=== PATIENT | male | born 1995 | race African-American/Black ===

== ENCOUNTER 2019-03-08 02:38 | Inpatient (IN) | payer OTHER ==
[2019-03-08] VITALS (19 sets, daily range): BP systolic 94–107; BP diastolic 53–78; PULSE 81–118; RESP 16–34; Ht 172.7 cm; Wt 67.4 kg
[~2019-03-08] VITALS: Ht 172.7 cm; Wt 67.4 kg
[2019-03-08] MEDS ORDERED: SODIUM CHLORIDE 0.9% 1L BAG IV* STA (02:59)
[2019-03-08] MEDS ORDERED: CEFEPIME 1GM/50 ML (PMX) 50 ML IVPB ONE (03:00)
[2019-03-08] MEDS ORDERED: ACETAMINOPHEN 650 MG SUPP PR ONE (03:00)
[2019-03-08] MEDS ORDERED: SOD CHLORIDE 0.9% 1,000 ML IV STA (03:45)
[2019-03-08] MEDS ORDERED: LACTATED RINGER'S 1,000 ML IV STA (03:45)
--- NOTE | 2019-03-08 03:46 | ERD ---
ER Documentation Chief Complaint Chief Complaint [id number],from [facility] [place],O2 sat on ventilator 88% HPI This is a 23-year-old man chronic mechanical ventilator dependent via tracheostomy brought in by EMS from [facility] facility for hypoxia and fever. Symptoms began today, he has had no vomiting, but has had diarrhea with multiple loose stools today. HPI limited as patient is nonverbal but supplemented by reviewing snf records and speaking to EMS. ROS All systems reviewed and are negative except as per history of present illness. 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) Smoking Status: Unknown if ever smoked FmHx Family History: No diabetes Physical Exam Vitals Vital Signs Date Temp Pulse Resp B/P (MAP) Pulse Ox O2 O2 Flow FiO2 Time Delivery Rate 03/08/19 100.4 144 27 104/75 95 02:52 (85) 03/08/19 89 18 96 100 02:51 Physical Exam Const: Well-developed well-nourished young man on mechanical ventilator, febrile HEENT: Tracheostomy tube is present, pink conjunctive a, no cervical spine deformity Resp: Absent lung sounds on the right, left lung sounds clear Cardio: Tachycardic and regular Skin: Left foot is wrapped with gauze, no obvious hematomas ulcers or lacerations present. Sacral/buttock skin exam was deferred Ext: No cyanosis, or edema, calves symmetrical with bilateral lower extremity contractures Neur: Eyes open, patient nonverbal, muscle wasting diffusely with upper and lower extremity contractures Result Diagram: 03/08/1931003/08/19 0311 Results 24 hrs Laboratory Tests Test 03/08/19 03:11 03/08/19 03:14 White Blood Count 15.2 10^3/ul Red Blood Count 3.92 10^6/ul Hemoglobin 11.6 g/dl Hematocrit 36.2 % Mean Corpuscular Volume 92.3 fl Mean Corpuscular Hemoglobin 29.6 pg Mean Corpuscular Hemoglobin Concent 32.0 g/dl Red Cell Distribution Width 15.5 % Platelet Count 429 10^3/UL Mean Platelet Volume 10.2 fl Immature Granulocytes % 0.800 % Neutrophils % 70.7 % Lymphocytes % 16.3 % Monocytes % 10.2 % Eosinophils % 1.1 % Basophils % 0.9 % Nucleated Red Blood Cells % 0.0 /100WBC Immature Granulocytes # 0.120 10^3/ul Neutrophils # 10.7 10^3/ul Lymphocytes # 2.5 10^3/ul Monocytes # 1.6 10^3/ul Eosinophils # 0.2 10^3/ul Basophils # 0.1 10^3/ul Nucleated Red Blood Cells # 0.0 10^3/ul Sodium Level 140 mmol/L Potassium Level 4.8 mmol/L Chloride Level 103 mmol/L Carbon Dioxide Level 26 mmol/L Anion Gap 11 Blood Urea Nitrogen 20 mg/dl Creatinine 0.74 mg/dl Est Glomerular Filtrat Rate mL/min > 60 mL/min Glucose Level 126 mg/dl Calcium Level 9.1 mg/dl Total Bilirubin 0.3 mg/dl Direct Bilirubin 0.00 mg/dl Indirect Bilirubin 0.3 mg/dl Aspartate Amino Transf (AST/SGOT) 34 IU/L Alanine Aminotransferase (ALT/SGPT) 35 IU/L Alkaline Phosphatase 101 IU/L Troponin I < 0.012 ng/ml C-Reactive Protein 2.9 mg/dl Total Protein 10.0 g/dl Albumin 4.1 g/dl Globulin 5.90 g/dl Albumin/Globulin Ratio 0.69 Lipase 16 U/L POC Venous Lactate 2.4 mmol/L Current Medications Medications Dose Sig/Elin Start Time Status Last (Trade) Ordered Route PRN Stop Time Admin Dose Reason Admin Sodium 2,020 ml BOLUS OVER 2 03/08/19 DC 03/08/19 Chloride HOURS STAT 02:59 03/08/19 03:12 (NS) IV* 03:01 Cefepime HCl 50 ml @ ONCE ONCE 03/08/19 DC 03/08/19 100 mls/hr IVPB 03:00 03/08/19 03:20 03:29 650 mg ONCE ONCE 03/08/19 DC 03/08/19 Acetaminophen CO 03:00 03/08/19 03:20 (Tylenol 03:01 Supp) Azithromycin 250 ml @ ONCE ONCE 03/08/19 250 mls/hr IVPB 04:00 03/08/19 04:59 Sodium 1,000 ml @ Q1H STAT 03/08/19 Chloride 1,000 mls/hr IV 03:45 03/08/19 04:44 Lactated 1,000 ml @ Q1H STAT 03/08/19 Ringer's 1,000 mls/hr IV 03:45 03/08/19 04:44 Sodium 1,000 ml @ [id number] IV 03/08/19 UNV Chloride 60 mls/hr 04:10 IV Flush 3 ml PER 03/08/19 UNV (NS 3 ml) PROTOCOL IV 04:30 Ondansetron 4 mg Q6H PRN 03/08/19 UNV HCl (Zofran IV 04:30 Inj) NAUSEA/VOMITI NG 650 mg Q6H PRN 03/08/19 UNV Acetaminophen CO .PAIN 1-3 04:30 (Tylenol OR TEMP Supp) Famotidine 20 mg Q12 IV 03/08/19 UNV (Pepcid Iv) 09:00 Enoxaparin 40 mg DAILY SC 03/08/19 UNV Sodium 09:00 (Lovenox) Procedures/MDM IV line was established patient was placed on roll hauler rhythm strip revealed a narrow complex tachycardia at 140 bpm with upright P and T waves. Patient was febrile, blood and urine cultures have been ordered results are pending I will follow-up. EKG performed, read by me revealed a sinus tachycardia at 142 bpm, normal axis, narrow QRS complex, no concerning ST elevations or depressions noted 1 view chest x-ray performed, read by me revealed right lung white out consistent with infiltrate and effusion, no pneumothorax, no air under the diaphragm I administered acetaminophen per rectum for fever, 2 L normal saline IV, cefepime 1 g IV, azithromycin 500 mg IV. CBC reveals a leukocytosis of 15, electrolytes revealed dehydration with a BUN/creatinine of 20/0.7, liver function tests are normal, troponin negative, lactic acid elevated at 2.4, C-reactive protein elevated at 2.9. Urinalysis is pending I will follow-up Patient's infectious symptoms have not stabilized and the patient is at risk of rapid decompensation. The patient will be admitted for careful hydration, antibiotic therapy, and infectious source control. SEVERE SEPSIS CRITERIA: Infectious source: Pneumonia End organ damage indicated by: No SEPSIS MANAGEMENT Time of recognition of sepsis: Upon arrival. Time of recognition of severe sepsis: No severe sepsis at this time. Time of recognition of septic shock: No septic shock at this time. 3 HOUR BUNDLE Blood cultures x 2 before broad-spectrum antibiotics: Yes 30 ml/kg NS bolus completed Initial lactate 2.4 Repeat lactate pending SEPTIC SHOCK ASSESSMENT: No lactic acid > 4.0 No persistent hypotension (SBP < 90 or 40 mmHg drop, MAP < 65) despite 30 mL/kg IV fluid bolus VOLUME REASSESSMENT FOR SEPTIC SHOCK: Reevaluation Time: 3:40 AM Temp 99 F, pulse 120 bpm, BP 120/80, respiratory rate 30 breaths/min, oxygen saturation 98% Heart tachycardic and regular Lungs diminished breath sounds on the right Skin hot and dry to touch Cap Refill less than 2 seconds Peripheral pulses radially present PERSISTENT HYPOTENSION TREATMENT: Comfort care no Central line not Required Vasopressor started not required I considered further perfusion assessment with CVP measurement, SCVO2, bedside ultrasound volume assessment, passive leg raise, trial of further fluid bolus. And proceeded with 30 ml/kg fluid bolus of NSS, broad spectrum antibiotics, and admission. CRITICAL CARE: Critical care time 35 minutes, this was time separate from other billable procedures. Emergent fluid management while maintaining close respiratory support. Provision of immediate and broad-spectrum antibiotic therapy. Simultaneous assessment for possible sources in order to direct targeted therapy. Consideration for invasive and chemical support to prevent cardiopulmonary collapse. Critical care time is independent of procedures performed. Accepting Care Team: Current data and ongoing care discussed. Time: Time of admission Primary Provider: Hospitalist Consulting: Infectious disease and pulmonology Outstanding Data: none Departure Diagnosis: Primary Impression: Infectious colitis Additional Impressions: Healthcare-associated pneumonia Acute encephalopathy Acute dehydration Chronic respiratory failure requiring continuous mechanical ventilation through tracheostomy Acute UTI Sepsis Sepsis type: sepsis due to unspecified organism Qualified Codes: A41.9 - Sepsis, unspecified organism Condition: Serious LAKHWINDER ESTRELLA MD Mar 08, 2019 03:46
[2019-03-08] MEDS ORDERED: AZITHROMYCIN 500MG/NS (PMX) 250 ML IVPB ONE (04:00)
[2019-03-08] MEDS ORDERED: SOD CHLORIDE 0.9% 1,000 ML IV SCH (04:10)
[2019-03-08] MEDS ORDERED: ONDANSETRON 4 MG INJ IV PRN (04:30)
[2019-03-08] MEDS ORDERED: NACL 0.9% 3 ML SYG IV SCH (04:30)
[2019-03-08] MEDS: FAMOTIDINE 20 MG INJ IV SCH ×2 (08:40→21:27)
[2019-03-08] MEDS: ENOXAPARIN 40 MG/0.4 ML SYG SC SCH (08:40)
[2019-03-08] MEDS ORDERED: VANCOMYCIN IV PER PHARMACY XX SCH (13:00)
[2019-03-08] MEDS: ALBUTEROL/IPRATROPIUM (NEB) 3 ML AMP HHN SCH ×3 (13:00→19:27)
[2019-03-08] MEDS ORDERED: IPRATROPIUM (NEB) 0.5 MG/2.5 ML AMP NEB PRN (13:00)
[2019-03-08] MEDS ORDERED: NACL 3% FOR INHALATION 15 ML NEBU NEB ONE (13:00)
--- NOTE | 2019-03-08 13:15 | HP ---
Date/Time of Note Date/Time of Note DATE: 03/08/19 TIME: 12:45 Assessment/Plan VTE Prophylaxis SCD applied (from Nsg): Yes Pharmacological prophylaxis: LMWH Lines/Catheters IV Catheter Type (from Nrsg): Saline Lock Urinary Cath still in place: Yes Reason Cath still needed: other (indicate) Assessment/Plan Hospital Course SUBJECTIVE: Trach/vent OBJECTIVE: Vital signs-see below PHYSICAL EXAM: Constitutional: Chronically ill looking/frail looking AA M in moderate respiratory distress HEENT: Head atraumatic. Eyes: Extraocular muscles intact. Anicteric sclerae. Pupils equal bilaterally, reactive to light. NECK: Supple without lymph node. CHEST: Rhonchi/Coarse sounds bilaterally HEART: S1, S2. Regular rate and rhythm. ABDOMEN: Soft/non tender with no rebound tenderness. Bowel sounds were present. EXTREMITIES: Contracted extremities. No edema. NEUROLOGIC: Trach/vent. Nonverbal. PSYCHOSOCIAL: Unable to assess INTEGUMENTARY:Decubs. Lt Lower extremity wrapped in dressing. 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 Sepsis -Source: Pneumonia plus or minus UTI/Colitis/infected decubs -Empiric Zosyn plus vancomycin -coto culture Acute on chronic Vent dependent respiratory failure -[id number] bronchodilators, pulmonary toileting -Vent management per pulmonary Healthcare/vent associated pneumonia plus or minus aspiration -IV Zosyn/Flagyl plus vancomycin -Pulmonary consult- Consider bronch?? -Chest CT -sputum cs -Aspiration precaution/HOB 35 degree and above Possible UTI -Antimicrobials, urine cultures Diarrhea, rule out infectious colitis vs meds-induced(note pt takes multiple laxatives at ) -Abdominal CT -Stool studies -Empiric Flagyl Dehydration -fluids Chronic anoxic encephalopathy -supportive care Hypertension -currently hypotensive 2/2 sepsis. Hold off to antihypertensives. 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 Continue monitoring patient Chronic decub ulcer/L foot metatarsal wounds -Wound care ordered -Wound care consult DVT prophylaxis: Lovenox PUD prophylaxis: Pepcid Patient would need ICU for monitoring respiratory status closely. Patient is in severe sepsis. His overall prognosis is guarded. Approximately 60-minute was spent on this history and physical. Patient was seen in collaboration with Result Diagram: 03/08/19 0311 03/08/19 0311 Results 24hrs Laboratory Tests Test 03/08/19 03:11 03/08/19 03:14 03/08/19 04:08 03/08/19 04:40 White Blood Count 15.2 H Red Blood Count 3.92 L Hemoglobin 11.6 L Hematocrit 36.2 L Mean Corpuscular 92.3 Volume Mean Corpuscular 29.6 Hemoglobin Mean Corpuscular 32.0 Hemoglobin Concent Red Cell 15.5 H Distribution Width Platelet Count 429 H Mean Platelet 10.2 Volume Immature 0.800 H Granulocytes % Neutrophils % 70.7 Lymphocytes % 16.3 Monocytes % 10.2 Eosinophils % 1.1 Basophils % 0.9 Nucleated Red 0.0 Blood Cells % Immature 0.120 H Granulocytes # Neutrophils # 10.7 H Lymphocytes # 2.5 Monocytes # 1.6 H Eosinophils # 0.2 Basophils # 0.1 Nucleated Red 0.0 Blood Cells # Sodium Level 140 Potassium Level 4.8 Chloride Level 103 Carbon Dioxide 26 Level Anion Gap 11 Blood Urea 20 Nitrogen Creatinine 0.74 Est Glomerular > 60 Filtrat Rate mL/min Glucose Level 126 Calcium Level 9.1 Total Bilirubin 0.3 Direct Bilirubin 0.00 Indirect Bilirubin 0.3 Aspartate Amino 34 Transf (AST/SGOT) Alanine 35 Aminotransferase ( ALT/SGPT) Alkaline 101 Phosphatase Troponin I < 0.012 C-Reactive Protein 2.9 H Total Protein 10.0 H Albumin 4.1 Globulin 5.90 H Albumin/Globulin 0.69 Ratio Lipase 16 L POC Venous Lactate 2.4 *H Blood Gas Specimen Blood arterial Source Arterial Blood 03/08/2019 5:15:28 Date Drawn AM Arterial Blood pH 7.388 (Temp corrected) Arterial Blood 37.5 pCO2 (Temp correct) Arterial Blood pO2 116.9 H (Temp corrected) Arterial Blood 22.1 HCO3 Arterial Blood -2.6 Base Excess Arterial Blood 97.9 Oxygen Saturation Christopher Test N/A Arterial Blood Gas Right Brachial Puncture Site Arterial 0.3 Blood Carboxyhemog lobin Arterial Blood 0.3 Methemoglobin Blood Gas A-a O2 558.6 H Differential Oxyhemoglobin 97.3 Percent Blood Gas 37.0 Temperature Blood Gas 16.0 Respiration Rate Blood Gas Actual 16 Respiration Rate Blood Gas Modality VENT - AC FiO2 100.0 Blood Gas Tidal 500.0 Volume Blood Gas Low PEEP 5.0 Setting Blood Gas 33.0 Inspiratory Pressure Blood Gas Notified MG Whom Blood Gas Notified 03/08/2019 5:20:07 Time AM Prothrombin Time 16.2 H Prothrombin Time 1.3 Ratio INR International 1.29 Normalized Ratio Activated 33.[address] Time Test 03/08/19 05:24 03/08/19 05:34 03/08/19 08:36 Urine Color YELLOW Urine Clarity CLOUDY A Urine pH 6.0 Urine Specific 1.023 [place] Urine Ketones NEGATIVE Urine Nitrite NEGATIVE Urine Bilirubin NEGATIVE Urine Urobilinogen NEGATIVE Urine Leukocyte 3+ H Esterase Urine Microscopic 22 H RBC Urine Microscopic > 182 H WBC Urine Bacteria FEW A Urine Mucus FEW A Urine Hemoglobin NEGATIVE Urine Glucose NEGATIVE Urine Total NEGATIVE Protein Lactic Acid Level 1.9 1.4 HPI/ROS Admit Date/Time Admit Date/Time Mar 08, 2019 at 04:09 Hx of Present Illness This is a very unfortunate AA 23-year-old male with a history of ICH, AVM hydrocephalus, epilepsy, encephalopathy, hypertension, chronic respiratory failure, status post trach and PEG, was transferred from intermediate facility with worsening respiratory status and fevers. Patient was desaturated in the skilled nursing. He also had multiple episodes of diarrhea. Patient did not have any vomiting reported. In the emergency room, patient was noted with a white count of 15,200, lactic acid 2.4 with chest x-ray shows right-sided pneumonia with possible pleural effusion. Patient's UA also showed 3+ leukocyte esterase, bacteria and pus. Patient was given broad-spectrum antimicrobials in the emergency room with cultures drawn. Patient's vital signs also showed temperature 100.4, pulse rate 144, respiratory rate 27, oxygen saturation 96% on 100% FiO2. ROS Pt is nonverbal and altered.ROS is incomplete. Patient is in moderate respiratory distress. PMH/Family/Social Past Medical History See HPI Medications Current Medications Sodium Chloride 1,000 ml @ 60 mls/hr [id number] IV Last administered on 03/08/19at 06:59; Admin Dose 60 MLS/HR; Start 03/08/19 at 04:10 IV Flush (NS 3 ml) 3 ml PER PROTOCOL IV ; Start 03/08/19 at 04:30 Ondansetron HCl (Zofran Inj) 4 mg Q6H PRN IV NAUSEA/VOMITING; Start 03/08/19 at 04:30 Acetaminophen (Tylenol Supp) 650 mg Q6H PRN [place] .PAIN 1-3 OR TEMP; Start 03/08/19 at 04:30 Famotidine (Pepcid Iv) 20 mg Q12 IV Last administered on 03/08/19at 08:40; Admin Dose 20 MG; Start 03/08/19 at 09:00 Enoxaparin Sodium (Lovenox) 40 mg DAILY SC Last administered on 03/08/19at 08:40; Admin Dose 40 MG; Start 03/08/19 at 09:00 Piperacillin Sod/ Tazobactam Sod 100 ml @ 200 mls/hr Q6 IVPB ; Start 03/08/19 at 13:00; Status UNV Vancomycin HCl (Vanco Iv Per Pharmacy) VANCOMYCIN PER PHARMACY PER PROTOCOL XX ; Start 03/08/19 at 13:00; Status UNV Sodium Chloride (Nacl 3% For Inhalation) 5 ml ONCE ONCE NEB ; Start 03/08/19 at 13:00; Stop 03/08/19 at 13:01; Status UNV Albuterol/ Ipratropium (Duoneb) 3 ml Q4H RESP THERAPY HHN ; Start 03/08/19 at 13:00; Status UNV Albuterol (Proventil 0.083% (Neb)) 1.25 mg Q2H RESP THERAPY PRN HHN sob/wheezing; Start 03/08/19 at 13:00; Status UNV Coded Allergies: No Known Allergy (Unverified , 03/08/19) Past Surgical History See HPI Social History Unknown Smoking Status: Unknown if ever smoked Exam/Review of Systems Vital Signs Vitals Vital Signs Date Temp Pulse Resp B/P (MAP) Pulse Ox O2 O2 Flow FiO2 Time Delivery Rate 03/08/19 93 85 11:02 03/08/19 99 20 10:55 03/08/19 99.1 105/68 Mechanical 10:15 (80) Ventilator TE TURNER NP Mar 08, 2019 12:59
[2019-03-08] MEDS: DEXTROSE 5%-0.225% NACL 1,000 ML IV SCH ×2 (13:30→21:27)
[2019-03-08] MEDS ORDERED: SOD CHLORIDE 0.9% 1,000 ML IV ONE (13:30)
[2019-03-08] MEDS: metroNIDAZOLE 500 MG TAB GTB SCH ×2 (14:26→21:26)
[2019-03-08] MEDS ORDERED: VANCOMYCIN HCL 1.25 GM in SOD CHLORIDE 0.9% 250 ML IVPB SCH (14:30)
[2019-03-08] MEDS: PIPER-TAZO 3.375 GM IV (PMX) 100 ML IVPB SCH ×3 (14:36→23:32)
[2019-03-08] MEDS ORDERED: LORAZEPAM 2 MG INJ ONE (15:22)
[2019-03-08] MEDS ORDERED: LIDOCAINE 1% (MPF) 5 ML VIAL SC ONE ×2 (16:00→17:30)
[2019-03-08] MEDS ORDERED: LORAZEPAM 2 MG INJ IV ONE ×2 (16:00)
--- NOTE | 2019-03-08 16:48 | QN ---
Documentation Comment Attempted to contact [facility], no response on all numbers. Patient needs emergent thoracentesis for large pleural effusion with significant hypoxemia. Thoracentesis needs to be performed urgently. Also anticipate dropping BP therefore patient will also need central iv access. PICC lines requested. NELL GUSTAFSON MD, [facility] Mar 08, 2019 16:48
[2019-03-08] MEDS: ARTIFICIAL TEARS 15 ML OPH BOTH EYES SCH ×2 (17:00→21:26)
[2019-03-08] MEDS: MIDAZOLAM (DRIP) 50 mg/50 mL 50 ML IV SCH (17:19)
[2019-03-08] MEDS: ACETYLCYSTEINE 20% 4 ML VIAL NEB SCH ×2 (17:25→19:27)
--- NOTE | 2019-03-08 17:45 | CONS ---
DATE OF ADMISSION: 03/08/2019 DATE OF CONSULTATION: TYPE OF CONSULTATION: Pulmonary. REASON FOR CONSULTATION: Ventilator management and shortness of breath. Thank you, Dr. Ramirez, for this consultation. HISTORY OF PRESENT ILLNESS: This is an unfortunate 23-year-old gentleman with history of vent-depend ent respiratory failure secondary to intracranial hemorrhage secondary to AVMs, subsequent epilepsy, chronic encephalopathy, essential hypertension, dysphagia with G-tube, comes in with increasing short ness of breath, orthopnea, PND, found to have opacification of right hemithorax on initial chest x-ra y with leukocytosis on examination. PAST MEDICAL HISTORY: As above includes vent-dependent respiratory failure, history of AVMs with int racerebral hemorrhage, chronic encephalopathy. MEDICATIONS: Per chart. ALLERGIES: NONE. SOCIAL HISTORY: He is a nonsmoker, no alcohol, no history of drug use. FAMILY HISTORY: Noncontributory. SYSTEMS REVIEW: A 12-point review of systems was unable to perform. PHYSICAL EXAMINATION: GENERAL: Chronically ill appearing young gentleman on mechanical ventilation via tracheostomy. VITAL SIGNS: Currently afebrile, pulse is 98, blood pressure 94/75, O2 saturation 96%, FiO2 of 85%. NECK: Trach site is clean and intact. CARDIAC: S1, S2. No added sounds or murmurs. CHEST: Diminished air entry bilaterally. ABDOMEN: Soft, nontender. No guarding. No rebound. EXTREMITIES: No cyanosis, clubbing or edema. NEUROLOGIC: Unable to assess. The patient has contractures. LABORATORY DATA: White count 15.2, hemoglobin 11.6, platelets of 429. BUN 20, creatinine 0.74. INR 1.29. DIAGNOSTIC DATA: Chest x-ray shows incomplete opacification of right hemithorax. IMPRESSION AND PLAN: 1. Acute on chronic hypoxemic respiratory failure likely secondary to combination of mucous plugging with possible underlying pleural effusion. 2. Possible acute on chronic seizures. 3. Severe sepsis. 4. Vent dependent respiratory failure. 5. 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 6. Dysphagia with G-tube. PLAN: 1. Continue mechanical ventilation. 2. Thoracentesis for right pleural effusion, although on preliminary CT report it appears complicate d and possibly loculated. 3. Continue broad-spectrum antibiotic coverage. 4. Possible bronchoscopy if thoracentesis does not remove pleural effusion. Dictated By: NELL GUSTAFSON MD SV/NTS Conf#: [id number] DID#: [id number] CC: YANN RAMIREZ MD; PITO WEINER MD;*End*
--- NOTE | 2019-03-08 18:05 | CONS ---
DATE OF ADMISSION: 03/08/2019 DATE OF CONSULTATION: 03/08/2019 TYPE OF CONSULTATION: Infectious consult. REASON FOR CONSULTATION: Antibiotic management. HISTORY OF PRESENT ILLNESS: German Espino is a 23-year-old male who was brought in from [facility] with shortness of breath. He is a 23-year-old male with chronic mechanical ventilator-depend ent respiratory failure, status post tracheostomy, brought in by EMS from a halfway facility for hypoxemia and fever. The patient has had diarrhea with multiple loose stools today. There is no nausea or vomiting. The patient is nonverbal. His problems include: 1. Respiratory failure and trach dependent. 2. Dysphagia, status post gastrostomy placement. 3. Epilepsy. 4. Intracranial ICH secondary to hydrocephalus. 5. Hypertension. 6. Multiple decubiti. 7. 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 PAST MEDICAL HISTORY: As outlined. FAMILY HISTORY: Noncontributory. SOCIAL HISTORY: There is no history of smoking, drinking or abuse of drugs. ALLERGIES: NONE TO PENICILLIN, SULFA OR FOODS. MEDICATIONS: Per chart. REVIEW OF SYSTEMS: As per HPI. PHYSICAL EXAMINATION: GENERAL: The patient is an unfortunate, chronically ill-appearing male on mechanical ventilator. VITAL SIGNS: T-max of 100.4. SKIN: Left foot is wrapped with gauze. He has no icterus or rash. HEENT: Within normal limits. Tracheostomy in place. NECK: Supple. LYMPH NODES: None palpable. CHEST: Decreased breath sounds at the bases. HEART: Regular rhythm, tachycardic. ABDOMEN: Soft, nontender, without organosplenomegaly or masses. EXTREMITIES: Without cyanosis, clubbing, or edema. He has bilateral lower extremity contractures. RECTAL AND GENITAL: Deferred. NEUROLOGIC: The patient is nonverbal. He has muscle wasting diffusely and upper and lower extremiti es contractures. ANCILLARY LABORATORY DATA: On admission, his white count is 15.2, H and H 11.6 and 36.2, platelet co unt 429,000. BUN and creatinine 20/0.74, glucose of 126. IMPRESSION AND PLAN: The patient was started on cefepime and azithromycin. The feeling was that he had severe sepsis, pneumonia. His white count as noted was 15.2, H and H 11.63 and 36.2, platelet co unt 429,000. BUN and creatinine 20/0.74. Random glucose 126. He had 71% neutrophils. He did not h ave septic shock. His lactic acid was not greater than 4. The patient was thought to have infectiou s colitis, healthcare-associated pneumonia, acute encephalopathy, acute dehydration, chronic respirat ory failure with trach to vent. He has a new near complete opacification of the right hemithorax, wh ich is likely due to a combination of now large pleural effusion with underlying airspace disease whi ch may be due to atelectasis or infiltrate. He has a small left pleural effusion. As noted, the pat ient is chronically ill. His antibiotics at this point are vancomycin, metronidazole and Zosyn. Cef epime and azithromycin were stopped. He is getting metronidazole possibly because of his possible C. difficile. He has blood cultures ordered, C. difficile ordered, fecal cultures ordered, influenza A and B, MRSA, respiratory cultures and urine cultures. So he is appropriately cultured. We will con tinue him on current therapy. I will dictate my findings to the hospitalist. Dictated By: PITO WEINER MD, JD/PATRICA Conf#: [id number] DID#: [id number] CC: YANN PAGAN MD;*EndCC*
--- NOTE | 2019-03-08 18:18 | RADRPT ---
Echocardiogram Report Patient Name: LEWIS WHITEPatient ID: [id number] : 1995 (23y 11m)Study Date: 03/08/2019 2:17:55 PM Gender: Collincession #: [id number] Tech: Devan Stinson [facility] Location: 529-A Ref.Physician: TE TURNER Height(Cm): BSA: Weight(Kg): Quality: AdequateOrder Physician: TE TURNER Account #: Procedures: Echocardiographic Report: Transthoracic echocardiogram with complete 2D, M-Mode, and doppler examination. Indications: Shortness of breath. Measurements: 2D/M Mode Doppler Measurement Value Normal Range Measurement Value Normal Range LVIDd 2D 4.1 [ 4.2 - 5.8 ] cm AV Peak Valeriano 1.1 [ 100.0 - 170.0 ] cm/sec LVIDs 2D 2.3 [ 2.5 - 4.0 ] cm AV Peak PG 5.0 [ 2.0 - 9.0 ] mmHg LVPWd 2D 1.2 [ 0.6 - 1.0 ] cm LVOT Peak Valeriano 0.8 [ 70.0 - 110.0 ] cm/sec IVSd 2D 1.4 [ 0.6 - 1.0 ] cm LVOT Peak PG 3.0 [ 2.0 - 6.0 ] mmHg AoR Diam 2D 3.6 [ 2.6 - 3.4 ] cm MV E Peak Valeriano 0.8 [ 60.0 - 130.0 ] cm/sec EDV 2D 72.1 [ 62.0 - 150.0 ] ml MV A Peak Valeriano 0.6 [ 100.0 - 120.0 ] cm/sec ESV 2D 19.1 [ 21.0 - 61.0 ] ml MV E/A 1.5 [ 0.8 - 1.5 ] ratio EF 2D 73.5 [ 52.0 - 72.0 ] percent MV Decel Time 187 [ 104 - 258 ] msec LA Dimen 2D 3.0 [ 3.0 - 4.0 ] cm Lat E` Valeriano 0.1 [ 10.0 - 15.0 ] cm/sec Lateral E/E` 9.6 [ 1.0 - 2.0 ] ratio Med E` Valeriano 0.1 cm/sec MV E/A 1.5 [ 0.8 - 1.5 ] ratio TR Peak Valeriano 3.0 [ 100.0 - 280.0 ] cm/sec TR Peak PG 37.0 mmHg RVSP 47.0 [ 10.0 - 36.0 ] mmHg Findings: Left Ventricle: Normal left ventricular systolic function. Normal left ventricular cavity size. Moderate asymmetric septal hypertrophy. Ejection fraction is visually estimated at 55 %. Right Ventricle: Normal right ventricular size. Normal right ventricular systolic function. Left Atrium: The left atrium is normal in size. Right Atrium: The right atrium is normal in size. Mitral Valve: Mild mitral leaflet calcification. Mild mitral annular calcification. Trace mitral regurgitation. Aortic Valve: No significant aortic stenosis or insufficiency. Aortic cusps appear mildly calcified. Tricuspid Valve: Normal appearance of the tricuspid valve. The estimated Peak RVSP is 47 mmHg. There is mild tricuspid regurgitation. Pericardium: Normal pericardium with no significant pericardial effusion. Aorta: Normal aortic root. IVC: Inferior vena cava without respiratory collapse, however, patient on ventilator. Conclusions: Normal left ventricular systolic function. Normal left ventricular cavity size. Moderate asymmetric septal hypertrophy. Ejection fraction is visually estimated at 55 %. Mild mitral leaflet calcification. Mild mitral annular calcification. Trace mitral regurgitation. No significant aortic stenosis or insufficiency. Aortic cusps appear mildly calcified. Normal appearance of the tricuspid valve. The estimated Peak RVSP is 47 mmHg. There is mild tricuspid regurgitation. Electronically Signed By: Gerardo Cam 2019-03-08 18:16:45 PDT
[2019-03-08] MEDS: ALBUTEROL 0.083% (NEB) 2.5 MG/3 ML AMP HHN PRN (19:27)
--- NOTE | 2019-03-08 20:42 | CONSI ---
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 Noted to have breakthrough seizures, for which neurology is consulted.. 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 The patient is noted to have a GI ileus..which is a likely contributor to recent enteral medication malabsorption. UA + .... a additional contributor... to a lowered seizure threshold.. Depakote level is subtherapeutic.. P: Head CT when able Load w/ Depacon 1g, then resume 500mg q12 iv for now Load Keppra 1.5g, then resume 1g q12 iv for now Ativan 2mg iv prn prolonged seizure (> 5 min) (as hemodynamics allow) To consider Propofol infusion if the above is ineffective.. Other management and supportive care per primary Will follow Consultation Date/Type/Reason Admit Date/Time Mar 08, 2019 at 04:09 Type of Consult Neurology Reason for Consultation seizure Requesting Provider: TE TURNER NP Date/Time of Note DATE: 03/08/19 TIME: 20:41 Hx of Present Illness Patient is unable to contribute a Hx: It is elsewhere noted: This is a very unfortunate 23-year-old male with a history of ICH, AVM hydrocephalus, epilepsy, encephalopathy, hypertension, chronic respiratory failure, status post trach and PEG, [facility] with worsening respiratory status and fevers. Patient was desaturated in the intermediate. He also had multiple episodes of diarrhea. Patient did not have any vomiting reported. In the emergency room, patient was noted with a white count of 15,200, lactic acid 2.4 with chest x-ray shows right-sided pneumonia with possible pleural eff usion. Patient's UA also showed 3+ leukocyte esterase, bacteria and pus. Patient was given broad-spectrum antimicrobials in the emergency room with cultures drawn. Patient's vital signs also showed temperature 100.4, pulse rate 144, respiratory rate 27, oxygen saturation 96% on 100% FiO2. Subjective hx not possible: pt non-verbal, pt critical Objective Exam Vitals Vital Signs Date Temp Pulse Resp B/P (MAP) Pulse Ox O2 O2 Flow FiO2 Time Delivery Rate 03/08/19 112 24 95/69 (78) 97 Mechanical 20:00 Ventilator 03/08/19 85 19:23 03/08/19 98.5 19:00 Exam PE: Gen Appearance: No Apparent Distress HEENT: Trach Cardiovascular: Regular rate Abdomen: Soft Extremities: Dry NE: The patient was comatose.. Rhythmic twitching of face. Cranial nerve examination was limited by mental status. Pupils were equal and reactive to light. There was no afferent pupillary defect. Funduscopic examination was limited. Face was grossly symmetric, w/ present corneal and cough reflexes. Tone was normal. Muscle bulk was normal. I did not see fasciculations. The patient withdrew to noxious stimulation x 4. Coordination and gait testing was limited by mental status. Arm and leg reflexes were symmetric. Fields's sign was absent. Plantar responses were flexor. Results Result Diagram: 03/08/19 0311 03/08/19 0311 Results 24hrs Laboratory Tests Test 03/08/19 03:11 03/08/19 03:14 03/08/19 04:08 03/08/19 04:40 White Blood 15.2 H Count Red Blood Count 3.92 L Hemoglobin 11.6 L Hematocrit 36.2 L Mean Corpuscular 92.3 Volume Mean Corpuscular 29.6 Hemoglobin Mean Corpuscular 32.0 Hemoglobin Monique nt Red Cell 15.5 H Distribution Width Platelet Count 429 H Mean Platelet 10.2 Volume Immature 0.800 H Granulocytes % Neutrophils % 70.7 Lymphocytes % 16.3 Monocytes % 10.2 Eosinophils % 1.1 Basophils % 0.9 Nucleated Red 0.0 Blood Cells % Immature 0.120 H Granulocytes # Neutrophils # 10.7 H Lymphocytes # 2.5 Monocytes # 1.6 H Eosinophils # 0.2 Basophils # 0.1 Nucleated Red 0.0 Blood Cells # Sodium Level 140 Potassium Level 4.8 Chloride Level 103 Carbon Dioxide 26 Level Anion Gap 11 Blood Urea 20 Nitrogen Creatinine 0.74 Est Glomerular > 60 Filtrat Rate mL/min Glucose Level 126 Calcium Level 9.1 Total Bilirubin 0.3 Direct Bilirubin 0.00 Indirect 0.3 Bilirubin Aspartate Amino 34 Transf (AST/SGOT ) Alanine 35 Aminotransferase (ALT/SGPT) Alkaline 101 Phosphatase Troponin I < 0.012 C-Reactive 2.9 H Protein Total Protein 10.0 H Albumin 4.1 Globulin 5.90 H Albumin/Globulin 0.69 Ratio Lipase 16 L POC Venous 2.4 *H Lactate Blood Gas Blood arterial Specimen Source Arterial Blood 03/08/2019 5:15:28 Date Drawn AM Arterial Blood 7.388 pH (Temp corrected) Arterial Blood 37.5 pCO2 (Temp correct) Arterial Blood 116.9 H pO2 (Temp corrected) Arterial Blood 22.1 HCO3 Arterial Blood -2.6 Base Excess Arterial Blood 97.9 Oxygen Saturatio n Christopher Test N/A Arterial Blood Right Brachial Gas Puncture Site Arterial 0.3 Blood Carboxyhem oglobin Arterial Blood 0.3 Methemoglobin Blood Gas A-a O2 558.6 H Differential Oxyhemoglobin 97.3 Percent Blood Gas 37.0 Temperature Blood Gas 16.0 Respiration Rate Blood Gas Actual 16 Respiration Rate Blood Gas VENT - AC Modality FiO2 100.0 Blood Gas Tidal 500.0 Volume Blood Gas Low 5.0 PEEP Setting Blood Gas 33.0 Inspiratory Pressure Blood Gas MG Notified Whom Blood Gas 03/08/2019 5:20:07 Notified Time AM Prothrombin Time 16.2 H Prothrombin Time 1.3 Ratio INR 1.29 International Normalized Ratio Activated 33.9 Partial Thrombop last Time Test 03/08/19 05:24 03/08/19 05:34 03/08/19 08:36 03/08/19 16:15 Urine Color YELLOW Urine Clarity CLOUDY A Urine pH 6.0 Urine Specific 1.023 [place] Urine Ketones NEGATIVE Urine Nitrite NEGATIVE Urine Bilirubin NEGATIVE Urine NEGATIVE Urobilinogen Urine Leukocyte 3+ H Esterase Urine 22 H Microscopic RBC Urine > 182 H Microscopic WBC Urine Bacteria FEW A Urine Mucus FEW A Urine Hemoglobin NEGATIVE Urine Glucose NEGATIVE Urine Total NEGATIVE Protein Lactic Acid 1.9 1.4 Level Blood Gas Blood arterial Specimen Source Arterial Blood 03/08/2019 4:15:16 Date Drawn PM Arterial Blood 7.466 H pH (Temp corrected) Arterial Blood 33.3 L pCO2 (Temp correct) Arterial Blood 60.0 L pO2 (Temp corrected) Arterial Blood 23.5 HCO3 Arterial Blood 0.2 Base Excess Arterial Blood 90.4 L Oxygen Saturatio n Christopher Test ACCEPTAB Arterial Blood Left Radial Gas Puncture Site Arterial 0.3 Blood Carboxyhem oglobin Arterial Blood 0.3 Methemoglobin Blood Gas A-a O2 511.5 H Differential Oxyhemoglobin 89.9 L Percent Blood Gas 37.0 Temperature Blood Gas 16.0 Respiration Rate Blood Gas Actual 17 Respiration Rate Blood Gas VENT - AC Modality FiO2 85.0 Blood Gas Tidal 500.0 Volume Blood Gas High 5.0 PEEP Setting Blood Gas Suha BELTRAN RN Critical Value Read Back Blood Gas T [employer] Notified Whom Blood Gas 03/08/2019 4:35:14 Notified Time PM Past Medical History reviewed Home Meds No Active Prescriptions or Reported Meds Medications Current Medications IV Flush (NS 3 ml) 3 ml PER PROTOCOL IV ; Start 03/08/19 at 04:30 Ondansetron HCl (Zofran Inj) 4 mg Q6H PRN IV NAUSEA/VOMITING; Start 03/08/19 at 04:30 Acetaminophen (Tylenol Supp) 650 mg Q6H PRN IN .PAIN 1-3 OR TEMP; Start 03/08/19 at 04:30 Famotidine (Pepcid Iv) 20 mg Q12 IV Last administered on 03/08/19at 08:40; Admin Dose 20 MG; Start 03/08/19 at 09:00 Enoxaparin Sodium (Lovenox) 40 mg DAILY SC Last administered on 03/08/19at 08:40; Admin Dose 40 MG; Start 03/08/19 at 09:00 Piperacillin Sod/ Tazobactam Sod 100 ml @ 200 mls/hr Q6 IVPB Last administered on 03/08/19 19:47; Admin Dose 200 MLS/HR; Start 03/08/19 at 13:00 Vancomycin HCl (Vanco Iv Per Pharmacy) VANCOMYCIN PER PHARMACY PER PROTOCOL XX ; Start 03/08/19 at 13:00 Albuterol/ Ipratropium (Duoneb) 3 ml Q4H RESP THERAPY HHN Last administered on 03/08/19at 17:24; Admin Dose 3 ML; Start 03/08/19 at 13:00 Albuterol (Proventil 0.083% (Neb)) 1.25 mg Q2H RESP THERAPY PRN HHN sob/wheezing Last administered on 03/08/19at 19:27; Admin Dose 1.25 MG; Start 03/08/19 at 13:00 Metronidazole (Flagyl) 500 mg Q8 GTB Last administered on 03/08/19 14:26; Admin Dose 500 MG; Start 03/08/19 at 14:00 Ipratropium [place] (Atrovent 0.02% (Neb)) 0.5 mg Q2H RESP THERAPY PRN NEB SHORTNESS OF BREATH; Start 03/08/19 at 13:00 Levetiracetam (Keppra) 1,000 mg BID GTB ; Start 03/08/19 at 21:00 Cholecalciferol (Vitamin D) 2,000 unit DAILY GTB ; Start 03/09/19 at 09:00 Ascorbic Acid (Vitamin C) 500 mg BID GTB ; Start 03/08/19 at 21:00 Multivitamins/ Minerals (Theragran-M) 1 tab DAILY GTB ; Start 03/09/19 at 09:00 Eye Lubricant (Artificial Tears Oph) 2 drop QID BOTH EYES ; Start 03/08/19 at 17:00 Valproate Sodium (Depakene Liquid Cup) 125 mg TID GTB ; Start 03/08/19 at 21:00 Dextrose/Sodium Chloride 1,000 ml @ 80 mls/hr [id number] IV ; Start 03/08/19 at 13:30 Vancomycin HCl 250 ml @ 125 mls/hr Q8H IVPB ; Start 03/08/19 at 23:00 Acetylcysteine (Mucomyst) 2 ml Q6H RESP THERAPY NEB Last administered on 03/08/19at 19:27; Admin Dose 2 ML; Start 03/08/19 at 16:00 Midazolam HCl 50 ml @ 1 mls/hr PER PROTOCOL IV Last administered on 03/08/19at 17:19; Admin Dose 2 MLS/HR; Start 03/08/19 at 17:00 Allergies: Coded Allergies: No Known Allergy (Unverified , 03/08/19) Social History Smoking Status: Unknown if ever smoked SUSAN ANTHONY Mar 08, 2019 20:42
[2019-03-08] MEDS: VALPROIC ACID LIQUID CUP 250 MG/5 ML CUP GTB SCH (21:26)
[2019-03-08] MEDS: LEVETIRACETAM 500 MG TAB GTB SCH (21:27)
[2019-03-08] MEDS: ASCORBIC ACID 500 MG TAB GTB SCH (21:27)
[2019-03-08] MEDS: VANCOMYCIN 1 GM 250 ML IVPB SCH (23:32)
[2019-03-09] VITALS (40 sets, daily range): BP systolic 83–119; BP diastolic 59–92; PULSE 99–138; RESP 16–38
[2019-03-09] MEDS: ACETYLCYSTEINE 20% 4 ML VIAL NEB SCH ×4 (01:12→19:58)
[2019-03-09] MEDS: ALBUTEROL 0.083% (NEB) 2.5 MG/3 ML AMP HHN PRN (01:12)
[2019-03-09] MEDS: ALBUTEROL/IPRATROPIUM (NEB) 3 ML AMP HHN SCH ×6 (01:12→19:58)
[2019-03-09] MEDS: metroNIDAZOLE 500 MG TAB GTB SCH (05:13)
[2019-03-09] MEDS: PIPER-TAZO 3.375 GM IV (PMX) 100 ML IVPB SCH ×4 (05:14→23:00)
[2019-03-09] MEDS: VANCOMYCIN 1 GM 250 ML IVPB SCH ×3 (06:18→22:59)
[2019-03-09] MEDS: MIDAZOLAM (DRIP) 50 mg/50 mL 50 ML IV SCH (06:26)
[2019-03-09] MEDS: ACETAMINOPHEN 650 MG SUPP PR PRN (08:05)
[2019-03-09] MEDS: LEVETIRACETAM 500 MG TAB GTB SCH (08:17)
[2019-03-09] MEDS: VALPROIC ACID LIQUID CUP 250 MG/5 ML CUP GTB SCH (08:18)
[2019-03-09] MEDS: ENOXAPARIN 40 MG/0.4 ML SYG SC SCH (09:00)
[2019-03-09] MEDS: ASCORBIC ACID 500 MG TAB GTB SCH (09:00)
[2019-03-09] MEDS: FAMOTIDINE 20 MG INJ IV SCH ×2 (09:00→21:04)
[2019-03-09] MEDS ORDERED: MULTIVITAMINS/MINERALS TAB GTB SCH (09:00)
[2019-03-09] MEDS ORDERED: CHOLECALCIFEROL 2,000 UNIT CAP GTB SCH (09:00)
[2019-03-09] MEDS: LORAZEPAM 2 MG INJ IV PRN ×3 (09:40→18:03)
[2019-03-09] MEDS: ARTIFICIAL TEARS 15 ML OPH BOTH EYES SCH ×4 (10:58→21:04)
[2019-03-09] MEDS ORDERED: LORAZEPAM 2 MG INJ IV ONE (11:00)
--- NOTE | 2019-03-09 11:02 | CONS ---
Consult Date/Type/Reason Admit Date/Time Mar 08, 2019 at 04:09 Initial Consult Date Type of Consult Pulmonary Requesting Provider: TE TURNER NP Date/Time of Note DATE: 03/09/19 TIME: 10:59 Subjective Patient continues mechanical ventilation still 100% FiO2 with right lung opacification. Chest CT was concerning for possible loculated effusion versus necrotic lung. Objective Vital Signs Date Temp Pulse Resp B/P (MAP) Pulse Ox O2 O2 Flow FiO2 Time Delivery Rate 03/09/19 102.3 08:50 03/09/19 137 08:00 03/09/19 28 99/69 (79) 93 [place] 06:00 l Ventilato r 03/09/19 100 04:54 Intake and Output 03/08/19 03/08/19 03/09/19 1515:00 23:00 07:00 IntakeIntake Total 350 ml 1160.000 ml 560 ml OutputOutput Total 200 ml 610 ml 560 ml BalanceBalance 150 ml 550.000 ml 0 ml Exam PHYSICAL EXAMINATION: GENERAL: Chronically ill appearing young gentleman on mechanical ventilation via tracheostomy. VITAL SIGNS: NECK: Trach site is clean and intact. CARDIAC: S1, S2. No added sounds or murmurs. CHEST: Diminished air entry bilaterally. ABDOMEN: Soft, nontender. No guarding. No rebound. EXTREMITIES: No cyanosis, clubbing or edema. NEUROLOGIC: Unable to assess. The patient has contractures. Vent Setting Ventilator Support Mode: AC Fraction of Inspired Oxygen pe: 100 Positive End Expiratory Pressu: 10.0 Results/Medications Result Diagram: 03/09/19 0611 03/09/19 0429 Results 24 hrs Laboratory Tests Test 03/08/19 16:15 03/09/19 04:29 03/09/19 06:11 03/09/19 07:00 Blood Gas Blood arterial Blood arterial Specimen Source Arterial Blood 03/08/2019 4:15:16 03/09/2019 7:05:14 Date Drawn PM AM Arterial Blood 7.466 H 7.493 H pH (Temp corrected) Arterial Blood 33.3 L 28.1 L pCO2 (Temp correct) Arterial Blood 60.0 L 55.4 L pO2 (Temp corrected) Arterial Blood 23.5 21.1 L HCO3 Arterial Blood 0.2 -1.6 Base Excess Arterial Blood 90.4 L 89.4 L Oxygen Saturatio n Christopher Test ACCEPTAB ACCEPTAB Arterial Blood Left Radial Right Radial Gas Puncture Site Arterial 0.3 0.3 Blood Carboxyhem oglobin Arterial Blood 0.3 0.2 Methemoglobin Blood Gas A-a O2 511.5 H 629.5 H Differential Oxyhemoglobin 89.9 L 89.0 L Percent Blood Gas 37.0 37.0 Temperature Blood Gas 16.0 16.0 Respiration Rate Blood Gas Actual 17 22 Respiration Rate Blood Gas VENT - AC VENT - AC Modality FiO2 85.0 100.0 Blood Gas Tidal 500.0 450.0 Volume Blood Gas High 5.0 PEEP Setting Blood Gas Suha BELTRAN RN Critical Value Read Back Blood Gas T [employer] TM Notified Whom Blood Gas 03/08/2019 4:35:14 03/09/2019 7:45:53 Notified Time PM AM White Blood 8.8 # 9.0 Count Red Blood Count 2.78 #L 2.69 L Hemoglobin 8.4 #L 7.9 L Hematocrit 25.3 #L 24.9 L Mean Corpuscular 91.0 92.6 Volume Mean Corpuscular 30.2 29.4 Hemoglobin Mean Corpuscular 33.2 31.7 L Hemoglobin Monique nt Red Cell 15.3 H 15.6 H Distribution Width Platelet Count 301 # 294 Mean Platelet 10.5 H 10.8 H Volume Immature 0.500 H 0.300 Granulocytes % Neutrophils % 64.4 66.1 Lymphocytes % 19.8 20.5 Monocytes % 9.9 8.9 Eosinophils % 4.5 3.6 Basophils % 0.9 0.6 Nucleated Red 0.0 0.0 Blood Cells % Immature 0.040 H 0.030 Granulocytes # Neutrophils # 5.7 5.9 Lymphocytes # 1.7 1.8 Monocytes # 0.9 0.8 Eosinophils # 0.4 0.3 Basophils # 0.1 0.1 Nucleated Red 0.0 0.0 Blood Cells # Sodium Level 140 Potassium Level 3.8 Chloride Level 108 Carbon Dioxide 22 Level Anion Gap 10 Blood Urea 13 Nitrogen Creatinine 0.67 Est Glomerular > 60 Filtrat Rate mL/min Glucose Level 103 Hemoglobin A1c 5.0 Calcium Level 8.3 L Phosphorus Level 3.4 Magnesium Level 1.9 Total Bilirubin 0.5 Direct Bilirubin 0.00 Indirect 0.5 Bilirubin Aspartate Amino 20 Transf (AST/SGOT ) Alanine 25 Aminotransferase (ALT/SGPT) Alkaline 70 Phosphatase Total Protein 7.6 # Albumin 3.0 #L Globulin 4.60 H Albumin/Globulin 0.65 Ratio Triglycerides 91 Level Cholesterol 60 L Level LDL Cholesterol, 30 Calculated HDL Cholesterol 12 L Cholesterol/HDL 5.0 Ratio Thyroid 0.465 Stimulating Hormone (TSH) Valproic Acid 15 L (Depakene) Level Blood Gas Low 10.0 PEEP Setting Medications Current Medications IV Flush (NS 3 ml) 3 ml PER PROTOCOL IV ; Start 03/08/19 at 04:30 Ondansetron HCl (Zofran Inj) 4 mg Q6H PRN IV NAUSEA/VOMITING; Start 03/08/19 at 04:30 Acetaminophen (Tylenol Supp) [address] .PAIN 1-3 OR TEMP Last administered on 03/09/19at 08:05; Admin Dose 650 MG; Start 03/08/19 at 04:30 Famotidine (Pepcid Iv) 20 mg Q12 IV Last administered on 03/09/19at 09:00; Admin Dose 20 MG; Start 03/08/19 at 09:00 Enoxaparin Sodium (Lovenox) 40 mg DAILY SC Last administered on 03/08/19at 08:40; Admin Dose 40 MG; Start 03/08/19 at 09:00 Piperacillin Sod/ Tazobactam Sod 100 ml @ 200 mls/hr Q6 IVPB Last administered on 03/09/19at 05:14; Admin Dose 200 MLS/HR; Start 03/08/19 at 13:00 Vancomycin HCl (Vanco Iv Per Pharmacy) VANCOMYCIN PER PHARMACY PER PROTOCOL XX ; Start 03/08/19 at 13:00 Albuterol/ Ipratropium (Duoneb) 3 ml Q4H RESP THERAPY HHN Last administered on 03/09/19at 01:12; Admin Dose 3 ML; Start 03/08/19 at 13:00 Albuterol (Proventil 0.083% (Neb)) 1.25 mg Q2H RESP THERAPY PRN HHN sob/ wheezing; Start 03/08/19 at 13:00 Metronidazole (Flagyl) 500 mg Q8 GTB Last administered on 03/09/19at 05:13; Admin Dose 500 MG; Start 03/08/19 at 14:00; Status Hold Ipratropium [place] (Atrovent 0.02% (Neb)) 0.5 mg Q2H RESP THERAPY PRN NEB SHORTNESS OF BREATH; Start 03/08/19 at 13:00 Cholecalciferol (Vitamin D) 2,000 unit DAILY GTB ; Start 03/09/19 at 09:00; Status Hold Ascorbic Acid (Vitamin C) 500 mg BID GTB Last administered on 03/08/19at 21:27; Admin Dose 500 MG; Start 03/08/19 at 21:00; Status Hold Multivitamins/ Minerals (Theragran-M) 1 tab DAILY GTB ; Start 03/09/19 at 09:00; Status Hold Eye Lubricant (Artificial Tears Oph) 2 drop QID BOTH EYES Last administered on 03/09/19at 10:58; Admin Dose 2 DROP; Start 03/08/19 at 17:00 Dextrose/Sodium Chloride 1,000 ml @ 80 mls/hr [id number] IV Last administered on 03/08/19at 21:27; Admin Dose 80 MLS/HR; Start 03/08/19 at 13:30 Vancomycin HCl 250 ml @ 125 mls/hr Q8H IVPB Last administered on 03/09/19at 06:18; Admin Dose 125 MLS/HR; Start 03/08/19 at 23:00 Acetylcysteine (Mucomyst) 2 ml Q6H RESP THERAPY NEB Last administered on 03/09/19at 01:12; Admin Dose 2 ML; Start 03/08/19 at 16:00 Midazolam HCl 50 ml @ 1 mls/hr PER PROTOCOL IV Last administered on 03/09/19at 06:26; Admin Dose 4 MLS/HR; Start 03/08/19 at 17:00 Levetiracetam 100 ml @ 400 mls/hr Q12 IVPB ; Start 03/09/19 at 21:00 Lorazepam (Ativan) 1 mg Q2H PRN IV seizures Last administered on 03/09/19at 09:40; Admin Dose 1 MG; Start 03/09/19 at 09:30 Valproate Sodium 125 mg/Sodium Chloride 51.25 ml @ 51.25 mls/ hr Q8 IVPB ; Start 03/09/19 at 15:00 Lorazepam (Ativan) 2 mg ONCE ONCE IV Last administered on 03/09/19at 10:53; Admin Dose 2 MG; Start 03/09/19 at 11:00; Stop 03/09/19 at 11:01 Assessment/Plan Hospital Course (Demo Recall) IMPRESSION 1. Acute on chronic hypoxemic respiratory failure history of pleural effusion with thoracentesis several weeks ago at [facility] per patient's . Chest CT demonstrates possible loculated effusion versus necrotic lung. 2. Possible acute on chronic seizures. 3. Severe sepsis. 4. Vent dependent respiratory failure. 5. 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 6. Dysphagia with G-tube. Ileus noted. 7. Anemia likely of chronic disease no active GI bleeding. PLAN: 1. Continue mechanical ventilation. 2. Thoracentesis for right pleural effusion, although on preliminary CT report it appears complicated and possibly loculated. May require video-assisted thorascopic decortication. 3. Continue broad-spectrum antibiotic coverage. 4. Continue IV antiepileptics for seizure history 5. Nasogastric tube to suction for ileus consider motility agent. 6. Monitor H&H consider packed cell transfusion if hemoglobin continues to drop. Case was discussed with patient's mother. Critical care time 40 minutes. NELL GUSTAFSON MD, [facility] Mar 09, 2019 11:02
[2019-03-09] MEDS ORDERED: VALPROATE INJ 1,000 MG in SOD CHLORIDE 0.9% 100 ML IVPB STA ×2 (11:31→20:57)
[2019-03-09] MEDS ORDERED: LEVETIRACETAM 1500 MG (PMX) 100 ML IVPB STA (11:31)
[2019-03-09] MEDS ORDERED: LORAZEPAM 2 MG INJ IV STA (11:31)
--- NOTE | 2019-03-09 12:50 | CONS ---
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 Noted to have breakthrough seizures, for which neurology is consulted.. 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 The patient is noted to have a GI ileus..which is a likely contributor to recent enteral medication malabsorption. UA + .... a additional contributor... to a lowered seizure threshold.. Depakote level is subtherapeutic.. P: Await Head CT Depakote 500mg q12 iv for now; repeat level Keppra 1g q12 iv for now Ativan 2mg iv prn prolonged seizure (> 5 min) (as hemodynamics allow) To consider Propofol infusion if the above is ineffective.. Other management and supportive care per primary Will follow Consultation Date/Type/Reason Admit Date/Time Mar 08, 2019 at 04:09 Type of Consult Neurology Reason for Consultation seizure Requesting Provider: TE TURNER NP Date/Time of Note DATE: 03/09/19 TIME: 12:49 24 HR Interval Summary Free Text/Dictation Continues seizing Exam/Review of Systems Exam Vitals Vital Signs Date Temp Pulse Resp B/P (MAP) Pulse Ox O2 O2 Flow FiO2 Time Delivery Rate 03/09/19 114 29 94/76 (82) 95 Mechanical 12:00 Ventilator 03/09/19 99.8 11:58 03/09/19 100 10:50 Intake and Output 03/08/19 03/08/19 03/09/19 1515:00 23:00 07:00 IntakeIntake Total 350 ml 1160.000 ml 640 ml OutputOutput Total 200 ml 610 ml 645 ml BalanceBalance 150 ml 550.000 ml -5 ml Results Result Diagram: 03/09/19 0611 03/09/19 0429 Results 24hrs Laboratory Tests Test 03/08/19 16:15 03/09/19 04:29 03/09/19 06:11 03/09/19 07:00 Blood Gas Blood arterial Blood arterial Specimen Source Arterial Blood 03/08/2019 4:15:16 03/09/2019 7:05:14 Date Drawn PM AM Arterial Blood 7.466 H 7.493 H pH (Temp corrected) Arterial Blood 33.3 L 28.1 L pCO2 (Temp correct) Arterial Blood 60.0 L 55.4 L pO2 (Temp corrected) Arterial Blood 23.5 21.1 L HCO3 Arterial Blood 0.2 -1.6 Base Excess Arterial Blood 90.4 L 89.4 L Oxygen Saturatio n Christopher Test ACCEPTAB ACCEPTAB Arterial Blood Left Radial Right Radial Gas Puncture Site Arterial 0.3 0.3 Blood Carboxyhem oglobin Arterial Blood 0.3 0.2 Methemoglobin Blood Gas A-a O2 511.5 H 629.5 H Differential Oxyhemoglobin 89.9 L 89.0 L Percent Blood Gas 37.0 37.0 Temperature Blood Gas 16.0 16.0 Respiration Rate Blood Gas Actual 17 22 Respiration Rate Blood Gas VENT - AC VENT - AC Modality FiO2 85.0 100.0 Blood Gas Tidal 500.0 450.0 Volume Blood Gas High 5.0 PEEP Setting Blood Gas Suha BELTRAN RN Critical Value Read Back Blood [facility] [place] Notified Whom Blood Gas 03/08/2019 4:35:14 03/09/2019 7:45:53 Notified Time PM AM White Blood 8.8 # 9.0 Count Red Blood Count 2.78 #L 2.69 L Hemoglobin 8.4 #L 7.9 L Hematocrit 25.3 #L 24.9 L Mean Corpuscular 91.0 92.6 Volume Mean Corpuscular 30.2 29.4 Hemoglobin Mean Corpuscular 33.2 31.7 L Hemoglobin Monique nt Red Cell 15.3 H 15.6 H Distribution Width Platelet Count 301 # 294 Mean Platelet 10.5 H 10.8 H Volume Immature 0.500 H 0.300 Granulocytes % Neutrophils % 64.4 66.1 Lymphocytes % 19.8 20.5 Monocytes % 9.9 8.9 Eosinophils % 4.5 3.6 Basophils % 0.9 0.6 Nucleated Red 0.0 0.0 Blood Cells % Immature 0.040 H 0.030 Granulocytes # Neutrophils # 5.7 5.9 Lymphocytes # 1.7 1.8 Monocytes # 0.9 0.8 Eosinophils # 0.4 0.3 Basophils # 0.1 0.1 Nucleated Red 0.0 0.0 Blood Cells # Sodium Level 140 Potassium Level 3.8 Chloride Level 108 Carbon Dioxide 22 Level Anion Gap 10 Blood Urea 13 Nitrogen Creatinine 0.67 Est Glomerular > 60 Filtrat Rate mL/min Glucose Level 103 Hemoglobin A1c 5.0 Calcium Level 8.3 L Phosphorus Level 3.4 Magnesium Level 1.9 Total Bilirubin 0.5 Direct Bilirubin 0.00 Indirect 0.5 Bilirubin Aspartate Amino 20 Transf (AST/SGOT ) Alanine 25 Aminotransferase (ALT/SGPT) Alkaline 70 Phosphatase Total Protein 7.6 # Albumin 3.0 #L Globulin 4.60 H Albumin/Globulin 0.65 Ratio Triglycerides 91 Level Cholesterol 60 L Level LDL Cholesterol, 30 Calculated HDL Cholesterol 12 L Cholesterol/HDL 5.0 Ratio Thyroid 0.465 Stimulating Hormone (TSH) Valproic Acid 15 L (Depakene) Level Blood Gas Low 10.0 PEEP Setting Medications Medication Current Medications IV Flush (NS 3 ml) 3 ml PER PROTOCOL IV ; Start 03/08/19 at 04:30 Ondansetron HCl (Zofran Inj) 4 mg Q6H PRN IV NAUSEA/VOMITING; Start 03/08/19 at 04:30 Acetaminophen (Tylenol Supp) [address] .PAIN 1-3 OR TEMP Last ad ministered on 03/09/19at 08:05; Admin Dose 650 MG; Start 03/08/19 at 04:30 Famotidine (Pepcid Iv) 20 mg Q12 IV Last administered on 03/09/19at 09:00; Admin Dose 20 MG; Start 03/08/19 at 09:00 Enoxaparin Sodium (Lovenox) 40 mg DAILY SC Last administered on 03/08/19at 08:40; Admin Dose 40 MG; Start 03/08/19 at 09:00 Piperacillin Sod/ Tazobactam Sod 100 ml @ 200 mls/hr Q6 IVPB Last administered on 03/09/19at 11:55; Admin Dose 200 MLS/HR; Start 03/08/19 at 13:00 Vancomycin HCl (Vanco Iv Per Pharmacy) VANCOMYCIN PER PHARMACY PER PROTOCOL XX ; Start 03/08/19 at 13:00 Albuterol/ Ipratropium (Duoneb) 3 ml Q4H RESP THERAPY HHN Last administered on 03/09/19at 01:12; Admin Dose 3 ML; Start 03/08/19 at 13:00 Albuterol (Proventil 0.083% (Neb)) 1.25 mg Q2H RESP THERAPY PRN HHN sob/wheezing; Start 03/08/19 at 13:00 Metronidazole (Flagyl) 500 mg Q8 GTB Last administered on 03/09/19at 05:13; Admin Dose 500 MG; Start 03/08/19 at 14:00; Status Hold Ipratropium [place] (Atrovent 0.02% (Neb)) 0.5 mg Q2H RESP THERAPY PRN NEB SHORTNESS OF BREATH; Start 03/08/19 at 13:00 Cholecalciferol (Vitamin D) 2,000 unit DAILY GTB ; Start 03/09/19 at 09:00; Status Hold Ascorbic Acid (Vitamin C) 500 mg BID GTB Last administered on 03/08/19at 21:27; Admin Dose 500 MG; Start 03/08/19 at 21:00; Status Hold Multivitamins/ Minerals (Theragran-M) 1 tab DAILY GTB ; Start 03/09/19 at 09:00; Status Hold Eye Lubricant (Artificial Tears Oph) 2 drop QID BOTH EYES Last administered on 03/09/19at 11:56; Admin Dose 2 DROP; Start 03/08/19 at 17:00 Dextrose/Sodium Chloride 1,000 ml @ 80 mls/hr [id number] IV Last administered on 03/08/19at 21:27; Admin Dose 80 MLS/HR; Start 03/08/19 at 13:30 Vancomycin HCl 250 ml @ 125 mls/hr Q8H IVPB Last administered on 03/09/19at 06:18; Admin Dose 125 MLS/HR; Start 03/08/19 at 23:00 Acetylcysteine (Mucomyst) 2 ml Q6H RESP THERAPY NEB Last administered on 03/09/19at 01:12; Admin Dose 2 ML; Start 03/08/19 at 16:00 Midazolam HCl 50 ml @ 1 mls/hr PER PROTOCOL IV Last administered on 03/09/19 06:26; Admin Dose 4 MLS/HR; Start 03/08/19 at 17:00 Levetiracetam 100 ml @ 400 mls/hr Q12 IVPB ; Start 03/09/19 at 21:00 Lorazepam (Ativan) 1 mg Q2H PRN IV seizures Last administered on 03/09/19at 09:40; Admin Dose 1 MG; Start 03/09/19 at 09:30 Valproate Sodium 125 mg/Sodium Chloride 51.25 ml @ 51.25 mls/ hr Q8 IVPB ; Start 03/09/19 at 15:00 SUSAN ANTHONY Mar 09, 2019 12:50
--- NOTE | 2019-03-09 13:00 | CONS ---
Assessment/Plan Assessment/Plan Hospital Course (Demo Recall) Patient is noncommunicative in no distress looks comfortable this was a fever of 102.9 this morning current temperature 99.8. WBC 9 H&H 7.9 and 24.9 platelets 294 no shift no bands BUN 13 creatinine 0.67 Microbiology: Blood culture on admission grew gram-positive cocci in pairs and clusters 1 out of 2 sets urine culture negative sputum culture pending CT of the abdomen and pelvis on admission revealed narrowing and occlusion of the right upper lobe right middle lobe and right lower lobe bronchus with irregular consolidation and atelectatic change involving the right lower lobe. No migration of right lung. No evidence of bowel obstruction or inflammation no free intraperitoneal fluid or air left buttock decubitus ulcer. Dislocation of the left hip with erosion and irregularity involving the left acetabulum and femoral head raising the possibility of septic joint and osteomyelitis. Please see full report in the chart Indwelling: Trach, PEG, [place] Antimicrobials: Vancomycin, Zosyn Physical examination: Chronically ill-appearing -[place] young man who is in no distress. Patient is noncommunicative. Head atraumatic normocephalic neck is supple tracheostomy present chest rise symmetrical breath sounds diminished bases. Heart: S1-S2. Abdomen soft bowel sounds present. Assessment: 1. Sepsis with bacteremia, present on admission 2. Urinary tract infection per urinalysis 3. Questionable loculated pleural effusion versus necrotic lung per CT 4. Status epilepticus 5. Chronic encephalopathy status post intracerebral hemorrhage 6. Left hip dislocation with possible septic joint and osteomyelitis 7. Questionable ileus Plan: Continue present care and antibiotics, await for final cultures, follow pulmonary and neurology recommendations, consider Ortho evaluation Consultation Date/Type/Reason Admit Date/Time Mar 08, 2019 at 04:09 Initial Consult Date Type of Consult id Requesting Provider: TE TURNER NP Date/Time of Note DATE: 03/09/19 TIME: 12:58 Exam/Review of Systems Exam Vitals Vital Signs Date Temp Pulse Resp B/P (MAP) Pulse Ox O2 O2 Flow FiO2 Time Delivery Rate 03/09/19 114 29 94/76 (82) 95 Mechanical 12:00 Ventilator 03/09/19 99.8 11:58 03/09/19 100 10:50 Intake and Output 03/08/19 03/08/19 03/09/19 1414:59 22:59 06:59 IntakeIntake Total 0 ml 1430.000 ml 640 ml OutputOutput Total 200 ml 540 ml 630 ml BalanceBalance -200 ml 890.000 ml 10 ml Results Result Diagram: 03/09/19 0611 03/09/19 0429 Results 24hrs Laboratory Tests Test 03/08/19 16:15 03/09/19 04:29 03/09/19 06:11 03/09/19 07:00 Blood Gas Blood arterial Blood arterial Specimen Source Arterial Blood 03/08/2019 4:15:16 03/09/2019 7:05:14 Date Drawn PM AM Arterial Blood 7.466 H 7.493 H pH (Temp corrected) Arterial Blood 33.3 L 28.1 L pCO2 (Temp correct) Arterial Blood 60.0 L 55.4 L pO2 (Temp corrected) Arterial Blood 23.5 21.1 L HCO3 Arterial Blood 0.2 -1.6 Base Excess Arterial Blood 90.4 L 89.4 L Oxygen Saturatio n Christopher Test ACCEPTAB ACCEPTAB Arterial Blood Left Radial Right Radial Gas Puncture Site Arterial 0.3 0.3 Blood Carboxyhem oglobin Arterial Blood 0.3 0.2 Methemoglobin Blood Gas A-a O2 511.5 H 629.5 H Differential Oxyhemoglobin 89.9 L 89.0 L Percent Blood Gas 37.0 37.0 Temperature Blood Gas 16.0 16.0 Respiration Rate Blood Gas Actual 17 22 Respiration Rate Blood Gas VENT - AC VENT - AC Modality FiO2 85.0 100.0 Blood Gas Tidal 500.0 450.0 Volume Blood Gas High 5.0 PEEP Setting Blood Gas Suha BELTRAN RN Critical Value Read Back Blood Gas [employer] Notified Whom Blood Gas 03/08/2019 4:35:14 03/09/2019 7:45:53 Notified Time PM AM White Blood 8.8 # 9.0 Count Red Blood Count 2.78 #L 2.69 L Hemoglobin 8.4 #L 7.9 L Hematocrit 25.3 #L 24.9 L Mean Corpuscular 91.0 92.6 Volume Mean Corpuscular 30.2 29.4 Hemoglobin Mean Corpuscular 33.2 31.7 L Hemoglobin Monique nt Red Cell 15.3 H 15.6 H Distribution Width Platelet Count 301 # 294 Mean Platelet 10.5 H 10.8 H Volume Immature 0.500 H 0.300 Granulocytes % Neutrophils % 64.4 66.1 Lymphocytes % 19.8 20.5 Monocytes % 9.9 8.9 Eosinophils % 4.5 3.6 Basophils % 0.9 0.6 Nucleated Red 0.0 0.0 Blood Cells % Immature 0.040 H 0.030 Granulocytes # Neutrophils # 5.7 5.9 Lymphocytes # 1.7 1.8 Monocytes # 0.9 0.8 Eosinophils # 0.4 0.3 Basophils # 0.1 0.1 Nucleated Red 0.0 0.0 Blood Cells # Sodium Level 140 Potassium Level 3.8 Chloride Level 108 Carbon Dioxide 22 Level Anion Gap 10 Blood Urea 13 Nitrogen Creatinine 0.67 Est Glomerular > 60 Filtrat Rate mL/min Glucose Level 103 Hemoglobin A1c 5.0 Calcium Level 8.3 L Phosphorus Level 3.4 Magnesium Level 1.9 Total Bilirubin 0.5 Direct Bilirubin 0.00 Indirect 0.5 Bilirubin Aspartate Amino 20 Transf (AST/SGOT ) Alanine 25 Aminotransferase (ALT/SGPT) Alkaline 70 Phosphatase Total Protein 7.6 # Albumin 3.0 #L Globulin 4.60 H Albumin/Globulin 0.65 Ratio Triglycerides 91 Level Cholesterol 60 L Level LDL Cholesterol, 30 Calculated HDL Cholesterol 12 L Cholesterol/HDL 5.0 Ratio Thyroid 0.465 Stimulating Hormone (TSH) Valproic Acid 15 L (Depakene) Level Blood Gas Low 10.0 PEEP Setting Medications Medication Current Medications IV Flush (NS 3 ml) 3 ml PER PROTOCOL IV ; Start 03/08/19 at 04:30 Ondansetron HCl (Zofran Inj) 4 mg Q6H PRN IV NAUSEA/VOMITING; Start 03/08/19 at 04:30 Acetaminophen (Tylenol Supp) 650 mg Q6H PRN [place] .PAIN 1-3 OR TEMP Last administered on 03/09/19at 08:05; Admin Dose 650 MG; Start 03/08/19 at 04:30 Famotidine (Pepcid Iv) 20 mg Q12 IV Last administered on 03/09/19at 09:00; Admin Dose 20 MG; Start 03/08/19 at 09:00 Enoxaparin Sodium (Lovenox) 40 mg DAILY SC Last administered on 03/08/19at 08:40; Admin Dose 40 MG; Start 03/08/19 at 09:00 Piperacillin Sod/ Tazobactam Sod 100 ml @ 200 mls/hr Q6 IVPB Last administered on 03/09/19at 11:55; Admin Dose 200 MLS/HR; Start 03/08/19 at 13:00 Vancomycin HCl (Vanco Iv Per Pharmacy) VANCOMYCIN PER PHARMACY PER PROTOCOL XX ; Start 03/08/19 at 13:00 Albuterol/ Ipratropium (Duoneb) 3 ml Q4H RESP THERAPY HHN Last administered on 03/09/19at 01:12; Admin Dose 3 ML; Start 03/08/19 at 13:00 Albuterol (Proventil 0.083% (Neb)) 1.25 mg Q2H RESP THERAPY PRN HHN sob/wheezing; Start 03/08/19 at 13:00 Metronidazole (Flagyl) 500 mg Q8 GTB Last administered on 03/09/19at 05:13; Admin Dose 500 MG; Start 03/08/19 at 14:00; Status Hold Ipratropium [place] (Atrovent 0.02% (Neb)) 0.5 mg Q2H RESP THERAPY PRN NEB SHORTNESS OF BREATH; Start 03/08/19 at 13:00 Cholecalciferol (Vitamin D) 2,000 unit DAILY GTB ; Start 03/09/19 at 09:00; Status Hold Ascorbic Acid (Vitamin C) 500 mg BID GTB Last administered on 03/08/19at 21:27; Admin Dose 500 MG; Start 03/08/19 at 21:00; Status Hold Multivitamins/ Minerals (Theragran-M) 1 tab DAILY GTB ; Start 03/09/19 at 09:00; Status Hold Eye Lubricant (Artificial Tears Oph) 2 drop QID BOTH EYES Last administered on 03/09/19at 11:56; Admin Dose 2 DROP; Start 03/08/19 at 17:00 Dextrose/Sodium Chloride 1,000 ml @ 80 mls/hr [id number] IV Last administered on 03/08/19at 21:27; Admin Dose 80 MLS/HR; Start 03/08/19 at 13:30 Vancomycin HCl 250 ml @ 125 mls/hr Q8H IVPB Last administered on 03/09/19at 06:18; Admin Dose 125 MLS/HR; Start 03/08/19 at 23:00 Acetylcysteine (Mucomyst) 2 ml Q6H RESP THERAPY NEB Last administered on 03/09/19at 01:12; Admin Dose 2 ML; Start 03/08/19 at 16:00 Midazolam HCl 50 ml @ 1 mls/hr PER PROTOCOL IV Last administered on 03/09/19at 06:26; Admin Dose 4 MLS/HR; Start 03/08/19 at 17:00 Levetiracetam 100 ml @ 400 mls/hr Q12 IVPB ; Start 03/09/19 at 21:00 Lorazepam (Ativan) 1 mg Q2H PRN IV seizures Last administered on 03/09/19at 09:40; Admin Dose 1 MG; Start 03/09/19 at 09:30 Valproate Sodium 125 mg/Sodium Chloride 51.25 ml @ 51.25 mls/ hr Q8 IVPB ; Start 03/09/19 at 15:00 DOMO PERRY NP Mar 09, 2019 13:00
[2019-03-09] MEDS: VALPROATE INJ 125 MG in SOD CHLORIDE 0.9% 50 ML IVPB SCH ×2 (15:35→21:04)
[2019-03-09] MEDS: DEXTROSE 5%-0.225% NACL 1,000 ML IV SCH (15:38)
[2019-03-09] MEDS ORDERED: LORAZEPAM 1 MG TAB PO STA (18:04)
[2019-03-09] MEDS ORDERED: LORAZEPAM 2 MG INJ IM ONE (18:20)
[2019-03-09] MEDS ORDERED: LEVETIRACETAM 1500 MG (PMX) 100 ML IVPB ONE (21:00)
[2019-03-09] MEDS ORDERED: LEVETIRACETAM 1000 MG (PMX) 100 ML IVPB SCH (21:00)
[2019-03-10] VITALS (31 sets, daily range): BP systolic 82–108; BP diastolic 54–74; PULSE 98–114; RESP 13–23
[2019-03-10] MEDS: ACETYLCYSTEINE 20% 4 ML VIAL NEB SCH ×3 (01:13→13:12)
[2019-03-10] MEDS: ALBUTEROL/IPRATROPIUM (NEB) 3 ML AMP HHN SCH ×6 (01:13→21:11)
[2019-03-10] MEDS: DEXTROSE 5%-0.225% NACL 1,000 ML IV SCH ×3 (03:47→21:43)
[2019-03-10] MEDS: PIPER-TAZO 3.375 GM IV (PMX) 100 ML IVPB SCH ×4 (06:04→23:41)
[2019-03-10] MEDS: VALPROATE INJ 125 MG in SOD CHLORIDE 0.9% 50 ML IVPB SCH ×3 (06:04→21:32)
[2019-03-10] MEDS: VANCOMYCIN 1 GM 250 ML IVPB SCH ×3 (06:05→22:52)
[2019-03-10] MEDS ORDERED: SOD CHLORIDE 0.9% 1,000 ML IV ONE (09:00)
[2019-03-10] MEDS ORDERED: VALPROATE INJ 1,000 MG in SOD CHLORIDE 0.9% 100 ML IVPB ONE (09:30)
[2019-03-10] MEDS: FAMOTIDINE 20 MG INJ IV SCH ×2 (09:47→20:24)
[2019-03-10] MEDS: ARTIFICIAL TEARS 15 ML OPH BOTH EYES SCH ×4 (09:47→20:24)
[2019-03-10] MEDS: LEVETIRACETAM 1000 MG (PMX) 100 ML IVPB SCH ×2 (09:51→20:32)
[2019-03-10] MEDS: ENOXAPARIN 40 MG/0.4 ML SYG SC SCH (09:54)
[2019-03-10] MEDS: LORAZEPAM 2 MG INJ IV PRN (10:21)
--- NOTE | 2019-03-10 10:55 | CONS ---
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 Noted to have breakthrough seizures, for which neurology is consulted.. 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 The patient is noted to have a GI ileus..which is a likely contributor to recent enteral medication malabsorption. UA + .... a additional contributor... to a lowered seizure threshold.. Depakote level is subtherapeutic.. P: Await Head CT Load additional Depacon 1g iv x 1, then continue maintenance Depakote 500mg q12 iv for now; repeat level in afternoon (Goal ~100) Continue maintenance Keppra 1g q12 iv for now Ativan 2mg iv prn prolonged seizure (> 5 min) (as hemodynamics allow) Other management and supportive care per primary Will follow Consultation Date/Type/Reason Admit Date/Time Mar 08, 2019 at 04:09 Type of Consult Neurology Reason for Consultation seizure Requesting Provider: TE TURNER NP Date/Time of Note DATE: 03/10/19 TIME: 10:53 24 HR Interval Summary Free Text/Dictation Continues icu care Continued seizures Exam/Review of Systems Exam Vitals Vital Signs Date Temp Pulse Resp B/P (MAP) Pulse Ox O2 O2 Flow FiO2 Time Delivery Rate 03/10/19 108 21 94 70 09:00 03/10/19 102/55 Mechanical 06:00 (71) Ventilator 03/10/19 98.9 04:00 Intake and Output 03/09/19 03/09/19 03/10/19 1515:00 23:00 07:00 IntakeIntake Total 516 ml 1041.25 ml 480 ml OutputOutput Total 710 ml 430 ml 750 ml BalanceBalance -194 ml 611.25 ml -270 ml Results Result Diagram: 03/10/19 0426 03/10/19 0426 Results 24hrs Laboratory Tests Test 03/09/19 14:15 03/09/19 18:25 03/10/19 04:26 Vancomycin Level Trough 16.4 Valproic Acid (Depakene) Level 16 L 38 L 59 White Blood Count 11.3 #H Red Blood Count 2.39 L Hemoglobin 7.2 L Hematocrit 22.0 L Mean Corpuscular Volume 92.1 Mean Corpuscular Hemoglobin 30.1 Mean Corpuscular Hemoglobin Concent 32.7 Red Cell Distribution Width 15.2 H Platelet Count 237 Mean Platelet Volume 10.8 H Immature Granulocytes % 0.400 Neutrophils % 72.1 Lymphocytes % 13.8 L Monocytes % 10.8 Eosinophils % 2.4 Basophils % 0.5 Nucleated Red Blood Cells % 0.0 Immature Granulocytes # 0.040 H Neutrophils # 8.1 H Lymphocytes # 1.6 Monocytes # 1.2 H Eosinophils # 0.3 Basophils # 0.1 Nucleated Red Blood Cells # 0.0 Sodium Level 142 Potassium Level 3.7 Chloride Level 111 H Carbon Dioxide Level 22 Anion Gap 9 Blood Urea Nitrogen 7 Creatinine 0.66 Est Glomerular Filtrat Rate mL/min > 60 Glucose Level 113 Calcium Level 8.1 L Phosphorus Level 3.7 Magnesium Level 1.9 Medications Medication Current Medications IV Flush (NS 3 ml) 3 ml PER PROTOCOL IV ; Start 03/08/19 at 04:30 Ondansetron HCl (Zofran Inj) 4 mg Q6H PRN IV NAUSEA/VOMITING; Start 03/08/19 at 04:30 Acetaminophen (Tylenol Supp) 650 mg Q6H PRN [place] .PAIN 1-3 OR TEMP Last administered on 03/09/19 08:05; Admin Dose 650 MG; Start 03/08/19 at 04:30 Famotidine (Pepcid Iv) 20 mg Q12 IV Last administered on 03/10/19at 09:47; Admin Dose 20 MG; Start 03/08/19 at 09:00 Enoxaparin Sodium (Lovenox) 40 mg DAILY SC Last administered on 03/10/19at 09:54; Admin Dose 40 MG; Start 03/08/19 at 09:00 Piperacillin Sod/ Tazobactam Sod 100 ml @ 200 mls/hr Q6 IVPB Last administered on 03/10/19 06:04; Admin Dose 200 MLS/HR; Start 03/08/19 at 13:00 Vancomycin HCl (Vanco Iv Per Pharmacy) VANCOMYCIN PER PHARMACY PER PROTOCOL XX ; Start 03/08/19 at 13:00 Albuterol/ Ipratropium (Duoneb) 3 ml Q4H RESP THERAPY HHN Last administered on 03/10/19at 09:06; Admin Dose 3 ML; Start 03/08/19 at 13:00 Albuterol (Proventil 0.083% (Neb)) 1.25 mg Q2H RESP THERAPY PRN HHN sob/wheezing; Start 03/08/19 at 13:00 Metronidazole (Flagyl) 500 mg Q8 GTB Last administered on 03/09/19at 05:13; Admin Dose 500 MG; Start 03/08/19 at 14:00; Status Hold Ipratropium [place] (Atrovent 0.02% (Neb)) 0.5 mg Q2H RESP THERAPY PRN NEB SHORTNESS OF BREATH; Start 03/08/19 at 13:00 Cholecalciferol (Vitamin D) 2,000 unit DAILY GTB ; Start 03/09/19 at 09:00; Status Hold Ascorbic Acid (Vitamin C) 500 mg BID GTB Last administered on 03/08/19at 21:27; Admin Dose 500 MG; Start 03/08/19 at 21:00; Status Hold Multivitamins/ Minerals (Theragran-M) 1 tab DAILY GTB ; Start 03/09/19 at 09:00; Status Hold Eye Lubricant (Artificial Tears Oph) 2 drop QID BOTH EYES Last administered on 03/10/19 09:47; Admin Dose 2 DROP; Start 03/08/19 at 17:00 Dextrose/Sodium Chloride 1,000 ml @ 80 mls/hr [id number] IV Last administered on 03/10/19 03:47; Admin Dose 80 MLS/HR; Start 03/08/19 at 13:30 Vancomycin HCl 250 ml @ 125 mls/hr Q8H IVPB Last administered on 03/10/19 06:05; Admin Dose 125 MLS/HR; Start 03/08/19 at 23:00 Acetylcysteine (Mucomyst) 2 ml Q6H RESP THERAPY NEB Last administered on 03/10/19 09:01; Admin Dose 2 ML; Start 03/08/19 at 16:00 Midazolam HCl 50 ml @ 1 mls/hr PER PROTOCOL IV Last administered on 03/09/19 06:26; Admin Dose 4 MLS/HR; Start 03/08/19 at 17:00 Lorazepam (Ativan) 1 mg Q2H PRN IV seizures Last administered on 03/10/19 10:21; Admin Dose 1 MG; Start 7/2/19 at 09:30 Valproate Sodium 125 mg/Sodium Chloride 51.25 ml @ 51.25 mls/ hr Q8 IVPB Last administered on 03/10/19at 06:04; Admin Dose 51.25 MLS/HR; Start 03/09/19 at 15:00 IV Flush (NS 10 ml) 10 ml PRN PRN IV IV PROTOCOL; Start 03/09/19 at 16:30 Levetiracetam 100 ml @ 400 mls/hr Q12 IVPB Last administered on 03/10/19at 09:51; Admin Dose 400 MLS/HR; Start 03/10/19 at 09:00 SUSAN ANTHONY Mar 10, 2019 10:55
[2019-03-10] MEDS ORDERED: LORAZEPAM 2 MG INJ IV ONE ×2 (11:00)
--- NOTE | 2019-03-10 12:06 | CONS ---
Assessment/Plan Assessment/Plan Hospital Course (Demo Recall) No acute changes patient is noncommunicative in no distress status post bronchoscopy at bedside he is afebrile WBC 11.3 platelets 237 no shift BUN 7 creatinine 0.66 Microbiology: Blood culture 1 set grew staph species, sputum culture growing gram-negative rods, urine and MRSA swab negative Antimicrobials: Vancomycin, Zosyn Chest x-ray this morning revealed persistent complete opacification of the right hemothorax Indwelling: Trach, PEG, [place] Antimicrobials: Vancomycin, Zosyn Physical examination: Chronically ill-appearing -[place] young man who is in no distress. Patient is noncommunicative. Head atraumatic normocephalic neck is supple tracheostomy present chest rise symmetrical breath sounds diminished bases. Heart: S1-S2. Abdomen soft bowel sounds present. Assessment: 1. Sepsis with bacteremia likely contaminant 2. Urinary tract infection per urinalysis 3. Questionable loculated pleural effusion versus necrotic lung per CT 4. Status epilepticus 5. Chronic encephalopathy status post intracerebral hemorrhage 6. Left hip dislocation with possible septic joint and osteomyelitis 7. Questionable ileus Plan: Clinically unchanged, continue present care and antibiotics, follow bronchoalveolar lavage cultures and sputum cultures, vent management per pulmonary, neurology recommendations Consultation Date/Type/Reason Admit Date/Time Mar 08, 2019 at 04:09 Initial Consult Date Type of Consult id Requesting Provider: TE TURNER NP Date/Time of Note DATE: 03/10/19 TIME: 12:05 Exam/Review of Systems Exam Vitals Vital Signs Date Temp Pulse Resp B/P (MAP) Pulse Ox O2 O2 Flow FiO2 Time Delivery Rate 03/10/19 108 21 94 70 09:00 03/10/19 102/55 Mechanical 06:00 (71) Ventilator 03/10/19 98.9 04:00 Intake and Output 03/09/19 03/09/19 03/10/19 1515:00 23:00 07:00 IntakeIntake Total 516 ml 1041.25 ml 480 ml OutputOutput Total 710 ml 430 ml 750 ml BalanceBalance -194 ml 611.25 ml -270 ml Results Result Diagram: 03/10/19 0426 03/10/19 0426 Results 24hrs Laboratory Tests Test 03/09/19 14:15 03/09/19 18:25 03/10/19 04:26 Vancomycin Level Trough 16.4 Valproic Acid (Depakene) Level 16 L 38 L 59 White Blood Count 11.3 #H Red Blood Count 2.39 L Hemoglobin 7.2 L Hematocrit 22.0 L Mean Corpuscular Volume 92.1 Mean Corpuscular Hemoglobin 30.1 Mean Corpuscular Hemoglobin Concent 32.7 Red Cell Distribution Width 15.2 H Platelet Count 237 Mean Platelet Volume 10.8 H Immature Granulocytes % 0.400 Neutrophils % 72.1 Lymphocytes % 13.8 L Monocytes % 10.8 Eosinophils % 2.4 Basophils % 0.5 Nucleated Red Blood Cells % 0.0 Immature Granulocytes # 0.040 H Neutrophils # 8.1 H Lymphocytes # 1.6 Monocytes # 1.2 H Eosinophils # 0.3 Basophils # 0.1 Nucleated Red Blood Cells # 0.0 Sodium Level 142 Potassium Level 3.7 Chloride Level 111 H Carbon Dioxide Level 22 Anion Gap 9 Blood Urea Nitrogen 7 Creatinine 0.66 Est Glomerular Filtrat Rate mL/min > 60 Glucose Level 113 Calcium Level 8.1 L Phosphorus Level 3.7 Magnesium Level 1.9 Medications Medication Current Medications IV Flush (NS 3 ml) 3 ml PER PROTOCOL IV ; Start 03/08/19 at 04:30 Ondansetron HCl (Zofran Inj) 4 mg Q6H PRN IV NAUSEA/VOMITING; Start 03/08/19 at 04:30 Acetaminophen (Tylenol Supp) 650 mg Q6H PRN OR .PAIN 1-3 OR TEMP Last administered on 03/09/19at 08:05; Admin Dose 650 MG; Start 03/08/19 at 04:30 Famotidine (Pepcid Iv) 20 mg Q12 IV Last administered on 03/10/19at 09:47; Admin Dose 20 MG; Start 03/08/19 at 09:00 Enoxaparin Sodium (Lovenox) 40 mg DAILY SC Last administered on 03/10/19at 09:54; Admin Dose 40 MG; Start 03/08/19 at 09:00 Piperacillin Sod/ Tazobactam Sod 100 ml @ 200 mls/hr Q6 IVPB Last administered on 03/10/19at 06:04; Admin Dose 200 MLS/HR; Start 03/08/19 at 13:00 Vancomycin HCl (Vanco Iv Per Pharmacy) VANCOMYCIN PER PHARMACY PER PROTOCOL XX ; Start 03/08/19 at 13:00 Albuterol/ Ipratropium (Duoneb) 3 ml Q4H RESP THERAPY HHN Last administered on 03/10/19 09:06; Admin Dose 3 ML; Start 03/08/19 at 13:00 Albuterol (Proventil 0.083% (Neb)) 1.25 mg Q2H RESP THERAPY PRN HHN sob/wheezing; Start 03/08/19 at 13:00 Metronidazole (Flagyl) 500 mg Q8 GTB Last administered on 03/09/19 05:13; Admin Dose 500 MG; Start 03/08/19 at 14:00; Status Hold Ipratropium [place] (Atrovent 0.02% (Neb)) 0.5 mg Q2H RESP THERAPY PRN NEB SHORTNESS OF BREATH; Start 03/08/19 at 13:00 Cholecalciferol (Vitamin D) 2,000 unit DAILY GTB ; Start 03/09/19 at 09:00; Status Hold Ascorbic Acid (Vitamin C) 500 mg BID GTB Last administered on 03/08/19 21:27; Admin Dose 500 MG; Start 03/08/19 at 21:00; Status Hold Multivitamins/ Minerals (Theragran-M) 1 tab DAILY GTB ; Start 03/09/19 at 09:00; Status Hold Eye Lubricant (Artificial Tears Oph) 2 drop QID BOTH EYES Last administered on 03/10/19 09:47; Admin Dose 2 DROP; Start 03/08/19 at 17:00 Dextrose/Sodium Chloride 1,000 ml @ 80 mls/hr [id number] IV Last administered on 03/10/19 03:47; Admin Dose 80 MLS/HR; Start 03/08/19 at 13:30 Vancomycin HCl 250 ml @ 125 mls/hr Q8H IVPB Last administered on 03/10/19 06:05; Admin Dose 125 MLS/HR; Start 03/08/19 at 23:00 Acetylcysteine (Mucomyst) 2 ml Q6H RESP THERAPY NEB Last administered on 03/10/19 09:01; Admin Dose 2 ML; Start 03/08/19 at 16:00 Midazolam HCl 50 ml @ 1 mls/hr PER PROTOCOL IV Last administered on 03/09/19 06:26; Admin Dose 4 MLS/HR; Start 03/08/19 at 17:00 Lorazepam (Ativan) 1 mg Q2H PRN IV seizures Last administered on 03/10/19at 10:21; Admin Dose 1 MG; Start 03/09/19 at 09:30 Valproate Sodium 125 mg/Sodium Chloride 51.25 ml @ 51.25 mls/ hr Q8 IVPB Last administered on 03/10/19at 06:04; Admin Dose 51.25 MLS/HR; Start 03/09/19 at 15:00 IV Flush (NS 10 ml) 10 ml PRN PRN IV IV PROTOCOL; Start 03/09/19 at 16:30 Levetiracetam 100 ml @ 400 mls/hr Q12 IVPB Last administered on 03/10/19at 09:51; Admin Dose 400 MLS/HR; Start 03/10/19 at 09:00 DOMO PERRY NP Mar 10, 2019 12:06
--- NOTE | 2019-03-10 12:38 | CONS ---
Consult Date/Type/Reason Admit Date/Time Mar 08, 2019 at 04:09 Initial Consult Date Type of Consult Pulmonary Requesting Provider: TE TURNER NP Date/Time of Note DATE: 03/10/19 TIME: 12:36 Subjective Patient continues FiO2 at 70% with a PEEP of 10 right lung opacification noted. Bronchoscopy performed no endobronchial lesions or significant mucus plugging noted. Ultrasound performed no significant pleural effusion either. Objective Vital Signs Date Temp Pulse Resp B/P (MAP) Pulse Ox O2 O2 Flow FiO2 Time Delivery Rate 03/10/19 112 21 96 100 11:24 03/10/19 102/55 Mechanical 06:00 (71) Ventilator 03/10/19 98.9 04:00 Intake and Output 03/09/19 03/09/19 03/10/19 1515:00 23:00 07:00 IntakeIntake Total 516 ml 1041.25 ml 480 ml OutputOutput Total 710 ml 430 ml 750 ml BalanceBalance -194 ml 611.25 ml -270 ml Exam PHYSICAL EXAMINATION: GENERAL: Chronically ill appearing young gentleman on mechanical ventilation via tracheostomy. VITAL SIGNS: NECK: Trach site is clean and intact. CARDIAC: S1, S2. No added sounds or murmurs. CHEST: Diminished air entry bilaterally. ABDOMEN: Soft, nontender. No guarding. No rebound. EXTREMITIES: No cyanosis, clubbing or edema. NEUROLOGIC: Unable to assess. The patient has contractures. Vent Setting Ventilator Support Mode: AC Fraction of Inspired Oxygen pe: 100 Positive End Expiratory Pressu: 10.0 Results/Medications Result Diagram: 03/10/19 0426 03/10/19 0426 Results 24 hrs Laboratory Tests Test 03/09/19 14:15 03/09/19 18:25 03/10/19 04:26 Vancomycin Level Trough 16.4 Valproic Acid (Depakene) Level 16 L 38 L 59 White Blood Count 11.3 #H Red Blood Count 2.39 L Hemoglobin 7.2 L Hematocrit 22.0 L Mean Corpuscular Volume 92.1 Mean Corpuscular Hemoglobin 30.1 Mean Corpuscular Hemoglobin Concent 32.7 Red Cell Distribution Width 15.2 H Platelet Count 237 Mean Platelet Volume 10.8 H Immature Granulocytes % 0.400 Neutrophils % 72.1 Lymphocytes % 13.8 L Monocytes % 10.8 Eosinophils % 2.4 Basophils % 0.5 Nucleated Red Blood Cells % 0.0 Immature Granulocytes # 0.040 H Neutrophils # 8.1 H Lymphocytes # 1.6 Monocytes # 1.2 H Eosinophils # 0.3 Basophils # 0.1 Nucleated Red Blood Cells # 0.0 Sodium Level 142 Potassium Level 3.7 Chloride Level 111 H Carbon Dioxide Level 22 Anion Gap 9 Blood Urea Nitrogen 7 Creatinine 0.66 Est Glomerular Filtrat Rate mL/min > 60 Glucose Level 113 Calcium Level 8.1 L Phosphorus Level 3.7 Magnesium Level 1.9 Medications Current Medications IV Flush (NS 3 ml) 3 ml PER PROTOCOL IV ; Start 03/08/19 at 04:30 Ondansetron HCl (Zofran Inj) 4 mg Q6H PRN IV NAUSEA/VOMITING; Start 03/08/19 at 04:30 Acetaminophen (Tylenol Supp) 650 mg Q6H PRN [place] .PAIN 1-3 OR TEMP Last administered on 03/09/19at 08:05; Admin Dose 650 MG; Start 03/08/19 at 04:30 Famotidine (Pepcid Iv) 20 mg Q12 IV Last administered on 03/10/19at 09:47; Admin Dose 20 MG; Start 03/08/19 at 09:00 Enoxaparin Sodium (Lovenox) 40 mg DAILY SC Last administered on 03/10/19at 09:54; Admin Dose 40 MG; Start 03/08/19 at 09:00 Piperacillin Sod/ Tazobactam Sod 100 ml @ 200 mls/hr Q6 IVPB Last administered on 03/10/19at 06:04; Admin Dose 200 MLS/HR; Start 03/08/19 at 13:00 Vancomycin HCl (Vanco Iv Per Pharmacy) VANCOMYCIN PER PHARMACY PER PROTOCOL XX ; Start 03/08/19 at 13:00 Albuterol/ Ipratropium (Duoneb) 3 ml Q4H RESP THERAPY HHN Last administered on 03/10/19at 09:06; Admin Dose 3 ML; Start 03/08/19 at 13:00 Albuterol (Proventil 0.083% (Neb)) 1.25 mg Q2H RESP THERAPY PRN HHN sob/wheezing; Start 03/08/19 at 13:00 Metronidazole (Flagyl) 500 mg Q8 GTB Last administered on 03/09/19at 05:13; Admin Dose 500 MG; Start 03/08/19 at 14:00; Status Hold Ipratropium [place] (Atrovent 0.02% (Neb)) 0.5 mg Q2H RESP THERAPY PRN NEB SHORTNESS OF BREATH; Start 03/08/19 at 13:00 Cholecalciferol (Vitamin D) 2,000 unit DAILY GTB ; Start 03/09/19 at 09:00; Status Hold Ascorbic Acid (Vitamin C) 500 mg BID GTB Last administered on 03/08/19at 21:27; Admin Dose 500 MG; Start 03/08/19 at 21:00; Status Hold Multivitamins/ Minerals (Theragran-M) 1 tab DAILY GTB ; Start 03/09/19 at 09:00; Status Hold Eye Lubricant (Artificial Tears Oph) 2 drop QID BOTH EYES Last administered on 03/10/19at 09:47; Admin Dose 2 DROP; Start 03/08/19 at 17:00 Dextrose/Sodium Chloride 1,000 ml @ 80 mls/hr [id number] IV Last administered on 03/10/19at 03:47; Admin Dose 80 MLS/HR; Start 03/08/19 at 13:30 Vancomycin HCl 250 ml @ 125 mls/hr Q8H IVPB Last administered on 03/10/19 06:05; Admin Dose 125 MLS/HR; Start 03/08/19 at 23:00 Acetylcysteine (Mucomyst) 2 ml Q6H RESP THERAPY NEB Last administered on 03/10/19 09:01; Admin Dose 2 ML; Start 03/08/19 at 16:00 Midazolam HCl 50 ml @ 1 mls/hr PER PROTOCOL IV Last administered on 03/09/19 06:26; Admin Dose 4 MLS/HR; Start 03/08/19 at 17:00 Lorazepam (Ativan) 1 mg Q2H PRN IV seizures Last administered on 03/10/19 10:21; Admin Dose 1 MG; Start 03/09/19 at 09:30 Valproate Sodium 125 mg/Sodium Chloride 51.25 ml @ 51.25 mls/ hr Q8 IVPB Last administered on 03/10/19 06:04; Admin Dose 51.25 MLS/HR; Start 03/09/19 at 15:00 IV Flush (NS 10 ml) 10 ml PRN PRN IV IV PROTOCOL; Start 03/09/19 at 16:30 Levetiracetam 100 ml @ 400 mls/hr Q12 IVPB Last administered on 03/10/19at 09:51; Admin Dose 400 MLS/HR; Start 03/10/19 at 09:00 Assessment/Plan Hospital Course (Demo Recall) IMPRESSION 1. Acute on chronic hypoxemic respiratory failure history of pleural effusion with thoracentesis several weeks ago at [facility] per patient's . Chest CT demonstrates possible loculated effusion versus necrotic lung. 2. Possible acute on chronic seizures. 3. Severe sepsis. 4. Vent dependent respiratory failure. 5. 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 6. Dysphagia with G-tube. Ileus noted. 7. Anemia likely of chronic disease no active GI bleeding. PLAN: 1. Continue mechanical ventilation. 2. Thoracentesis for right pleural effusion, although on preliminary CT report it appears complicated and possibly loculated. May require video-assisted thorascopic decortication. Bronchoscopy did not demonstrate any significant mucus plugging or endobronchial lesions. Likely extrinsic compression from loculated effusion and possible necrotic lung. I had a long discussion with patient's mother regarding complicated condition and she states she does not wish aggressive surgical intervention. 3. Continue broad-spectrum antibiotic coverage. 4. Continue IV antiepileptics for seizure history 5. Nasogastric tube to suction for ileus consider motility agent. Case was discussed with patient's mother. Critical care time 40 minutes. NELL GUSTAFSON MD, [facility] Mar 10, 2019 12:38
--- NOTE | 2019-03-10 14:41 | PN ---
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 Sepsis -Source: Pneumonia plus or minus UTI/Colitis/infected decubs -Empiric Zosyn plus vancomycin -coto culture Acute on chronic Vent dependent respiratory failure -[id number] bronchodilators, pulmonary toileting -Vent management per pulmonary Healthcare/vent associated pneumonia plus or minus aspiration -IV Zosyn/Flagyl plus vancomycin -Pulmonary consult appreciated -Chest CT demonstrates possible loculated effusion versus necrotic lung. -sputum cs -Aspiration precaution/HOB 35 degree and above Possible UTI -Antimicrobials, urine cultures Diarrhea, rule out infectious colitis vs meds-induced(note pt takes multiple laxatives at [facility]) -Abdominal CT -Stool studies -Empiric Flagyl Dehydration -fluids Chronic anoxic encephalopathy -supportive care Hypertension -currently hypotensive 2/2 sepsis. Hold off to antihypertensives. 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 Continue monitoring patient Chronic decub ulcer/L foot metatarsal wounds -Wound care ordered -Wound care consult DVT prophylaxis: Lovenox PUD prophylaxis: Pepcid Result Diagram: 03/10/19 0426 03/10/19 0426 Results 24hrs Laboratory Tests Test 03/09/19 18:25 03/10/19 04:26 Valproic Acid (Depakene) Level 38 L 59 White Blood Count 11.3 #H Red Blood Count 2.39 L Hemoglobin 7.2 L Hematocrit 22.0 L Mean Corpuscular Volume 92.1 Mean Corpuscular Hemoglobin 30.1 Mean Corpuscular Hemoglobin Concent 32.7 Red Cell Distribution Width 15.2 H Platelet Count 237 Mean Platelet Volume 10.8 H Immature Granulocytes % 0.400 Neutrophils % 72.1 Lymphocytes % 13.8 L Monocytes % 10.8 Eosinophils % 2.4 Basophils % 0.5 Nucleated Red Blood Cells % 0.0 Immature Granulocytes # 0.040 H Neutrophils # 8.1 H Lymphocytes # 1.6 Monocytes # 1.2 H Eosinophils # 0.3 Basophils # 0.1 Nucleated Red Blood Cells # 0.0 Sodium Level 142 Potassium Level 3.7 Chloride Level 111 H Carbon Dioxide Level 22 Anion Gap 9 Blood Urea Nitrogen 7 Creatinine 0.66 Est Glomerular Filtrat Rate mL/min > 60 Glucose Level 113 Calcium Level 8.1 L Phosphorus Level 3.7 Magnesium Level 1.9 Subjective 24 Hr Interval Summary Subjective hx not possible: pt non-verbal Exam/Review of Systems Exam Vitals Vital Signs Date Temp Pulse Resp B/P (MAP) Pulse Ox O2 O2 Flow FiO2 Time Delivery Rate 03/10/19 116 16 97 70 13:12 03/10/19 97/61 (73) Mechanical 12:00 Ventilator 03/10/19 98.9 04:00 Intake and Output 03/09/19 03/09/19 03/10/19 1414:59 22:59 06:59 IntakeIntake Total 596 ml 1041.25 ml 480 ml OutputOutput Total 655 ml 490 ml 830 ml BalanceBalance -59 ml 551.25 ml -350 ml Constitutional: non-verbal Respiratory: clear to auscultation Cardiovascular: regular rate and rhythm Gastrointestinal: soft; No distended Musculoskeletal: No nl extremities to inspection Results Results 24hrs Laboratory Tests Test 03/09/19 18:25 03/10/19 04:26 Valproic Acid (Depakene) Level 38 L 59 White Blood Count 11.3 #H Red Blood Count 2.39 L Hemoglobin 7.2 L Hematocrit 22.0 L Mean Corpuscular Volume 92.1 Mean Corpuscular Hemoglobin 30.1 Mean Corpuscular Hemoglobin Concent 32.7 Red Cell Distribution Width 15.2 H Platelet Count 237 Mean Platelet Volume 10.8 H Immature Granulocytes % 0.400 Neutrophils % 72.1 Lymphocytes % 13.8 L Monocytes % 10.8 Eosinophils % 2.4 Basophils % 0.5 Nucleated Red Blood Cells % 0.0 Immature Granulocytes # 0.040 H Neutrophils # 8.1 H Lymphocytes # 1.6 Monocytes # 1.2 H Eosinophils # 0.3 Basophils # 0.1 Nucleated Red Blood Cells # 0.0 Sodium Level 142 Potassium Level 3.7 Chloride Level 111 H Carbon Dioxide Level 22 Anion Gap 9 Blood Urea Nitrogen 7 Creatinine 0.66 Est Glomerular Filtrat Rate mL/min > 60 Glucose Level 113 Calcium Level 8.1 L Phosphorus Level 3.7 Magnesium Level 1.9 Medications Medication Current Medications IV Flush (NS 3 ml) 3 ml PER PROTOCOL IV ; Start 03/08/19 at 04:30 Ondansetron HCl (Zofran Inj) 4 mg Q6H PRN IV NAUSEA/VOMITING; Start 03/08/19 at 04:30 Acetaminophen (Tylenol Supp) 650 mg Q6H PRN [place] .PAIN 1-3 OR TEMP Last administered on 03/09/19at 08:05; Admin Dose 650 MG; Start 03/08/19 at 04:30 Famotidine (Pepcid Iv) 20 mg Q12 IV Last administered on 03/10/19at 09:47; Admin Dose 20 MG; Start 03/08/19 at 09:00 Enoxaparin Sodium (Lovenox) 40 mg DAILY SC Last administered on 03/10/19at 09:54; Admin Dose 40 MG; Start 03/08/19 at 09:00 Piperacillin Sod/ Tazobactam Sod 100 ml @ 200 mls/hr Q6 IVPB Last administered on 03/10/19at 13:01; Admin Dose 200 MLS/HR; Start 03/08/19 at 13:00 Vancomycin HCl (Vanco Iv Per Pharmacy) VANCOMYCIN PER PHARMACY PER PROTOCOL XX ; Start 03/08/19 at 13:00 Albuterol/ Ipratropium (Duoneb) 3 ml Q4H RESP THERAPY HHN Last administered on 03/10/19at 13:12; Admin Dose 3 ML; Start 03/08/19 at 13:00 Albuterol (Proventil 0.083% (Neb)) 1.25 mg Q2H RESP THERAPY PRN HHN sob/wheezing; Start 03/08/19 at 13:00 Metronidazole (Flagyl) 500 mg Q8 GTB Last administered on 03/09/19at 05:13; Admin Dose 500 MG; Start 03/08/19 at 14:00; Status Hold Ipratropium [place] (Atrovent 0.02% (Neb)) 0.5 mg Q2H RESP THERAPY PRN NEB SHORTNESS OF BREATH; Start 03/08/19 at 13:00 Cholecalciferol (Vitamin D) 2,000 unit DAILY GTB ; Start 03/09/19 at 09:00; Status Hold Ascorbic Acid (Vitamin C) 500 mg BID GTB Last administered on 03/08/19 21:27; Admin Dose 500 MG; Start 03/08/19 at 21:00; Status Hold Multivitamins/ Minerals (Theragran-M) 1 tab DAILY GTB ; Start 03/09/19 at 09:00; Status Hold Eye Lubricant (Artificial Tears Oph) 2 drop QID BOTH EYES Last administered on 03/10/19 13:04; Admin Dose 2 DROP; Start 03/08/19 at 17:00 Dextrose/Sodium Chloride 1,000 ml @ 80 mls/hr [id number] IV Last administered on 03/10/19 03:47; Admin Dose 80 MLS/HR; Start 03/08/19 at 13:30 Vancomycin HCl 250 ml @ 125 mls/hr Q8H IVPB Last administered on 03/10/19 06:05; Admin Dose 125 MLS/HR; Start 03/08/19 at 23:00 Acetylcysteine (Mucomyst) 2 ml Q6H RESP THERAPY NEB Last administered on 03/10/19 13:12; Admin Dose 2 ML; Start 03/08/19 at 16:00 Midazolam HCl 50 ml @ 1 mls/hr PER PROTOCOL IV Last administered on 03/09/19 06:26; Admin Dose 4 MLS/HR; Start 03/08/19 at 17:00 Lorazepam (Ativan) 1 mg Q2H PRN IV seizures Last administered on 03/10/19 10:21; Admin Dose 1 MG; Start 03/09/19 at 09:30 Valproate Sodium 125 mg/Sodium Chloride 51.25 ml @ 51.25 mls/ hr Q8 IVPB Last administered on 03/10/19 14:21; Admin Dose 51.25 MLS/HR; Start 03/09/19 at 15:00 IV Flush (NS 10 ml) 10 ml PRN PRN IV IV PROTOCOL; Start 03/09/19 at 16:30 Levetiracetam 100 ml @ 400 mls/hr Q12 IVPB Last administered on 03/10/19 09:51; Admin Dose 400 MLS/HR; Start 03/10/19 at 09:00 Miscellaneous Information (*Rx Drug Level Order Reminder*) MALINA PARRA 03/12 AT 1400 1400 ONCE XX ; Start 03/12/19 at 14:00; Stop 03/12/19 at 14:01 ELICIA SPEARS Mar 10, 2019 14:41
--- NOTE | 2019-03-10 14:42 | PN ---
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 Sepsis -Source: Pneumonia plus or minus UTI/Colitis/infected decubs -Empiric Zosyn plus vancomycin -coto culture Acute on chronic Vent dependent respiratory failure -[id number] bronchodilators, pulmonary toileting -Vent management per pulmonary Healthcare/vent associated pneumonia plus or minus aspiration -IV Zosyn/Flagyl plus vancomycin -Pulmonary consult appreciated -Chest CT demonstrates possible loculated effusion versus necrotic lung. -sputum cs -Aspiration precaution/HOB 35 degree and above Possible UTI -Antimicrobials, urine cultures Diarrhea, rule out infectious colitis vs meds-induced(note pt takes multiple laxatives at SNF) -Abdominal CT -Stool studies -Empiric Flagyl Dehydration -fluids Chronic anoxic encephalopathy -supportive care Hypertension -currently hypotensive 2/2 sepsis. Hold off to antihypertensives. 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 Continue monitoring patient Chronic decub ulcer/L foot metatarsal wounds -Wound care ordered -Wound care consult DVT prophylaxis: Lovenox PUD prophylaxis: Pepcid Result Diagram: 03/10/19 0426 03/10/19 0426 Results 24hrs Laboratory Tests Test 03/09/19 18:25 03/10/19 04:26 Valproic Acid (Depakene) Level 38 L 59 White Blood Count 11.3 #H Red Blood Count 2.39 L Hemoglobin 7.2 L Hematocrit 22.0 L Mean Corpuscular Volume 92.1 Mean Corpuscular Hemoglobin 30.1 Mean Corpuscular Hemoglobin Concent 32.7 Red Cell Distribution Width 15.2 H Platelet Count 237 Mean Platelet Volume 10.8 H Immature Granulocytes % 0.400 Neutrophils % 72.1 Lymphocytes % 13.8 L Monocytes % 10.8 Eosinophils % 2.4 Basophils % 0.5 Nucleated Red Blood Cells % 0.0 Immature Granulocytes # 0.040 H Neutrophils # 8.1 H Lymphocytes # 1.6 Monocytes # 1.2 H Eosinophils # 0.3 Basophils # 0.1 Nucleated Red Blood Cells # 0.0 Sodium Level 142 Potassium Level 3.7 Chloride Level 111 H Carbon Dioxide Level 22 Anion Gap 9 Blood Urea Nitrogen 7 Creatinine 0.66 Est Glomerular Filtrat Rate mL/min > 60 Glucose Level 113 Calcium Level 8.1 L Phosphorus Level 3.7 Magnesium Level 1.9 Subjective 24 Hr Interval Summary Free Text/Dictation Late entry for 03/09/2019 Subjective hx not possible: pt non-verbal Exam/Review of Systems Exam Vitals Vital Signs Date Temp Pulse Resp B/P (MAP) Pulse Ox O2 O2 Flow FiO2 Time Delivery Rate 03/10/19 116 16 97 70 13:12 03/10/19 97/61 (73) Mechanical 12:00 Ventilator 03/10/19 98.9 04:00 Intake and Output 03/09/19 03/09/19 03/10/19 1414:59 22:59 06:59 IntakeIntake Total 596 ml 1041.25 ml 480 ml OutputOutput Total 655 ml 490 ml 830 ml BalanceBalance -59 ml 551.25 ml -350 ml Constitutional: non-verbal Respiratory: clear to auscultation Cardiovascular: regular rate and rhythm Gastrointestinal: soft; No distended Musculoskeletal: nl extremities to inspection Results Results 24hrs Laboratory Tests Test 03/09/19 18:25 03/10/19 04:26 Valproic Acid (Depakene) Level 38 L 59 White Blood Count 11.3 #H Red Blood Count 2.39 L Hemoglobin 7.2 L Hematocrit 22.0 L Mean Corpuscular Volume 92.1 Mean Corpuscular Hemoglobin 30.1 Mean Corpuscular Hemoglobin Concent 32.7 Red Cell Distribution Width 15.2 H Platelet Count 237 Mean Platelet Volume 10.8 H Immature Granulocytes % 0.400 Neutrophils % 72.1 Lymphocytes % 13.8 L Monocytes % 10.8 Eosinophils % 2.4 Basophils % 0.5 Nucleated Red Blood Cells % 0.0 Immature Granulocytes # 0.040 H Neutrophils # 8.1 H Lymphocytes # 1.6 Monocytes # 1.2 H Eosinophils # 0.3 Basophils # 0.1 Nucleated Red Blood Cells # 0.0 Sodium Level 142 Potassium Level 3.7 Chloride Level 111 H Carbon Dioxide Level 22 Anion Gap 9 Blood Urea Nitrogen 7 Creatinine 0.66 Est Glomerular Filtrat Rate mL/min > 60 Glucose Level 113 Calcium Level 8.1 L Phosphorus Level 3.7 Magnesium Level 1.9 Medications Medication Current Medications IV Flush (NS 3 ml) 3 ml PER PROTOCOL IV ; Start 03/08/19 at 04:30 Ondansetron HCl (Zofran Inj) 4 mg Q6H PRN IV NAUSEA/VOMITING; Start 03/08/19 at 04:30 Acetaminophen (Tylenol Supp) 650 mg Q6H PRN [place] .PAIN 1-3 OR TEMP Last administered on 03/09/19 08:05; Admin Dose 650 MG; Start 03/08/19 at 04:30 Famotidine (Pepcid Iv) 20 mg Q12 IV Last administered on 03/10/19 09:47; Admin Dose 20 MG; Start 03/08/19 at 09:00 Enoxaparin Sodium (Lovenox) 40 mg DAILY SC Last administered on 03/10/19 09:54; Admin Dose 40 MG; Start 03/08/19 at 09:00 Piperacillin Sod/ Tazobactam Sod 100 ml @ 200 mls/hr Q6 IVPB Last administered on 03/10/19 13:01; Admin Dose 200 MLS/HR; Start 03/08/19 at 13:00 Vancomycin HCl (Vanco Iv Per Pharmacy) VANCOMYCIN PER PHARMACY PER PROTOCOL XX ; Start 03/08/19 at 13:00 Albuterol/ Ipratropium (Duoneb) 3 ml Q4H RESP THERAPY HHN Last administered on 03/10/19at 13:12; Admin Dose 3 ML; Start 03/08/19 at 13:00 Albuterol (Proventil 0.083% (Neb)) 1.25 mg Q2H RESP THERAPY PRN HHN sob/wheezing; Start 03/08/19 at 13:00 Metronidazole (Flagyl) 500 mg Q8 GTB Last administered on 03/09/19 05:13; Admin Dose 500 MG; Start 03/08/19 at 14:00; Status Hold Ipratropium [place] (Atrovent 0.02% (Neb)) 0.5 mg Q2H RESP THERAPY PRN NEB SHORTNESS OF BREATH; Start 03/08/19 at 13:00 Cholecalciferol (Vitamin D) 2,000 unit DAILY GTB ; Start 03/09/19 at 09:00; Status Hold Ascorbic Acid (Vitamin C) 500 mg BID GTB Last administered on 03/08/19 21:27; Admin Dose 500 MG; Start 03/08/19 at 21:00; Status Hold Multivitamins/ Minerals (Theragran-M) 1 tab DAILY GTB ; Start 03/09/19 at 09:00; Status Hold Eye Lubricant (Artificial Tears Oph) 2 drop QID BOTH EYES Last administered on 03/10/19 13:04; Admin Dose 2 DROP; Start 03/08/19 at 17:00 Dextrose/Sodium Chloride 1,000 ml @ 80 mls/hr [id number] IV Last administered on 03/10/19 03:47; Admin Dose 80 MLS/HR; Start 03/08/19 at 13:30 Vancomycin HCl 250 ml @ 125 mls/hr Q8H IVPB Last administered on 03/10/19 06:05; Admin Dose 125 MLS/HR; Start 03/08/19 at 23:00 Acetylcysteine (Mucomyst) 2 ml Q6H RESP THERAPY NEB Last administered on 03/10/19 13:12; Admin Dose 2 ML; Start 03/08/19 at 16:00 Midazolam HCl 50 ml @ 1 mls/hr PER PROTOCOL IV Last administered on 03/09/19 06:26; Admin Dose 4 MLS/HR; Start 03/08/19 at 17:00 Lorazepam (Ativan) 1 mg Q2H PRN IV seizures Last administered on 03/10/19 10:21; Admin Dose 1 MG; Start 03/09/19 at 09:30 Valproate Sodium 125 mg/Sodium Chloride 51.25 ml @ 51.25 mls/ hr Q8 IVPB Last administered on 03/10/19 14:21; Admin Dose 51.25 MLS/HR; Start 03/09/19 at 15:00 IV Flush (NS 10 ml) 10 ml PRN PRN IV IV PROTOCOL; Start 03/09/19 at 16:30 Levetiracetam 100 ml @ 400 mls/hr Q12 IVPB Last administered on 03/10/19 09:51; Admin Dose 400 MLS/HR; Start 03/10/19 at 09:00 Miscellaneous Information (*Rx Drug Level Order Reminder*) VANCO TR 03/12 AT 1400 1400 ONCE XX ; Start 03/12/19 at 14:00; Stop 03/12/19 at 14:01 ELICIA SPEARS Mar 10, 2019 14:42
--- NOTE | 2019-03-10 16:30 | SP ---
DATE OF PROCEDURE: PROCEDURE: Bronchoscopy with inspection. INDICATION: Rule out mucus plugging. DESCRIPTION OF PROCEDURE: The patient was already on mechanical ventilation, placed on 100% FIO2, re quired 2 mg of Ativan prior to procedure. Using an endotracheal tube adaptor, flexible fiberoptic br onchoscope was passed through the tracheostomy to the level of elzbieta, which was noted to be normal i n appearance. Left and right lungs were then examined in detail. Left lung was noted to be normal w ith no endobronchial lesions, normal mucosa. The right lung was then entered. Right upper lobe, rig ht middle lobe and right lower lobe were noted to be patent with no lesions or mucus noted. Endobron chial mucosa was also noted to be normal. The patient tolerated the procedure well without complicat ion. Dictated By: NELL GUSTAFSON MD SV/NTS Conf#: [id number] DID#: [id number] CC: YANN PAGAN MD;*EndCC*
--- NOTE | 2019-03-10 17:04 | CONS ---
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 We will schedule family conference if okay with Dr. Keating Consultation Date/Type/Reason Admit Date/Time Mar 08, 2019 at 04:09 Date/Time of Note DATE: 03/10/19 TIME: 17:04 Hx of Present Illness This Roman is a 23-year-old male there are no family members available at this t franck who is status post anterior crease cerebral hemorrhage, and epilepsy encephalopathy chronic respiratory failure transferred from the nursing facility with worsening respiratory distress. She was found to be septic was placed on 100% FiO2 initial chest x-ray showed right-sided pneumonia all this information is taken from patient's current medical records Past Medical History Home Meds No Active Prescriptions or Reported Meds Medications Current Medications IV Flush (NS 3 ml) 3 ml PER PROTOCOL IV ; Start 03/08/19 at 04:30 Ondansetron HCl (Zofran Inj) 4 mg Q6H PRN IV NAUSEA/VOMITING; Start 03/08/19 at 04:30 Acetaminophen (Tylenol Supp) 650 mg Q6H PRN [place] .PAIN 1-3 OR TEMP Last administered on 03/09/19at 08:05; Admin Dose 650 MG; Start 03/08/19 at 04:30 Famotidine (Pepcid Iv) 20 mg Q12 IV Last administered on 03/10/19at 09:47; Admin Dose 20 MG; Start 03/08/19 at 09:00 Enoxaparin Sodium (Lovenox) 40 mg DAILY SC Last administered on 03/10/19at 09:54; Admin Dose 40 MG; Start 03/08/19 at 09:00 Piperacillin Sod/ Tazobactam Sod 100 ml @ 200 mls/hr Q6 IVPB Last administered on 03/10/19at 13:01; Admin Dose 200 MLS/HR; Start 03/08/19 at 13:00 Vancomycin HCl (Vanco Iv Per Pharmacy) VANCOMYCIN PER PHARMACY PER PROTOCOL XX ; Start 03/08/19 at 13:00 Albuterol/ Ipratropium (Duoneb) 3 ml Q4H RESP THERAPY HHN Last administered on 03/10/19 13:12; Admin Dose 3 ML; Start 03/08/19 at 13:00 Albuterol (Proventil 0.083% (Neb)) 1.25 mg Q2H RESP THERAPY PRN HHN sob/wheezing; Start 03/08/19 at 13:00 Metronidazole (Flagyl) 500 mg Q8 GTB Last administered on 03/09/19 05:13; Admin Dose 500 MG; Start 03/08/19 at 14:00; Status Hold Ipratropium [place] (Atrovent 0.02% (Neb)) 0.5 mg Q2H RESP THERAPY PRN NEB SHORTNESS OF BREATH; Start 03/08/19 at 13:00 Cholecalciferol (Vitamin D) 2,000 unit DAILY GTB ; Start 03/09/19 at 09:00; Status Hold Ascorbic Acid (Vitamin C) 500 mg BID GTB Last administered on 03/08/19 21:27; Admin Dose 500 MG; Start 03/08/19 at 21:00; Status Hold Multivitamins/ Minerals (Theragran-M) 1 tab DAILY GTB ; Start 03/09/19 at 09:00; Status Hold Eye Lubricant (Artificial Tears Oph) 2 drop QID BOTH EYES Last administered on 03/10/19 13:04; Admin Dose 2 DROP; Start 03/08/19 at 17:00 Dextrose/Sodium Chloride 1,000 ml @ 80 mls/hr [id number] IV Last administered on 03/10/19 03:47; Admin Dose 80 MLS/HR; Start 03/08/19 at 13:30 Vancomycin HCl 250 ml @ 125 mls/hr Q8H IVPB Last administered on 03/10/19 15:39; Admin Dose 125 MLS/HR; Start 03/08/19 at 23:00 Acetylcysteine (Mucomyst) 2 ml Q6H RESP THERAPY NEB Last administered on 03/10/19 13:12; Admin Dose 2 ML; Start 03/08/19 at 16:00 Midazolam HCl 50 ml @ 1 mls/hr PER PROTOCOL IV Last administered on 03/09/19 06:26; Admin Dose 4 MLS/HR; Start 03/08/19 at 17:00 Lorazepam (Ativan) 1 mg Q2H PRN IV seizures Last administered on 03/10/19at 10:21; Admin Dose 1 MG; Start 03/09/19 at 09:30 Valproate Sodium 125 mg/Sodium Chloride 51.25 ml @ 51.25 mls/ hr Q8 IVPB Last administered on 03/10/19at 14:21; Admin Dose 51.25 MLS/HR; Start 03/09/19 at 15:00 IV Flush (NS 10 ml) 10 ml PRN PRN IV IV PROTOCOL; Start 03/09/19 at 16:30 Levetiracetam 100 ml @ 400 mls/hr Q12 IVPB Last administered on 03/10/19at 09:51; Admin Dose 400 MLS/HR; Start 03/10/19 at 09:00 Miscellaneous Information (*Rx Drug Level Order Reminder*) VANCO TR 03/12 AT 1400 1400 ONCE XX ; Start 03/12/19 at 14:00; Stop 03/12/19 at 14:01 Allergies: Coded Allergies: No Known Allergy (Unverified , 03/08/19) Social History Smoking Status: Unknown if ever smoked Exam/Review of Systems Exam Vitals Vital Signs Date Temp Pulse Resp B/P (MAP) Pulse Ox O2 O2 Flow FiO2 Time Delivery Rate 03/10/19 112 16:00 03/10/19 18 105/66 97 Mechanical 16:00 (79) Ventilator 03/10/19 70 15:08 03/10/19 98.9 04:00 Intake and Output 03/09/19 03/09/19 03/10/19 1515:00 23:00 07:00 IntakeIntake Total 516 ml 1041.25 ml 480 ml OutputOutput Total 710 ml 430 ml 750 ml BalanceBalance -194 ml 611.25 ml -270 ml Results Result Diagram: 03/10/19 0426 03/10/19 0426 Results 24hrs Laboratory Tests Test 03/09/19 18:25 03/10/19 04:26 Valproic Acid (Depakene) Level 38 L 59 White Blood Count 11.3 #H Red Blood Count 2.39 L Hemoglobin 7.2 L Hematocrit 22.0 L Mean Corpuscular Volume 92.1 Mean Corpuscular Hemoglobin 30.1 Mean Corpuscular Hemoglobin Concent 32.7 Red Cell Distribution Width 15.2 H Platelet Count 237 Mean Platelet Volume 10.8 H Immature Granulocytes % 0.400 Neutrophils % 72.1 Lymphocytes % 13.8 L Monocytes % 10.8 Eosinophils % 2.4 Basophils % 0.5 Nucleated Red Blood Cells % 0.0 Immature Granulocytes # 0.040 H Neutrophils # 8.1 H Lymphocytes # 1.6 Monocytes # 1.2 H Eosinophils # 0.3 Basophils # 0.1 Nucleated Red Blood Cells # 0.0 Sodium Level 142 Potassium Level 3.7 Chloride Level 111 H Carbon Dioxide Level 22 Anion Gap 9 Blood Urea Nitrogen 7 Creatinine 0.66 Est Glomerular Filtrat Rate mL/min > 60 Glucose Level 113 Calcium Level 8.1 L Phosphorus Level 3.7 Magnesium Level 1.9 Medications Medication Current Medications IV Flush (NS 3 ml) 3 ml PER PROTOCOL IV ; Start 03/08/19 at 04:30 Ondansetron HCl (Zofran Inj) 4 mg Q6H PRN IV NAUSEA/VOMITING; Start 03/08/19 at 04:30 Acetaminophen (Tylenol Supp) 650 mg Q6H PRN [place] .PAIN 1-3 OR TEMP Last adminis tered on 03/09/19at 08:05; Admin Dose 650 MG; Start 03/08/19 at 04:30 Famotidine (Pepcid Iv) 20 mg Q12 IV Last administered on 03/10/19at 09:47; Admin Dose 20 MG; Start 03/08/19 at 09:00 Enoxaparin Sodium (Lovenox) 40 mg DAILY SC Last administered on 03/10/19at 09:54; Admin Dose 40 MG; Start 03/08/19 at 09:00 Piperacillin Sod/ Tazobactam Sod 100 ml @ 200 mls/hr Q6 IVPB Last administered on 03/10/19 13:01; Admin Dose 200 MLS/HR; Start 03/08/19 at 13:00 Vancomycin HCl (Vanco Iv Per Pharmacy) VANCOMYCIN PER PHARMACY PER PROTOCOL XX ; Start 03/08/19 at 13:00 Albuterol/ Ipratropium (Duoneb) 3 ml Q4H RESP THERAPY HHN Last administered on 03/10/19at 13:12; Admin Dose 3 ML; Start 03/08/19 at 13:00 Albuterol (Proventil 0.083% (Neb)) 1.25 mg Q2H RESP THERAPY PRN HHN sob/wheezing; Start 03/08/19 at 13:00 Metronidazole (Flagyl) 500 mg Q8 GTB Last administered on 03/09/19at 05:13; Admin Dose 500 MG; Start 03/08/19 at 14:00; Status Hold Ipratropium [place] (Atrovent 0.02% (Neb)) 0.5 mg Q2H RESP THERAPY PRN NEB SHORTNESS OF BREATH; Start 03/08/19 at 13:00 Cholecalciferol (Vitamin D) 2,000 unit DAILY GTB ; Start 03/09/19 at 09:00; Status Hold Ascorbic Acid (Vitamin C) 500 mg BID GTB Last administered on 03/08/19 21:27; Admin Dose 500 MG; Start 03/08/19 at 21:00; Status Hold Multivitamins/ Minerals (Theragran-M) 1 tab DAILY GTB ; Start 03/09/19 at 09:00; Status Hold Eye Lubricant (Artificial Tears Oph) 2 drop QID BOTH EYES Last administered on 03/10/19 13:04; Admin Dose 2 DROP; Start 03/08/19 at 17:00 Dextrose/Sodium Chloride 1,000 ml @ 80 mls/hr [id number] IV Last administered on 03/10/19 03:47; Admin Dose 80 MLS/HR; Start 03/08/19 at 13:30 Vancomycin HCl 250 ml @ 125 mls/hr Q8H IVPB Last administered on 03/10/19 15:39; Admin Dose 125 MLS/HR; Start 03/08/19 at 23:00 Acetylcysteine (Mucomyst) 2 ml Q6H RESP THERAPY NEB Last administered on 03/10/19 13:12; Admin Dose 2 ML; Start 03/08/19 at 16:00 Midazolam HCl 50 ml @ 1 mls/hr PER PROTOCOL IV Last administered on 03/09/19 06:26; Admin Dose 4 MLS/HR; Start 03/08/19 at 17:00 Lorazepam (Ativan) 1 mg Q2H PRN IV seizures Last administered on 03/10/19 10:21; Admin Dose 1 MG; Start 03/09/19 at 09:30 Valproate Sodium 125 mg/Sodium Chloride 51.25 ml @ 51.25 mls/ hr Q8 IVPB Last administered on 03/10/19at 14:21; Admin Dose 51.25 MLS/HR; Start 03/09/19 at 15:00 IV Flush (NS 10 ml) 10 ml PRN PRN IV IV PROTOCOL; Start 03/09/19 at 16:30 Levetiracetam 100 ml @ 400 mls/hr Q12 IVPB Last administered on 03/10/19at 09:51; Admin Dose 400 MLS/HR; Start 03/10/19 at 09:00 Miscellaneous Information (*Rx Drug Level Order Reminder*) VANCO TR 03/12 AT 1400 1400 ONCE XX ; Start 03/12/19 at 14:00; Stop 03/12/19 at 14:01 ZI STEWART Mar 10, 2019 17:04
[2019-03-11] VITALS (35 sets, daily range): BP systolic 86–125; BP diastolic 53–85; PULSE 101–128; RESP 14–30
[2019-03-11] MEDS: ALBUTEROL HFA 8 GM INHALER INH SCH ×6 (01:03→21:23)
[2019-03-11] MEDS: IPRATROPIUM (HFA) 12.9 GM INHALER INH SCH ×6 (01:03→21:22)
[2019-03-11] MEDS: VALPROATE INJ 125 MG in SOD CHLORIDE 0.9% 50 ML IVPB SCH (05:29)
[2019-03-11] MEDS: PIPER-TAZO 3.375 GM IV (PMX) 100 ML IVPB SCH (05:30)
[2019-03-11] MEDS: ACETAMINOPHEN 650 MG SUPP PR PRN (06:13)
[2019-03-11] MEDS: VANCOMYCIN 1 GM 250 ML IVPB SCH ×3 (06:37→23:49)
[2019-03-11] MEDS: LORAZEPAM 2 MG INJ IV PRN ×2 (07:55→11:46)
[2019-03-11] MEDS: FAMOTIDINE 20 MG INJ IV SCH ×2 (08:53→20:57)
[2019-03-11] MEDS: LEVETIRACETAM 1000 MG (PMX) 100 ML IVPB SCH ×2 (08:53→20:57)
--- NOTE | 2019-03-11 09:05 | CONS ---
Assessment/Plan Assessment/Plan Hospital Course (Demo Recall) ID PROGRESS NOTE CURRENT ABX: DAY # =>Vanco IV + Zosyn 03/11/19 0450 03/11/19 0450 24H INTERVAL SUMMARY * Awake, eyes open non-tracking, looks comfortable, non-communicative w/Trach to Vent DIAGNOSTIC IMAGING * 03/10/19 CXR: IMPRESSION:1. Lines and tubes are stable. 2. Persistent complete opacification of the right hemithorax. 3. Persistent trace left pleural effusion. MICRO * 03/08/19 Urine Cx (-); BCx (+)CoNS 1/2 bottles from ED = consistent w/contaminant * 03/08/19 Trach Cx (+)PSAR + GNR #2-> Pending * RESPIRATORY CULTURE Preliminary Organism 1 PSEUDOMONAS AERUGINOSA QUANTITY SCANT GROWTH Organism 2 GRAM NEGATIVE MANDY#2 QUANTITY SCANT GROWTH PSEUDOMONAS AERUGINOSA IS MDRO Phoned to [facility],0807,03/11/19.TT P.AERUG P.AERUG M.I.C. RX M.I.C. RX --------- --- --------- --- AMIKACIN <=2 S AZTREONAM R CEFEPIME I CEFTAZIDIME 16 S CIPROFLOXACIN 1 S GENTAMICIN <=1 S LEVOFLOXACIN >=8 R MEROPENEM 0.75 S TOBRAMYCIN <=1 S PHYSICAL EXAMINATION: GENERAL: VSS, NAD HEENT: AT, NC, NECK: Supple, (+)Trach CHEST: Rise symmetrical HEART: Pulse RRR ABDOMEN: Benign EXTREMITIES: Warm, dry SKIN: No rash, no diaphoresis ID ASSESSMENT 23 yo M admit with: 1. Sepsis with bacteremia likely contaminant 2. Urinary tract infection per urinalysis 3. Questionable loculated pleural effusion versus necrotic lung per CT 4. Status epilepticus 5. Chronic encephalopathy status post intracerebral hemorrhage 6. Left hip dislocation with possible septic joint and osteomyelitis 7. Questionable ileus (-)MRSA Nares ABX ALLERGIES: KNDA INVASIVES: PIV CURRENT ABX: DAY # => Vanco IV + Zosyn ID RECOMMENDATIONS/PLAN: 1. Continue Vanco IV -- Septic joint/Osteomyelitis 2. Change Zosyn to FORTAZ to cover PSAR -- awaiting 2nd GNR respiratory pathogen * Avoid Carbapenems due to SZS disorder on Valproate . Consultation Date/Type/Reason Admit Date/Time Mar 08, 2019 at 04:09 Initial Consult Date Requesting Provider: TE TURNER NP Date/Time of Note DATE: 03/11/19 TIME: 09:03 Exam/Review of Systems Exam Vitals Vital Signs Date Temp Pulse Resp B/P (MAP) Pulse Ox O2 O2 Flow FiO2 Time Delivery Rate 03/11/19 99.9 07:15 03/11/19 121 30 86/62 (70) 93 06:00 03/11/19 Mechanical 05:00 Ventilator 03/11/19 70 05:00 Intake and Output 03/10/19 03/10/19 03/11/19 1515:00 23:00 07:00 IntakeIntake Total 2980 ml 1322.25 ml 990 ml OutputOutput Total 400 ml 1160 ml 785 ml BalanceBalance 2580 ml 162.25 ml 205 ml Results Result Diagram: 03/11/19 0450 03/11/19 0450 Results 24hrs Laboratory Tests Test 03/11/19 04:50 White Blood Count 8.7 # Red Blood Count 2.25 L Hemoglobin 6.8 *L Hematocrit 21.0 L Mean Corpuscular Volume 93.3 Mean Corpuscular Hemoglobin 30.2 Mean Corpuscular Hemoglobin Concent 32.4 Red Cell Distribution Width 15.6 H Platelet Count 234 Mean Platelet Volume 10.9 H Immature Granulocytes % 0.300 Neutrophils % 69.0 Segmented Neutrophils % (Manual) 67 Band Neutrophils % (Manual) 3 Lymphocytes % 16.3 Lymphocytes % (Manual) 10 L Monocytes % 10.9 Monocytes % (Manual) 14 H Eosinophils % 3.0 Eosinophils % (Manual) 6 Basophils % 0.5 Nucleated Red Blood Cells % 0.0 Immature Granulocytes # 0.030 Neutrophils # 6.0 Neutrophils # (Manual) 5.8 Band Neutrophils # 0.2 Lymphocytes (Manual) 0.8 Lymphocytes # 1.4 Monocytes # 1.0 H Monocytes # (Manual) 1.2 H Eosinophils # 0.3 Basophils # 0.0 Nucleated Red Blood Cells # 0.0 Platelet Estimate NORMAL Giant Platelets 2 H Polychromasia 3+ Poikilocytosis 3+ Anisocytosis 3+ Microcytosis 2+ Macrocytosis 2+ Sodium Level 146 H Potassium Level 3.6 Chloride Level 115 H Carbon Dioxide Level 22 Anion Gap 9 Blood Urea Nitrogen 5 L Creatinine 1.29 H Est Glomerular Filtrat Rate mL/min > 60 Glucose Level 94 Calcium Level 8.2 L Valproic Acid (Depakene) Level 46 L Medications Medication Current Medications IV Flush (NS 3 ml) 3 ml PER PROTOCOL IV ; Start 03/08/19 at 04:30 Ondansetron HCl (Zofran Inj) 4 mg Q6H PRN IV NAUSEA/VOMITING; Start 03/08/19 at 04:30 Acetaminophen (Tylenol Supp) 650 mg Q6H PRN [place] .PAIN 1-3 OR TEMP Last administered on 03/11/19at 06:13; Admin Dose 650 MG; Start 03/08/19 at 04:30 Famotidine (Pepcid Iv) 20 mg Q12 IV Last administered on 03/11/19at 08:53; Admin Dose 20 MG; Start 03/08/19 at 09:00 Enoxaparin Sodium (Lovenox) 40 mg DAILY SC Last administered on 03/10/19at 09:54; Admin Dose 40 MG; Start 03/08/19 at 09:00 Piperacillin Sod/ Tazobactam Sod 100 ml @ 200 mls/hr Q6 IVPB Last administered on 03/11/19at 05:30; Admin Dose 200 MLS/HR; Start 03/08/19 at 13:00 Vancomycin HCl (Vanco Iv Per Pharmacy) VANCOMYCIN PER PHARMACY PER PROTOCOL XX ; Start 03/08/19 at 13:00 Albuterol (Proventil 0.083% (Neb)) 1.25 mg Q2H RESP THERAPY PRN HHN sob/wheezing; Start 03/08/19 at 13:00 Metronidazole (Flagyl) 500 mg Q8 GTB Last administered on 03/09/19at 05:13; Admin Dose 500 MG; Start 03/08/19 at 14:00; Status Hold Ipratropium [place] (Atrovent 0.02% (Neb)) 0.5 mg Q2H RESP THERAPY PRN NEB SHORTNESS OF BREATH; Start 03/08/19 at 13:00 Cholecalciferol (Vitamin D) 2,000 unit DAILY GTB ; Start 03/09/19 at 09:00; Status Hold Ascorbic Acid (Vitamin C) 500 mg BID GTB Last administered on 03/08/19at 21:27; Admin Dose 500 MG; Start 03/08/19 at 21:00; Status Hold Multivitamins/ Minerals (Theragran-M) 1 tab DAILY GTB ; Start 03/09/19 at 09:00; Status Hold Eye Lubricant (Artificial Tears Oph) 2 drop QID BOTH EYES Last administered on 03/10/19at 20:24; Admin Dose 2 DROP; Start 03/08/19 at 17:00 Dextrose/Sodium Chloride 1,000 ml @ 80 mls/hr [id number] IV Last administered on 03/10/19at 21:43; Admin Dose 80 MLS/HR; Start 03/08/19 at 13:30 Vancomycin HCl 250 ml @ 125 mls/hr Q8H IVPB Last administered on 03/11/19 06:37; Admin Dose 125 MLS/HR; Start 03/08/19 at 23:00 Midazolam HCl 50 ml @ 1 mls/hr PER PROTOCOL IV Last administered on 03/09/19at 06:26; Admin Dose 4 MLS/HR; Start 03/08/19 at 17:00 Lorazepam (Ativan) 1 mg Q2H PRN IV seizures Last administered on 03/11/19at 07:55 ; Admin Dose 1 MG; Start 03/09/19 at 09:30 Valproate Sodium 125 mg/Sodium Chloride 51.25 ml @ 51.25 mls/ hr Q8 IVPB Last administered on 03/11/19at 05:29; Admin Dose 51.25 MLS/HR; Start 03/09/19 at 15:00 IV Flush (NS 10 ml) 10 ml PRN PRN IV IV PROTOCOL; Start 03/09/19 at 16:30 Levetiracetam 100 ml @ 400 mls/hr Q12 IVPB Last administered on 03/11/19at 08:53; Admin Dose 400 MLS/HR; Start 03/10/19 at 09:00 Miscellaneous Information (*Rx Drug Level Order Reminder*) MALINA TR 03/12 AT 1400 1400 ONCE XX ; Start 03/12/19 at 14:00; Stop 03/12/19 at 14:01 Albuterol (Ventolin Hfa) 4 puff Q4H RESP THERAPY INH Last administered on 03/11/19 05:18; Admin Dose 4 PUFF; Start 03/11/19 at 01:00 Ipratropium [place] (Atrovent Hfa) 4 puff Q4H RESP THERAPY INH Last administered on 03/11/19at 08:00; Admin Dose 4 PUFF; Start 03/11/19 at 01:00 FLAKO REGAN NP Mar 11, 2019 09:05
[2019-03-11] MEDS ORDERED: VALPROATE INJ 1,500 MG in SOD CHLORIDE 0.9% 100 ML IVPB STA (10:14)
--- NOTE | 2019-03-11 10:18 | CONS ---
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 Noted to have breakthrough seizures, for which neurology is consulted.. 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 The patient is noted to have a GI ileus..which is a likely contributor to recent enteral medication malabsorption. UA + .... a additional contributor... to a lowered seizure threshold.. Depakote level is subtherapeutic.. P: Await Head CT Reload Depacon, increase maintenance to 250 q8 iv for now;titrate to goal level ~100 Continue maintenance Keppra 1g q12 iv for now Ativan 2mg iv prn prolonged seizure (> 5 min) (as hemodynamics allow) Other management and supportive care per primary Will follow Consultation Date/Type/Reason Admit Date/Time Mar 08, 2019 at 04:09 Type of Consult Neurology Reason for Consultation seizure Requesting Provider: TE TURNER NP Date/Time of Note DATE: 03/11/19 TIME: 10:16 24 HR Interval Summary Free Text/Dictation Seizures continue Exam/Review of Systems Exam Vitals Vital Signs Date Temp Pulse Resp B/P (MAP) Pulse Ox O2 O2 Flow FiO2 Time Delivery Rate 03/11/19 117 25 108/65 94 Mechanical 09:00 (79) Ventilator 03/11/19 99.9 07:15 03/11/19 70 05:00 Intake and Output 03/10/19 03/10/19 03/11/19 1515:00 23:00 07:00 IntakeIntake Total 2980 ml 1322.25 ml 990 ml OutputOutput Total 400 ml 1160 ml 785 ml BalanceBalance 2580 ml 162.25 ml 205 ml Results Result Diagram: 03/11/19 0450 03/11/19 0450 Results 24hrs Laboratory Tests Test 03/11/19 04:50 White Blood Count 8.7 # Red Blood Count 2.25 L Hemoglobin 6.8 *L Hematocrit 21.0 L Mean Corpuscular Volume 93.3 Mean Corpuscular Hemoglobin 30.2 Mean Corpuscular Hemoglobin Concent 32.4 Red Cell Distribution Width 15.6 H Platelet Count 234 Mean Platelet Volume 10.9 H Immature Granulocytes % 0.300 Neutrophils % 69.0 Segmented Neutrophils % (Manual) 67 Band Neutrophils % (Manual) 3 Lymphocytes % 16.3 Lymphocytes % (Manual) 10 L Monocytes % 10.9 Monocytes % (Manual) 14 H Eosinophils % 3.0 Eosinophils % (Manual) 6 Basophils % 0.5 Nucleated Red Blood Cells % 0.0 Immature Granulocytes # 0.030 Neutrophils # 6.0 Neutrophils # (Manual) 5.8 Band Neutrophils # 0.2 Lymphocytes (Manual) 0.8 Lymphocytes # 1.4 Monocytes # 1.0 H Monocytes # (Manual) 1.2 H Eosinophils # 0.3 Basophils # 0.0 Nucleated Red Blood Cells # 0.0 Platelet Estimate NORMAL Giant Platelets 2 H Polychromasia 3+ Poikilocytosis 3+ Anisocytosis 3+ Microcytosis 2+ Macrocytosis 2+ Sodium Level 146 H Potassium Level 3.6 Chloride Level 115 H Carbon Dioxide Level 22 Anion Gap 9 Blood Urea Nitrogen 5 L Creatinine 1.29 H Est Glomerular Filtrat Rate mL/min > 60 Glucose Level 94 Calcium Level 8.2 L Valproic Acid (Depakene) Level 46 L Medications Medication Current Medications IV Flush (NS 3 ml) 3 ml PER PROTOCOL IV ; Start 03/08/19 at 04:30 Ondansetron HCl (Zofran Inj) 4 mg Q6H PRN IV NAUSEA/VOMITING; Start 03/08/19 at 04:30 Acetaminophen (Tylenol Supp) 650 mg Q6H PRN [place] .PAIN 1-3 OR TEMP Last administered on 03/11/19at 06:13; Admin Dose 650 MG; Start 03/08/19 at 04:30 Famotidine (Pepcid Iv) 20 mg Q12 IV Last administered on 03/11/19at 08:53; Admin Dose 20 MG; Start 03/08/19 at 09:00 Enoxaparin Sodium (Lovenox) 40 mg DAILY SC Last administered on 03/10/19at 09:54; Admin Dose 40 MG; Start 03/08/19 at 09:00 Piperacillin Sod/ Tazobactam Sod 100 ml @ 200 mls/hr Q6 IVPB Last administered on 03/11/19at 05:30; Admin Dose 200 MLS/HR; Start 03/08/19 at 13:00 Vancomycin HCl (Vanco Iv Per Pharmacy) VANCOMYCIN PER PHARMACY PER PROTOCOL XX ; Start 03/08/19 at 13:00 Albuterol (Proventil 0.083% (Neb)) 1.25 mg Q2H RESP THERAPY PRN HHN sob/wheezing; Start 03/08/19 at 13:00 Metronidazole (Flagyl) 500 mg Q8 GTB Last administered on 03/09/19 05:13; Admin Dose 500 MG; Start 03/08/19 at 14:00; Status Hold Ipratropium [place] (Atrovent 0.02% (Neb)) 0.5 mg Q2H RESP THERAPY PRN NEB SHORTNESS OF BREATH; Start 03/08/19 at 13:00 Cholecalciferol (Vitamin D) 2,000 unit DAILY GTB ; Start 03/09/19 at 09:00; Status Hold Ascorbic Acid (Vitamin C) 500 mg BID GTB Last administered on 03/08/19 21:27; Admin Dose 500 MG; Start 03/08/19 at 21:00; Status Hold Multivitamins/ Minerals (Theragran-M) 1 tab DAILY GTB ; Start 03/09/19 at 09:00; Status Hold Eye Lubricant (Artificial Tears Oph) 2 drop QID BOTH EYES Last administered on 03/10/19 20:24; Admin Dose 2 DROP; Start 03/08/19 at 17:00 Dextrose/Sodium Chloride 1,000 ml @ 80 mls/hr [id number] IV Last administered on 03/10/19 21:43; Admin Dose 80 MLS/HR; Start 03/08/19 at 13:30 Vancomycin HCl 250 ml @ 125 mls/hr Q8H IVPB Last administered on 03/11/19 06:37; Admin Dose 125 MLS/HR; Start 03/08/19 at 23:00 Midazolam HCl 50 ml @ 1 mls/hr PER PROTOCOL IV Last administered on 03/09/19 06:26; Admin Dose 4 MLS/HR; Start 03/08/19 at 17:00 Lorazepam (Ativan) 1 mg Q2H PRN IV seizures Last administered on 03/11/19 07:55; Admin Dose 1 MG; Start 03/09/19 at 09:30 Valproate Sodium 125 mg/Sodium Chloride 51.25 ml @ 51.25 mls/ hr Q8 IVPB Last administered on 03/11/19 05:29; Admin Dose 51.25 MLS/HR; Start 03/09/19 at 15:00 IV Flush (NS 10 ml) 10 ml PRN PRN IV IV PROTOCOL; Start 03/09/19 at 16:30 Levetiracetam 100 ml @ 400 mls/hr Q12 IVPB Last administered on 03/11/19at 08:53; Admin Dose 400 MLS/HR; Start 03/10/19 at 09:00 Miscellaneous Information (*Rx Drug Level Order Reminder*) MALINA PARRA 03/12 AT 1400 1400 ONCE XX ; Start 03/11/19 at 14:00; Stop 03/11/19 at 14:01 Albuterol (Ventolin Hfa) 4 puff Q4H RESP THERAPY INH Last administered on 03/11/19at 05:18; Admin Dose 4 PUFF; Start 03/11/19 at 01:00 Ipratropium [place] (Atrovent Hfa) 4 puff Q4H RESP THERAPY INH Last administered on 03/11/19at 08:00; Admin Dose 4 PUFF; Start 03/11/19 at 01:00 SUSAN ANTHONY Mar 11, 2019 10:17
[2019-03-11] MEDS: ENOXAPARIN 40 MG/0.4 ML SYG SC SCH (11:30)
--- NOTE | 2019-03-11 12:26 | PN ---
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 Sepsis -Source: Pneumonia plus or minus UTI/Colitis/infected decubs -Empiric Zosyn plus vancomycin -coto culture Acute on chronic Vent dependent respiratory failure -[id number] bronchodilators, pulmonary toileting -Vent management per pulmonary Healthcare/vent associated pneumonia plus or minus aspiration -IV Zosyn/Flagyl plus vancomycin -Pulmonary consult appreciated -Chest CT demonstrates possible loculated effusion versus necrotic lung. -sputum cs -Aspiration precaution/HOB 35 degree and above Possible UTI -Antimicrobials, urine cultures Diarrhea, rule out infectious colitis vs meds-induced(note pt takes multiple laxatives at [facility]) -Abdominal CT -Stool studies -Empiric Flagyl Dehydration -fluids Chronic anoxic encephalopathy -supportive care Hypertension -currently hypotensive 2/2 sepsis. Hold off to antihypertensives. 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 Continue monitoring patient Chronic decub ulcer/L foot metatarsal wounds -Wound care ordered -Wound care consult DVT prophylaxis: Lovenox PUD prophylaxis: Pepcid DC planning: Continue current plan, possible downgrade tomorrow Result Diagram: 03/11/19 0450 03/11/19 0450 Results 24hrs Laboratory Tests Test 03/11/19 04:50 White Blood Count 8.7 # Red Blood Count 2.25 L Hemoglobin 6.8 *L Hematocrit 21.0 L Mean Corpuscular Volume 93.3 Mean Corpuscular Hemoglobin 30.2 Mean Corpuscular Hemoglobin Concent 32.4 Red Cell Distribution Width 15.6 H Platelet Count 234 Mean Platelet Volume 10.9 H Immature Granulocytes % 0.300 Neutrophils % 69.0 Segmented Neutrophils % (Manual) 67 Band Neutrophils % (Manual) 3 Lymphocytes % 16.3 Lymphocytes % (Manual) 10 L Monocytes % 10.9 Monocytes % (Manual) 14 H Eosinophils % 3.0 Eosinophils % (Manual) 6 Basophils % 0.5 Nucleated Red Blood Cells % 0.0 Immature Granulocytes # 0.030 Neutrophils # 6.0 Neutrophils # (Manual) 5.8 Band Neutrophils # 0.2 Lymphocytes (Manual) 0.8 Lymphocytes # 1.4 Monocytes # 1.0 H Monocytes # (Manual) 1.2 H Eosinophils # 0.3 Basophils # 0.0 Nucleated Red Blood Cells # 0.0 Platelet Estimate NORMAL Giant Platelets 2 H Polychromasia 3+ Poikilocytosis 3+ Anisocytosis 3+ Microcytosis 2+ Macrocytosis 2+ Sodium Level 146 H Potassium Level 3.6 Chloride Level 115 H Carbon Dioxide Level 22 Anion Gap 9 Blood Urea Nitrogen 5 L Creatinine 1.29 H Est Glomerular Filtrat Rate mL/min > 60 Glucose Level 94 Calcium Level 8.2 L Valproic Acid (Depakene) Level 46 L Subjective 24 Hr Interval Summary Subjective hx not possible: pt non-verbal Exam/Review of Systems Exam Vitals Vital Signs Date Temp Pulse Resp B/P (MAP) Pulse Ox O2 O2 Flow FiO2 Time Delivery Rate 03/11/19 117 25 108/65 94 Mechanical 09:00 (79) Ventilator 03/11/19 99.9 07:15 03/11/19 70 05:00 Intake and Output 03/10/19 03/10/19 03/11/19 1414:59 22:59 06:59 IntakeIntake Total 2980 ml 1242.25 ml 990 ml OutputOutput Total 400 ml 1060 ml 795 ml BalanceBalance 2580 ml 182.25 ml 195 ml Constitutional: non-verbal Respiratory: clear to auscultation Cardiovascular: regular rate and rhythm Gastrointestinal: soft; No distended Musculoskeletal: nl extremities to inspection Results Results 24hrs Laboratory Tests Test 03/11/19 04:50 White Blood Count 8.7 # Red Blood Count 2.25 L Hemoglobin 6.8 *L Hematocrit 21.0 L Mean Corpuscular Volume 93.3 Mean Corpuscular Hemoglobin 30.2 Mean Corpuscular Hemoglobin Concent 32.4 Red Cell Distribution Width 15.6 H Platelet Count 234 Mean Platelet Volume 10.9 H Immature Granulocytes % 0.300 Neutrophils % 69.0 Segmented Neutrophils % (Manual) 67 Band Neutrophils % (Manual) 3 Lymphocytes % 16.3 Lymphocytes % (Manual) 10 L Monocytes % 10.9 Monocytes % (Manual) 14 H Eosinophils % 3.0 Eosinophils % (Manual) 6 Basophils % 0.5 Nucleated Red Blood Cells % 0.0 Immature Granulocytes # 0.030 Neutrophils # 6.0 Neutrophils # (Manual) 5.8 Band Neutrophils # 0.2 Lymphocytes (Manual) 0.8 Lymphocytes # 1.4 Monocytes # 1.0 H Monocytes # (Manual) 1.2 H Eosinophils # 0.3 Basophils # 0.0 Nucleated Red Blood Cells # 0.0 Platelet Estimate NORMAL Giant Platelets 2 H Polychromasia 3+ Poikilocytosis 3+ Anisocytosis 3+ Microcytosis 2+ Macrocytosis 2+ Sodium Level 146 H Potassium Level 3.6 Chloride Level 115 H Carbon Dioxide Level 22 Anion Gap 9 Blood Urea Nitrogen 5 L Creatinine 1.29 H Est Glomerular Filtrat Rate mL/min > 60 Glucose Level 94 Calcium Level 8.2 L Valproic Acid (Depakene) Level 46 L Medications Medication Current Medications IV Flush (NS 3 ml) 3 ml PER PROTOCOL IV ; Start 03/08/19 at 04:30 Ondansetron HCl (Zofran Inj) 4 mg Q6H PRN IV NAUSEA/VOMITING; Start 03/08/19 at 04:30 Acetaminophen (Tylenol Supp) 650 mg Q6H PRN [place] .PAIN 1-3 OR TEMP Last administered on 03/11/19at 06:13; Admin Dose 650 MG; Start 03/08/19 at 04:30 Famotidine (Pepcid Iv) 20 mg Q12 IV Last administered on 03/11/19at 08:53; Admin Dose 20 MG; Start 03/08/19 at 09:00 Enoxaparin Sodium (Lovenox) 40 mg DAILY SC Last administered on 03/10/19at 09:54; Admin Dose 40 MG; Start 03/08/19 at 09:00; Status Hold Vancomycin HCl (Vanco Iv Per Pharmacy) VANCOMYCIN PER PHARMACY PER PROTOCOL XX ; Start 03/08/19 at 13:00 Albuterol (Proventil 0.083% (Neb)) 1.25 mg Q2H RESP THERAPY PRN HHN sob/wheezing; Start 03/08/19 at 13:00 Metronidazole (Flagyl) 500 mg Q8 GTB Last administered on 03/09/19at 05:13; Admin Dose 500 MG; Start 03/08/19 at 14:00; Status Hold Ipratropium [place] (Atrovent 0.02% (Neb)) 0.5 mg Q2H RESP THERAPY PRN NEB SHORTNESS OF BREATH; Start 03/08/19 at 13:00 Cholecalciferol (Vitamin D) 2,000 unit DAILY GTB ; Start 03/09/19 at 09:00; Status Hold Ascorbic Acid (Vitamin C) 500 mg BID GTB Last administered on 03/08/19at 21:27; Admin Dose 500 MG; Start 03/08/19 at 21:00; Status Hold Multivitamins/ Minerals (Theragran-M) 1 tab DAILY GTB ; Start 03/09/19 at 09:00; Status Hold Eye Lubricant (Artificial Tears Oph) 2 drop QID BOTH EYES Last administered on 03/10/19at 20:24; Admin Dose 2 DROP; Start 03/08/19 at 17:00 Dextrose/Sodium Chloride 1,000 ml @ 80 mls/hr [id number] IV Last administered on 03/10/19at 21:43; Admin Dose 80 MLS/HR; Start 03/08/19 at 13:30 Vancomycin HCl 250 ml @ 125 mls/hr Q8H IVPB Last administered on 03/11/19at 06:37; Admin Dose 125 MLS/HR; Start 03/08/19 at 23:00 Midazolam HCl 50 ml @ 1 mls/hr PER PROTOCOL IV Last administered on 03/09/19at 06:26; Admin Dose 4 MLS/HR; Start 03/08/19 at 17:00 Lorazepam (Ativan) 1 mg Q2H PRN IV seizures Last administered on 03/11/19at 11:4 6; Admin Dose 1 MG; Start 03/09/19 at 09:30 IV Flush (NS 10 ml) 10 ml PRN PRN IV IV PROTOCOL; Start 03/09/19 at 16:30 Levetiracetam 100 ml @ 400 mls/hr Q12 IVPB Last administered on 03/11/19at 08:53; Admin Dose 400 MLS/HR; Start 03/10/19 at 09:00 Miscellaneous Information (*Rx Drug Level Order Reminder*) MALINA PARRA 03/12 AT 1400 1400 ONCE XX ; Start 03/11/19 at 14:00; Stop 03/11/19 at 14:01 Albuterol (Ventolin Hfa) 4 puff Q4H RESP THERAPY INH Last administered on 03/11/19at 05:18; Admin Dose 4 PUFF; Start 03/11/19 at 01:00 Ipratropium [place] (Atrovent Hfa) 4 puff Q4H RESP THERAPY INH Last administ ered on 03/11/19at 08:00; Admin Dose 4 PUFF; Start 03/11/19 at 01:00 Valproate Sodium 250 mg/Sodium Chloride 52.5 ml @ 51.25 mls/ hr Q8 IVPB ; Start 03/11/19 at 14:00 Ceftazidime 50 ml @ 100 mls/hr Q8 IVPB ; Start 03/11/19 at 14:00 ELICIA SPEARS Mar 11, 2019 12:26
--- NOTE | 2019-03-11 12:35 | CONS ---
Consult Date/Type/Reason Admit Date/Time Mar 08, 2019 at 04:09 Initial Consult Date Type of Consultation: Pulm/CCM Requesting Provider: TE TURNER NP Date/Time of Note DATE: 03/11/19 TIME: 12:19 Subjective Remains unresponsive on the vent. Occasional facial twitching noted. s/p bronchoscopy yesterday. Objective Vitals Vital Signs Date Temp Pulse Resp B/P (MAP) Pulse Ox O2 O2 Flow FiO2 Time Delivery Rate 03/11/19 117 25 108/65 94 Mechanical 09:00 (79) Ventilator 03/11/19 99.9 07:15 03/11/19 70 05:00 Intake and Output 03/10/19 03/10/19 03/11/19 1515:00 23:00 07:00 IntakeIntake Total 2980 ml 1322.25 ml 990 ml OutputOutput Total 400 ml 1160 ml 785 ml BalanceBalance 2580 ml 162.25 ml 205 ml Exam HEENT: Neck supple; no JVD; no LAD; + trach in place CVS: RRR, S1 and S2 CHEST: Decreased BS righ lung ABD: Soft, NT, + BS EXT: No c/c/e NEURO: + facial twitch; not able to follow commands Results/Medications Result Diagram: 03/11/19 0450 03/11/19 0450 Results 24 hrs Laboratory Tests Test 03/11/19 04:50 White Blood Count 8.7 # Red Blood Count 2.25 L Hemoglobin 6.8 *L Hematocrit 21.0 L Mean Corpuscular Volume 93.3 Mean Corpuscular Hemoglobin 30.2 Mean Corpuscular Hemoglobin Concent 32.4 Red Cell Distribution Width 15.6 H Platelet Count 234 Mean Platelet Volume 10.9 H Immature Granulocytes % 0.300 Neutrophils % 69.0 Segmented Neutrophils % (Manual) 67 Band Neutrophils % (Manual) 3 Lymphocytes % 16.3 Lymphocytes % (Manual) 10 L Monocytes % 10.9 Monocytes % (Manual) 14 H Eosinophils % 3.0 Eosinophils % (Manual) 6 Basophils % 0.5 Nucleated Red Blood Cells % 0.0 Immature Granulocytes # 0.030 Neutrophils # 6.0 Neutrophils # (Manual) 5.8 Band Neutrophils # 0.2 Lymphocytes (Manual) 0.8 Lymphocytes # 1.4 Monocytes # 1.0 H Monocytes # (Manual) 1.2 H Eosinophils # 0.3 Basophils # 0.0 Nucleated Red Blood Cells # 0.0 Platelet Estimate NORMAL Giant Platelets 2 H Polychromasia 3+ Poikilocytosis 3+ Anisocytosis 3+ Microcytosis 2+ Macrocytosis 2+ Sodium Level 146 H Potassium Level 3.6 Chloride Level 115 H Carbon Dioxide Level 22 Anion Gap 9 Blood Urea Nitrogen 5 L Creatinine 1.29 H Est Glomerular Filtrat Rate mL/min > 60 Glucose Level 94 Calcium Level 8.2 L Valproic Acid (Depakene) Level 46 L Home Meds No Active Prescriptions or Reported Meds Medications Current Medications IV Flush (NS 3 ml) 3 ml PER PROTOCOL IV ; Start 03/08/19 at 04:30 Ondansetron HCl (Zofran Inj) 4 mg Q6H PRN IV NAUSEA/VOMITING; Start 03/08/19 at 04:30 Acetaminophen (Tylenol Supp) 650 mg Q6H PRN [place] .PAIN 1-3 OR TEMP Last administered on 03/11/19at 06:13; Admin Dose 650 MG; Start 03/08/19 at 04:30 Famotidine (Pepcid Iv) 20 mg Q12 IV Last administered on 03/11/19at 08:53; Admin Dose 20 MG; Start 03/08/19 at 09:00 Enoxaparin Sodium (Lovenox) 40 mg DAILY SC Last administered on 03/10/19at 09:54; Admin Dose 40 MG; Start 03/08/19 at 09:00; Status Hold Vancomycin HCl (Vanco Iv Per Pharmacy) VANCOMYCIN PER PHARMACY PER PROTOCOL XX ; Start 03/08/19 at 13:00 Albuterol (Proventil 0.083% (Neb)) 1.25 mg Q2H RESP THERAPY PRN HHN sob/wheezing; Start 03/08/19 at 13:00 Metronidazole (Flagyl) 500 mg Q8 GTB Last administered on 03/09/19at 05:13; Admin Dose 500 MG; Start 03/08/19 at 14:00; Status Hold Ipratropium [place] (Atrovent 0.02% (Neb)) 0.5 mg Q2H RESP THERAPY PRN NEB SHORTNESS OF BREATH; Start 03/08/19 at 13:00 Cholecalciferol (Vitamin D) 2,000 unit DAILY GTB ; Start 03/09/19 at 09:00; Status Hold Ascorbic Acid (Vitamin C) 500 mg BID GTB Last administered on 03/08/19 21:27; Admin Dose 500 MG; Start 03/08/19 at 21:00; Status Hold Multivitamins/ Minerals (Theragran-M) 1 tab DAILY GTB ; Start 03/09/19 at 09:00; Status Hold Eye Lubricant (Artificial Tears Oph) 2 drop QID BOTH EYES Last administered on 03/10/19 20:24; Admin Dose 2 DROP; Start 03/08/19 at 17:00 Dextrose/Sodium Chloride 1,000 ml @ 80 mls/hr [id number] IV Last administered on 03/10/19 21:43; Admin Dose 80 MLS/HR; Start 03/08/19 at 13:30 Vancomycin HCl 250 ml @ 125 mls/hr Q8H IVPB Last administered on 03/11/19 06:37; Admin Dose 125 MLS/HR; Start 03/08/19 at 23:00 Midazolam HCl 50 ml @ 1 mls/hr PER PROTOCOL IV Last administered on 03/09/19 06:26; Admin Dose 4 MLS/HR; Start 03/08/19 at 17:00 Lorazepam (Ativan) 1 mg Q2H PRN IV seizures Last administered on 03/11/19 11:46 ; Admin Dose 1 MG; Start 03/09/19 at 09:30 IV Flush (NS 10 ml) 10 ml PRN PRN IV IV PROTOCOL; Start 03/09/19 at 16:30 Levetiracetam 100 ml @ 400 mls/hr Q12 IVPB Last administered on 03/11/19 08:53; Admin Dose 400 MLS/HR; Start 03/10/19 at 09:00 Miscellaneous Information (*Rx Drug Level Order Reminder*) VANCO TR 03/12 AT 1400 1400 ONCE XX ; Start 03/11/19 at 14:00; Stop 03/11/19 at 14:01 Albuterol (Ventolin Hfa) 4 puff Q4H RESP THERAPY INH Last administered on 03/11/19 05:18; Admin Dose 4 PUFF; Start 03/11/19 at 01:00 Ipratropium [place] (Atrovent Hfa) 4 puff Q4H RESP THERAPY INH Last administe red on 7/4/19at 08:00; Admin Dose 4 PUFF; Start 03/11/19 at 01:00 Valproate Sodium 250 mg/Sodium Chloride 52.5 ml @ 51.25 mls/ hr Q8 IVPB ; Start 03/11/19 at 14:00 Ceftazidime 50 ml @ 100 mls/hr Q8 IVPB ; Start 03/11/19 at 14:00 Assessment/Plan Assessment/Plan (Daily) IMP 1. Acute on chronic hypoxemic respiratory failure 2. Right pleural effusion--likely hemothorax 3. Severe sepsis 4. Vent dependent respiratory failure 5. 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 Dysphagia with G-tube. Ileus noted. 7. Anemia likely of chronic disease no active GI bleeding. RECS: 1. Transfuse PRBC x 2 units 2. Follow H/H 3. Suspect hemothorax as causes of blood loss. Discussed with Dr. De La Fuente who is aware and spoke with patient's mother about Thoracic surgical intervention such as VATS, which his mother declined. 4. Vent support 5. Anti-epileptic management as per Neuro 40 min cc time STACY PATRICIO MD Mar 11, 2019 12:32
[2019-03-11] MEDS: DEXTROSE 5%-0.225% NACL 1,000 ML IV SCH ×2 (12:47→22:27)
[2019-03-11] MEDS: ARTIFICIAL TEARS 15 ML OPH BOTH EYES SCH ×4 (12:52→20:57)
[2019-03-11] MEDS: CEFTAZIDIME 1GM/50 ML (PMX) 50 ML IVPB SCH ×2 (14:26→22:27)
[2019-03-11] MEDS: VALPROATE INJ 250 MG in SOD CHLORIDE 0.9% 50 ML IVPB SCH ×2 (15:05→22:27)
[2019-03-12] VITALS (35 sets, daily range): BP systolic 84–118; BP diastolic 58–90; PULSE 99–123; RESP 15–25
[2019-03-12] MEDS: IPRATROPIUM (HFA) 12.9 GM INHALER INH SCH ×6 (01:10→20:37)
[2019-03-12] MEDS: ALBUTEROL HFA 8 GM INHALER INH SCH ×6 (01:10→20:37)
[2019-03-12] MEDS: VALPROATE INJ 250 MG in SOD CHLORIDE 0.9% 50 ML IVPB SCH ×3 (06:25→22:55)
[2019-03-12] MEDS: CEFTAZIDIME 1GM/50 ML (PMX) 50 ML IVPB SCH ×3 (06:25→21:57)
[2019-03-12] MEDS: ARTIFICIAL TEARS 15 ML OPH BOTH EYES SCH ×4 (09:10→20:06)
[2019-03-12] MEDS: LEVETIRACETAM 1000 MG (PMX) 100 ML IVPB SCH ×2 (09:10→20:06)
[2019-03-12] MEDS: DEXTROSE 5%-0.225% NACL 1,000 ML IV SCH (09:11)
--- NOTE | 2019-03-12 09:23 | CONS ---
Consult Date/Type/Reason Admit Date/Time Mar 08, 2019 at 04:09 Initial Consult Date Type of Consult Pulmonary Requesting Provider: TE TURNER NP Date/Time of Note DATE: 03/12/19 TIME: 09:22 Subjective Remains somnolent on mechanical ventilation. Occasional twitching still requiring FiO2 at 85% with a PEEP of 10. Objective Vital Signs Date Temp Pulse Resp B/P (MAP) Pulse Ox O2 O2 Flow FiO2 Time Delivery Rate 03/12/19 104 22 84/63 (70) 99 Mechanical 08:00 Ventilator 03/12/19 85 08:00 03/12/19 98.5 07:00 Intake and Output 03/11/19 03/11/19 03/12/19 1515:00 23:00 07:00 IntakeIntake Total 1625 ml 1323.75 ml 1042.50 ml OutputOutput Total 1115 ml 1225 ml 960 ml BalanceBalance 510 ml 98.75 ml 82.50 ml Exam GENERAL: Chronically ill-appearing gentleman on mechanical ventilation via tracheostomy VITAL SIGNS: per chart NECK: Supple. No JVD or lymphadenopathy. CARDIAC EXAM: S1, S2. No added sounds or murmurs. CHEST: Diminished air entry right lung. ABDOMEN: Soft, nontender. No guarding or rebound. EXTREMITIES: No cyanosis, clubbing edema +2 NEUROLOGIC: Generalized weakness. Unable to assess Vent Setting Ventilator Support Mode: AC Fraction of Inspired Oxygen pe: 85 Positive End Expiratory Pressu: 10.0 Results/Medications Result Diagram: 03/12/19 0428 03/12/19 0428 Results 24 hrs Laboratory Tests Test 03/11/19 14:30 03/12/19 04:00 03/12/19 04:28 03/12/19 05:00 Vancomycin Level 25.7 *H Trough Lactic Acid 1.4 Level White Blood 10.1 Count Red Blood Count 2.56 L Hemoglobin 7.8 L Hematocrit 24.2 L Mean Corpuscular 94.5 Volume Mean Corpuscular 30.5 Hemoglobin Mean Corpuscular 32.2 Hemoglobin Monique nt Red Cell 16.0 H Distribution Width Platelet Count 239 Mean Platelet 11.2 H Volume Immature 0.400 Granulocytes % Neutrophils % 78.1 H Lymphocytes % 10.2 L Monocytes % 8.4 Eosinophils % 2.6 Basophils % 0.3 Nucleated Red 0.0 Blood Cells % Immature 0.040 H Granulocytes # Neutrophils # 7.9 H Lymphocytes # 1.0 Monocytes # 0.9 Eosinophils # 0.3 Basophils # 0.0 Nucleated Red 0.0 Blood Cells # Sodium Level 150 H Potassium Level 3.4 L Chloride Level 119 H Carbon Dioxide 21 Level Anion Gap 10 Blood Urea 4 L Nitrogen Creatinine 1.17 Est Glomerular > 60 Filtrat Rate mL/min Glucose Level 80 Calcium Level 8.0 L Valproic Acid 68 (Depakene) Level Blood Gas Blood arterial Specimen Source Arterial Blood 03/12/2019 5:00:47 Date Drawn AM Arterial Blood 7.456 H pH (Temp corrected) Arterial Blood 35.3 pCO2 (Temp correct) Arterial Blood 57.3 L pO2 (Temp corrected) Arterial Blood 24.3 HCO3 Arterial Blood 0.6 Base Excess Arterial Blood 89.2 L Oxygen Saturatio n Christopher Test ACCEPTAB Arterial Blood Right Radial Gas Puncture Site Arterial 0.1 Blood Carboxyhem oglobin Arterial Blood 0.2 Methemoglobin Blood Gas A-a O2 403.9 H Differential Oxyhemoglobin 88.9 L Percent Blood Gas 37.0 Temperature Blood Gas 16.0 Respiration Rate Blood Gas Actual 17 Respiration Rate Blood Gas VENT - AC Modality FiO2 70.0 Blood Gas Tidal 450.0 Volume Blood Gas Low 10.0 PEEP Setting Blood Gas [place] Notified Whom Blood Gas 03/12/2019 5:10:29 Notified Time AM Test 03/12/19 05:13 Lab Scanned BLOOD TRANSFUSIO Report N Medications Current Medications IV Flush (NS 3 ml) 3 ml PER PROTOCOL IV ; Start 03/08/19 at 04:30 Ondansetron HCl (Zofran Inj) 4 mg Q6H PRN IV NAUSEA/VOMITING; Start 03/08/19 at 04:30 Acetaminophen (Tylenol Supp) 650 mg Q6H PRN [place] .PAIN 1-3 OR TEMP Last administered on 03/11/19at 06:13; Admin Dose 650 MG; Start 03/08/19 at 04:30 Famotidine (Pepcid Iv) 20 mg Q12 IV Last administered on 03/11/19at 20:57; Admin Dose 20 MG; Start 03/08/19 at 09:00 Enoxaparin Sodium (Lovenox) 40 mg DAILY SC Last administered on 03/10/19at 09:54; Admin Dose 40 MG; Start 03/08/19 at 09:00; Status Hold Vancomycin HCl (Vanco Iv Per Pharmacy) VANCOMYCIN PER PHARMACY PER PROTOCOL XX ; Start 03/08/19 at 13:00 Albuterol (Proventil 0.083% (Neb)) 1.25 mg Q2H RESP THERAPY PRN HHN sob/wheezing; Start 03/08/19 at 13:00 Metronidazole (Flagyl) 500 mg Q8 GTB Last administered on 03/09/19at 05:13; Admin Dose 500 MG; Start 03/08/19 at 14:00; Status Hold Ipratropium [place] (Atrovent 0.02% (Neb)) 0.5 mg Q2H RESP THERAPY PRN NEB SHORTNESS OF BREATH; Start 03/08/19 at 13:00 Cholecalciferol (Vitamin D) 2,000 unit DAILY GTB ; Start 03/09/19 at 09:00; Status Hold Ascorbic Acid (Vitamin C) 500 mg BID GTB Last administered on 03/08/19at 21:27; Admin Dose 500 MG; Start 03/08/19 at 21:00; Status Hold Multivitamins/ Minerals (Theragran-M) 1 tab DAILY GTB ; Start 03/09/19 at 09:00; Status Hold Eye Lubricant (Artificial Tears Oph) 2 drop QID BOTH EYES Last administered on 03/12/19at 09:10; Admin Dose 2 DROP; Start 03/08/19 at 17:00 Midazolam HCl 50 ml @ 1 mls/hr PER PROTOCOL IV Last administered on 03/09/19at 06:26; Admin Dose 4 MLS/HR; Start 03/08/19 at 17:00 Lorazepam (Ativan) 1 mg Q2H PRN IV seizures Last administered on 03/11/19at 11:46; Admin Dose 1 MG; Start 03/09/19 at 09:30 IV Flush (NS 10 ml) 10 ml PRN PRN IV IV PROTOCOL; Start 03/09/19 at 16:30 Levetiracetam 100 ml @ 400 mls/hr Q12 IVPB Last administered on 03/12/19at 09:10; Admin Dose 400 MLS/HR; Start 03/10/19 at 09:00 Albuterol (Ventolin Hfa) 4 puff Q4H RESP THERAPY INH Last administered on 03/12at 07:58; Admin Dose 4 PUFF; Start 03/11/19 at 01:00 Ipratropium [place] (Atrovent Hfa) 4 puff Q4H RESP THERAPY INH Last administered on 03/12/19 07:59; Admin Dose 4 PUFF; Start 03/11/19 at 01:00 Valproate Sodium 250 mg/Sodium Chloride 52.5 ml @ 51.25 mls/ hr Q8 IVPB Last administered on 03/12/19 06:25; Admin Dose 51.25 MLS/HR; Start 03/11/19 at 14:00 Ceftazidime 50 ml @ 100 mls/hr Q8 IVPB Last administered on 03/12/19 06:25; Admin Dose 100 MLS/HR; Start 03/11/19 at 14:00 Vancomycin HCl 250 ml @ 125 mls/hr Q12H IVPB Last administered on 03/11/19 23:49; Admin Dose 125 MLS/HR; Start 03/12/19 at 00:00 Dextrose/Sodium Chloride 1,000 ml @ 80 mls/hr [id number] IV Last administered on 03/12/19 09:11; Admin Dose 80 MLS/HR; Start 03/11/19 at 18:30 Miscellaneous Information (*Rx Drug Level Order Reminder*) VANCO TROUGH @ 1,100 ON... 1100 ONCE XX ; Start 03/13/19 at 11:00; Stop 03/13/19 at 11:01 Assessment/Plan Hospital Course (Demo Recall) IMP 1. Acute on chronic hypoxemic respiratory failure 2. Right pleural effusion--likely hemothorax 3. Severe sepsis 4. Vent dependent respiratory failure 5. 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 Dysphagia with G-tube. Ileus noted. 7. Anemia likely of chronic disease no active GI bleeding. RECS: 1. Transfuse PRBC x 2 units 2. Follow H/H 3. Suspect hemothorax as causes of blood loss. We will discuss surgical intervention with her mother again. 4. Vent support 5. Anti-epileptic management as per Neuro 40 min cc time NELL GUSTAFSON MD, [facility] Mar 12, 2019 09:23
[2019-03-12] MEDS: FAMOTIDINE 20 MG INJ IV SCH ×2 (09:34→20:06)
--- NOTE | 2019-03-12 09:35 | CONS ---
Assessment/Plan Assessment/Plan Hospital Course (Demo Recall) ID PROGRESS NOTE CURRENT ABX: DAY # =>Vanco IV + Fortaz s/p Zosyn 03/12/1942703/12/19427 24H INTERVAL SUMMARY * Awake, eyes open non-tracking, looks comfortable, non-communicative w/Trach to Vent DIAGNOSTIC IMAGING * 03/10/19 CXR: IMPRESSION:1. Lines and tubes are stable. 2. Persistent complete opacification of the right hemithorax. 3. Persistent trace left pleural effusion. MICRO * 03/08/19 Urine Cx (-); BCx (+)CoNS 1/2 bottles from ED = consistent w/contaminant * 03/08/19 Trach Cx RESPIRATORY CULTURE Preliminary Organism 1 PSEUDOMONAS AERUGINOSA QUANTITY SCANT GROWTH Organism 2 MORGANELLA MORGANII QUANTITY SCANT GROWTH Organism 3 GRAM NEGATIVE MANDY QUANTITY SCANT GROWTH PSEUDOMONAS AERUGINOSA IS MDRO P.AERUG P.AERUG M MORGANII M.I.C. RX M.I.C. RX M.I.C. RX --------- --- --------- --- --------- --- AMIKACIN <=2 S 4 S AZTREONAM R CEFEPIME I CEFOTAXIME S CEFTAZIDIME 16 S CIPROFLOXACIN 1 S >=4 R GENTAMICIN <=1 S >=16 R LEVOFLOXACIN >=8 R 4 I MEROPENEM 0.75 S TOBRAMYCIN <=1 S 2 S PIPERACILLIN/TAZOBACTAM <=4 S PHYSICAL EXAMINATION: GENERAL: VSS, NAD HEENT: AT, NC, NECK: Supple, (+)Trach CHEST: Rise symmetrical HEART: Pulse RRR ABDOMEN: Benign EXTREMITIES: Warm, dry SKIN: No rash, no diaphoresis ID ASSESSMENT 23 yo M admit with: 1. Sepsis with bacteremia likely contaminant 2. Urinary tract infection per urinalysis 3. Questionable loculated pleural effusion versus necrotic lung per CT 4. Status epilepticus 5. Chronic encephalopathy status post intracerebral hemorrhage 6. Left hip dislocation with possible septic joint and osteomyelitis 7. Questionable ileus (-)MRSA Nares ABX ALLERGIES: KNDA INVASIVES: PIV CURRENT ABX: DAY # => Vanco IV + Fortaz s/p Zosyn ID RECOMMENDATIONS/PLAN: 1. Continue Vanco IV -- Septic joint/Osteomyelitis 2. 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 Consultation Date/Type/Reason Admit Date/Time Mar 08, 2019 at 04:09 Initial Consult Date Requesting Provider: TE TURNER NP Date/Time of Note DATE: 03/12/19 TIME: 09:27 Exam/Review of Systems Exam Vitals Vital Signs Date Temp Pulse Resp B/P (MAP) Pulse Ox O2 O2 Flow FiO2 Time Delivery Rate 03/12/19 104 22 84/63 (70) 99 Mechanical 08:00 Ventilator 03/12/19 85 08:00 03/12/19 98.5 07:00 Intake and Output 03/11/19 03/11/19 03/12/19 1414:59 22:59 06:59 IntakeIntake Total 1705 ml 1142.5 ml 1042.50 ml OutputOutput Total 1080 ml 1150 ml 960 ml BalanceBalance 625 ml -7.5 ml 82.50 ml Results Result Diagram: 03/12/19 0428 03/12/19 0428 Results 24hrs Laboratory Tests Test 03/11/19 14:30 03/12/19 04:00 03/12/19 04:28 03/12/19 05:00 Vancomycin Level 25.7 *H Trough Lactic Acid 1.4 Level White Blood 10.1 Count Red Blood Count 2.56 L Hemoglobin 7.8 L Hematocrit 24.2 L Mean Corpuscular 94.5 Volume Mean Corpuscular 30.5 Hemoglobin Mean Corpuscular 32.2 Hemoglobin Monique nt Red Cell 16.0 H Distribution Width Platelet Count 239 Mean Platelet 11.2 H Volume Immature 0.400 Granulocytes % Neutrophils % 78.1 H Lymphocytes % 10.2 L Monocytes % 8.4 Eosinophils % 2.6 Basophils % 0.3 Nucleated Red 0.0 Blood Cells % Immature 0.040 H Granulocytes # Neutrophils # 7.9 H Lymphocytes # 1.0 Monocytes # 0.9 Eosinophils # 0.3 Basophils # 0.0 Nucleated Red 0.0 Blood Cells # Sodium Level 150 H Potassium Level 3.4 L Chloride Level 119 H Carbon Dioxide 21 Level Anion Gap 10 Blood Urea 4 L Nitrogen Creatinine 1.17 Est Glomerular > 60 Filtrat Rate mL/min Glucose Level 80 Calcium Level 8.0 L Valproic Acid 68 (Depakene) Level Blood Gas Blood arterial Specimen Source Arterial Blood 03/12/2019 5:00:47 Date Drawn AM Arterial Blood 7.456 H pH (Temp corrected) Arterial Blood 35.3 pCO2 (Temp correct) Arterial Blood 57.3 L pO2 (Temp corrected) Arterial Blood 24.3 HCO3 Arterial Blood 0.6 Base Excess Arterial Blood 89.2 L Oxygen Saturatio n Christopher Test ACCEPTAB Arterial Blood Right Radial Gas Puncture Site Arterial 0.1 Blood Carboxyhem oglobin Arterial Blood 0.2 Methemoglobin Blood Gas A-a O2 403.9 H Differential Oxyhemoglobin 88.9 L Percent Blood Gas 37.0 Temperature Blood Gas 16.0 Respiration Rate Blood Gas Actual 17 Respiration Rate Blood Gas VENT - AC Modality FiO2 70.0 Blood Gas Tidal 450.0 Volume Blood Gas Low 10.0 PEEP Setting Blood Gas [place] Notified Whom Blood Gas 03/12/2019 5:10:29 Notified Time AM Test 03/12/19 05:13 Lab Scanned BLOOD TRANSFUSIO Report N Medications Medication Current Medications IV Flush (NS 3 ml) 3 ml PER PROTOCOL IV ; Start 03/08/19 at 04:30 Ondansetron HCl (Zofran Inj) 4 mg Q6H PRN IV NAUSEA/VOMITING; Start 03/08/19 at 04:30 Acetaminophen (Tylenol Supp) 650 mg Q6H PRN [place] .PAIN 1-3 OR TEMP Last administered on 03/11/19at 06:13; Admin Dose 650 MG; Start 03/08/19 at 04:30 Famotidine (Pepcid Iv) 20 mg Q12 IV Last administered on 03/11/19at 20:57; Admin Dose 20 MG; Start 03/08/19 at 09:00 Enoxaparin Sodium (Lovenox) 40 mg DAILY SC Last administered on 03/10/19at 09:54; Admin Dose 40 MG; Start 03/08/19 at 09:00; Status Hold Vancomycin HCl (Vanco Iv Per Pharmacy) VANCOMYCIN PER PHARMACY PER PROTOCOL XX ; Start 03/08/19 at 13:00 Albuterol (Proventil 0.083% (Neb)) 1.25 mg Q2H RESP THERAPY PRN HHN sob/wheezing; Start 03/08/19 at 13:00 Metronidazole (Flagyl) 500 mg Q8 GTB Last administered on 03/09/19at 05:13; Admin Dose 500 MG; Start 03/08/19 at 14:00; Status Hold Ipratropium [place] (Atrovent 0.02% (Neb)) 0.5 mg Q2H RESP THERAPY PRN NEB SHORTNESS OF BREATH; Start 03/08/19 at 13:00 Cholecalciferol (Vitamin D) 2,000 unit DAILY GTB ; Start 03/09/19 at 09:00; Status Hold Ascorbic Acid (Vitamin C) 500 mg BID GTB Last administered on 03/08/19at 21:27; Admin Dose 500 MG; Start 03/08/19 at 21:00; Status Hold Multivitamins/ Minerals (Theragran-M) 1 tab DAILY GTB ; Start 03/09/19 at 09:00; Status Hold Eye Lubricant (Artificial Tears Oph) 2 drop QID BOTH EYES Last administered on 03/12/19 09:10; Admin Dose 2 DROP; Start 03/08/19 at 17:00 Midazolam HCl 50 ml @ 1 mls/hr PER PROTOCOL IV Last administered on 03/09/19at 06:26; Admin Dose 4 MLS/HR; Start 03/08/19 at 17:00 Lorazepam (Ativan) 1 mg Q2H PRN IV seizures Last administered on 03/11/19at 11:46; Admin Dose 1 MG; Start 03/09/19 at 09:30 IV Flush (NS 10 ml) 10 ml PRN PRN IV IV PROTOCOL; Start 03/09/19 at 16:30 Levetiracetam 100 ml @ 400 mls/hr Q12 IVPB Last administered on 03/12/19at 09:10; Admin Dose 400 MLS/HR; Start 03/10/19 at 09:00 Albuterol (Ventolin Hfa) 4 puff Q4H RESP THERAPY INH Last administered on 03/12/19at 07:58; Admin Dose 4 PUFF; Start 03/11/19 at 01:00 Ipratropium [place] (Atrovent Hfa) 4 puff Q4H RESP THERAPY INH Last administered on 03/12/19at 07:59; Admin Dose 4 PUFF; Start 03/11/19 at 01:00 Valproate Sodium 250 mg/Sodium Chloride 52.5 ml @ 51.25 mls/ hr Q8 IVPB Last administered on 03/12/19at 06:25; Admin Dose 51.25 MLS/HR; Start 03/11/19 at 14:00 Ceftazidime 50 ml @ 100 mls/hr Q8 IVPB Last administered on 03/12/19at 06:25; Admin Dose 100 MLS/HR; Start 03/11/19 at 14:00 Vancomycin HCl 250 ml @ 125 mls/hr Q12H IVPB Last administered on 03/11/19at 23:49; Admin Dose 125 MLS/HR; Start 03/12/19 at 00:00 Dextrose/Sodium Chloride 1,000 ml @ 80 mls/hr [id number] IV Last administered on 03/12/19at 09:11; Admin Dose 80 MLS/HR; Start 03/11/19 at 18:30 Miscellaneous Information (*Rx Drug Level Order Reminder*) VANCO TROUGH @ 1,100 ON... 1100 ONCE XX ; Start 03/13/19 at 11:00; Stop 03/13/19 at 11:01 FLAKO REGAN NP Mar 12, 2019 09:35
[2019-03-12] MEDS: VANCOMYCIN 1 GM 250 ML IVPB SCH (11:36)
--- NOTE | 2019-03-12 13:18 | PN ---
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 Sepsis -Source: Pneumonia plus or minus UTI/Colitis/infected decubs -Empiric Zosyn plus vancomycin -coto culture Acute on chronic Vent dependent respiratory failure -[id number] bronchodilators, pulmonary toileting -Vent management per pulmonary Healthcare/vent associated pneumonia plus or minus aspiration -IV Zosyn/Flagyl plus vancomycin -Pulmonary consult appreciated -Chest CT demonstrates hemothorax, CT surgery consulted -sputum cs -Aspiration precaution/HOB 35 degree and above Possible UTI -Antimicrobials, urine cultures Diarrhea, rule out infectious colitis vs meds-induced(note pt takes multiple laxatives at [facility]) -Abdominal CT -Stool studies -Empiric Flagyl Dehydration -fluids Chronic anoxic encephalopathy -supportive care Hypertension -currently hypotensive 2/2 sepsis. Hold off to antihypertensives. 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 Continue monitoring patient Chronic decub ulcer/L foot metatarsal wounds -Wound care ordered -Wound care consult DVT prophylaxis: Lovenox PUD prophylaxis: Pepcid DC planning: Continue current plan, possible downgrade tomorrow Result Diagram: 03/12/19 1037 03/12/19 0428 Results 24hrs Laboratory Tests Test 03/11/19 14:30 03/12/19 04:00 03/12/19 04:28 03/12/19 05:00 Vancomycin Level 25.7 *H Trough Lactic Acid 1.4 Level White Blood 10.1 Count Red Blood Count 2.56 L Hemoglobin 7.8 L Hematocrit 24.2 L Mean Corpuscular 94.5 Volume Mean Corpuscular 30.5 Hemoglobin Mean Corpuscular 32.2 Hemoglobin Monique nt Red Cell 16.0 H Distribution Width Platelet Count 239 Mean Platelet 11.2 H Volume Immature 0.400 Granulocytes % Neutrophils % 78.1 H Lymphocytes % 10.2 L Monocytes % 8.4 Eosinophils % 2.6 Basophils % 0.3 Nucleated Red 0.0 Blood Cells % Immature 0.040 H Granulocytes # Neutrophils # 7.9 H Lymphocytes # 1.0 Monocytes # 0.9 Eosinophils # 0.3 Basophils # 0.0 Nucleated Red 0.0 Blood Cells # Sodium Level 150 H Potassium Level 3.4 L Chloride Level 119 H Carbon Dioxide 21 Level Anion Gap 10 Blood Urea 4 L Nitrogen Creatinine 1.17 Est Glomerular > 60 Filtrat Rate mL/min Glucose Level 80 Calcium Level 8.0 L Valproic Acid 68 (Depakene) Level Blood Gas Blood arterial Specimen Source Arterial Blood 03/12/2019 5:00:47 Date Drawn AM Arterial Blood 7.456 H pH (Temp corrected) Arterial Blood 35.3 pCO2 (Temp correct) Arterial Blood 57.3 L pO2 (Temp corrected) Arterial Blood 24.3 HCO3 Arterial Blood 0.6 Base Excess Arterial Blood 89.2 L Oxygen Saturatio n Christopher Test ACCEPTAB Arterial Blood Right Radial Gas Puncture Site Arterial 0.1 Blood Carboxyhem oglobin Arterial Blood 0.2 Methemoglobin Blood Gas A-a O2 403.9 H Differential Oxyhemoglobin 88.9 L Percent Blood Gas 37.0 Temperature Blood Gas 16.0 Respiration Rate Blood Gas Actual 17 Respiration Rate Blood Gas VENT - AC Modality FiO2 70.0 Blood Gas Tidal 450.0 Volume Blood Gas Low 10.0 PEEP Setting Blood Gas [place] Notified Whom Blood Gas 03/12/2019 5:10:29 Notified Time AM Test 03/12/19 05:13 03/12/19 10:37 Lab Scanned BLOOD TRANSFUSIO Report N Platelet Count 233 Prothrombin Time 18.6 H Prothrombin Time 1.5 Ratio INR 1.54 International Normalized Ratio Activated 47.9 H Partial Thrombop last Time Thrombin Time 15.7 Subjective 24 Hr Interval Summary Subjective hx not possible: pt non-verbal Exam/Review of Systems Exam Vitals Vital Signs Date Temp Pulse Resp B/P (MAP) Pulse Ox O2 O2 Flow FiO2 Time Delivery Rate 03/12/19 109 19 95 85 11:50 03/12/19 84/63 (70) Mechanical 08:00 Ventilator 03/12/19 98.5 07:00 Intake and Output 03/11/19 03/11/19 03/12/19 1515:00 23:00 07:00 IntakeIntake Total 1625 ml 1323.75 ml 1042.50 ml OutputOutput Total 1115 ml 1225 ml 960 ml BalanceBalance 510 ml 98.75 ml 82.50 ml Constitutional: non-verbal Respiratory: clear to auscultation Cardiovascular: regular rate and rhythm Gastrointestinal: soft; No distended Musculoskeletal: nl extremities to inspection Results Results 24hrs Laboratory Tests Test 03/11/19 14:30 03/12/19 04:00 03/12/19 04:28 03/12/19 05:00 Vancomycin Level 25.7 *H Trough Lactic Acid 1.4 Level White Blood 10.1 Count Red Blood Count 2.56 L Hemoglobin 7.8 L Hematocrit 24.2 L Mean Corpuscular 94.5 Volume Mean Corpuscular 30.5 Hemoglobin Mean Corpuscular 32.2 Hemoglobin Monique nt Red Cell 16.0 H Distribution Width Platelet Count 239 Mean Platelet 11.2 H Volume Immature 0.400 Granulocytes % Neutrophils % 78.1 H Lymphocytes % 10.2 L Monocytes % 8.4 Eosinophils % 2.6 Basophils % 0.3 Nucleated Red 0.0 Blood Cells % Immature 0.040 H Granulocytes # Neutrophils # 7.9 H Lymphocytes # 1.0 Monocytes # 0.9 Eosinophils # 0.3 Basophils # 0.0 Nucleated Red 0.0 Blood Cells # Sodium Level 150 H Potassium Level 3.4 L Chloride Level 119 H Carbon Dioxide 21 Level Anion Gap 10 Blood Urea 4 L Nitrogen Creatinine 1.17 Est Glomerular > 60 Filtrat Rate mL/min Glucose Level 80 Calcium Level 8.0 L Valproic Acid 68 (Depakene) Level Blood Gas Blood arterial Specimen Source Arterial Blood 03/12/2019 5:00:47 Date Drawn AM Arterial Blood 7.456 H pH (Temp corrected) Arterial Blood 35.3 pCO2 (Temp correct) Arterial Blood 57.3 L pO2 (Temp corrected) Arterial Blood 24.3 HCO3 Arterial Blood 0.6 Base Excess Arterial Blood 89.2 L Oxygen Saturatio n Christopher Test ACCEPTAB Arterial Blood Right Radial Gas Puncture Site Arterial 0.1 Blood Carboxyhem oglobin Arterial Blood 0.2 Methemoglobin Blood Gas A-a O2 403.9 H Differential Oxyhemoglobin 88.9 L Percent Blood Gas 37.0 Temperature Blood Gas 16.0 Respiration Rate Blood Gas Actual 17 Respiration Rate Blood Gas VENT - AC Modality FiO2 70.0 Blood Gas Tidal 450.0 Volume Blood Gas Low 10.0 PEEP Setting Blood Gas [place] Notified Whom Blood Gas 03/12/2019 5:10:29 Notified Time AM Test 03/12/19 05:13 03/12/19 10:37 Lab Scanned BLOOD TRANSFUSIO Report N Platelet Count 233 Prothrombin Time 18.6 H Prothrombin Time 1.5 Ratio INR 1.54 International Normalized Ratio Activated 47.9 H Partial Thrombop last Time Thrombin Time 15.7 Medications Medication Current Medications IV Flush (NS 3 ml) 3 ml PER PROTOCOL IV ; Start 03/08/19 at 04:30 Ondansetron HCl (Zofran Inj) 4 mg Q6H PRN IV NAUSEA/VOMITING; Start 03/08/19 at 04:30 Acetaminophen (Tylenol Supp) 650 mg Q6H PRN [place] .PAIN 1-3 OR TEMP Last administered on 03/11/19at 06:13; Admin Dose 650 MG; Start 03/08/19 at 04:30 Famotidine (Pepcid Iv) 20 mg Q12 IV Last administered on 03/12/19at 09:34; Admin Dose 20 MG; Start 03/08/19 at 09:00 Enoxaparin Sodium (Lovenox) 40 mg DAILY SC Last administered on 03/10/19at 09:54; Admin Dose 40 MG; Start 03/08/19 at 09:00; Status Hold Vancomycin HCl (Vanco Iv Per Pharmacy) VANCOMYCIN PER PHARMACY PER PROTOCOL XX ; Start 03/08/19 at 13:00 Albuterol (Proventil 0.083% (Neb)) 1.25 mg Q2H RESP THERAPY PRN HHN sob/wheezing; Start 03/08/19 at 13:00 Metronidazole (Flagyl) 500 mg Q8 GTB Last administered on 03/09/19at 05:13; Admin Dose 500 MG; Start 03/08/19 at 14:00; Status Hold Ipratropium [place] (Atrovent 0.02% (Neb)) 0.5 mg Q2H RESP THERAPY PRN NEB SHORTNESS OF BREATH; Start 03/08/19 at 13:00 Cholecalciferol (Vitamin D) 2,000 unit DAILY GTB ; Start 03/09/19 at 09:00; Status Hold Ascorbic Acid (Vitamin C) 500 mg BID GTB Last administered on 03/08/19at 21:27; Admin Dose 500 MG; Start 03/08/19 at 21:00; Status Hold Multivitamins/ Minerals (Theragran-M) 1 tab DAILY GTB ; Start 03/09/19 at 09:00; Status Hold Eye Lubricant (Artificial Tears Oph) 2 drop QID BOTH EYES Last administered on 03/12/19 09:10; Admin Dose 2 DROP; Start 03/08/19 at 17:00 Midazolam HCl 50 ml @ 1 mls/hr PER PROTOCOL IV Last administered on 03/09/19 06:26; Admin Dose 4 MLS/HR; Start 03/08/19 at 17:00 Lorazepam (Ativan) 1 mg Q2H PRN IV seizures Last administered on 03/11/19 11:46; Admin Dose 1 MG; Start 03/09/19 at 09:30 IV Flush (NS 10 ml) 10 ml PRN PRN IV IV PROTOCOL; Start 03/09/19 at 16:30 Levetiracetam 100 ml @ 400 mls/hr Q12 IVPB Last administered on 03/12/19 09:10; Admin Dose 400 MLS/HR; Start 03/10/19 at 09:00 Albuterol (Ventolin Hfa) 4 puff Q4H RESP THERAPY INH Last administered on 03/12/19 07:58; Admin Dose 4 PUFF; Start 03/11/19 at 01:00 Ipratropium [place] (Atrovent Hfa) 4 puff Q4H RESP THERAPY INH Last administered on 03/12/19 07:59; Admin Dose 4 PUFF; Start 03/11/19 at 01:00 Valproate Sodium 250 mg/Sodium Chloride 52.5 ml @ 51.25 mls/ hr Q8 IVPB Last administered on 03/12/19 06:25; Admin Dose 51.25 MLS/HR; Start 03/11/19 at 14:00 Ceftazidime 50 ml @ 100 mls/hr Q8 IVPB Last administered on 03/12/19 06:25; Admin Dose 100 MLS/HR; Start 03/11/19 at 14:00 Vancomycin HCl 250 ml @ 125 mls/hr Q12H IVPB Last administered on 03/12/19 11:36; Admin Dose 125 MLS/HR; Start 03/12/19 at 00:00 Dextrose/Sodium Chloride 1,000 ml @ 80 mls/hr [id number] IV Last administered on 03/12/19at 09:11; Admin Dose 80 MLS/HR; Start 03/11/19 at 18:30 Miscellaneous Information (*Rx Drug Level Order Reminder*) VANCO TROUGH @ 1,100 ON... 1100 ONCE XX ; Start 03/13/19 at 11:00; Stop 03/13/19 at 11:01 Potassium Chloride 100 ml @ 50 mls/hr Q2H IVPB ; Start 03/12/19 at 13:00; Stop 03/12/19 at 16:59 ELICIA SPEARS Mar 12, 2019 13:18
[2019-03-12] MEDS: POTASSIUM CHLORIDE 100 ML IVPB SCH ×2 (13:31→15:51)
[2019-03-12] MEDS ORDERED: LIDOCAINE 1% (MDV) 20 ML INJ ONE (15:26)
[2019-03-12] MEDS: LORAZEPAM 2 MG INJ IV PRN (15:31)
--- NOTE | 2019-03-12 15:43 | PN ---
Date/Time of Note Date/Time of Note DATE: 03/12/19 TIME: 15:41 Assessment/Plan Assessment/Plan Assessment/Plan 23 year old male trach and PEG on vent for 2 years after AVM bleed in brain. We are asked to see for a large right loculated pleural effusion. I discussed with mother regarding option of chest tube insertion vs VATS. Recommend chest tube insertion as first line therapy. Consider placing pigtail and TPA if chest tube does not work. Chest tube placed with great difficulty secondary to chronicity of effusion. No fluid drained. Some old clotted blood removed. Exam/Review of Systems Vital Signs Vitals Vital Signs Date Temp Pulse Resp B/P (MAP) Pulse Ox O2 O2 Flow FiO2 Time Delivery Rate 03/12/19 109 22 98 80 13:16 03/12/19 84/63 (70) Mechanical 08:00 Ventilator 03/12/19 98.5 07:00 Intake and Output 03/11/19 03/11/19 03/12/19 1515:00 23:00 07:00 IntakeIntake Total 1625 ml 1323.75 ml 1042.50 ml OutputOutput Total 1115 ml 1225 ml 960 ml BalanceBalance 510 ml 98.75 ml 82.50 ml Results Result Diagram: 03/12/19 1037 03/12/19 0428 ORLANDO REYNOLDS MD Mar 12, 2019 15:43
[2019-03-12] MEDS ORDERED: LIDOCAINE 1% (MDV) 20 ML INJ SC ONE (16:00)
[2019-03-12] MEDS ORDERED: VALPROATE INJ 1,500 MG in SOD CHLORIDE 0.9% 100 ML IVPB STA (17:51)
--- NOTE | 2019-03-12 17:52 | CONS ---
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 Noted to have breakthrough seizures, for which neurology is consulted.. 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 The patient is noted to have a GI ileus..which is a likely contributor to recent enteral medication malabsorption. UA + .... a additional contributor... to a lowered seizure threshold.. Depakote level is subtherapeutic.. P: Await Head CT Reload Depacon; continue maintenance of 250 q8 iv for now; titrate to goal level ~100 Continue maintenance Keppra 1g q12 iv for now Ativan 2mg iv prn prolonged seizure (> 5 min) (as hemodynamics allow) Other management and supportive care per primary Will follow Consultation Date/Type/Reason Admit Date/Time Mar 08, 2019 at 04:09 Type of Consult Neurology Reason for Consultation seizure Requesting Provider: TE TURNER NP Date/Time of Note DATE: 03/12/19 TIME: 17:50 24 HR Interval Summary Free Text/Dictation Continues twitching Undergoing chest tube placement Exam/Review of Systems Exam Vitals Vital Signs Date Temp Pulse Resp B/P (MAP) Pulse Ox O2 O2 Flow FiO2 Time Delivery Rate 03/12/19 102 19 99 60 17:28 03/12/19 98.3 97/68 (78) Mechanical 16:00 Ventilator Intake and Output 03/11/19 03/11/19 03/12/19 1515:00 23:00 07:00 IntakeIntake Total 1625 ml 1323.75 ml 1042.50 ml OutputOutput Total 1115 ml 1225 ml 960 ml BalanceBalance 510 ml 98.75 ml 82.50 ml Results Result Diagram: 03/12/19 1037 03/12/19 0428 Results 24hrs Laboratory Tests Test 03/12/19 04:00 03/12/19 04:28 03/12/19 05:00 03/12/19 05:13 Lactic Acid 1.4 Level White Blood 10.1 Count Red Blood Count 2.56 L Hemoglobin 7.8 L Hematocrit 24.2 L Mean Corpuscular 94.5 Volume Mean Corpuscular 30.5 Hemoglobin Mean Corpuscular 32.2 Hemoglobin Monique nt Red Cell 16.0 H Distribution Width Platelet Count 239 Mean Platelet 11.2 H Volume Immature 0.400 Granulocytes % Neutrophils % 78.1 H Lymphocytes % 10.2 L Monocytes % 8.4 Eosinophils % 2.6 Basophils % 0.3 Nucleated Red 0.0 Blood Cells % Immature 0.040 H Granulocytes # Neutrophils # 7.9 H Lymphocytes # 1.0 Monocytes # 0.9 Eosinophils # 0.3 Basophils # 0.0 Nucleated Red 0.0 Blood Cells # Sodium Level 150 H Potassium Level 3.4 L Chloride Level 119 H Carbon Dioxide 21 Level Anion Gap 10 Blood Urea 4 L Nitrogen Creatinine 1.17 Est Glomerular > 60 Filtrat Rate mL/min Glucose Level 80 Calcium Level 8.0 L Valproic Acid 68 (Depakene) Level Blood Gas Blood arterial Specimen Source Arterial Blood 03/12/2019 5:00:47 Date Drawn AM Arterial Blood 7.456 H pH (Temp corrected) Arterial Blood 35.3 pCO2 (Temp correct) Arterial Blood 57.3 L pO2 (Temp corrected) Arterial Blood 24.3 HCO3 Arterial Blood 0.6 Base Excess Arterial Blood 89.2 L Oxygen Saturatio n Christopher Test ACCEPTAB Arterial Blood Right Radial Gas Puncture Site Arterial 0.1 Blood Carboxyhem oglobin Arterial Blood 0.2 Methemoglobin Blood Gas A-a O2 403.9 H Differential Oxyhemoglobin 88.9 L Percent Blood Gas 37.0 Temperature Blood Gas 16.0 Respiration Rate Blood Gas Actual 17 Respiration Rate Blood Gas VENT - AC Modality FiO2 70.0 Blood Gas Tidal 450.0 Volume Blood Gas Low 10.0 PEEP Setting Blood Gas AL Notified Whom Blood Gas 03/12/2019 5:10:29 Notified Time AM Lab Scanned BLOOD TRANSFUSIO Report N Test 03/12/19 10:37 Platelet Count 233 Prothrombin Time 18.6 H Prothrombin Time 1.5 Ratio INR 1.54 International Normalized Ratio Activated 47.9 H Partial Thrombop last Time Thrombin Time 15.7 Medications Medication Current Medications IV Flush (NS 3 ml) 3 ml PER PROTOCOL IV ; Start 03/08/19 at 04:30 Ondansetron HCl (Zofran Inj) 4 mg Q6H PRN IV NAUSEA/VOMITING; Start 03/08/19 at 04:30 Acetaminophen (Tylenol Supp) 650 mg Q6H PRN [place] .PAIN 1-3 OR TEMP Last admi nistered on 03/11/19 06:13; Admin Dose 650 MG; Start 03/08/19 at 04:30 Famotidine (Pepcid Iv) 20 mg Q12 IV Last administered on 03/12/19 09:34; Admin Dose 20 MG; Start 03/08/19 at 09:00 Enoxaparin Sodium (Lovenox) 40 mg DAILY SC Last administered on 03/10/19 09:54; Admin Dose 40 MG; Start 03/08/19 at 09:00; Status Hold Vancomycin HCl (Vanco Iv Per Pharmacy) VANCOMYCIN PER PHARMACY PER PROTOCOL XX ; Start 03/08/19 at 13:00 Albuterol (Proventil 0.083% (Neb)) 1.25 mg Q2H RESP THERAPY PRN HHN sob/wh eezing; Start 03/08/19 at 13:00 Metronidazole (Flagyl) 500 mg Q8 GTB Last administered on 03/09/19 05:13; Admin Dose 500 MG; Start 03/08/19 at 14:00; Status Hold Ipratropium [place] (Atrovent 0.02% (Neb)) 0.5 mg Q2H RESP THERAPY PRN NEB SHORTNESS OF BREATH; Start 03/08/19 at 13:00 Cholecalciferol (Vitamin D) 2,000 unit DAILY GTB ; Start 03/09/19 at 09:00; Status Hold Ascorbic Acid (Vitamin C) 500 mg BID GTB Last administered on 03/08/19at 21:27; Admin Dose 500 MG; Start 03/08/19 at 21:00; Status Hold Multivitamins/ Minerals (Theragran-M) 1 tab DAILY GTB ; Start 03/09/19 at 09:00; Status Hold Eye Lubricant (Artificial Tears Oph) 2 drop QID BOTH EYES Last administered on 03/12/19 16:30; Admin Dose 2 DROP; Start 03/08/19 at 17:00 Midazolam HCl 50 ml @ 1 mls/hr PER PROTOCOL IV Last administered on 03/09/19 06:26; Admin Dose 4 MLS/HR; Start 03/08/19 at 17:00 Lorazepam (Ativan) 1 mg Q2H PRN IV seizures Last administered on 03/12/19 15:31; Admin Dose 1 MG; Start 03/09/19 at 09:30 IV Flush (NS 10 ml) 10 ml PRN PRN IV IV PROTOCOL; Start 03/09/19 at 16:30 Levetiracetam 100 ml @ 400 mls/hr Q12 IVPB Last administered on 03/12/19 09:10; Admin Dose 400 MLS/HR; Start 03/10/19 at 09:00 Albuterol (Ventolin Hfa) 4 puff Q4H RESP THERAPY INH Last administered on 03/12/19 17:24; Admin Dose 4 PUFF; Start 03/11/19 at 01:00 Ipratropium [place] (Atrovent Hfa) 4 puff Q4H RESP THERAPY INH Last adminis tered on 03/12/19 17:24; Admin Dose 4 PUFF; Start 03/11/19 at 01:00 Valproate Sodium 250 mg/Sodium Chloride 52.5 ml @ 51.25 mls/ hr Q8 IVPB Last administered on 03/12/19 15:51; Admin Dose 51.25 MLS/HR; Start 03/11/19 at 14:00 Ceftazidime 50 ml @ 100 mls/hr Q8 IVPB Last administered on 03/12/19 13:31; Admin Dose 100 MLS/HR; Start 03/11/19 at 14:00 Vancomycin HCl 250 ml @ 125 mls/hr Q12H IVPB Last administered on 03/12/19 11:36; Admin Dose 125 MLS/HR; Start 03/12/19 at 00:00 Dextrose/Sodium Chloride 1,000 ml @ 80 mls/hr [id number] IV Last administered on 03/12/19 09:11; Admin Dose 80 MLS/HR; Start 03/11/19 at 18:30 Miscellaneous Information (*Rx Drug Level Order Reminder*) VANCO TROUGH @ 1,100 ON... 1100 ONCE XX ; Start 03/13/19 at 11:00; Stop 03/13/19 at 11:01 SUSAN ANTHONY Mar 12, 2019 17:52
[2019-03-13] VITALS (35 sets, daily range): BP systolic 89–123; BP diastolic 57–86; PULSE 90–110; RESP 16–34
[2019-03-13] MEDS: VANCOMYCIN 1 GM 250 ML IVPB SCH ×2 (00:34→12:14)
[2019-03-13] MEDS: IPRATROPIUM (HFA) 12.9 GM INHALER INH SCH ×6 (01:21→21:01)
[2019-03-13] MEDS: ALBUTEROL HFA 8 GM INHALER INH SCH ×6 (01:21→21:01)
[2019-03-13] MEDS: DEXTROSE 5%-0.225% NACL 1,000 ML IV SCH ×3 (02:48→20:25)
[2019-03-13] MEDS: LORAZEPAM 2 MG INJ IV PRN (04:35)
[2019-03-13] MEDS: CEFTAZIDIME 1GM/50 ML (PMX) 50 ML IVPB SCH ×3 (05:09→21:50)
[2019-03-13] MEDS: VALPROATE INJ 250 MG in SOD CHLORIDE 0.9% 50 ML IVPB SCH ×3 (05:28→22:24)
--- NOTE | 2019-03-13 08:43 | CONS ---
Consult Date/Type/Reason Admit Date/Time Mar 08, 2019 at 04:09 Initial Consult Date Type of Consult Pulmonary Requesting Provider: TE TURNER NP Date/Time of Note DATE: 03/13/19 TIME: 08:42 Subjective Patient continues mechanical ventilation via tracheostomy occasional twitching activity noted. Chest tube was placed yesterday but no output noted also. Objective Vital Signs Date Temp Pulse Resp B/P (MAP) Pulse Ox O2 O2 Flow FiO2 Time Delivery Rate 03/13/19 109 19 94 60 07:30 03/13/19 116/76 Mechanical 06:00 (89) Ventilator 03/13/19 97.9 04:00 Intake and Output 03/12/19 03/12/19 03/13/19 1515:00 23:00 07:00 IntakeIntake Total 810 ml 792.5 ml 860 ml OutputOutput Total 400 ml 630 ml 1155 ml BalanceBalance 410 ml 162.5 ml -295 ml Exam GENERAL: Chronically ill-appearing gentleman on mechanical ventilation via tracheostomy VITAL SIGNS: per chart NECK: Supple. No JVD or lymphadenopathy. CARDIAC EXAM: S1, S2. No added sounds or murmurs. CHEST: Diminished air entry right lung. ABDOMEN: Soft, nontender. No guarding or rebound. EXTREMITIES: No cyanosis, clubbing edema +2 NEUROLOGIC: Generalized weakness. Unable to assess Vent Setting Ventilator Support Mode: AC, VC plus Fraction of Inspired Oxygen pe: 60 Positive End Expiratory Pressu: 10.0 Results/Medications Result Diagram: 03/13/19 0427 03/13/19 0427 Results 24 hrs Laboratory Tests Test 03/12/19 10:37 03/13/19 04:27 Platelet Count 233 235 Prothrombin Time 18.6 H Prothrombin Time Ratio 1.5 INR International Normalized Ratio 1.54 Activated Partial Thromboplast Time 47.9 H Thrombin Time 15.7 White Blood Count 9.0 Red Blood Count 2.46 L Hemoglobin 7.3 L Hematocrit 23.1 L Mean Corpuscular Volume 93.9 Mean Corpuscular Hemoglobin 29.7 Mean Corpuscular Hemoglobin Concent 31.6 L Red Cell Distribution Width 16.1 H Mean Platelet Volume 11.0 H Immature Granulocytes % 0.300 Neutrophils % 75.7 Lymphocytes % 12.1 L Monocytes % 8.8 Eosinophils % 2.7 Basophils % 0.4 Nucleated Red Blood Cells % 0.0 Immature Granulocytes # 0.030 Neutrophils # 6.8 Lymphocytes # 1.1 Monocytes # 0.8 Eosinophils # 0.2 Basophils # 0.0 Nucleated Red Blood Cells # 0.0 Sodium Level 152 H Potassium Level 3.4 L Chloride Level 121 H Carbon Dioxide Level 24 Anion Gap 7 Blood Urea Nitrogen 5 L Creatinine 1.30 H Est Glomerular Filtrat Rate mL/min > 60 Glucose Level 87 Calcium Level 8.4 Phosphorus Level 3.8 Magnesium Level 2.0 Valproic Acid (Depakene) Level 80 Medications Current Medications IV Flush (NS 3 ml) 3 ml PER PROTOCOL IV ; Start 03/08/19 at 04:30 Ondansetron HCl (Zofran Inj) 4 mg Q6H PRN IV NAUSEA/VOMITING; Start 03/08/19 at 04:30 Acetaminophen (Tylenol Supp) 650 mg Q6H PRN [place] .PAIN 1-3 OR TEMP Last administe red on 03/11/19at 06:13; Admin Dose 650 MG; Start 03/08/19 at 04:30 Famotidine (Pepcid Iv) 20 mg Q12 IV Last administered on 03/12/19at 20:06; Admin Dose 20 MG; Start 03/08/19 at 09:00 Enoxaparin Sodium (Lovenox) 40 mg DAILY SC Last administered on 03/10/19at 09:54; Admin Dose 40 MG; Start 03/08/19 at 09:00; Status Hold Vancomycin HCl (Vanco Iv Per Pharmacy) VANCOMYCIN PER PHARMACY PER PROTOCOL XX ; Start 03/08/19 at 13:00 Albuterol (Proventil 0.083% (Neb)) 1.25 mg Q2H RESP THERAPY PRN HHN sob/wheezin g; Start 03/08/19 at 13:00 Metronidazole (Flagyl) 500 mg Q8 GTB Last administered on 03/09/19at 05:13; Admin Dose 500 MG; Start 03/08/19 at 14:00; Status Hold Ipratropium [place] (Atrovent 0.02% (Neb)) 0.5 mg Q2H RESP THERAPY PRN NEB SHORTNESS OF BREATH; Start 03/08/19 at 13:00 Cholecalciferol (Vitamin D) 2,000 unit DAILY GTB ; Start 03/09/19 at 09:00; Status Hold Ascorbic Acid (Vitamin C) 500 mg BID GTB Last administered on 03/08/19 21:27; Admin Dose 500 MG; Start 03/08/19 at 21:00; Status Hold Multivitamins/ Minerals (Theragran-M) 1 tab DAILY GTB ; Start 03/09/19 at 09:00; Status Hold Eye Lubricant (Artificial Tears Oph) 2 drop QID BOTH EYES Last administered on 03/12/19 20:06; Admin Dose 2 DROP; Start 03/08/19 at 17:00 Midazolam HCl 50 ml @ 1 mls/hr PER PROTOCOL IV Last administered on 03/09/19 06:26; Admin Dose 4 MLS/HR; Start 03/08/19 at 17:00 Lorazepam (Ativan) 1 mg Q2H PRN IV seizures Last administered on 03/13/19 04:35; Admin Dose 1 MG; Start 03/09/19 at 09:30 IV Flush (NS 10 ml) 10 ml PRN PRN IV IV PROTOCOL; Start 03/09/19 at 16:30 Levetiracetam 100 ml @ 400 mls/hr Q12 IVPB Last administered on 03/12/19 20:06; Admin Dose 400 MLS/HR; Start 03/10/19 at 09:00 Albuterol (Ventolin Hfa) 4 puff Q4H RESP THERAPY INH Last administered on 03/13/19 07:45; Admin Dose 4 PUFF; Start 03/11/19 at 01:00 Ipratropium [place] (Atrovent Hfa) 4 puff Q4H RESP THERAPY INH Last administered on 03/13/19 07:45; Admin Dose 4 PUFF; Start 03/11/19 at 01:00 Valproate Sodium 250 mg/Sodium Chloride 52.5 ml @ 51.25 mls/ hr Q8 IVPB Last administered on 03/13/19 05:28; Admin Dose 51.25 MLS/HR; Start 03/11/19 at 14:00 Ceftazidime 50 ml @ 100 mls/hr Q8 IVPB Last administered on 03/13/19 05:09; A dmin Dose 100 MLS/HR; Start 03/11/19 at 14:00 Vancomycin HCl 250 ml @ 125 mls/hr Q12H IVPB Last administered on 7/6/19at 00:34; Admin Dose 125 MLS/HR; Start 03/12/19 at 00:00 Dextrose/Sodium Chloride 1,000 ml @ 80 mls/hr [id number] IV Last administered on 03/13/19at 02:48; Admin Dose 80 MLS/HR; Start 03/11/19 at 18:30 Miscellaneous Information (*Rx Drug Level Order Reminder*) VANCO TROUGH @ 1,100 ON... 1100 ONCE XX ; Start 03/13/19 at 11:00; Stop 03/13/19 at 11:01 Assessment/Plan Hospital Course (Demo Recall) IMP 1. Acute on chronic hypoxemic respiratory failure 2. Trapped right lung with likely hemothorax. Status post chest tube placement with no significant output. 3. Severe sepsis 4. Vent dependent respiratory failure 5. 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 Dysphagia with G-tube. Ileus noted. 7. Anemia likely of chronic disease no active GI bleeding. RECS: 1. Transfuse 1 unit packed red blood cells 2. Continue mechanical ventilation 3. Appreciate thoracic surgery recommendations status post chest tube placement may require TPA 4. Tube feeding as tolerated 5. Anti-epileptic management as per Neuro, and EEG as concern for ongoing seizure activity 40 min cc time [facility] GUSTAFSON MD[facility] Mar 13, 2019 08:43
[2019-03-13] MEDS: FAMOTIDINE 20 MG INJ IV SCH ×2 (08:58→20:25)
[2019-03-13] MEDS: LEVETIRACETAM 1000 MG (PMX) 100 ML IVPB SCH ×2 (08:58→20:25)
[2019-03-13] MEDS: ARTIFICIAL TEARS 15 ML OPH BOTH EYES SCH ×4 (08:59→20:25)
--- NOTE | 2019-03-13 09:51 | PN ---
Date/Time of Note Date/Time of Note DATE: 03/13/19 TIME: 09:49 Assessment/Plan Lines/Catheters IV Catheter Type (from [facility]): PICC Line Sheppard in Place (from Nrs): Yes Assessment/Plan Assessment/Plan remove chest tube. this is a very chronic situation with his lung and most likely his right lung will not expand. I would not recommend surgery at this time. Also his mother does not want to overly aggressive. One possibility is to place pigtail catheter in largest pocket and try tpa. Exam/Review of Systems Vital Signs Vitals Vital Signs Date Temp Pulse Resp B/P (MAP) Pulse Ox O2 O2 Flow FiO2 Time Delivery Rate 03/13/19 110 20 119/74 95 Mechanical 09:00 (89) Ventilator 03/13/19 98.4 08:00 03/13/19 60 07:30 Intake and Output 03/12/19 03/12/19 03/13/19 1515:00 23:00 07:00 IntakeIntake Total 810 ml 792.5 ml 860 ml OutputOutput Total 400 ml 630 ml 1255 ml BalanceBalance 410 ml 162.5 ml -395 ml Results Result Diagram: 03/13/19 0427 03/13/19 0427 ORLANDO REYNOLDS MD Mar 13, 2019 09:51
--- NOTE | 2019-03-13 11:34 | CONS ---
Assessment/Plan Assessment/Plan Hospital Course (Demo Recall) ID PROGRESS NOTE CURRENT ABX: DAY #6 =>Vanco IV + Fortaz s/p Zosyn 03/13/19 0427 03/13/19 0427 24H INTERVAL SUMMARY * POD #1-> s/p 03/12/[address] * Patient looks comfortable - no fevers, Encephalopathic -- eyes open non- tracking, non-communicative w/Trach to Vent DIAGNOSTIC IMAGING * 03/13/19 CXR: FINDINGS:There is complete collapse of the right lung with cutoff of the right mainstem bronchus. There is mediastinal shift to the left compatible with right pleural effusion. A right chest tube is again seen and there is a left upper extremity PICC line. The left lung is clear of any infiltrate or mass. Tiny left pleural effusion is seen. There is no pneumothorax.IMPRESSION: Right lung collapse with effusion. * 03/10/19 CXR: IMPRESSION:1. Lines and tubes are stable. 2. Persistent complete opacification of the right hemithorax. 3. Persistent trace left pleural effusion. MICRO * 03/08/19 Urine Cx (-); BCx (+)CoNS 1/2 bottles from ED = consistent w/contaminant * 03/08/19 Trach Cx RESPIRATORY CULTURE Final Organism 1 PSEUDOMONAS AERUGINOSA QUANTITY SCANT GROWTH Organism 2 MORGANELLA MORGANII QUANTITY SCANT GROWTH Organism 3 PROVIDENCIA STUARTII QUANTITY SCANT GROWTH Organism 4 K.PNEUMONIAE SSP PNEUMONIAE QUANTITY RARE PSEUDOMONAS AERUGINOSA IS MDRO P.AERUG P.AERUG M MORGANII M.I.C. RX M.I.C. RX M.I.C. RX --------- --- --------- --- --------- --- AMIKACIN <=2 S 4 S AZTREONAM R CEFAZOLIN CEFEPIME I CEFOTAXIME S CEFTAZIDIME 16 S CIPROFLOXACIN 1 S >=4 R GENTAMICIN <=1 S >=16 R LEVOFLOXACIN >=8 R 4 I MEROPENEM 0.75 S TOBRAMYCIN <=1 S 2 S TRIMETHOPRIM/SULFAMETHOXAZOLE R PIPERACILLIN/TAZOBACTAM R P STUARTII P STUARTII K PNE SPP M.I.C. RX M.I.C. RX M.I.C. RX --------- --- --------- --- --------- --- AMIKACIN 8 S AZTREONAM CEFAZOLIN I CEFEPIME <=1 S CEFOTAXIME R S CEFTAZIDIME CIPROFLOXACIN >=4 R 1 S GENTAMICIN >=16 R <=1 S LEVOFLOXACIN >=8 R 1 S MEROPENEM 0.19 S TOBRAMYCIN >=16 R <=1 S TRIMETHOPRIM/SULFAMETHOXAZOLE >=320 R <=20 S PIPERACILLIN/TAZOBACTAM <=4 S PHYSICAL EXAMINATION: GENERAL: VSS, NAD HEENT: AT, NC, NECK: Supple, (+)Trach CHEST: Rise symmetrical HEART: Pulse RRR ABDOMEN: Benign EXTREMITIES: Warm, dry SKIN: No rash, no diaphoresis ID ASSESSMENT 23 yo M admit with: 1. Sepsis with bacteremia likely contaminant 2. Urinary tract infection per urinalysis 3. Questionable loculated pleural effusion versus necrotic lung per CT * Tracheobronchitis w/VAP 4. Status epilepticus 5. Chronic encephalopathy status post intracerebral hemorrhage 6. Left hip dislocation with possible septic joint and osteomyelitis 7. Questionable ileus (-)MRSA Nares ABX ALLERGIES: KNDA INVASIVES: PIV CURRENT ABX: DAY # 6 => Vanco IV + Fortaz s/p Zosyn ID RECOMMENDATIONS/PLAN: 1. 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 Consultation Date/Type/Reason Admit Date/Time Mar 08, 2019 at 04:09 Initial Consult Date Requesting Provider: TE TURNER NP Date/Time of Note DATE: 03/13/19 TIME: 11:29 Exam/Review of Systems Exam Vitals Vital Signs Date Temp Pulse Resp B/P (MAP) Pulse Ox O2 O2 Flow FiO2 Time Delivery Rate 03/13/19 108 16 95 60 11:17 03/13/19 119/74 Mechanical 09:00 (89) Ventilator 03/13/19 98.4 08:00 Intake and Output 03/12/19 03/12/19 03/13/19 1414:59 22:59 06:59 IntakeIntake Total 991.25 ml 712.5 ml 940 ml OutputOutput Total 540 ml 490 ml 1355 ml BalanceBalance 451.25 ml 222.5 ml -415 ml Results Result Diagram: 03/13/19 0427 03/13/19 0427 Results 24hrs Laboratory Tests Test 03/13/19 04:27 White Blood Count 9.0 Red Blood Count 2.46 L Hemoglobin 7.3 L Hematocrit 23.1 L Mean Corpuscular Volume 93.9 Mean Corpuscular Hemoglobin 29.7 Mean Corpuscular Hemoglobin Concent 31.6 L Red Cell Distribution Width 16.1 H Platelet Count 235 Mean Platelet Volume 11.0 H Immature Granulocytes % 0.300 Neutrophils % 75.7 Lymphocytes % 12.1 L Monocytes % 8.8 Eosinophils % 2.7 Basophils % 0.4 Nucleated Red Blood Cells % 0.0 Immature Granulocytes # 0.030 Neutrophils # 6.8 Lymphocytes # 1.1 Monocytes # 0.8 Eosinophils # 0.2 Basophils # 0.0 Nucleated Red Blood Cells # 0.0 Sodium Level 152 H Potassium Level 3.4 L Chloride Level 121 H Carbon Dioxide Level 24 Anion Gap 7 Blood Urea Nitrogen 5 L Creatinine 1.30 H Est Glomerular Filtrat Rate mL/min > 60 Glucose Level 87 Calcium Level 8.4 Phosphorus Level 3.8 Magnesium Level 2.0 Valproic Acid (Depakene) Level 80 Medications Medication Current Medications IV Flush (NS 3 ml) 3 ml PER PROTOCOL IV ; Start 03/08/19 at 04:30 Ondansetron HCl (Zofran Inj) 4 mg Q6H PRN IV NAUSEA/VOMITING; Start 03/08/19 at 04:30 Acetaminophen (Tylenol Supp) 650 mg Q6H PRN [place] .PAIN 1-3 OR TEMP Last administered on 03/11/19at 06:13; Admin Dose 650 MG; Start 03/08/19 at 04:30 Famotidine (Pepcid Iv) 20 mg Q12 IV Last administered on 7/6/19at 08:58; Admin Dose 20 MG; Start 03/08/19 at 09:00 Enoxaparin Sodium (Lovenox) 40 mg DAILY SC Last administered on 03/10/19 09:54; Admin Dose 40 MG; Start 03/08/19 at 09:00; Status Hold Vancomycin HCl (Vanco Iv Per Pharmacy) VANCOMYCIN PER PHARMACY PER PROTOCOL XX ; Start 03/08/19 at 13:00 Albuterol (Proventil 0.083% (Neb)) 1.25 mg Q2H RESP THERAPY PRN HHN sob/wheezing; Start 03/08/19 at 13:00 Metronidazole (Flagyl) 500 mg Q8 GTB Last administered on 03/09/19 05:13; Admin Dose 500 MG; Start 03/08/19 at 14:00; Status Hold Ipratropium [place] (Atrovent 0.02% (Neb)) 0.5 mg Q2H RESP THERAPY PRN NEB SHORTNESS OF BREATH; Start 03/08/19 at 13:00 Cholecalciferol (Vitamin D) 2,000 unit DAILY GTB ; Start 03/09/19 at 09:00; Status Hold Ascorbic Acid (Vitamin C) 500 mg BID GTB Last administered on 03/08/19at 21:27; Admin Dose 500 MG; Start 03/08/19 at 21:00; Status Hold Multivitamins/ Minerals (Theragran-M) 1 tab DAILY GTB ; Start 03/09/19 at 09:00; Status Hold Eye Lubricant (Artificial Tears Oph) 2 drop QID BOTH EYES Last administered on 03/13/19 08:59; Admin Dose 2 DROP; Start 03/08/19 at 17:00 Midazolam HCl 50 ml @ 1 mls/hr PER PROTOCOL IV Last administered on 03/09/19at 06:26; Admin Dose 4 MLS/HR; Start 03/08/19 at 17:00 Lorazepam (Ativan) 1 mg Q2H PRN IV seizures Last administered on 03/13/19 04:3 5; Admin Dose 1 MG; Start 03/09/19 at 09:30 IV Flush (NS 10 ml) 10 ml PRN PRN IV IV PROTOCOL; Start 03/09/19 at 16:30 Levetiracetam 100 ml @ 400 mls/hr Q12 IVPB Last administered on 03/13/19 08:58; Admin Dose 400 MLS/HR; Start 03/10/19 at 09:00 Albuterol (Ventolin Hfa) 4 puff Q4H RESP THERAPY INH Last administered on 03/13/19 11:19; Admin Dose 4 PUFF; Start 03/11/19 at 01:00 Ipratropium [place] (Atrovent Hfa) 4 puff Q4H RESP THERAPY INH Last administered on 03/13/19 11:19; Admin Dose 4 PUFF; Start 03/11/19 at 01:00 Valproate Sodium 250 mg/Sodium Chloride 52.5 ml @ 51.25 mls/ hr Q8 IVPB Last administered on 03/13/19 05:28; Admin Dose 51.25 MLS/HR; Start 03/11/19 at 14:00 Ceftazidime 50 ml @ 100 mls/hr Q8 IVPB Last administered on 03/13/19 05:09; Admin Dose 100 MLS/HR; Start 03/11/19 at 14:00 Vancomycin HCl 250 ml @ 125 mls/hr Q12H IVPB Last administered on 03/13/19 00:34; Admin Dose 125 MLS/HR; Start 03/12/19 at 00:00 Dextrose/Sodium Chloride 1,000 ml @ 80 mls/hr [id number] IV Last administered on 03/13/19 02:48; Admin Dose 80 MLS/HR; Start 03/11/19 at 18:30 FLAKO REGAN NP Mar 13, 2019 11:34
[2019-03-13] MEDS: POTASSIUM CHLORIDE 100 ML IVPB SCH ×2 (13:57→16:10)
--- NOTE | 2019-03-13 18:39 | PN ---
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 Sepsis -Source: Pneumonia plus or minus UTI/Colitis/infected decubs -Empiric Zosyn plus vancomycin -coto culture Acute on chronic Vent dependent respiratory failure -[id number] bronchodilators, pulmonary toileting -Vent management per pulmonary Healthcare/vent associated pneumonia plus or minus aspiration -IV Zosyn/Flagyl plus vancomycin -Pulmonary consult appreciated -Chest CT demonstrates hemothorax, CT surgery consultation appreciated, no indication for surgery -sputum cs -Aspiration precaution/HOB 35 degree and above Possible UTI -Antimicrobials, urine cultures Diarrhea, rule out infectious colitis vs meds-induced(note pt takes multiple laxatives at [facility]) -Abdominal CT -Stool studies -Empiric Flagyl Dehydration -fluids Chronic anoxic encephalopathy -supportive care Hypertension -currently hypotensive 2/2 sepsis. Hold off to antihypertensives. 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 Continue monitoring patient Chronic decub ulcer/L foot metatarsal wounds -Wound care ordered -Wound care consult DVT prophylaxis: Lovenox PUD prophylaxis: Pepcid DC planning: Continue current plan, possible downgrade tomorrow Result Diagram: 03/13/19 0427 03/13/19 0427 Results 24hrs Laboratory Tests Test 03/13/19 04:27 03/13/19 10:57 White Blood Count 9.0 Red Blood Count 2.46 L Hemoglobin 7.3 L Hematocrit 23.1 L Mean Corpuscular Volume 93.9 Mean Corpuscular Hemoglobin 29.7 Mean Corpuscular Hemoglobin Concent 31.6 L Red Cell Distribution Width 16.1 H Platelet Count 235 Mean Platelet Volume 11.0 H Immature Granulocytes % 0.300 Neutrophils % 75.7 Lymphocytes % 12.1 L Monocytes % 8.8 Eosinophils % 2.7 Basophils % 0.4 Nucleated Red Blood Cells % 0.0 Immature Granulocytes # 0.030 Neutrophils # 6.8 Lymphocytes # 1.1 Monocytes # 0.8 Eosinophils # 0.2 Basophils # 0.0 Nucleated Red Blood Cells # 0.0 Sodium Level 152 H Potassium Level 3.4 L Chloride Level 121 H Carbon Dioxide Level 24 Anion Gap 7 Blood Urea Nitrogen 5 L Creatinine 1.30 H Est Glomerular Filtrat Rate mL/min > 60 Glucose Level 87 Calcium Level 8.4 Phosphorus Level 3.8 Magnesium Level 2.0 Valproic Acid (Depakene) Level 80 Vancomycin Level Trough 18.4 Subjective 24 Hr Interval Summary Subjective hx not possible: pt non-verbal Exam/Review of Systems Exam Vitals Vital Signs Date Temp Pulse Resp B/P (MAP) Pulse Ox O2 O2 Flow FiO2 Time Delivery Rate 03/13/19 97 18 95 60 17:30 03/13/19 120/72 Mechanical 15:00 (88) Ventilator 03/13/19 99.2 12:00 Intake and Output 03/12/19 03/12/19 03/13/19 1515:00 23:00 07:00 IntakeIntake Total 810 ml 792.5 ml 992.5 ml OutputOutput Total 400 ml 630 ml 1255 ml BalanceBalance 410 ml 162.5 ml -262.5 ml Constitutional: non-verbal Respiratory: clear to auscultation Cardiovascular: regular rate and rhythm Gastrointestinal: soft; No distended Musculoskeletal: nl extremities to inspection Results Results 24hrs Laboratory Tests Test 03/13/19 04:27 03/13/19 10:57 White Blood Count 9.0 Red Blood Count 2.46 L Hemoglobin 7.3 L Hematocrit 23.1 L Mean Corpuscular Volume 93.9 Mean Corpuscular Hemoglobin 29.7 Mean Corpuscular Hemoglobin Concent 31.6 L Red Cell Distribution Width 16.1 H Platelet Count 235 Mean Platelet Volume 11.0 H Immature Granulocytes % 0.300 Neutrophils % 75.7 Lymphocytes % 12.1 L Monocytes % 8.8 Eosinophils % 2.7 Basophils % 0.4 Nucleated Red Blood Cells % 0.0 Immature Granulocytes # 0.030 Neutrophils # 6.8 Lymphocytes # 1.1 Monocytes # 0.8 Eosinophils # 0.2 Basophils # 0.0 Nucleated Red Blood Cells # 0.0 Sodium Level 152 H Potassium Level 3.4 L Chloride Level 121 H Carbon Dioxide Level 24 Anion Gap 7 Blood Urea Nitrogen 5 L Creatinine 1.30 H Est Glomerular Filtrat Rate mL/min > 60 Glucose Level 87 Calcium Level 8.4 Phosphorus Level 3.8 Magnesium Level 2.0 Valproic Acid (Depakene) Level 80 Vancomycin Level Trough 18.4 Medications Medication Current Medications IV Flush (NS 3 ml) 3 ml PER PROTOCOL IV ; Start 03/08/19 at 04:30 Ondansetron HCl (Zofran Inj) 4 mg Q6H PRN IV NAUSEA/VOMITING; Start 03/08/19 at 04:30 Acetaminophen (Tylenol Supp) 650 mg Q6H PRN [place] .PAIN 1-3 OR TEMP Last administered on 03/11/19at 06:13; Admin Dose 650 MG; Start 03/08/19 at 04:30 Famotidine (Pepcid Iv) 20 mg Q12 IV Last administered on 03/13/19at 08:58; Admin Dose 20 MG; Start 03/08/19 at 09:00 Enoxaparin Sodium (Lovenox) 40 mg DAILY SC Last administered on 03/10/19at 09:54; Admin Dose 40 MG; Start 03/08/19 at 09:00; Status Hold Vancomycin HCl (Vanco Iv Per Pharmacy) VANCOMYCIN PER PHARMACY PER PROTOCOL XX ; Start 03/08/19 at 13:00 Albuterol (Proventil 0.083% (Neb)) 1.25 mg Q2H RESP THERAPY PRN HHN sob/wheezing; Start 03/08/19 at 13:00 Metronidazole (Flagyl) 500 mg Q8 GTB Last administered on 03/09/19at 05:13; Admin Dose 500 MG; Start 03/08/19 at 14:00; Status Hold Ipratropium [place] (Atrovent 0.02% (Neb)) 0.5 mg Q2H RESP THERAPY PRN NEB SHORTNESS OF BREATH; Start 03/08/19 at 13:00 Cholecalciferol (Vitamin D) 2,000 unit DAILY GTB ; Start 03/09/19 at 09:00; Status Hold Ascorbic Acid (Vitamin C) 500 mg BID GTB Last administered on 03/08/19at 21:27; Admin Dose 500 MG; Start 03/08/19 at 21:00; Status Hold Multivitamins/ Minerals (Theragran-M) 1 tab DAILY GTB ; Start 03/09/19 at 09:00; Status Hold Eye Lubricant (Artificial Tears Oph) 2 drop QID BOTH EYES Last administered on 03/13/19 13:57; Admin Dose 2 DROP; Start 03/08/19 at 17:00 Midazolam HCl 50 ml @ 1 mls/hr PER PROTOCOL IV Last administered on 03/09/19 06:26; Admin Dose 4 MLS/HR; Start 03/08/19 at 17:00 Lorazepam (Ativan) 1 mg Q2H PRN IV seizures Last administered on 03/13/19 04:35; Admin Dose 1 MG; Start 03/09/19 at 09:30 IV Flush (NS 10 ml) 10 ml PRN PRN IV IV PROTOCOL; Start 03/09/19 at 16:30 Levetiracetam 100 ml @ 400 mls/hr Q12 IVPB Last administered on 03/13/19 08:58; Admin Dose 400 MLS/HR; Start 03/10/19 at 09:00 Albuterol (Ventolin Hfa) 4 puff Q4H RESP THERAPY INH Last administered on 03/13/19 17:46; Admin Dose 4 PUFF; Start 03/11/19 at 01:00 Ipratropium [place] (Atrovent Hfa) 4 puff Q4H RESP THERAPY INH Last administered on 03/13/19 17:46; Admin Dose 4 PUFF; Start 03/11/19 at 01:00 Valproate Sodium 250 mg/Sodium Chloride 52.5 ml @ 51.25 mls/ hr Q8 IVPB Last a dministered on 03/13/19 14:46; Admin Dose 51.25 MLS/HR; Start 03/11/19 at 14:00 Ceftazidime 50 ml @ 100 mls/hr Q8 IVPB Last administered on 03/13/19 14:46; Admin Dose 100 MLS/HR; Start 03/11/19 at 14:00 Dextrose/Sodium Chloride 1,000 ml @ 80 mls/hr [id number] IV Last administered on 03/13/19 02:48; Admin Dose 80 MLS/HR; Start 03/11/19 at 18:30 Vancomycin/Sodium Chloride 250 ml @ 125 mls/hr Q12H IVPB ; Start 03/14/19 at 00:00 ELICIA SPEARS Mar 13, 2019 18:39
[2019-03-14] VITALS (49 sets, daily range): BP systolic 88–114; BP diastolic 56–91; PULSE 75–96; RESP 10–26
[2019-03-14] MEDS: VANCOMYCIN 750 MG (PMX) 250 ML IVPB SCH ×3 (00:11→23:48)
[2019-03-14] MEDS: DEXTROSE 5%-0.225% NACL 1,000 ML IV SCH (01:28)
[2019-03-14] MEDS: ALBUTEROL HFA 8 GM INHALER INH SCH ×6 (02:23→19:41)
[2019-03-14] MEDS: IPRATROPIUM (HFA) 12.9 GM INHALER INH SCH ×6 (02:23→19:42)
[2019-03-14] MEDS: CEFTAZIDIME 1GM/50 ML (PMX) 50 ML IVPB SCH ×3 (06:09→22:19)
[2019-03-14] MEDS: VALPROATE INJ 250 MG in SOD CHLORIDE 0.9% 50 ML IVPB SCH ×3 (06:51→22:59)
--- NOTE | 2019-03-14 07:52 | CONS ---
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 Noted to have breakthrough seizures, for which neurology is consulted.. 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 The patient is noted to have a GI ileus..which is a likely contributor to recent enteral medication malabsorption. UA + .... a additional contributor... to a lowered seizure threshold.. Depakote level is subtherapeutic.. P: Await Head CT Continue maintenance Depakote of 250 q8 iv for now; repeat level this am...titrate to goal level ~100 Continue maintenance Keppra 1g q12 iv for now Ativan 2mg iv prn prolonged seizure (> 5 min) (as hemodynamics allow) Other management and supportive care per primary Will follow Consultation Date/Type/Reason Admit Date/Time Mar 08, 2019 at 04:09 Type of Consult Neurology Reason for Consultation seizure Requesting Provider: TE TURNER NP Date/Time of Note DATE: 03/14/19 TIME: 07:51 24 HR Interval Summary Free Text/Dictation Twitching continues Exam/Review of Systems Exam Vitals Vital Signs Date Temp Pulse Resp B/P (MAP) Pulse Ox O2 O2 Flow FiO2 Time Delivery Rate 03/14/19 81 18 105/75 96 06:30 (85) 03/14/19 50 06:00 03/14/19 Mechanical 06:00 Ventilator 03/14/19 97.7 04:00 Intake and Output 03/13/19 03/13/19 03/14/19 1515:00 23:00 07:00 IntakeIntake Total 780 ml 802.5 ml 863 ml OutputOutput Total 845 ml 875 ml 795 ml BalanceBalance -65 ml -72.5 ml 68 ml Results Result Diagram: 03/14/19 0405 03/14/19 0600 Results 24hrs Laboratory Tests Test 03/13/19 10:57 03/14/19 04:05 03/14/19 06:00 Vancomycin Level Trough 18.4 White Blood Count 7.7 Red Blood Count 2.36 L Hemoglobin 6.9 *L Hematocrit 21.7 L Mean Corpuscular Volume 91.9 Mean Corpuscular Hemoglobin 29.2 Mean Corpuscular Hemoglobin Concent 31.8 L Red Cell Distribution Width 17.8 H Platelet Count 202 Mean Platelet Volume 11.3 H Immature Granulocytes % 0.400 Neutrophils % 74.8 Lymphocytes % 12.2 L Monocytes % 9.3 Eosinophils % 3.0 Basophils % 0.3 Nucleated Red Blood Cells % 0.0 Immature Granulocytes # 0.030 Neutrophils # 5.8 Lymphocytes # 0.9 Monocytes # 0.7 Eosinophils # 0.2 Basophils # 0.0 Nucleated Red Blood Cells # 0.0 Sodium Level 153 H Potassium Level 3.5 Chloride Level 123 H Carbon Dioxide Level 24 Anion Gap 6 Blood Urea Nitrogen 6 L Creatinine 1.21 Est Glomerular Filtrat Rate mL/min > 60 Glucose Level 89 Calcium Level 8.3 L Phosphorus Level 3.8 Magnesium Level 2.1 Medications Medication Current Medications IV Flush (NS 3 ml) 3 ml PER PROTOCOL IV ; Start 03/08/19 at 04:30 Ondansetron HCl (Zofran Inj) 4 mg Q6H PRN IV NAUSEA/VOMITING; Start 03/08/19 at 04:30 Acetaminophen (Tylenol Supp) 650 mg Q6H PRN [place] .PAIN 1-3 OR TEMP Last administered on 03/11/19at 06:13; Admin Dose 650 MG; Start 03/08/19 at 04:30 Famotidine (Pepcid Iv) 20 mg Q12 IV Last administered on 03/13/19at 20:25; Admin Dose 20 MG; Start 03/08/19 at 09:00 Enoxaparin Sodium (Lovenox) 40 mg DAILY SC Last administered on 03/10/19at 09:54; Admin Dose 40 MG; Start 03/08/19 at 09:00; Status Hold Vancomycin HCl (Vanco Iv Per Pharmacy) VANCOMYCIN PER PHARMACY PER PROTOCOL XX ; Start 03/08/19 at 13:00 Albuterol (Proventil 0.083% (Neb)) 1.25 mg Q2H RESP THERAPY PRN HHN sob/wheezing; Start 03/08/19 at 13:00 Metronidazole (Flagyl) 500 mg Q8 GTB Last administered on 03/09/19at 05:13; Admin Dose 500 MG; Start 03/08/19 at 14:00; Status Hold Ipratropium [place] (Atrovent 0.02% (Neb)) 0.5 mg Q2H RESP THERAPY PRN NEB SHORTNESS OF BREATH; Start 03/08/19 at 13:00 Cholecalciferol (Vitamin D) 2,000 unit DAILY GTB ; Start 03/09/19 at 09:00; Status Hold Ascorbic Acid (Vitamin C) 500 mg BID GTB Last administered on 03/08/19at 21:27; Admin Dose 500 MG; Start 03/08/19 at 21:00; Status Hold Multivitamins/ Minerals (Theragran-M) 1 tab DAILY GTB ; Start 03/09/19 at 09:00; Status Hold Eye Lubricant (Artificial Tears Oph) 2 drop QID BOTH EYES Last administered on 03/13/19 20:25; Admin Dose 2 DROP; Start 03/08/19 at 17:00 Midazolam HCl 50 ml @ 1 mls/hr PER PROTOCOL IV Last administered on 03/09/19 06:26; Admin Dose 4 MLS/HR; Start 03/08/19 at 17:00 Lorazepam (Ativan) 1 mg Q2H PRN IV seizures Last administered on 03/13/19 04:35; Admin Dose 1 MG; Start 03/09/19 at 09:30 IV Flush (NS 10 ml) 10 ml PRN PRN IV IV PROTOCOL; Start 03/09/19 at 16:30 Levetiracetam 100 ml @ 400 mls/hr Q12 IVPB Last administered on 03/13/19 20:25; Admin Dose 400 MLS/HR; Start 03/10/19 at 09:00 Albuterol (Ventolin Hfa) 4 puff Q4H RESP THERAPY INH Last administered on 03/14/19 06:05; Admin Dose 4 PUFF; Start 03/11/19 at 01:00 Ipratropium [place] (Atrovent Hfa) 4 puff Q4H RESP THERAPY INH Last administered on 03/14/19 06:05; Admin Dose 4 PUFF; Start 03/11/19 at 01:00 Valproate Sodium 250 mg/Sodium Chloride 52.5 ml @ 51.25 mls/ hr Q8 IVPB Last administered on 03/14/19 06:51; Admin Dose 51.25 MLS/HR; Start 03/11/19 at 14:00 Ceftazidime 50 ml @ 100 mls/hr Q8 IVPB Last administered on 7/7/19at 06:09; Admin Dose 100 MLS/HR; Start 03/11/19 at 14:00 Dextrose/Sodium Chloride 1,000 ml @ 80 mls/hr [id number] IV Last administered on 03/14/19at 01:28; Admin Dose 80 MLS/HR; Start 03/11/19 at 18:30 Vancomycin/Sodium Chloride 250 ml @ 125 mls/hr Q12H IVPB Last administered on 03/14/19at 00:11; Admin Dose 125 MLS/HR; Start 03/14/19 at 00:00 SUSAN ANTHONY Mar 14, 2019 07:52
[2019-03-14] MEDS: LEVETIRACETAM 1000 MG (PMX) 100 ML IVPB SCH ×2 (08:21→21:18)
[2019-03-14] MEDS: ARTIFICIAL TEARS 15 ML OPH BOTH EYES SCH ×4 (08:22→21:18)
[2019-03-14] MEDS: FAMOTIDINE 20 MG INJ IV SCH ×2 (08:22→21:18)
--- NOTE | 2019-03-14 08:50 | CONS ---
Consult Date/Type/Reason Admit Date/Time Mar 08, 2019 at 04:09 Initial Consult Date Type of Consult Pulmonary Requesting Provider: TE TURNER NP Date/Time of Note DATE: 03/14/19 TIME: 08:49 Subjective Chest tube removed yesterday. Continues mechanical ventilation drop in hemoglobin noted. Objective Vital Signs Date Temp Pulse Resp B/P (MAP) Pulse Ox O2 O2 Flow FiO2 Time Delivery Rate 03/14/19 50 08:00 03/14/19 97.0 85 21 103/78 95 Mechanical 08:00 (86) Ventilator Intake and Output 03/13/19 03/13/19 03/14/19 1515:00 23:00 07:00 IntakeIntake Total 780 ml 802.5 ml 863 ml OutputOutput Total 845 ml 875 ml 795 ml BalanceBalance -65 ml -72.5 ml 68 ml Exam GENERAL: Chronically ill-appearing gentleman on mechanical ventilation via tracheostomy VITAL SIGNS: per chart NECK: Supple. No JVD or lymphadenopathy. CARDIAC EXAM: S1, S2. No added sounds or murmurs. CHEST: Diminished air entry right lung. ABDOMEN: Soft, nontender. No guarding or rebound. EXTREMITIES: No cyanosis, clubbing edema +2 NEUROLOGIC: Generalized weakness. Unable to assess Vent Setting Ventilator Support Mode: AC Fraction of Inspired Oxygen pe: 50 Positive End Expiratory Pressu: 5.0 Results/Medications Result Diagram: 03/14/19 0405 03/14/19 0600 Results 24 hrs Laboratory Tests Test 03/13/19 10:57 03/14/19 04:05 03/14/19 06:00 Vancomycin Level Trough 18.4 White Blood Count 7.7 Red Blood Count 2.36 L Hemoglobin 6.9 *L Hematocrit 21.7 L Mean Corpuscular Volume 91.9 Mean Corpuscular Hemoglobin 29.2 Mean Corpuscular Hemoglobin Concent 31.8 L Red Cell Distribution Width 17.8 H Platelet Count 202 Mean Platelet Volume 11.3 H Immature Granulocytes % 0.400 Neutrophils % 74.8 Lymphocytes % 12.2 L Monocytes % 9.3 Eosinophils % 3.0 Basophils % 0.3 Nucleated Red Blood Cells % 0.0 Immature Granulocytes # 0.030 Neutrophils # 5.8 Lymphocytes # 0.9 Monocytes # 0.7 Eosinophils # 0.2 Basophils # 0.0 Nucleated Red Blood Cells # 0.0 Sodium Level 153 H Potassium Level 3.5 Chloride Level 123 H Carbon Dioxide Level 24 Anion Gap 6 Blood Urea Nitrogen 6 L Creatinine 1.21 Est Glomerular Filtrat Rate mL/min > 60 Glucose Level 89 Calcium Level 8.3 L Phosphorus Level 3.8 Magnesium Level 2.1 Valproic Acid (Depakene) Level 54 Medications Current Medications IV Flush (NS 3 ml) 3 ml PER PROTOCOL IV ; Start 03/08/19 at 04:30 Ondansetron HCl (Zofran Inj) 4 mg Q6H PRN IV NAUSEA/VOMITING; Start 03/08/19 at 04:30 Acetaminophen (Tylenol Supp) 650 mg Q6H PRN [place] .PAIN 1-3 OR TEMP Last administ ered on 03/11/19at 06:13; Admin Dose 650 MG; Start 03/08/19 at 04:30 Famotidine (Pepcid Iv) 20 mg Q12 IV Last administered on 03/14/19at 08:22; Admin Dose 20 MG; Start 03/08/19 at 09:00 Enoxaparin Sodium (Lovenox) 40 mg DAILY SC Last administered on 03/10/19at 09:54; Admin Dose 40 MG; Start 03/08/19 at 09:00; Status Hold Vancomycin HCl (Vanco Iv Per Pharmacy) VANCOMYCIN PER PHARMACY PER PROTOCOL XX ; Start 03/08/19 at 13:00 Albuterol (Proventil 0.083% (Neb)) 1.25 mg Q2H RESP THERAPY PRN HHN sob/wheezi ng; Start 03/08/19 at 13:00 Metronidazole (Flagyl) 500 mg Q8 GTB Last administered on 03/09/19at 05:13; Admin Dose 500 MG; Start 03/08/19 at 14:00; Status Hold Ipratropium [place] (Atrovent 0.02% (Neb)) 0.5 mg Q2H RESP THERAPY PRN NEB SHORTNESS OF BREATH; Start 03/08/19 at 13:00 Cholecalciferol (Vitamin D) 2,000 unit DAILY GTB ; Start 03/09/19 at 09:00; Status Hold Ascorbic Acid (Vitamin C) 500 mg BID GTB Last administered on 03/08/19at 21:27; Admin Dose 500 MG; Start 03/08/19 at 21:00; Status Hold Multivitamins/ Minerals (Theragran-M) 1 tab DAILY GTB ; Start 03/09/19 at 09:00; Status Hold Eye Lubricant (Artificial Tears Oph) 2 drop QID BOTH EYES Last administered on 03/14/19 08:22; Admin Dose 2 DROP; Start 03/08/19 at 17:00 Midazolam HCl 50 ml @ 1 mls/hr PER PROTOCOL IV Last administered on 03/09/19 06:26; Admin Dose 4 MLS/HR; Start 03/08/19 at 17:00 Lorazepam (Ativan) 1 mg Q2H PRN IV seizures Last administered on 03/13/19 04:35; Admin Dose 1 MG; Start 03/09/19 at 09:30 IV Flush (NS 10 ml) 10 ml PRN PRN IV IV PROTOCOL; Start 03/09/19 at 16:30 Levetiracetam 100 ml @ 400 mls/hr Q12 IVPB Last administered on 03/14/19 08:21; Admin Dose 400 MLS/HR; Start 03/10/19 at 09:00 Albuterol (Ventolin Hfa) 4 puff Q4H RESP THERAPY INH Last administered on 03/14/19 06:05; Admin Dose 4 PUFF; Start 03/11/19 at 01:00 Ipratropium [place] (Atrovent Hfa) 4 puff Q4H RESP THERAPY INH Last administered on 03/14/19 06:05; Admin Dose 4 PUFF; Start 03/11/19 at 01:00 Valproate Sodium 250 mg/Sodium Chloride 52.5 ml @ 51.25 mls/ hr Q8 IVPB Last administered on 03/14/19 06:51; Admin Dose 51.25 MLS/HR; Start 03/11/19 at 14:00 Ceftazidime 50 ml @ 100 mls/hr Q8 IVPB Last administered on 03/14/19 06:09; Admin Dose 100 MLS/HR; Start 03/11/19 at 14:00 Dextrose/Sodium Chloride 1,000 ml @ 80 mls/hr [id number] IV Last administered on 03/14/19 01:28; Admin Dose 80 MLS/HR; Start 03/11/19 at 18:30 Vancomycin/Sodium Chloride 250 ml @ 125 mls/hr Q12H IVPB Last administered on 03/14/19at 00:11; Admin Dose 125 MLS/HR; Start 03/14/19 at 00:00 Assessment/Plan Hospital Course (Demo Recall) IMP 1. Acute on chronic hypoxemic respiratory failure 2. Trapped right lung with likely hemothorax. Chest tube removed as no significant drainage. Continues to drop hemoglobin. 3. Anemia secondary to likely hemothorax. 4. Vent dependent respiratory failure 5. 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 6. Dysphagia with G-tube. Ileus noted. 7. Anemia likely of chronic disease no active GI bleeding. RECS: 1. Transfuse 1 unit packed red blood cells 2. Continue mechanical ventilation 3. Appreciate thoracic surgery recommendations status post chest tube placement may require TPA 4. Tube feeding as tolerated 5. Anti-epileptic management as per Neuro, and EEG as concern for ongoing seizure activity 40 min cc time NELL GUSTAFSON MD, [facility] Mar 14, 2019 08:50
--- NOTE | 2019-03-14 10:21 | PN ---
Date/Time of Note Date/Time of Note DATE: 03/14/19 TIME: 10:19 Assessment/Plan VTE Prophylaxis Risk score (from Ns)>0 risk: 6 SCD applied (from Nsg): Yes Pharmacological prophylaxis: LMWH Lines/Catheters IV Catheter Type (from Nrsg): PICC Line Central line still needed: Yes Urinary Cath still in place: Yes Reason Cath still needed: terminal illness/intractable pain Assessment/Plan Assessment/Plan To CT for head scan. Chest tube out yesterday Result Diagram: 03/14/19 0405 03/14/19 0600 Results 24hrs Laboratory Tests Test 03/13/19 10:57 03/14/19 04:05 03/14/19 06:00 Vancomycin Level Trough 18.4 White Blood Count 7.7 Red Blood Count 2.36 L Hemoglobin 6.9 *L Hematocrit 21.7 L Mean Corpuscular Volume 91.9 Mean Corpuscular Hemoglobin 29.2 Mean Corpuscular Hemoglobin Concent 31.8 L Red Cell Distribution Width 17.8 H Platelet Count 202 Mean Platelet Volume 11.3 H Immature Granulocytes % 0.400 Neutrophils % 74.8 Lymphocytes % 12.2 L Monocytes % 9.3 Eosinophils % 3.0 Basophils % 0.3 Nucleated Red Blood Cells % 0.0 Immature Granulocytes # 0.030 Neutrophils # 5.8 Lymphocytes # 0.9 Monocytes # 0.7 Eosinophils # 0.2 Basophils # 0.0 Nucleated Red Blood Cells # 0.0 Sodium Level 153 H Potassium Level 3.5 Chloride Level 123 H Carbon Dioxide Level 24 Anion Gap 6 Blood Urea Nitrogen 6 L Creatinine 1.21 Est Glomerular Filtrat Rate mL/min > 60 Glucose Level 89 Calcium Level 8.3 L Phosphorus Level 3.8 Magnesium Level 2.1 Valproic Acid (Depakene) Level 54 Exam/Review of Systems Exam Vitals Vital Signs Date Temp Pulse Resp B/P (MAP) Pulse Ox O2 O2 Flow FiO2 Time Delivery Rate 03/14/19 85 26 105/73 96 09:30 (84) 03/14/19 50 09:00 03/14/19 97.0 Mechanical 08:00 Ventilator Intake and Output 03/13/19 03/13/19 03/14/19 1515:00 23:00 07:00 IntakeIntake Total 780 ml 802.5 ml 993 ml OutputOutput Total 845 ml 875 ml 795 ml BalanceBalance -65 ml -72.5 ml 198 ml Results Results 24hrs Laboratory Tests Test 03/13/19 10:57 03/14/19 04:05 03/14/19 06:00 Vancomycin Level Trough 18.4 White Blood Count 7.7 Red Blood Count 2.36 L Hemoglobin 6.9 *L Hematocrit 21.7 L Mean Corpuscular Volume 91.9 Mean Corpuscular Hemoglobin 29.2 Mean Corpuscular Hemoglobin Concent 31.8 L Red Cell Distribution Width 17.8 H Platelet Count 202 Mean Platelet Volume 11.3 H Immature Granulocytes % 0.400 Neutrophils % 74.8 Lymphocytes % 12.2 L Monocytes % 9.3 Eosinophils % 3.0 Basophils % 0.3 Nucleated Red Blood Cells % 0.0 Immature Granulocytes # 0.030 Neutrophils # 5.8 Lymphocytes # 0.9 Monocytes # 0.7 Eosinophils # 0.2 Basophils # 0.0 Nucleated Red Blood Cells # 0.0 Sodium Level 153 H Potassium Level 3.5 Chloride Level 123 H Carbon Dioxide Level 24 Anion Gap 6 Blood Urea Nitrogen 6 L Creatinine 1.21 Est Glomerular Filtrat Rate mL/min > 60 Glucose Level 89 Calcium Level 8.3 L Phosphorus Level 3.8 Magnesium Level 2.1 Valproic Acid (Depakene) Level 54 Medications Medication Current Medications IV Flush (NS 3 ml) 3 ml PER PROTOCOL IV ; Start 03/08/19 at 04:30 Ondansetron HCl (Zofran Inj) 4 mg Q6H PRN IV NAUSEA/VOMITING; Start 03/08/19 at 04:30 Acetaminophen (Tylenol Supp) 650 mg Q6H PRN [place] .PAIN 1-3 OR TEMP Last administered on 03/11/19at 06:13; Admin Dose 650 MG; Start 03/08/19 at 04:30 Famotidine (Pepcid Iv) 20 mg Q12 IV Last administered on 03/14/19at 08:22; Admin Dose 20 MG; Start 03/08/19 at 09:00 Enoxaparin Sodium (Lovenox) 40 mg DAILY SC Last administered on 03/10/19at 09:54; Admin Dose 40 MG; Start 03/08/19 at 09:00; Status Hold Vancomycin HCl (Vanco Iv Per Pharmacy) VANCOMYCIN PER PHARMACY PER PROTOCOL XX ; Start 03/08/19 at 13:00 Albuterol (Proventil 0.083% (Neb)) 1.25 mg Q2H RESP THERAPY PRN HHN sob/wheezing; Start 03/08/19 at 13:00 Metronidazole (Flagyl) 500 mg Q8 GTB Last administered on 03/09/19 05:13; Admin Dose 500 MG; Start 03/08/19 at 14:00; Status Hold Ipratropium [place] (Atrovent 0.02% (Neb)) 0.5 mg Q2H RESP THERAPY PRN NEB SHORTNESS OF BREATH; Start 03/08/19 at 13:00 Cholecalciferol (Vitamin D) 2,000 unit DAILY GTB ; Start 03/09/19 at 09:00; Status Hold Ascorbic Acid (Vitamin C) 500 mg BID GTB Last administered on 03/08/19 21:27; Admin Dose 500 MG; Start 03/08/19 at 21:00; Status Hold Multivitamins/ Minerals (Theragran-M) 1 tab DAILY GTB ; Start 03/09/19 at 09:00; Status Hold Eye Lubricant (Artificial Tears Oph) 2 drop QID BOTH EYES Last administered on 03/14/19 08:22; Admin Dose 2 DROP; Start 03/08/19 at 17:00 Midazolam HCl 50 ml @ 1 mls/hr PER PROTOCOL IV Last administered on 03/09/19 06:26; Admin Dose 4 MLS/HR; Start 03/08/19 at 17:00 Lorazepam (Ativan) 1 mg Q2H PRN IV seizures Last administered on 03/13/19 04:35; Admin Dose 1 MG; Start 03/09/19 at 09:30 IV Flush (NS 10 ml) 10 ml PRN PRN IV IV PROTOCOL; Start 03/09/19 at 16:30 Levetiracetam 100 ml @ 400 mls/hr Q12 IVPB Last administered on 03/14/19 08:21; Admin Dose 400 MLS/HR; Start 03/10/19 at 09:00 Albuterol (Ventolin Hfa) 4 puff Q4H RESP THERAPY INH Last administered on 03/14/19 06:05; Admin Dose 4 PUFF; Start 03/11/19 at 01:00 Ipratropium [place] (Atrovent Hfa) 4 puff Q4H RESP THERAPY INH Last administered on 03/14/19 06:05; Admin Dose 4 PUFF; Start 03/11/19 at 01:00 Valproate Sodium 250 mg/Sodium Chloride 52.5 ml @ 51.25 mls/ hr Q8 IVPB Last administered on 03/14/19 06:51; Admin Dose 51.25 MLS/HR; Start 03/11/19 at 14:00 Ceftazidime 50 ml @ 100 mls/hr Q8 IVPB Last administered on 03/14/19 06:09; Admin Dose 100 MLS/HR; Start 03/11/19 at 14:00 Dextrose/Sodium Chloride 1,000 ml @ 80 mls/hr [id number] IV Last administered on 03/14/19 01:28; Admin Dose 80 MLS/HR; Start 03/11/19 at 18:30 Vancomycin/Sodium Chloride 250 ml @ 125 mls/hr Q12H IVPB Last administered on 03/14/19 00:11; Admin Dose 125 MLS/HR; Start 03/14/19 at 00:00 MARIO PANDA MD Mar 14, 2019 10:21
--- NOTE | 2019-03-14 11:31 | CONS ---
Assessment/Plan Assessment/Plan Hospital Course (Demo Recall) ID PROGRESS NOTE CURRENT ABX: DAY #7 =>Vanco IV + Fortaz s/p Zosyn 24H INTERVAL SUMMARY * POD #2-> s/p 03/12/[address] * Noncommunicative on the Vent, chronic encephalopathic, no fevers DIAGNOSTIC IMAGING * 03/14/19 CXR: Interval removal of right-sided chest tube with no significant change in complete opacification of the right hemithorax, likely a combination of pleural effusion and collapsed lung. Left perihilar opacities, which may represent edema versus pneumonia. Stable small left pleural effusion. * 03/13/19 CXR: FINDINGS:There is complete collapse of the right lung with cutoff of the right mainstem bronchus. There is mediastinal shift to the left compatible with right pleural effusion. A right chest tube is again seen and there is a left upper extremity PICC line. The left lung is clear of any infiltrate or mass. Tiny left pleural effusion is seen. There is no pneumothorax.IMPRESSION: Right lung collapse with effusion. * 03/10/19 CXR: IMPRESSION:1. Lines and tubes are stable. 2. Persistent complete opacification of the right hemithorax. 3. Persistent trace left pleural effusion. MICRO * 03/08/19 Urine Cx (-); BCx (+)CoNS 1/2 bottles from ED = consistent w/contaminant * 03/08/19 Trach Cx RESPIRATORY CULTURE Final Organism 1 PSEUDOMONAS AERUGINOSA QUANTITY SCANT GROWTH Organism 2 MORGANELLA MORGANII QUANTITY SCANT GROWTH Organism 3 PROVIDENCIA STUARTII QUANTITY SCANT GROWTH Organism 4 K.PNEUMONIAE SSP PNEUMONIAE QUANTITY RARE PSEUDOMONAS AERUGINOSA IS MDRO P.AERUG P.AERUG M MORGANII M.I.C. RX M.I.C. RX M.I.C. RX --------- --- --------- --- --------- --- AMIKACIN <=2 S 4 S AZTREONAM R CEFAZOLIN CEFEPIME I CEFOTAXIME S CEFTAZIDIME 16 S CIPROFLOXACIN 1 S >=4 R GENTAMICIN <=1 S >=16 R LEVOFLOXACIN >=8 R 4 I MEROPENEM 0.75 S TOBRAMYCIN <=1 S 2 S TRIMETHOPRIM/SULFAMETHOXAZOLE R PIPERACILLIN/TAZOBACTAM R P STUARTII P STUARTII K PNE SPP M.I.C. RX M.I.C. RX M.I.C. RX --------- --- --------- --- --------- --- AMIKACIN 8 S AZTREONAM CEFAZOLIN I CEFEPIME <=1 S CEFOTAXIME R S CEFTAZIDIME CIPROFLOXACIN >=4 R 1 S GENTAMICIN >=16 R <=1 S LEVOFLOXACIN >=8 R 1 S MEROPENEM 0.19 S TOBRAMYCIN >=16 R <=1 S TRIMETHOPRIM/SULFAMETHOXAZOLE >=320 R <=20 S PIPERACILLIN/TAZOBACTAM <=4 S PHYSICAL EXAMINATION: GENERAL: VSS, NAD HEENT: AT, NC, NECK: Supple, (+)Trach CHEST: Rise symmetrical HEART: Pulse RRR ABDOMEN: Benign EXTREMITIES: Warm, dry SKIN: No rash, no diaphoresis ID ASSESSMENT 23 yo M admit with: 1. Sepsis with bacteremia likely contaminant 2. Urinary tract infection per urinalysis 3. Questionable loculated pleural effusion versus necrotic lung per CT * Tracheobronchitis w/VAP 4. Status epilepticus 5. Chronic encephalopathy status post intracerebral hemorrhage 6. Left hip dislocation with possible septic joint and osteomyelitis 7. Questionable ileus (-)MRSA Nares ABX ALLERGIES: KNDA INVASIVES: PIV CURRENT ABX: DAY # 7 => Vanco IV + Fortaz s/p Zosyn ID RECOMMENDATIONS/PLAN: 1. 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 Consultation Date/Type/Reason Admit Date/Time Mar 08, 2019 at 04:09 Initial Consult Date Requesting Provider: TURNER,[employer]END[employer] SUPERVISOR Date/Time of Note DATE: 03/14/19 TIME: 11:29 Exam/Review of Systems Exam Vitals Vital Signs Date Temp Pulse Resp B/P (MAP) Pulse Ox O2 O2 Flow FiO2 Time Delivery Rate 03/14/19 85 26 105/73 96 09:30 (84) 03/14/19 50 09:00 03/14/19 97.0 Mechanical 08:00 Ventilator Intake and Output 03/13/19 03/13/19 03/14/19 1515:00 23:00 07:00 IntakeIntake Total 780 ml 802.5 ml 993 ml OutputOutput Total 845 ml 875 ml 795 ml BalanceBalance -65 ml -72.5 ml 198 ml Results Result Diagram: 03/14/19 0405 03/14/19 0600 Results 24hrs Laboratory Tests Test 03/14/19 04:05 03/14/19 06:00 White Blood Count 7.7 Red Blood Count 2.36 L Hemoglobin 6.9 *L Hematocrit 21.7 L Mean Corpuscular Volume 91.9 Mean Corpuscular Hemoglobin 29.2 Mean Corpuscular Hemoglobin Concent 31.8 L Red Cell Distribution Width 17.8 H Platelet Count 202 Mean Platelet Volume 11.3 H Immature Granulocytes % 0.400 Neutrophils % 74.8 Lymphocytes % 12.2 L Monocytes % 9.3 Eosinophils % 3.0 Basophils % 0.3 Nucleated Red Blood Cells % 0.0 Immature Granulocytes # 0.030 Neutrophils # 5.8 Lymphocytes # 0.9 Monocytes # 0.7 Eosinophils # 0.2 Basophils # 0.0 Nucleated Red Blood Cells # 0.0 Sodium Level 153 H Potassium Level 3.5 Chloride Level 123 H Carbon Dioxide Level 24 Anion Gap 6 Blood Urea Nitrogen 6 L Creatinine 1.21 Est Glomerular Filtrat Rate mL/min > 60 Glucose Level 89 Calcium Level 8.3 L Phosphorus Level 3.8 Magnesium Level 2.1 Valproic Acid (Depakene) Level 54 Medications Medication Current Medications IV Flush (NS 3 ml) 3 ml PER PROTOCOL IV ; Start 03/08/19 at 04:30 Ondansetron HCl (Zofran Inj) 4 mg Q6H PRN IV NAUSEA/VOMITING; Start 03/08/19 at 04:30 Acetaminophen (Tylenol Supp) 650 mg Q6H PRN [place] .PAIN 1-3 OR TEMP Last administered on 7/4/19at 06:13; Admin Dose 650 MG; Start 03/08/19 at 04:30 Famotidine (Pepcid Iv) 20 mg Q12 IV Last administered on 03/14/19 08:22; Admin Dose 20 MG; Start 03/08/19 at 09:00 Enoxaparin Sodium (Lovenox) 40 mg DAILY SC Last administered on 03/10/19 09:54; Admin Dose 40 MG; Start 03/08/19 at 09:00; Status Hold Vancomycin HCl (Vanco Iv Per Pharmacy) VANCOMYCIN PER PHARMACY PER PROTOCOL XX ; Start 03/08/19 at 13:00 Albuterol (Proventil 0.083% (Neb)) 1.25 mg Q2H RESP THERAPY PRN HHN sob/wheezing; Start 03/08/19 at 13:00 Metronidazole (Flagyl) 500 mg Q8 GTB Last administered on 03/09/19 05:13; Admin Dose 500 MG; Start 03/08/19 at 14:00; Status Hold Ipratropium [place] (Atrovent 0.02% (Neb)) 0.5 mg Q2H RESP THERAPY PRN NEB SHORTNESS OF BREATH; Start 03/08/19 at 13:00 Cholecalciferol (Vitamin D) 2,000 unit DAILY GTB ; Start 03/09/19 at 09:00; Status Hold Ascorbic Acid (Vitamin C) 500 mg BID GTB Last administered on 03/08/19at 21:27; Admin Dose 500 MG; Start 03/08/19 at 21:00; Status Hold Multivitamins/ Minerals (Theragran-M) 1 tab DAILY GTB ; Start 03/09/19 at 09:00; Status Hold Eye Lubricant (Artificial Tears Oph) 2 drop QID BOTH EYES Last administered on 03/14/19 08:22; Admin Dose 2 DROP; Start 03/08/19 at 17:00 Midazolam HCl 50 ml @ 1 mls/hr PER PROTOCOL IV Last administered on 03/09/19 06:26; Admin Dose 4 MLS/HR; Start 03/08/19 at 17:00 Lorazepam (Ativan) 1 mg Q2H PRN IV seizures Last administered on 03/13/19 04:35; Admin Dose 1 MG; Start 03/09/19 at 09:30 IV Flush (NS 10 ml) 10 ml PRN PRN IV IV PROTOCOL; Start 03/09/19 at 16:30 Levetiracetam 100 ml @ 400 mls/hr Q12 IVPB Last administered on 03/14/19 08:21; Admin Dose 400 MLS/HR; Start 03/10/19 at 09:00 Albuterol (Ventolin Hfa) 4 puff Q4H RESP THERAPY INH Last administered on 03/14/19 06:05; Admin Dose 4 PUFF; Start 03/11/19 at 01:00 Ipratropium [place] (Atrovent Hfa) 4 puff Q4H RESP THERAPY INH Last administered on 03/14/19 06:05; Admin Dose 4 PUFF; Start 03/11/19 at 01:00 Valproate Sodium 250 mg/Sodium Chloride 52.5 ml @ 51.25 mls/ hr Q8 IVPB Last administered on 03/14/19 06:51; Admin Dose 51.25 MLS/HR; Start 03/11/19 at 14:00 Ceftazidime 50 ml @ 100 mls/hr Q8 IVPB Last administered on 03/14/19 06:09; Admin Dose 100 MLS/HR; Start 03/11/19 at 14:00 Dextrose/Sodium Chloride 1,000 ml @ 80 mls/hr [id number] IV Last administered on 03/14/19 01:28; Admin Dose 80 MLS/HR; Start 03/11/19 at 18:30 Vancomycin/Sodium Chloride 250 ml @ 125 mls/hr Q12H IVPB Last administered on 03/14/19 00:11; Admin Dose 125 MLS/HR; Start 03/14/19 at 00:00 FLAKO REGAN NP Mar 14, 2019 11:31
--- NOTE | 2019-03-14 12:59 | PN ---
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 1. 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 Acute on chronic Vent dependent respiratory failure -[id number]-lcial bronchodilators, pulmonary toileting -Vent management per pulmonary 3. Healthcare/vent associated pneumonia plus or minus aspiration -IV Zosyn/Flagyl plus vancomycin -Pulmonary consult appreciated -Chest CT demonstrates hemothorax, CT surgery consultation appreciated, no indication for surgery and mother does not want aggressive care -Chest tube removed as no significant drainage -Sputum cultures noted -Aspiration precaution/HOB 35 degree and above 4. Diarrhea, rule out infectious colitis vs meds-induced(note pt takes multiple laxatives at [facility]) -Abdominal CT -Stool studies including C. difficile are negative 5. Dehydration -fluids 6. 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 Hypertension -currently hypotensive 2/2 sepsis. Hold off on antihypertensives. 8. Dysphagia/PEG placed -Tube feeds were held secondary to ileus, repeat KUB does not show ileus and will resume 9. Ileus -KUB shows nonspecific bowel gas pattern but no evidence of ileus -Replete potassium as needed -Resume tube feeds 10. Epilepsy/Seizure disorders -Seizures now stable -Neurology consultation appreciated, continue seizure medications 11. Chronic decub ulcer/L foot metatarsal wounds -Continue wound care, continue antibiotics DVT prophylaxis: Lovenox PUD prophylaxis: Pepcid DC planning: Continue current plan Result Diagram: 03/14/19 0405 03/14/19 0600 Results 24hrs Laboratory Tests Test 03/14/19 04:05 03/14/19 06:00 White Blood Count 7.7 Red Blood Count 2.36 L Hemoglobin 6.9 *L Hematocrit 21.7 L Mean Corpuscular Volume 91.9 Mean Corpuscular Hemoglobin 29.2 Mean Corpuscular Hemoglobin Concent 31.8 L Red Cell Distribution Width 17.8 H Platelet Count 202 Mean Platelet Volume 11.3 H Immature Granulocytes % 0.400 Neutrophils % 74.8 Lymphocytes % 12.2 L Monocytes % 9.3 Eosinophils % 3.0 Basophils % 0.3 Nucleated Red Blood Cells % 0.0 Immature Granulocytes # 0.030 Neutrophils # 5.8 Lymphocytes # 0.9 Monocytes # 0.7 Eosinophils # 0.2 Basophils # 0.0 Nucleated Red Blood Cells # 0.0 Sodium Level 153 H Potassium Level 3.5 Chloride Level 123 H Carbon Dioxide Level 24 Anion Gap 6 Blood Urea Nitrogen 6 L Creatinine 1.21 Est Glomerular Filtrat Rate mL/min > 60 Glucose Level 89 Calcium Level 8.3 L Phosphorus Level 3.8 Magnesium Level 2.1 Valproic Acid (Depakene) Level 54 Subjective 24 Hr Interval Summary Subjective hx not possible: pt non-verbal Exam/Review of Systems Exam Vitals Vital Signs Date Temp Pulse Resp B/P (MAP) Pulse Ox O2 O2 Flow FiO2 Time Delivery Rate 03/14/19 98.2 81 15 109/78 99 Mechanical 12:00 (88) Ventilator 03/14/19 50 11:33 Intake and Output 03/13/19 03/13/19 03/14/19 1515:00 23:00 07:00 IntakeIntake Total 780 ml 802.5 ml 993 ml OutputOutput Total 845 ml 875 ml 795 ml BalanceBalance -65 ml -72.5 ml 198 ml Constitutional: non-verbal Respiratory: clear to auscultation Cardiovascular: regular rate and rhythm Gastrointestinal: soft; No distended Musculoskeletal: nl extremities to inspection Results Results 24hrs Laboratory Tests Test 03/14/19 04:05 03/14/19 06:00 White Blood Count 7.7 Red Blood Count 2.36 L Hemoglobin 6.9 *L Hematocrit 21.7 L Mean Corpuscular Volume 91.9 Mean Corpuscular Hemoglobin 29.2 Mean Corpuscular Hemoglobin Concent 31.8 L Red Cell Distribution Width 17.8 H Platelet Count 202 Mean Platelet Volume 11.3 H Immature Granulocytes % 0.400 Neutrophils % 74.8 Lymphocytes % 12.2 L Monocytes % 9.3 Eosinophils % 3.0 Basophils % 0.3 Nucleated Red Blood Cells % 0.0 Immature Granulocytes # 0.030 Neutrophils # 5.8 Lymphocytes # 0.9 Monocytes # 0.7 Eosinophils # 0.2 Basophils # 0.0 Nucleated Red Blood Cells # 0.0 Sodium Level 153 H Potassium Level 3.5 Chloride Level 123 H Carbon Dioxide Level 24 Anion Gap 6 Blood Urea Nitrogen 6 L Creatinine 1.21 Est Glomerular Filtrat Rate mL/min > 60 Glucose Level 89 Calcium Level 8.3 L Phosphorus Level 3.8 Magnesium Level 2.1 Valproic Acid (Depakene) Level 54 Medications Medication Current Medications IV Flush (NS 3 ml) 3 ml PER PROTOCOL IV ; Start 03/08/19 at 04:30 Ondansetron HCl (Zofran Inj) 4 mg Q6H PRN IV NAUSEA/VOMITING; Start 03/08/19 at 04:30 Acetaminophen (Tylenol Supp) 650 mg Q6H PRN [place] .PAIN 1-3 OR TEMP Last administered on 03/11/19at 06:13; Admin Dose 650 MG; Start 03/08/19 at 04:30 Famotidine (Pepcid Iv) 20 mg Q12 IV Last administered on 03/14/19at 08:22; Admin Dose 20 MG; Start 03/08/19 at 09:00 Enoxaparin Sodium (Lovenox) 40 mg DAILY SC Last administered on 03/10/19at 09:54; Admin Dose 40 MG; Start 03/08/19 at 09:00; Status Hold Vancomycin HCl (Vanco Iv Per Pharmacy) VANCOMYCIN PER PHARMACY PER PROTOCOL XX ; Start 03/08/19 at 13:00 Albuterol (Proventil 0.083% (Neb)) 1.25 mg Q2H RESP THERAPY PRN HHN sob/wheezing; Start 03/08/19 at 13:00 Metronidazole (Flagyl) 500 mg Q8 GTB Last administered on 03/09/19at 05:13; Admin Dose 500 MG; Start 03/08/19 at 14:00; Status Hold Ipratropium [place] (Atrovent 0.02% (Neb)) 0.5 mg Q2H RESP THERAPY PRN NEB S HORTNESS OF BREATH; Start 03/08/19 at 13:00 Cholecalciferol (Vitamin D) 2,000 unit DAILY GTB ; Start 03/09/19 at 09:00; Status Hold Ascorbic Acid (Vitamin C) 500 mg BID GTB Last administered on 03/08/19 21:27; Admin Dose 500 MG; Start 03/08/19 at 21:00; Status Hold Multivitamins/ Minerals (Theragran-M) 1 tab DAILY GTB ; Start 03/09/19 at 09:00; Status Hold Eye Lubricant (Artificial Tears Oph) 2 drop QID BOTH EYES Last administered on 03/14/19 12:26; Admin Dose 2 DROP; Start 03/08/19 at 17:00 Midazolam HCl 50 ml @ 1 mls/hr PER PROTOCOL IV Last administered on 03/09/19 06:26; Admin Dose 4 MLS/HR; Start 03/08/19 at 17:00 Lorazepam (Ativan) 1 mg Q2H PRN IV seizures Last administered on 03/13/19 04:35; Admin Dose 1 MG; Start 03/09/19 at 09:30 IV Flush (NS 10 ml) 10 ml PRN PRN IV IV PROTOCOL; Start 03/09/19 at 16:30 Levetiracetam 100 ml @ 400 mls/hr Q12 IVPB Last administered on 03/14/19 08: 21; Admin Dose 400 MLS/HR; Start 03/10/19 at 09:00 Albuterol (Ventolin Hfa) 4 puff Q4H RESP THERAPY INH Last administered on 03/14/19 06:05; Admin Dose 4 PUFF; Start 03/11/19 at 01:00 Ipratropium [place] (Atrovent Hfa) 4 puff Q4H RESP THERAPY INH Last administered on 03/14/19 06:05; Admin Dose 4 PUFF; Start 03/11/19 at 01:00 Valproate Sodium 250 mg/Sodium Chloride 52.5 ml @ 51.25 mls/ hr Q8 IVPB Last administered on 03/14/19 06:51; Admin Dose 51.25 MLS/HR; Start 03/11/19 at 14:00 Ceftazidime 50 ml @ 100 mls/hr Q8 IVPB Last administered on 03/14/19 06:09; Admin Dose 100 MLS/HR; Start 03/11/19 at 14:00 Dextrose/Sodium Chloride 1,000 ml @ 80 mls/hr [id number] IV Last administered on 03/14/19at 01:28; Admin Dose 80 MLS/HR; Start 03/11/19 at 18:30 Vancomycin/Sodium Chloride 250 ml @ 125 mls/hr Q12H IVPB Last administered on 03/14/19at 11:31; Admin Dose 125 MLS/HR; Start 03/14/19 at 00:00 ELICIA SPEARS Mar 14, 2019 12:58
[2019-03-15] VITALS (34 sets, daily range): BP systolic 94–119; BP diastolic 54–88; PULSE 85–101; RESP 16–30
[2019-03-15] MEDS: IPRATROPIUM (HFA) 12.9 GM INHALER INH SCH ×6 (01:43→21:27)
[2019-03-15] MEDS: ALBUTEROL HFA 8 GM INHALER INH SCH ×6 (01:43→21:27)
[2019-03-15] MEDS: ACETAMINOPHEN 650MG/20.3ML CUP GTB PRN ×2 (04:56→11:15)
[2019-03-15] MEDS: CEFTAZIDIME 1GM/50 ML (PMX) 50 ML IVPB SCH ×3 (05:04→21:48)
[2019-03-15] MEDS: VALPROATE INJ 250 MG in SOD CHLORIDE 0.9% 50 ML IVPB SCH (05:45)
[2019-03-15] MEDS ORDERED: POTASSIUM CHLORIDE 100 ML IVPB ONE (06:30)
[2019-03-15] MEDS: LEVETIRACETAM 1000 MG (PMX) 100 ML IVPB SCH ×2 (08:08→20:53)
[2019-03-15] MEDS: ARTIFICIAL TEARS 15 ML OPH BOTH EYES SCH ×4 (08:09→20:53)
[2019-03-15] MEDS: FAMOTIDINE 20 MG INJ IV SCH ×2 (08:09→20:54)
--- NOTE | 2019-03-15 09:29 | CONS ---
Consultation Date/Type/Reason Admit Date/Time Mar 08, 2019 at 04:09 Initial Consult Date Pulmonary/critical care Patient condition remains hemodynamically stable. General exam; young male, on ventilator via tracheostomy, unresponsive, currently no distress. Type of Consult H EENT exam; supple neck, no JVD. No lymphadenopathy. Midline trachea. No thyromegaly. Tracheostomy in place. Insertion site is clean. Patient has fair dentition. No neck masses. Chest exam; diminished breath sounds right lung. Left lung is clear. S1-S2 audible, no murmurs. Regular rhythm. Abdomen exam; soft, no organomegaly. G-tube in place. Bowel sounds audible. Extremity exam; no peripheral edema. Patient has a flexion contractures. HOT ROOM ATTENDANT exam; patient remains noncommunicative and unresponsive. Reason for Consultation Chest x-ray was reviewed from today which is again showing whiteout of the right lung. Ventilator settings; assist control of 16, tidal volume 450, PEEP of 5, 50% FiO2. Assessment and recommendations; 1. Patient with history of chronic severe encephalopathy and VDR F admitted for severe right-sided pneumonia. Possibly loculated hemothorax. Right side chest tube has been removed. 2. Status post bronchoscopy with negative findings. 3. Stable seizure disorder. Continue with supportive care. Further recommendations per cardiothoracic surgeon. Requesting Provider: TE TURNER NP Date/Time of Note DATE: 03/15/19 TIME: 09:27 Exam/Review of Systems Exam Vitals Vital Signs Date Temp Pulse Resp B/P (MAP) Pulse Ox O2 O2 Flow FiO2 Time Delivery Rate 03/15/19 99.7 98 20 109/71 97 Mechanical 08:00 (84) Ventilator 03/15/19 50 08:00 Intake and Output 03/14/19 03/14/19 03/15/19 1515:00 23:00 07:00 IntakeIntake Total 1675.0 ml 660 ml 5636.5 ml OutputOutput Total 600 ml 765 ml 740 ml BalanceBalance 1075.0 ml -105 ml 4896.5 ml Results Result Diagram: 03/15/19 0430 03/15/19 0430 Results 24hrs Laboratory Tests Test 03/14/19 15:17 03/15/19 04:30 Hemoglobin 9.6 #L 10.7 L White Blood Count 10.8 # Red Blood Count 3.94 #L Hematocrit 34.3 #L Mean Corpuscular Volume 87.1 Mean Corpuscular Hemoglobin 27.2 L Mean Corpuscular Hemoglobin Concent 31.2 L Red Cell Distribution Width 23.9 #H Platelet Count 215 Mean Platelet Volume 10.5 H Immature Granulocytes % 0.400 Neutrophils % 77.3 H Lymphocytes % 10.5 L Monocytes % 8.6 Eosinophils % 2.8 Basophils % 0.4 Nucleated Red Blood Cells % 0.0 Immature Granulocytes # 0.040 H Neutrophils # 8.3 H Lymphocytes # 1.1 Monocytes # 0.9 Eosinophils # 0.3 Basophils # 0.0 Nucleated Red Blood Cells # 0.0 Sodium Level 153 H Potassium Level 3.4 L Chloride Level 123 H Carbon Dioxide Level 24 Anion Gap 6 Blood Urea Nitrogen 7 Creatinine 1.13 Est Glomerular Filtrat Rate mL/min > 60 Glucose Level 94 Calcium Level 8.4 Phosphorus Level 3.2 Magnesium Level 2.1 Medications Medication Current Medications IV Flush (NS 3 ml) 3 ml PER PROTOCOL IV ; Start 03/08/19 at 04:30 Ondansetron HCl (Zofran Inj) 4 mg Q6H PRN IV NAUSEA/VOMITING; Start 03/08/19 at 04:30 Famotidine (Pepcid Iv) 20 mg Q12 IV Last administered on 03/15/19at 08:09; Admin Dose 20 MG; Start 03/08/19 at 09:00 Enoxaparin Sodium (Lovenox) 40 mg DAILY SC Last administered on 03/10/19at 09:54; Admin Dose 40 MG; Start 03/08/19 at 09:00; Status Hold Vancomycin HCl (Vanco Iv Per Pharmacy) VANCOMYCIN PER PHARMACY PER PROTOCOL XX ; Start 03/08/19 at 13:00 Albuterol (Proventil 0.083% (Neb)) 1.25 mg Q2H RESP THERAPY PRN HHN sob/wheezing; Start 03/08/19 at 13:00 Metronidazole (Flagyl) 500 mg Q8 GTB Last administered on 03/09/19at 05:13; Admin Dose 500 MG; Start 03/08/19 at 14:00; Status Hold Ipratropium [place] (Atrovent 0.02% (Neb)) 0.5 mg Q2H RESP THERAPY PRN NEB SHORTNESS OF BREATH; Start 03/08/19 at 13:00 Cholecalciferol (Vitamin D) 2,000 unit DAILY GTB ; Start 03/09/19 at 09:00; Status Hold Ascorbic Acid (Vitamin C) 500 mg BID GTB Last administered on 03/08/19at 21:27; Admin Dose 500 MG; Start 03/08/19 at 21:00; Status Hold Multivitamins/ Minerals (Theragran-M) 1 tab DAILY GTB ; Start 03/09/19 at 09:00; Status Hold Eye Lubricant (Artificial Tears Oph) 2 drop QID BOTH EYES Last administered on 03/15/19 08:09; Admin Dose 2 DROP; Start 03/08/19 at 17:00 Midazolam HCl 50 ml @ 1 mls/hr PER PROTOCOL IV Last administered on 03/09/19 06:26; Admin Dose 4 MLS/HR; Start 03/08/19 at 17:00 Lorazepam (Ativan) 1 mg Q2H PRN IV seizures Last administered on 03/13/19 04:35; Admin Dose 1 MG; Start 03/09/19 at 09:30 IV Flush (NS 10 ml) 10 ml PRN PRN IV IV PROTOCOL; Start 03/09/19 at 16:30 Levetiracetam 100 ml @ 400 mls/hr Q12 IVPB Last administered on 03/15/19 08:08; Admin Dose 400 MLS/HR; Start 03/10/19 at 09:00 Albuterol (Ventolin Hfa) 4 puff Q4H RESP THERAPY INH Last administered on 03/15/19 05:00; Admin Dose 4 PUFF; Start 03/11/19 at 01:00 Ipratropium [place] (Atrovent Hfa) 4 puff Q4H RESP THERAPY INH Last administered on 03/15/19 05:00; Admin Dose 4 PUFF; Start 03/11/19 at 01:00 Ceftazidime 50 ml @ 100 mls/hr Q8 IVPB Last administered on 03/15/19 05:04; Admin Dose 100 MLS/HR; Start 03/11/19 at 14:00 Vancomycin/Sodium Chloride 250 ml @ 125 mls/hr Q12H IVPB Last administered on 03/14/19 23:48; Admin Dose 125 MLS/HR; Start 03/14/19 at 00:00 Miscellaneous Information (*Rx Drug Level Order Reminder*) VANCO TR LEVEL PRIOR... 1100 ONCE XX ; Start 03/15/19 at 11:00; Stop 03/15/19 at 11:01 Ciprofloxacin HCl (Ciloxan 0.3% Oph) 1 drop BID BOTH EYES ; Start 03/15/19 at 09:00; Stop 03/19/19 at 23:00 Acetaminophen (Tylenol Liquid) 650 mg Q4H PRN GTB MILD PAIN(1-3)OR ELEVATED TEMP Last administered on 03/15/19at 04:56; Admin Dose 650 MG; Start 03/15/19 at 04:30 Valproate Sodium 500 mg/Sodium Chloride 55 ml @ 51.25 mls/ hr Q12 IVPB ; Start 03/15/19 at 09:00 CRISTIANE MILLARD Mar 15, 2019 09:29
[2019-03-15] MEDS: VALPROATE INJ 500 MG in SOD CHLORIDE 0.9% 50 ML IVPB SCH ×2 (09:37→20:53)
[2019-03-15] MEDS: CIPROFLOXACIN 0.3% 2.5 ML OPH BOTH EYES SCH ×2 (09:37→20:53)
[2019-03-15] MEDS ORDERED: VALPROATE INJ 1,000 MG in SOD CHLORIDE 0.9% 100 ML IVPB STA (11:14)
--- NOTE | 2019-03-15 11:15 | CONS ---
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 Noted to have breakthrough seizures, for which neurology is consulted.. 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 The patient is noted to have a GI ileus..which is a likely contributor to recent enteral medication malabsorption. UA + .... a additional contributor... to a lowered seizure threshold.. Depakote level is subtherapeutic.. Head CT is without obvious acute intracranial pathology..though concerning for residual possible avm P: Continue maintenance Depakote, increase to 500 q12 iv for now. Titrate to goal level ~100 Continue maintenance Keppra 1g q12 iv for now Ativan 2mg iv prn prolonged seizure (> 5 min) (as hemodynamics allow) Other management and supportive care per primary Will follow Consultation Date/Type/Reason Admit Date/Time Mar 08, 2019 at 04:09 Type of Consult Neurology Reason for Consultation seizure Requesting Provider: TE TURNER NP Date/Time of Note DATE: 03/15/19 TIME: 11:13 24 HR Interval Summary Free Text/Dictation Continues icu care s/p Head CT Subjective hx not possible: pt non-verbal Exam/Review of Systems Exam Vitals Vital Signs Date Temp Pulse Resp B/P (MAP) Pulse Ox O2 O2 Flow FiO2 Time Delivery Rate 03/15/19 95 18 97 50 11:00 03/15/19 99.7 109/71 Mechanical 08:00 (84) Ventilator Intake and Output 03/14/19 03/14/19 03/15/19 1515:00 23:00 07:00 IntakeIntake Total 1675.0 ml 660 ml 5636.5 ml OutputOutput Total 600 ml 765 ml 740 ml BalanceBalance 1075.0 ml -105 ml 4896.5 ml Results Result Diagram: 03/15/19 0430 03/15/19 0430 Results 24hrs Laboratory Tests Test 03/14/19 15:17 03/15/19 04:30 Hemoglobin 9.6 #L 10.7 L White Blood Count 10.8 # Red Blood Count 3.94 #L Hematocrit 34.3 #L Mean Corpuscular Volume 87.1 Mean Corpuscular Hemoglobin 27.2 L Mean Corpuscular Hemoglobin Concent 31.2 L Red Cell Distribution Width 23.9 #H Platelet Count 215 Mean Platelet Volume 10.5 H Immature Granulocytes % 0.400 Neutrophils % 77.3 H Lymphocytes % 10.5 L Monocytes % 8.6 Eosinophils % 2.8 Basophils % 0.4 Nucleated Red Blood Cells % 0.0 Immature Granulocytes # 0.040 H Neutrophils # 8.3 H Lymphocytes # 1.1 Monocytes # 0.9 Eosinophils # 0.3 Basophils # 0.0 Nucleated Red Blood Cells # 0.0 Sodium Level 153 H Potassium Level 3.4 L Chloride Level 123 H Carbon Dioxide Level 24 Anion Gap 6 Blood Urea Nitrogen 7 Creatinine 1.13 Est Glomerular Filtrat Rate mL/min > 60 Glucose Level 94 Calcium Level 8.4 Phosphorus Level 3.2 Magnesium Level 2.1 Medications Medication Current Medications IV Flush (NS 3 ml) 3 ml PER PROTOCOL IV ; Start 03/08/19 at 04:30 Ondansetron HCl (Zofran Inj) 4 mg Q6H PRN IV NAUSEA/VOMITING; Start 03/08/19 at 04:30 Famotidine (Pepcid Iv) 20 mg Q12 IV Last administered on 03/15/19at 08:09; Admin Dose 20 MG; Start 03/08/19 at 09:00 Enoxaparin Sodium (Lovenox) 40 mg DAILY SC Last administered on 03/10/19at 09:54; Admin Dose 40 MG; Start 03/08/19 at 09:00; Status Hold Vancomycin HCl (Vanco Iv Per Pharmacy) VANCOMYCIN PER PHARMACY PER PROTOCOL XX ; Start 03/08/19 at 13:00 Albuterol (Proventil 0.083% (Neb)) 1.25 mg Q2H RESP THERAPY PRN HHN sob/wheezing; Start 03/08/19 at 13:00 Metronidazole (Flagyl) 500 mg Q8 GTB Last administered on 03/09/19at 05:13; Admin Dose 500 MG; Start 03/08/19 at 14:00; Status Hold Ipratropium [place] (Atrovent 0.02% (Neb)) 0.5 mg Q2H RESP THERAPY PRN NEB SHORTNESS OF BREATH; Start 03/08/19 at 13:00 Cholecalciferol (Vitamin D) 2,000 unit DAILY GTB ; Start 03/09/19 at 09:00; Status Hold Ascorbic Acid (Vitamin C) 500 mg BID GTB Last administered on 03/08/19 21:27; Admin Dose 500 MG; Start 03/08/19 at 21:00; Status Hold Multivitamins/ Minerals (Theragran-M) 1 tab DAILY GTB ; Start 03/09/19 at 09:00; Status Hold Eye Lubricant (Artificial Tears Oph) 2 drop QID BOTH EYES Last administered on 03/15/19 08:09; Admin Dose 2 DROP; Start 03/08/19 at 17:00 Midazolam HCl 50 ml @ 1 mls/hr PER PROTOCOL IV Last administered on 03/09/19 06:26; Admin Dose 4 MLS/HR; Start 03/08/19 at 17:00 Lorazepam (Ativan) 1 mg Q2H PRN IV seizures Last administered on 03/13/19 04:35; Admin Dose 1 MG; Start 03/09/19 at 09:30 IV Flush (NS 10 ml) 10 ml PRN PRN IV IV PROTOCOL; Start 03/09/19 at 16:30 Levetiracetam 100 ml @ 400 mls/hr Q12 IVPB Last administered on 03/15/19 08:08; Admin Dose 400 MLS/HR; Start 03/10/19 at 09:00 Albuterol (Ventolin Hfa) 4 puff Q4H RESP THERAPY INH Last administered on 03/15/19 09:29; Admin Dose 4 PUFF; Start 03/11/19 at 01:00 Ipratropium [place] (Atrovent Hfa) 4 puff Q4H RESP THERAPY INH Last administered on 03/15/19 09:29; Admin Dose 4 PUFF; Start 03/11/19 at 01:00 Ceftazidime 50 ml @ 100 mls/hr Q8 IVPB Last administered on 03/15/19 05:04; Admin Dose 100 MLS/HR; Start 03/11/19 at 14:00 Vancomycin/Sodium Chloride 250 ml @ 125 mls/hr Q12H IVPB Last administered on 03/14/19 23:48; Admin Dose 125 MLS/HR; Start 03/14/19 at 00:00 Ciprofloxacin HCl (Ciloxan 0.3% Oph) 1 drop BID BOTH EYES Last administered on 03/15/19 09:37; Admin Dose 1 DROP; Start 03/15/19 at 09:00; Stop 03/19/19 at 23:00 Acetaminophen (Tylenol Liquid) 650 mg Q4H PRN GTB MILD PAIN(1-3)OR ELEVATED TEMP Last administered on 03/15/19 04:56; Admin Dose 650 MG; Start 03/15/19 at 04:30 Valproate Sodium 500 mg/Sodium Chloride 55 ml @ 51.25 mls/ hr Q12 IVPB Last administered on 03/15/19 09:37; Admin Dose 51.25 MLS/HR; Start 03/15/19 at 09:00 SUSAN ANTHONY Mar 15, 2019 11:14
--- NOTE | 2019-03-15 11:59 | CONS ---
Assessment/Plan Assessment/Plan Hospital Course (Demo Recall) ID PROGRESS NOTE CURRENT ABX: DAY #8 =>Vanco IV + Fortaz s/p Zosyn 03/15/19 0430 03/15/19 0430 24H INTERVAL SUMMARY * POD #3-> s/p 03/12/[address] placement * Low grade TMax 100.0 -- -Noncommunicative on the Vent, chronic encephalopathic, no fevers DIAGNOSTIC IMAGING * 03/15/19 CXR: 1. Interval opacification of the right hemithorax representing large right pleural effusion and atelectatic collapse of the right lung. 2. Patchy interstitial and airspace opacities in the left lung and small left pleural effusion are reidentified. * 03/14/19 CXR: Interval removal of right-sided chest tube with no significant change in complete opacification of the right hemithorax, likely a combination of pleural effusion and collapsed lung. Left perihilar opacities, which may represent edema versus pneumonia. Stable small left pleural effusion. * 03/13/19 CXR: FINDINGS:There is complete collapse of the right lung with cutoff of the right mainstem bronchus. There is mediastinal shift to the left compatible with right pleural effusion. A right chest tube is again seen and there is a left upper extremity PICC line. The left lung is clear of any infiltrate or mass. Tiny left pleural effusion is seen. There is no pneumothorax.IMPRESSION: Right lung collapse with effusion. * 03/10/19 CXR: IMPRESSION:1. Lines and tubes are stable. 2. Persistent complete opacification of the right hemithorax. 3. Persistent trace left pleural effusion. MICRO * 03/08/19 Urine Cx (-); BCx (+)CoNS 1/2 bottles from ED = consistent w/cont aminant * 03/08/19 Trach Cx RESPIRATORY CULTURE Final Organism 1 PSEUDOMONAS AERUGINOSA QUANTITY SCANT GROWTH Organism 2 MORGANELLA MORGANII QUANTITY SCANT GROWTH Organism 3 PROVIDENCIA STUARTII QUANTITY SCANT GROWTH Organism 4 K.PNEUMONIAE SSP PNEUMONIAE QUANTITY RARE PSEUDOMONAS AERUGINOSA IS MDRO P.AERUG P.AERUG M MORGANII M.I.C. RX M.I.C. RX M.I.C. RX --------- --- --------- --- --------- --- AMIKACIN <=2 S 4 S AZTREONAM R CEFAZOLIN CEFEPIME I CEFOTAXIME S CEFTAZIDIME 16 S CIPROFLOXACIN 1 S >=4 R GENTAMICIN <=1 S >=16 R LEVOFLOXACIN >=8 R 4 I MEROPENEM 0.75 S TOBRAMYCIN <=1 S 2 S TRIMETHOPRIM/SULFAMETHOXAZOLE R PIPERACILLIN/TAZOBACTAM R P STUARTII P STUARTII K PNE SPP M.I.C. RX M.I.C. RX M.I.C. RX --------- --- --------- --- --------- --- AMIKACIN 8 S AZTREONAM CEFAZOLIN I CEFEPIME <=1 S CEFOTAXIME R S CEFTAZIDIME CIPROFLOXACIN >=4 R 1 S GENTAMICIN >=16 R <=1 S LEVOFLOXACIN >=8 R 1 S MEROPENEM 0.19 S TOBRAMYCIN >=16 R <=1 S TRIMETHOPRIM/SULFAMETHOXAZOLE >=320 R <=20 S PIPERACILLIN/TAZOBACTAM <=4 S PHYSICAL EXAMINATION: GENERAL: VSS, NAD HEENT: AT, NC, NECK: Supple, (+)Trach CHEST: Rise symmetrical HEART: Pulse RRR ABDOMEN: Benign EXTREMITIES: Warm, dry SKIN: No rash, no diaphoresis ID ASSESSMENT 23 yo M admit with: 1. Sepsis with bacteremia likely contaminant 2. Urinary tract infection per urinalysis 3. Questionable loculated pleural effusion versus necrotic lung per CT * Tracheobronchitis w/VAP 4. Status epilepticus 5. Chronic encephalopathy status post intracerebral hemorrhage 6. Left hip dislocation with possible septic joint and osteomyelitis 7. Questionable ileus (-)MRSA Nares (-)C.DIFF 03/11/19 ABX ALLERGIES: KNDA INVASIVES: PIV CURRENT ABX: DAY # 8 => Vanco IV + Fortaz s/p Zosyn ID RECOMMENDATIONS/PLAN: 1. Continue Vanco IV -- Septic joint/Osteomyelitis 2. 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 Consultation Date/Type/Reason Admit Date/Time Mar 08, 2019 at 04:09 Initial Consult Date Requesting Provider: TE TURNER NP Date/Time of Note DATE: 03/15/19 TIME: 11:55 Exam/Review of Systems Exam Vitals Vital Signs Date Temp Pulse Resp B/P (MAP) Pulse Ox O2 O2 Flow FiO2 Time Delivery Rate 03/15/19 100.1 11:15 03/15/19 95 18 97 50 11:00 03/15/19 109/71 [employer] 08:00 (84) l Ventilato r Intake and Output 03/14/19 03/14/19 03/15/19 1515:00 23:00 07:00 IntakeIntake Total 1675.0 ml 660 ml 5636.5 ml OutputOutput Total 600 ml 765 ml 740 ml BalanceBalance 1075.0 ml -105 ml 4896.5 ml Results Result Diagram: 03/15/19 0430 03/15/19 0430 Results 24hrs Laboratory Tests Test 03/14/19 15:17 03/15/19 04:30 03/15/19 10:55 Hemoglobin 9.6 #L 10.7 L White Blood Count 10.8 # Red Blood Count 3.94 #L Hematocrit 34.3 #L Mean Corpuscular Volume 87.1 Mean Corpuscular Hemoglobin 27.2 L Mean Corpuscular Hemoglobin Concent 31.2 L Red Cell Distribution Width 23.9 #H Platelet Count 215 Mean Platelet Volume 10.5 H Immature Granulocytes % 0.400 Neutrophils % 77.3 H Lymphocytes % 10.5 L Monocytes % 8.6 Eosinophils % 2.8 Basophils % 0.4 Nucleated Red Blood Cells % 0.0 Immature Granulocytes # 0.040 H Neutrophils # 8.3 H Lymphocytes # 1.1 Monocytes # 0.9 Eosinophils # 0.3 Basophils # 0.0 Nucleated Red Blood Cells # 0.0 Sodium Level 153 H Potassium Level 3.4 L Chloride Level 123 H Carbon Dioxide Level 24 Anion Gap 6 Blood Urea Nitrogen 7 Creatinine 1.13 Est Glomerular Filtrat Rate mL/min > 60 Glucose Level 94 Calcium Level 8.4 Phosphorus Level 3.2 Magnesium Level 2.1 Vancomycin Level Trough 19.6 Medications Medication Current Medications IV Flush (NS 3 ml) 3 ml PER PROTOCOL IV ; Start 03/08/19 at 04:30 Ondansetron HCl (Zofran Inj) 4 mg Q6H PRN IV NAUSEA/VOMITING; Start 03/08/19 at 04:30 Famotidine (Pepcid Iv) 20 mg Q12 IV Last administered on 03/15/19at 08:09; Admin Dose 20 MG; Start 03/08/19 at 09:00 Enoxaparin Sodium (Lovenox) 40 mg DAILY SC Last administered on 03/10/19at 09:54; Admin Dose 40 MG; Start 03/08/19 at 09:00; Status Hold Vancomycin HCl (Vanco Iv Per Pharmacy) VANCOMYCIN PER PHARMACY PER PROTOCOL XX ; Start 03/08/19 at 13:00 Albuterol (Proventil 0.083% (Neb)) 1.25 mg Q2H RESP THERAPY PRN HHN sob/wheezing; Start 03/08/19 at 13:00 Metronidazole (Flagyl) 500 mg Q8 GTB Last administered on 03/09/19at 05:13; Admin Dose 500 MG; Start 03/08/19 at 14:00; Status Hold Ipratropium [place] (Atrovent 0.02% (Neb)) 0.5 mg Q2H RESP THERAPY PRN NEB SHORTNESS OF BREATH; Start 03/08/19 at 13:00 Cholecalciferol (Vitamin D) 2,000 unit DAILY GTB ; Start 03/09/19 at 09:00; Status Hold Ascorbic Acid (Vitamin C) 500 mg BID GTB Last administered on 03/08/19at 21:27; Admin Dose 500 MG; Start 03/08/19 at 21:00; Status Hold Multivitamins/ Minerals (Theragran-M) 1 tab DAILY GTB ; Start 03/09/19 at 09:00; Status Hold Eye Lubricant (Artificial Tears Oph) 2 drop QID BOTH EYES Last administered on 03/15/19at 08:09; Admin Dose 2 DROP; Start 03/08/19 at 17:00 Midazolam HCl 50 ml @ 1 mls/hr PER PROTOCOL IV Last administered on 7/2/19at 06:26; Admin Dose 4 MLS/HR; Start 03/08/19 at 17:00 Lorazepam (Ativan) 1 mg Q2H PRN IV seizures Last administered on 03/13/19 04:35; Admin Dose 1 MG; Start 03/09/19 at 09:30 IV Flush (NS 10 ml) 10 ml PRN PRN IV IV PROTOCOL; Start 03/09/19 at 16:30 Levetiracetam 100 ml @ 400 mls/hr Q12 IVPB Last administered on 03/15/19 08:08; Admin Dose 400 MLS/HR; Start 03/10/19 at 09:00 Albuterol (Ventolin Hfa) 4 puff Q4H RESP THERAPY INH Last administered on 03/15/19 09:29; Admin Dose 4 PUFF; Start 03/11/19 at 01:00 Ipratropium [place] (Atrovent Hfa) 4 puff Q4H RESP THERAPY INH Last administered on 03/15/19 09:29; Admin Dose 4 PUFF; Start 03/11/19 at 01:00 Ceftazidime 50 ml @ 100 mls/hr Q8 IVPB Last administered on 03/15/19 05:04; Admin Dose 100 MLS/HR; Start 03/11/19 at 14:00 Vancomycin/Sodium Chloride 250 ml @ 125 mls/hr Q12H IVPB Last administered on 03/14/19 23:48; Admin Dose 125 MLS/HR; Start 03/14/19 at 00:00 Ciprofloxacin HCl (Ciloxan 0.3% Oph) 1 drop BID BOTH EYES Last administered on 03/15/19 09:37; Admin Dose 1 DROP; Start 03/15/19 at 09:00; Stop 03/19/19 at 23:00 Acetaminophen (Tylenol Liquid) 650 mg Q4H PRN GTB MILD PAIN(1-3)OR ELEVATED TEMP Last administered on 03/15/19 11:15; Admin Dose 650 MG; Start 03/15/19 at 04:30 Valproate Sodium 500 mg/Sodium Chloride 55 ml @ 51.25 mls/ hr Q12 IVPB Last administered on 03/15/19 09:37; Admin Dose 51.25 MLS/HR; Start 03/15/19 at 09:00 Valproate Sodium 1000 mg/Sodium Chloride 110 ml @ 110 mls/hr ONCE STAT IVPB Last administered on 03/15/19at 11:50; Admin Dose 110 MLS/HR; Start 03/15/19 at 11:14; Stop 03/15/19 at 12:13 FLAKO REGAN NP Mar 15, 2019 11:58
[2019-03-15] MEDS: VANCOMYCIN 750 MG (PMX) 250 ML IVPB SCH (12:55)
[2019-03-15] MEDS: LORAZEPAM 2 MG INJ IV PRN (14:43)
--- NOTE | 2019-03-15 17:57 | PN ---
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 1. 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 Acute on chronic Vent dependent respiratory failure -Secsme-ewl-veoky bronchodilators, pulmonary toileting -Vent management per pulmonary 3. Healthcare/vent associated pneumonia plus or minus aspiration -IV Zosyn/Flagyl plus vancomycin -Pulmonary consult appreciated -Chest CT demonstrates hemothorax, CT surgery consultation appreciated, no indication for surgery and mother does not want aggressive care -Chest tube removed as no significant drainage -Sputum cultures noted -Aspiration precaution/HOB 35 degree and above 4. Diarrhea, rule out infectious colitis vs meds-induced(note pt takes multiple laxatives at [facility]) -Abdominal CT -Stool studies including C. difficile are negative 5. Dehydration -fluids 6. 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 Hypertension -currently hypotensive 2/2 sepsis. Hold off on antihypertensives. 8. Dysphagia/PEG placed -Tube feeds were held secondary to ileus, repeat KUB does not show ileus and will resume 9. Ileus -KUB shows nonspecific bowel gas pattern but no evidence of ileus -Replete potassium as needed -Resume tube feeds 10. Epilepsy/Seizure disorders -Seizures now stable -Neurology consultation appreciated, continue seizure medications 11. Chronic decub ulcer/L foot metatarsal wounds -Continue wound care, continue antibiotics DVT prophylaxis: Lovenox PUD prophylaxis: Pepcid DC planning: Continue current plan Result Diagram: 03/15/19 04303/15/19 0430 Results 24hrs Laboratory Tests Test 03/15/19 04:30 03/15/19 10:55 White Blood Count 10.8 # Red Blood Count 3.94 #L Hemoglobin 10.7 L Hematocrit 34.3 #L Mean Corpuscular Volume 87.1 Mean Corpuscular Hemoglobin 27.2 L Mean Corpuscular Hemoglobin Concent 31.2 L Red Cell Distribution Width 23.9 #H Platelet Count 215 Mean Platelet Volume 10.5 H Immature Granulocytes % 0.400 Neutrophils % 77.3 H Lymphocytes % 10.5 L Monocytes % 8.6 Eosinophils % 2.8 Basophils % 0.4 Nucleated Red Blood Cells % 0.0 Immature Granulocytes # 0.040 H Neutrophils # 8.3 H Lymphocytes # 1.1 Monocytes # 0.9 Eosinophils # 0.3 Basophils # 0.0 Nucleated Red Blood Cells # 0.0 Sodium Level 153 H Potassium Level 3.4 L Chloride Level 123 H Carbon Dioxide Level 24 Anion Gap 6 Blood Urea Nitrogen 7 Creatinine 1.13 Est Glomerular Filtrat Rate mL/min > 60 Glucose Level 94 Calcium Level 8.4 Phosphorus Level 3.2 Magnesium Level 2.1 Vancomycin Level Trough 19.6 Subjective 24 Hr Interval Summary Free Text/Dictation No change to clinical status Exam/Review of Systems Exam Vitals Vital Signs Date Temp Pulse Resp B/P (MAP) Pulse Ox O2 O2 Flow FiO2 Time Delivery Rate 03/15/19 94 27 116/75 97 17:00 (89) 03/15/19 40 16:57 03/15/19 99.3 Mechanical 16:00 Ventilator Intake and Output 03/14/19 03/14/19 03/15/19 1515:00 23:00 07:00 IntakeIntake Total 1675.0 ml 660 ml 5676.5 ml OutputOutput Total 600 ml 765 ml 815 ml BalanceBalance 1075.0 ml -105 ml 4861.5 ml Results Results 24hrs Laboratory Tests Test 03/15/19 04:30 03/15/19 10:55 White Blood Count 10.8 # Red Blood Count 3.94 #L Hemoglobin 10.7 L Hematocrit 34.3 #L Mean Corpuscular Volume 87.1 Mean Corpuscular Hemoglobin 27.2 L Mean Corpuscular Hemoglobin Concent 31.2 L Red Cell Distribution Width 23.9 #H Platelet Count 215 Mean Platelet Volume 10.5 H Immature Granulocytes % 0.400 Neutrophils % 77.3 H Lymphocytes % 10.5 L Monocytes % 8.6 Eosinophils % 2.8 Basophils % 0.4 Nucleated Red Blood Cells % 0.0 Immature Granulocytes # 0.040 H Neutrophils # 8.3 H Lymphocytes # 1.1 Monocytes # 0.9 Eosinophils # 0.3 Basophils # 0.0 Nucleated Red Blood Cells # 0.0 Sodium Level 153 H Potassium Level 3.4 L Chloride Level 123 H Carbon Dioxide Level 24 Anion Gap 6 Blood Urea Nitrogen 7 Creatinine 1.13 Est Glomerular Filtrat Rate mL/min > 60 Glucose Level 94 Calcium Level 8.4 Phosphorus Level 3.2 Magnesium Level 2.1 Vancomycin Level Trough 19.6 Medications Medication Current Medications IV Flush (NS 3 ml) 3 ml PER PROTOCOL IV ; Start 03/08/19 at 04:30 Ondansetron HCl (Zofran Inj) 4 mg Q6H PRN IV NAUSEA/VOMITING; Start 03/08/19 at 04:30 Famotidine (Pepcid Iv) 20 mg Q12 IV Last administered on 03/15/19at 08:09; Admin Dose 20 MG; Start 03/08/19 at 09:00 Enoxaparin Sodium (Lovenox) 40 mg DAILY SC Last administered on 03/10/19at 09:54; Admin Dose 40 MG; Start 03/08/19 at 09:00; Status Hold Vancomycin HCl (Vanco Iv Per Pharmacy) VANCOMYCIN PER PHARMACY PER PROTOCOL XX ; Start 03/08/19 at 13:00 Albuterol (Proventil 0.083% (Neb)) 1.25 mg Q2H RESP THERAPY PRN HHN sob/wheezing; Start 03/08/19 at 13:00 Metronidazole (Flagyl) 500 mg Q8 GTB Last administered on 03/09/19at 05:13; Admin Dose 500 MG; Start 03/08/19 at 14:00; Status Hold Ipratropium [place] (Atrovent 0.02% (Neb)) 0.5 mg Q2H RESP THERAPY PRN NEB SHORTNESS OF BREATH; Start 03/08/19 at 13:00 Cholecalciferol (Vitamin D) 2,000 unit DAILY GTB ; Start 03/09/19 at 09:00; Status Hold Ascorbic Acid (Vitamin C) 500 mg BID GTB Last administered on 03/08/19at 21:27; Admin Dose 500 MG; Start 03/08/19 at 21:00; Status Hold Multivitamins/ Minerals (Theragran-M) 1 tab DAILY GTB ; Start 03/09/19 at 09:00; Status Hold Eye Lubricant (Artificial Tears Oph) 2 drop QID BOTH EYES Last administered on 03/15/19 16:58; Admin Dose 2 DROP; Start 03/08/19 at 17:00 Midazolam HCl 50 ml @ 1 mls/hr PER PROTOCOL IV Last administered on 03/09/19 06:26; Admin Dose 4 MLS/HR; Start 03/08/19 at 17:00 Lorazepam (Ativan) 1 mg Q2H PRN IV seizures Last administered on 03/15/19 14:43; Admin Dose 1 MG; Start 03/09/19 at 09:30 IV Flush (NS 10 ml) 10 ml PRN PRN IV IV PROTOCOL; Start 03/09/19 at 16:30 Levetiracetam 100 ml @ 400 mls/hr Q12 IVPB Last administered on 03/15/19 08:08; Admin Dose 400 MLS/HR; Start 03/10/19 at 09:00 Albuterol (Ventolin Hfa) 4 puff Q4H RESP THERAPY INH Last administered on 03/15/19 16:41; Admin Dose 4 PUFF; Start 03/11/19 at 01:00 Ipratropium [place] (Atrovent Hfa) 4 puff Q4H RESP THERAPY INH Last administered on 03/15/19 16:41; Admin Dose 4 PUFF; Start 03/11/19 at 01:00 Ceftazidime 50 ml @ 100 mls/hr Q8 IVPB Last administered on 03/15/19 14:57; Admin Dose 100 MLS/HR; Start 03/11/19 at 14:00 Ciprofloxacin HCl (Ciloxan 0.3% Oph) 1 drop BID BOTH EYES Last administered on 03/15/19 09:37; Admin Dose 1 DROP; Start 03/15/19 at 09:00; Stop 03/19/19 at 23:00 Acetaminophen (Tylenol Liquid) 650 mg Q4H PRN GTB MILD PAIN(1-3)OR ELEVATED TEMP Last administered on 03/15/19 11:15; Admin Dose 650 MG; Start 03/15/19 at 04:30 Valproate Sodium 500 mg/Sodium Chloride 55 ml @ 51.25 mls/ hr Q12 IVPB Last administered on 03/15/19at 09:37; Admin Dose 51.25 MLS/HR; Start 03/15/19 at 09:00 Vancomycin HCl 250 ml @ 125 mls/hr Q24H IVPB ; Start 03/16/19 at 14:00 ORI JEROME MD Mar 15, 2019 17:57
[2019-03-16] VITALS (33 sets, daily range): BP systolic 99–115; BP diastolic 66–89; PULSE 73–90; RESP 11–22
[2019-03-16] MEDS: ALBUTEROL HFA 8 GM INHALER INH SCH ×6 (01:24→20:59)
[2019-03-16] MEDS: IPRATROPIUM (HFA) 12.9 GM INHALER INH SCH ×6 (01:24→20:59)
[2019-03-16] MEDS: CEFTAZIDIME 1GM/50 ML (PMX) 50 ML IVPB SCH (05:41)
[2019-03-16] MEDS: FAMOTIDINE 20 MG INJ IV SCH ×2 (08:03→21:22)
[2019-03-16] MEDS: VALPROATE INJ 500 MG in SOD CHLORIDE 0.9% 50 ML IVPB SCH ×2 (08:04→21:23)
[2019-03-16] MEDS: LEVETIRACETAM 1000 MG (PMX) 100 ML IVPB SCH ×2 (08:04→21:23)
[2019-03-16] MEDS: ARTIFICIAL TEARS 15 ML OPH BOTH EYES SCH ×4 (08:04→21:22)
[2019-03-16] MEDS: CIPROFLOXACIN 0.3% 2.5 ML OPH BOTH EYES SCH ×2 (08:04→21:22)
--- NOTE | 2019-03-16 09:18 | CONS ---
Assessment/Plan Assessment/Plan Assessment/Plan (Daily) Ventilator setting; AC of 16, tidal volume 450, PEEP of 5, 30% FiO2. Assessment and recommendations; 1. Patient with history of severe chronic encephalopathy and VDR F admitted for extensive right-sided pneumonia with total right lung involvement. Status post chest tube placement with interval removal because of scant pleural effusion that was able to be drained. CT chest showing massive right lung consolidation. Status post negative bronchoscopy few days ago to rule out mucous plug or any endobronchial lesion. 2. Vegetative state. 3. Stable seizure disorder. 4. Mild anemia. Continue current supportive care. Prognosis appears very poor. I did have a detailed discussion with the patient's mother over the phone yesterday and answered all her questions. At this point surgical intervention is not an option. Consultation Date/Type/Reason Admit Date/Time Mar 08, 2019 at 04:09 Initial Consult Date Pulmonary/critical care Patient condition remains hemodynamically stable. General exam; young male, on ventilator via tracheostomy, unresponsive, currently no distress. Type of Consult H EENT exam; supple neck, no JVD. No lymphadenopathy. Midline trachea. No thyromegaly. Tracheostomy in place. Insertion site is clean. Patient has fair dentition. No neck masses. Chest exam; diminished breath sounds right lung. Left lung is clear. S1-S2 audible, no murmurs. Regular rhythm. Abdomen exam; soft, no organomegaly. G-tube in place. Bowel sounds audible. Extremity exam; no peripheral edema. Patient has a flexion contractures. ELECTRICIAN SUBSTATION exam; patient remains noncommunicative and unresponsive. Requesting Provider: TE TURNER NP Date/Time of Note DATE: 03/16/19 TIME: 09:15 24 HR Interval Summary Free Text/Dictation Patient's condition remains critical but stable. Has remained hemodynamically stable. General exam; young male, on ventilator via tracheostomy, noncommunicative and unresponsive. Currently no distress. Exam/Review of Systems Exam Vitals Vital Signs Date Temp Pulse Resp B/P (MAP) Pulse Ox O2 O2 Flow FiO2 Time Delivery Rate 03/16/19 98.9 83 16 108/72 95 Mechanical 08:00 (84) Ventilator 03/16/19 35 08:00 Intake and Output 03/15/19 03/15/19 03/16/19 1414:59 22:59 06:59 IntakeIntake Total 1035 ml 805 ml 600 ml OutputOutput Total 600 ml 575 ml 900 ml BalanceBalance 435 ml 230 ml -300 ml Exam H ENT exam; supple neck, no JVD. No lymphadenopathy. Midline trachea. No thyromegaly. Tracheostomy in place. Patient has fair dentition. No neck masses. Chest exam; absent breath sounds right lung. Left lung is fairly clear. S1-S2 audible, no murmurs. Regular rhythm. Abdomen exam; soft, bowel sounds are audible. G-tube in place. Abdomen is protuberant. No organomegaly. Bowel sounds are audible. Extremity exam; no edema or clubbing. ELECTRICIAN SUBSTATION exam; patient remains unresponsive. Results Result Diagram: 03/15/19 0430 03/15/19 0430 Results 24hrs Laboratory Tests Test 03/15/19 10:55 03/16/19 04:46 Vancomycin Level Trough 19.6 Valproic Acid (Depakene) Level 66 Medications Medication Current Medications IV Flush (NS 3 ml) 3 ml PER PROTOCOL IV ; Start 03/08/19 at 04:30 Ondansetron HCl (Zofran Inj) 4 mg Q6H PRN IV NAUSEA/VOMITING; Start 03/08/19 at 04:30 Famotidine (Pepcid Iv) 20 mg Q12 IV Last administered on 03/16/19at 08:03; Admin Dose 20 MG; Start 03/08/19 at 09:00 Enoxaparin Sodium (Lovenox) 40 mg DAILY SC Last administered on 03/10/19at 09:54; Admin Dose 40 MG; Start 03/08/19 at 09:00; Status Hold Vancomycin HCl (Vanco Iv Per Pharmacy) VANCOMYCIN PER PHARMACY PER PROTOCOL XX ; Start 03/08/19 at 13:00 Albuterol (Proventil 0.083% (Neb)) 1.25 mg Q2H RESP THERAPY PRN HHN sob/wheezing; Start 03/08/19 at 13:00 Metronidazole (Flagyl) 500 mg Q8 GTB Last administered on 03/09/19at 05:13; Admin Dose 500 MG; Start 03/08/19 at 14:00; Status Hold Ipratropium [place] (Atrovent 0.02% (Neb)) 0.5 mg Q2H RESP THERAPY PRN NEB SHORTNESS OF BREATH; Start 03/08/19 at 13:00 Cholecalciferol (Vitamin D) 2,000 unit DAILY GTB ; Start 03/09/19 at 09:00; Status Hold Ascorbic Acid (Vitamin C) 500 mg BID GTB Last administered on 03/08/19 21:27; Admin Dose 500 MG; Start 03/08/19 at 21:00; Status Hold Multivitamins/ Minerals (Theragran-M) 1 tab DAILY GTB ; Start 03/09/19 at 09:00; Status Hold Eye Lubricant (Artificial Tears Oph) 2 drop QID BOTH EYES Last administered on 03/16/19 08:04; Admin Dose 2 DROP; Start 03/08/19 at 17:00 Midazolam HCl 50 ml @ 1 mls/hr PER PROTOCOL IV Last administered on 03/09/19 06:26; Admin Dose 4 MLS/HR; Start 03/08/19 at 17:00 Lorazepam (Ativan) 1 mg Q2H PRN IV seizures Last administered on 03/15/19 14:43; Admin Dose 1 MG; Start 03/09/19 at 09:30 IV Flush (NS 10 ml) 10 ml PRN PRN IV IV PROTOCOL; Start 03/09/19 at 16:30 Levetiracetam 100 ml @ 400 mls/hr Q12 IVPB Last administered on 03/16/19 08:04; Admin Dose 400 MLS/HR; Start 03/10/19 at 09:00 Albuterol (Ventolin Hfa) 4 puff Q4H RESP THERAPY INH Last administered on 03/16/19 08:17; Admin Dose 4 PUFF; Start 03/11/19 at 01:00 Ipratropium [place] (Atrovent Hfa) 4 puff Q4H RESP THERAPY INH Last administered on 03/16/19 08:17; Admin Dose 4 PUFF; Start 03/11/19 at 01:00 Ceftazidime 50 ml @ 100 mls/hr Q8 IVPB Last administered on 03/16/19 05:41; Admin Dose 100 MLS/HR; Start 03/11/19 at 14:00 Ciprofloxacin HCl (Ciloxan 0.3% Oph) 1 drop BID BOTH EYES Last administered on 03/16/19 08:04; Admin Dose 1 DROP; Start 03/15/19 at 09:00; Stop 03/19/19 at 23:00 Acetaminophen (Tylenol Liquid) 650 mg Q4H PRN GTB MILD PAIN(1-3)OR ELEVATED TEMP Last administered on 03/15/19at 11:15; Admin Dose 650 MG; Start 03/15/19 at 04:30 Valproate Sodium 500 mg/Sodium Chloride 55 ml @ 51.25 mls/ hr Q12 IVPB Last administered on 03/16/19at 08:04; Admin Dose 51.25 MLS/HR; Start 03/15/19 at 09:00 Vancomycin HCl 250 ml @ 125 mls/hr Q24H IVPB ; Start 03/16/19 at 14:00 CRISTIANE MILLARD Mar 16, 2019 09:18
[2019-03-16] MEDS ORDERED: VALPROATE INJ 1,500 MG in SOD CHLORIDE 0.9% 100 ML IVPB STA (09:22)
--- NOTE | 2019-03-16 09:22 | CONS ---
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 Noted to have breakthrough seizures, for which neurology is consulted.. 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 The patient is noted to have a GI ileus..which is a likely contributor to recent enteral medication malabsorption. UA + .... a additional contributor... to a lowered seizure threshold.. Depakote level is subtherapeutic.. Head CT is without obvious acute intracranial pathology..though concerning for residual possible avm P: Continue maintenance Depakote 500 q12 iv for now. Titrate to goal level ~100 Continue maintenance Keppra 1g q12 iv for now Ativan 2mg iv prn prolonged seizure (> 5 min) (as hemodynamics allow) Other management and supportive care per primary Will follow Consultation Date/Type/Reason Admit Date/Time Mar 08, 2019 at 04:09 Type of Consult Neurology Reason for Consultation seizure Requesting Provider: TE TURNER NP Date/Time of Note DATE: 03/16/19 TIME: 09:22 24 HR Interval Summary Free Text/Dictation Continues icu care Exam/Review of Systems Exam Vitals Vital Signs Date Temp Pulse Resp B/P (MAP) Pulse Ox O2 O2 Flow FiO2 Time Delivery Rate 03/16/19 98.9 83 16 108/72 95 Mechanical 08:00 (84) Ventilator 03/16/19 35 08:00 Intake and Output 03/15/19 03/15/19 03/16/19 1515:00 23:00 07:00 IntakeIntake Total 1035 ml 815 ml 600 ml OutputOutput Total 600 ml 550 ml 850 ml BalanceBalance 435 ml 265 ml -250 ml Results Result Diagram: 03/15/19 0430 03/15/19 0430 Results 24hrs Laboratory Tests Test 03/15/19 10:55 03/16/19 04:46 Vancomycin Level Trough 19.6 Valproic Acid (Depakene) Level 66 Medications Medication Current Medications IV Flush (NS 3 ml) 3 ml PER PROTOCOL IV ; Start 03/08/19 at 04:30 Ondansetron HCl (Zofran Inj) 4 mg Q6H PRN IV NAUSEA/VOMITING; Start 03/08/19 at 04:30 Famotidine (Pepcid Iv) 20 mg Q12 IV Last administered on 03/16/19at 08:03; Admin Dose 20 MG; Start 03/08/19 at 09:00 Enoxaparin Sodium (Lovenox) 40 mg DAILY SC Last administered on 03/10/19at 09:54; Admin Dose 40 MG; Start 03/08/19 at 09:00; Status Hold Vancomycin HCl (Vanco Iv Per Pharmacy) VANCOMYCIN PER PHARMACY PER PROTOCOL XX ; Start 03/08/19 at 13:00 Albuterol (Proventil 0.083% (Neb)) 1.25 mg Q2H RESP THERAPY PRN HHN sob/wheezing; Start 03/08/19 at 13:00 Metronidazole (Flagyl) 500 mg Q8 GTB Last administered on 03/09/19at 05:13; Admin Dose 500 MG; Start 03/08/19 at 14:00; Status Hold Ipratropium [place] (Atrovent 0.02% (Neb)) 0.5 mg Q2H RESP THERAPY PRN NEB SHORTNESS OF BREATH; Start 03/08/19 at 13:00 Cholecalciferol (Vitamin D) 2,000 unit DAILY GTB ; Start 03/09/19 at 09:00; Status Hold Ascorbic Acid (Vitamin C) 500 mg BID GTB Last administered on 03/08/19at 21:27; Admin Dose 500 MG; Start 03/08/19 at 21:00; Status Hold Multivitamins/ Minerals (Theragran-M) 1 tab DAILY GTB ; Start 03/09/19 at 09:00; Status Hold Eye Lubricant (Artificial Tears Oph) 2 drop QID BOTH EYES Last administered on 03/16/19at 08:04; Admin Dose 2 DROP; Start 03/08/19 at 17:00 Midazolam HCl 50 ml @ 1 mls/hr PER PROTOCOL IV Last administered on 03/09/19 06:26; Admin Dose 4 MLS/HR; Start 03/08/19 at 17:00 Lorazepam (Ativan) 1 mg Q2H PRN IV seizures Last administered on 03/15/19at 14:43; Admin Dose 1 MG; Start 03/09/19 at 09:30 IV Flush (NS 10 ml) 10 ml PRN PRN IV IV PROTOCOL; Start 03/09/19 at 16:30 Levetiracetam 100 ml @ 400 mls/hr Q12 IVPB Last administered on 03/16/19 08:04; Admin Dose 400 MLS/HR; Start 03/10/19 at 09:00 Albuterol (Ventolin Hfa) 4 puff Q4H RESP THERAPY INH Last administered on 03/16/19 08:17; Admin Dose 4 PUFF; Start 03/11/19 at 01:00 Ipratropium [place] (Atrovent Hfa) 4 puff Q4H RESP THERAPY INH Last administered on 03/16/19 08:17; Admin Dose 4 PUFF; Start 03/11/19 at 01:00 Ceftazidime 50 ml @ 100 mls/hr Q8 IVPB Last administered on 03/16/19 05:41; Admin Dose 100 MLS/HR; Start 03/11/19 at 14:00 Ciprofloxacin HCl (Ciloxan 0.3% Oph) 1 drop BID BOTH EYES Last administered on 03/16/19 08:04; Admin Dose 1 DROP; Start 03/15/19 at 09:00; Stop 03/19/19 at 23:00 Acetaminophen (Tylenol Liquid) 650 mg Q4H PRN GTB MILD PAIN(1-3)OR ELEVATED TEMP Last administered on 03/15/19 11:15; Admin Dose 650 MG; Start 03/15/19 at 04:30 Valproate Sodium 500 mg/Sodium Chloride 55 ml @ 51.25 mls/ hr Q12 IVPB Last administered on 03/16/19 08:04; Admin Dose 51.25 MLS/HR; Start 03/15/19 at 09:00 Vancomycin HCl 250 ml @ 125 mls/hr Q24H IVPB ; Start 03/16/19 at 14:00 SUSAN ANTHONY Mar 16, 2019 09:22
--- NOTE | 2019-03-16 12:23 | CONS ---
Assessment/Plan Assessment/Plan Hospital Course (Demo Recall) No acute events patient is in no distress afebrile with a T-max yesterday 100.4 WBC 9.6 platelets 263 neutrophils 72.1 BUN 9 creatinine 1.16 Indwelling: Trach, PEG, [place] Antimicrobials: Vancomycin, Fortaz Microbiology: Sputum culture on admission grew Pseudomonas, Morganella, probably dentia, Klebsiella Physical examination: Chronically ill-appearing -[place] young man who is in no distress. Patient is noncommunicative. Head atraumatic normocephalic neck is supple tracheostomy present chest rise symmetrical breath sounds diminished bases. Heart: S1-S2. Abdomen soft bowel sounds present. Assessment: 1. Sepsis on admission 2. Bacteremia consistent with contaminant 2. Urinary tract infection per urinalysis 3. Questionable loculated pleural effusion versus necrotic lung per CT 4. Status epilepticus 5. Chronic encephalopathy status post intracerebral hemorrhage 6. Left hip dislocation with possible septic joint and osteomyelitis 7. Questionable ileus Plan: Clinically unchanged, will change antibiotics to amikacin and IV doxycycline, monitor renal function closely, consider to keep on antibiotics long-term for possible osteomyelitis of left hip Consultation Date/Type/Reason Admit Date/Time Mar 08, 2019 at 04:09 Initial Consult Date Type of Consult id Requesting Provider: TE TURNER NP Date/Time of Note DATE: 03/16/19 TIME: 12:20 Exam/Review of Systems Exam Vitals Vital Signs Date Temp Pulse Resp B/P (MAP) Pulse Ox O2 O2 Flow FiO2 Time Delivery Rate 03/16/19 99.0 87 16 109/77 95 Mechanical 12:00 (88) Ventilator 03/16/19 30 11:30 Intake and Output 03/15/19 03/15/19 03/16/19 1515:00 23:00 07:00 IntakeIntake Total 1035 ml 815 ml 600 ml OutputOutput Total 600 ml 550 ml 850 ml BalanceBalance 435 ml 265 ml -250 ml Results Result Diagram: 03/16/19 0452 03/16/19 0446 Results 24hrs Laboratory Tests Test 03/16/19 04:46 03/16/19 04:52 Sodium Level 156 H Potassium Level 3.6 Chloride Level 125 H Carbon Dioxide Level 25 Anion Gap 6 Blood Urea Nitrogen 9 Creatinine 1.16 Est Glomerular Filtrat Rate mL/min > 60 Glucose Level 73 Calcium Level 8.2 L Phosphorus Level 3.3 Magnesium Level 2.2 Valproic Acid (Depakene) Level 66 White Blood Count 9.6 Red Blood Count 3.63 L Hemoglobin 10.0 L Hematocrit 32.4 L Mean Corpuscular Volume 89.3 Mean Corpuscular Hemoglobin 27.5 L Mean Corpuscular Hemoglobin Concent 30.9 L Red Cell Distribution Width 23.4 H Platelet Count 263 # Mean Platelet Volume 11.2 H Immature Granulocytes % 0.500 H Neutrophils % 72.1 Lymphocytes % 13.9 L Monocytes % 10.6 Eosinophils % 2.5 Basophils % 0.4 Nucleated Red Blood Cells % 0.0 Immature Granulocytes # 0.050 H Neutrophils # 6.9 Lymphocytes # 1.3 Monocytes # 1.0 H Eosinophils # 0.2 Basophils # 0.0 Nucleated Red Blood Cells # 0.0 Medications Medication Current Medications IV Flush (NS 3 ml) 3 ml PER PROTOCOL IV ; Start 03/08/19 at 04:30 Ondansetron HCl (Zofran Inj) 4 mg Q6H PRN IV NAUSEA/VOMITING; Start 03/08/19 at 04:30 Famotidine (Pepcid Iv) 20 mg Q12 IV Last administered on 03/16/19at 08:03; Admin Dose 20 MG; Start 03/08/19 at 09:00 Enoxaparin Sodium (Lovenox) 40 mg DAILY SC Last administered on 03/10/19at 09:54; Admin Dose 40 MG; Start 03/08/19 at 09:00; Status Hold Vancomycin HCl (Vanco Iv Per Pharmacy) VANCOMYCIN PER PHARMACY PER PROTOCOL XX ; Start 03/08/19 at 13:00 Albuterol (Proventil 0.083% (Neb)) 1.25 mg Q2H RESP THERAPY PRN HHN so b/wheezing; Start 03/08/19 at 13:00 Metronidazole (Flagyl) 500 mg Q8 GTB Last administered on 03/09/19at 05:13; Admin Dose 500 MG; Start 03/08/19 at 14:00; Status Hold Ipratropium [place] (Atrovent 0.02% (Neb)) 0.5 mg Q2H RESP THERAPY PRN NEB SHORTNESS OF BREATH; Start 03/08/19 at 13:00 Cholecalciferol (Vitamin D) 2,000 unit DAILY GTB ; Start 03/09/19 at 09:00; Status Hold Ascorbic Acid (Vitamin C) 500 mg BID GTB Last administered on 03/08/19 21:27; Admin Dose 500 MG; Start 03/08/19 at 21:00; Status Hold Multivitamins/ Minerals (Theragran-M) 1 tab DAILY GTB ; Start 03/09/19 at 09:00; Status Hold Eye Lubricant (Artificial Tears Oph) 2 drop QID BOTH EYES Last administered on 03/16/19 12:15; Admin Dose 2 DROP; Start 03/08/19 at 17:00 Midazolam HCl 50 ml @ 1 mls/hr PER PROTOCOL IV Last administered on 03/09/19 06:26; Admin Dose 4 MLS/HR; Start 03/08/19 at 17:00 Lorazepam (Ativan) 1 mg Q2H PRN IV seizures Last administered on 03/15/19 14:43; Admin Dose 1 MG; Start 03/09/19 at 09:30 IV Flush (NS 10 ml) 10 ml PRN PRN IV IV PROTOCOL; Start 03/09/19 at 16:30 Levetiracetam 100 ml @ 400 mls/hr Q12 IVPB Last administered on 03/16/19 08:04; Admin Dose 400 MLS/HR; Start 03/10/19 at 09:00 Albuterol (Ventolin Hfa) 4 puff Q4H RESP THERAPY INH Last administered on 03/16/19 08:17; Admin Dose 4 PUFF; Start 03/11/19 at 01:00 Ipratropium [place] (Atrovent Hfa) 4 puff Q4H RESP THERAPY INH Last adm inistered on 03/16/19 08:17; Admin Dose 4 PUFF; Start 03/11/19 at 01:00 Ceftazidime 50 ml @ 100 mls/hr Q8 IVPB Last administered on 03/16/19 05:41; Admin Dose 100 MLS/HR; Start 03/11/19 at 14:00 Ciprofloxacin HCl (Ciloxan 0.3% Oph) 1 drop BID BOTH EYES Last administered on 03/16/19 08:04; Admin Dose 1 DROP; Start 03/15/19 at 09:00; Stop 03/19/19 at 23:00 Acetaminophen (Tylenol Liquid) 650 mg Q4H PRN GTB MILD PAIN(1-3)OR ELEVATED TEMP Last administered on 03/15/19at 11:15; Admin Dose 650 MG; Start 03/15/19 at 04:30 Valproate Sodium 500 mg/Sodium Chloride 55 ml @ 51.25 mls/ hr Q12 IVPB Last administered on 03/16/19at 08:04; Admin Dose 51.25 MLS/HR; Start 03/15/19 at 09:00 Vancomycin HCl 250 ml @ 125 mls/hr Q24H IVPB ; Start 03/16/19 at 14:00 DOMO PERRY FISHER SEAL Mar 16, 2019 12:23
[2019-03-16] MEDS ORDERED: AMIKACIN IV PER PHARMACY XX SCH (12:30)
[2019-03-16] MEDS ORDERED: VANCOMYCIN 1 GM 250 ML IVPB SCH (14:00)
[2019-03-16] MEDS ORDERED: AMIKACIN 1,000 MG in SOD CHLORIDE 0.9% 250 ML IVPB SCH (15:30)
--- NOTE | 2019-03-16 16:35 | PN ---
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 1. 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 Acute on chronic Vent dependent respiratory failure -[id number] bronchodilators, pulmonary toileting -Vent management per pulmonary Hypernatremia and CHACHA: - Bolus fluids - Increase FW flushes 6. 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 Hypertension -currently hypotensive 2/2 sepsis. Hold off on antihypertensives. 8. Dysphagia/PEG placed -Tube feeds were held secondary to ileus, repeat KUB does not show ileus and will resume 9. Ileus -KUB shows nonspecific bowel gas pattern but no evidence of ileus -Replete potassium as needed -Resume tube feeds 10. Epilepsy/Seizure disorders -Seizures now stable -Neurology consultation appreciated, continue seizure medications 11. Chronic decub ulcer/L foot metatarsal wounds -Continue wound care, continue antibiotics DVT prophylaxis: Lovenox PUD prophylaxis: Pepcid DC planning: Continue current plan Result Diagram: 03/16/19 0452 03/16/19 0446 Results 24hrs Laboratory Tests Test 03/16/19 04:46 03/16/19 04:52 Sodium Level 156 H Potassium Level 3.6 Chloride Level 125 H Carbon Dioxide Level 25 Anion Gap 6 Blood Urea Nitrogen 9 Creatinine 1.16 Est Glomerular Filtrat Rate mL/min > 60 Glucose Level 73 Calcium Level 8.2 L Phosphorus Level 3.3 Magnesium Level 2.2 Valproic Acid (Depakene) Level 66 White Blood Count 9.6 Red Blood Count 3.63 L Hemoglobin 10.0 L Hematocrit 32.4 L Mean Corpuscular Volume 89.3 Mean Corpuscular Hemoglobin 27.5 L Mean Corpuscular Hemoglobin Concent 30.9 L Red Cell Distribution Width 23.4 H Platelet Count 263 # Mean Platelet Volume 11.2 H Immature Granulocytes % 0.500 H Neutrophils % 72.1 Lymphocytes % 13.9 L Monocytes % 10.6 Eosinophils % 2.5 Basophils % 0.4 Nucleated Red Blood Cells % 0.0 Immature Granulocytes # 0.050 H Neutrophils # 6.9 Lymphocytes # 1.3 Monocytes # 1.0 H Eosinophils # 0.2 Basophils # 0.0 Nucleated Red Blood Cells # 0.0 Subjective 24 Hr Interval Summary Free Text/Dictation Afebrile no events Nonverbal Exam/Review of Systems Exam Vitals Vital Signs Date Temp Pulse Resp B/P (MAP) Pulse Ox O2 O2 Flow FiO2 Time Delivery Rate 03/16/19 98.8 85 19 113/78 95 Mechanical 16:00 (90) Ventilator 03/16/19 30 11:30 Intake and Output 03/15/19 03/15/19 03/16/19 1414:59 22:59 06:59 IntakeIntake Total 1035 ml 805 ml 600 ml OutputOutput Total 600 ml 575 ml 900 ml BalanceBalance 435 ml 230 ml -300 ml Results Results 24hrs Laboratory Tests Test 03/16/19 04:46 03/16/19 04:52 Sodium Level 156 H Potassium Level 3.6 Chloride Level 125 H Carbon Dioxide Level 25 Anion Gap 6 Blood Urea Nitrogen 9 Creatinine 1.16 Est Glomerular Filtrat Rate mL/min > 60 Glucose Level 73 Calcium Level 8.2 L Phosphorus Level 3.3 Magnesium Level 2.2 Valproic Acid (Depakene) Level 66 White Blood Count 9.6 Red Blood Count 3.63 L Hemoglobin 10.0 L Hematocrit 32.4 L Mean Corpuscular Volume 89.3 Mean Corpuscular Hemoglobin 27.5 L Mean Corpuscular Hemoglobin Concent 30.9 L Red Cell Distribution Width 23.4 H Platelet Count 263 # Mean Platelet Volume 11.2 H Immature Granulocytes % 0.500 H Neutrophils % 72.1 Lymphocytes % 13.9 L Monocytes % 10.6 Eosinophils % 2.5 Basophils % 0.4 Nucleated Red Blood Cells % 0.0 Immature Granulocytes # 0.050 H Neutrophils # 6.9 Lymphocytes # 1.3 Monocytes # 1.0 H Eosinophils # 0.2 Basophils # 0.0 Nucleated Red Blood Cells # 0.0 Medications Medication Current Medications IV Flush (NS 3 ml) 3 ml PER PROTOCOL IV ; Start 03/08/19 at 04:30 Ondansetron HCl (Zofran Inj) 4 mg Q6H PRN IV NAUSEA/VOMITING; Start 03/08/19 at 04:30 Famotidine (Pepcid Iv) 20 mg Q12 IV Last administered on 03/16/19at 08:03; Admin Dose 20 MG; Start 03/08/19 at 09:00 Enoxaparin Sodium (Lovenox) 40 mg DAILY SC Last administered on 03/10/19at 09:54; Admin Dose 40 MG; Start 03/08/19 at 09:00; Status Hold Albuterol (Proventil 0.083% (Neb)) 1.25 mg Q2H RESP THERAPY PRN HHN sob/wheezing; Start 03/08/19 at 13:00 Metronidazole (Flagyl) 500 mg Q8 GTB Last administered on 03/09/19at 05:13; Admin Dose 500 MG; Start 03/08/19 at 14:00; Status Hold Ipratropium [place] (Atrovent 0.02% (Neb)) 0.5 mg Q2H RESP THERAPY PRN NEB SHORTNESS OF BREATH; Start 03/08/19 at 13:00 Cholecalciferol (Vitamin D) 2,000 unit DAILY GTB ; Start 03/09/19 at 09:00; Status Hold Ascorbic Acid (Vitamin C) 500 mg BID GTB Last administered on 03/08/19at 21:27; Admin Dose 500 MG; Start 03/08/19 at 21:00; Status Hold Multivitamins/ Minerals (Theragran-M) 1 tab DAILY GTB ; Start 03/09/19 at 09:00; Status Hold Eye Lubricant (Artificial Tears Oph) 2 drop QID BOTH EYES Last administered on 03/16/19at 16:19; Admin Dose 2 DROP; Start 03/08/19 at 17:00 Midazolam HCl 50 ml @ 1 mls/hr PER PROTOCOL IV Last administered on 03/09/19 06:26; Admin Dose 4 MLS/HR; Start 03/08/19 at 17:00 Lorazepam (Ativan) 1 mg Q2H PRN IV seizures Last administered on 03/15/19 14:43; Admin Dose 1 MG; Start 03/09/19 at 09:30 IV Flush (NS 10 ml) 10 ml PRN PRN IV IV PROTOCOL; Start 03/09/19 at 16:30 Levetiracetam 100 ml @ 400 mls/hr Q12 IVPB Last administered on 03/16/19 08:04; Admin Dose 400 MLS/HR; Start 03/10/19 at 09:00 Albuterol (Ventolin Hfa) 4 puff Q4H RESP THERAPY INH Last administered on 03/16/19 13:21; Admin Dose 4 PUFF; Start 03/11/19 at 01:00 Ipratropium [place] (Atrovent Hfa) 4 puff Q4H RESP THERAPY INH Last administered on 03/16/19 13:21; Admin Dose 4 PUFF; Start 03/11/19 at 01:00 Ciprofloxacin HCl (Ciloxan 0.3% Oph) 1 drop BID BOTH EYES Last administered on 03/16/19 08:04; Admin Dose 1 DROP; Start 03/15/19 at 09:00; Stop 03/19/19 at 23:00 Acetaminophen (Tylenol Liquid) 650 mg Q4H PRN GTB MILD PAIN(1-3)OR ELEVATED TEMP Last administered on 03/15/19 11:15; Admin Dose 650 MG; Start 03/15/19 at 04:30 Valproate Sodium 500 mg/Sodium Chloride 55 ml @ 51.25 mls/ hr Q12 IVPB Last administered on 03/16/19 08:04; Admin Dose 51.25 MLS/HR; Start 03/15/19 at 09:00 Doxycycline Hyclate 100 mg/ Sodium Chloride 250 ml @ 250 mls/hr Q12 IVPB ; Start 03/16/19 at 21:00 Amikacin Sulfate (Amikacin Iv Per Pharmacy) AMIKACIN PER PHARMACY NOTE XX ; Start 03/16/19 at 12:30 Amikacin Sulfate 1000 mg/Sodium Chloride 254 ml @ 200 mls/hr Q24H IVPB Last administered on 7/9/19at 15:46; Admin Dose 200 MLS/HR; Start 03/16/19 at 15:30 Miscellaneous Information (*Rx Drug Level Order Reminder*) RANDOM AMIKACIN LEVE... 0000 ONCE XX ; Start 03/17/19 at 00:00; Stop 03/17/19 at 00:01 ORI JEROME MD Mar 16, 2019 16:35
[2019-03-16] MEDS ORDERED: SOD CHLORIDE 0.9% 1,000 ML IV ONE (17:00)
[2019-03-16] MEDS: DOXYCYCLINE 100 MG in SOD CHLORIDE 0.9% 250 ML IVPB SCH (21:23)
[2019-03-17] VITALS (44 sets, daily range): BP systolic 104–138; BP diastolic 68–97; PULSE 78–117; RESP 16–31
[2019-03-17] MEDS: IPRATROPIUM (HFA) 12.9 GM INHALER INH SCH ×6 (00:55→21:11)
[2019-03-17] MEDS: ALBUTEROL HFA 8 GM INHALER INH SCH ×6 (00:55→21:11)
[2019-03-17] MEDS: LEVETIRACETAM 1000 MG (PMX) 100 ML IVPB SCH ×2 (08:16→21:48)
[2019-03-17] MEDS: DOXYCYCLINE 100 MG in SOD CHLORIDE 0.9% 250 ML IVPB SCH ×2 (08:21→22:41)
[2019-03-17] MEDS: FAMOTIDINE 20 MG INJ IV SCH ×2 (08:22→21:47)
[2019-03-17] MEDS: CIPROFLOXACIN 0.3% 2.5 ML OPH BOTH EYES SCH (08:22)
[2019-03-17] MEDS: ARTIFICIAL TEARS 15 ML OPH BOTH EYES SCH ×3 (08:22→17:50)
[2019-03-17] MEDS: VALPROATE INJ 500 MG in SOD CHLORIDE 0.9% 50 ML IVPB SCH ×2 (08:24→21:47)
--- NOTE | 2019-03-17 09:06 | CONS ---
Assessment/Plan Assessment/Plan Assessment/Plan (Daily) Ventilator settings; assist control of 16, tidal volume 450, PEEP of 5, 30% FiO2. Assessment and recommendations; 1. Patient with history of chronic severe encephalopathy and VDR F admitted for extensive right-sided pneumonia with dense multilobar consolidation. Status post chest tube placement with interval removal because there was no drainage from chest tube. Status post bronchoscopy with negative findings. 2. History of seizure disorder. 3. Vegetative state. 4. Hypernatremia. Continue current supportive care. Administer free water for correction of elevated sodium level. Continue current antimicrobial regimen. Patient is not a surgical candidate for any surgical chest exploration. Patient can be transferred to telemetry unit. Overall prognosis remains poor. Consultation Date/Type/Reason Admit Date/Time Mar 08, 2019 at 04:09 Initial Consult Date Pulmonary/critical care Patient condition remains hemodynamically stable. General exam; young male, on ventilator via tracheostomy, unresponsive, currently no distress. Type of Consult H EENT exam; supple neck, no JVD. No lymphadenopathy. Midline trachea. No thyromegaly. Tracheostomy in place. Insertion site is clean. Patient has fair dentition. No neck masses. Chest exam; diminished breath sounds right lung. Left lung is clear. S1-S2 aud ible, no murmurs. Regular rhythm. Abdomen exam; soft, no organomegaly. G-tube in place. Bowel sounds audible. Extremity exam; no peripheral edema. Patient has a flexion contractures. STRATEGIC ACCOUNT EXECUTIVE exam; patient remains noncommunicative and unresponsive. Requesting Provider: TE TURNER NP Date/Time of Note DATE: 03/17/19 TIME: 09:04 24 HR Interval Summary Free Text/Dictation Patient's condition is clinically stable. Has remained hemodynamically stable. General exam; young male, on ventilator via tracheostomy, awake but noncommunicative. Currently in no distress. Exam/Review of Systems Exam Vitals Vital Signs Date Temp Pulse Resp B/P (MAP) Pulse Ox O2 O2 Flow FiO2 Time Delivery Rate 03/17/19 89 08:00 03/17/19 17 117/81 93 Mechanical 06:00 (93) Ventilator Trach Collar 03/17/19 30 04:58 03/17/19 98.9 04:00 Intake and Output 03/16/19 03/16/19 03/17/19 1515:00 23:00 07:00 IntakeIntake Total 840 ml 2259 ml 550 ml OutputOutput Total 660 ml 1150 ml 750 ml BalanceBalance 180 ml 1109 ml -200 ml Exam H ENT exam; supple neck, no JVD. No lymphadenopathy. Midline trachea. No thyromegaly. Patient has fair dentition. Pupils are midsize. Tracheostomy in place. Chest exam; diminished breath sounds right lung. Left lung is fairly clear. S1-S2 audible, no murmurs. Regular rhythm. Abdomen exam; soft, mildly protuberant. No organomegaly. G-tube in place. [place] el sounds are audible. Extremity exam; no peripheral edema clubbing. STRATEGIC ACCOUNT EXECUTIVE exam; patient remains awake but noncommunicative. Results Result Diagram: 03/17/1930 03/17/19 0530 Results 24hrs Laboratory Tests Test 03/17/19 05:30 03/17/19 08:54 White Blood Count 10.2 Red Blood Count 3.97 L Hemoglobin 10.9 L Hematocrit 35.1 L Mean Corpuscular Volume 88.4 Mean Corpuscular Hemoglobin 27.5 L Mean Corpuscular Hemoglobin Concent 31.1 L Red Cell Distribution Width 22.6 H Platelet Count 283 Mean Platelet Volume 10.7 H Immature Granulocytes % 0.400 Neutrophils % 69.3 Lymphocytes % 15.2 Monocytes % 10.0 Eosinophils % 4.7 Basophils % 0.4 Nucleated Red Blood Cells % 0.0 Immature Granulocytes # 0.040 H Neutrophils # 7.1 Lymphocytes # 1.6 Monocytes # 1.0 H Eosinophils # 0.5 Basophils # 0.0 Nucleated Red Blood Cells # 0.0 Sodium Level 160 H Potassium Level 3.9 Chloride Level 125 H Carbon Dioxide Level 30 Anion Gap 5 Blood Urea Nitrogen 13 Creatinine 1.03 Est Glomerular Filtrat Rate mL/min > 60 Glucose Level 86 Calcium Level 8.4 Lab Scanned Report REFERENCE LAB Medications Medication Current Medications IV Flush (NS 3 ml) 3 ml PER PROTOCOL IV ; Start 03/08/19 at 04:30 Ondansetron HCl (Zofran Inj) 4 mg Q6H PRN IV NAUSEA/VOMITING; Start 03/08/19 at 04:30 Famotidine (Pepcid Iv) 20 mg Q12 IV Last administered on 03/17/19at 08:22; Admin Dose 20 MG; Start 03/08/19 at 09:00 Enoxaparin Sodium (Lovenox) 40 mg DAILY SC Last administered on 03/10/19at 09:54; Admin Dose 40 MG; Start 03/08/19 at 09:00; Status Hold Albuterol (Proventil 0.083% (Neb)) 1.25 mg Q2H RESP THERAPY PRN HHN sob/wheezing; Start 03/08/19 at 13:00 Metronidazole (Flagyl) 500 mg Q8 GTB Last administered on 03/09/19at 05:13; Admin Dose 500 MG; Start 03/08/19 at 14:00; Status Hold Ipratropium [place] (Atrovent 0.02% (Neb)) 0.5 mg Q2H RESP THERAPY PRN NEB S HORTNESS OF BREATH; Start 03/08/19 at 13:00 Cholecalciferol (Vitamin D) 2,000 unit DAILY GTB ; Start 03/09/19 at 09:00; Status Hold Ascorbic Acid (Vitamin C) 500 mg BID GTB Last administered on 03/08/19at 21:27; Admin Dose 500 MG; Start 03/08/19 at 21:00; Status Hold Multivitamins/ Minerals (Theragran-M) 1 tab DAILY GTB ; Start 03/09/19 at 09:00; Status Hold Eye Lubricant (Artificial Tears Oph) 2 drop QID BOTH EYES Last administered on 03/17/19at 08:22; Admin Dose 2 DROP; Start 03/08/19 at 17:00 Midazolam HCl 50 ml @ 1 mls/hr PER PROTOCOL IV Last administered on 03/09/19at 06:26; Admin Dose 4 MLS/HR; Start 03/08/19 at 17:00 Lorazepam (Ativan) 1 mg Q2H PRN IV seizures Last administered on 03/15/19at 14:43; Admin Dose 1 MG; Start 03/09/19 at 09:30 IV Flush (NS 10 ml) 10 ml PRN PRN IV IV PROTOCOL; Start 03/09/19 at 16:30 Levetiracetam 100 ml @ 400 mls/hr Q12 IVPB Last administered on 03/17/19at 0 8:16; Admin Dose 400 MLS/HR; Start 03/10/19 at 09:00 Albuterol (Ventolin Hfa) 4 puff Q4H RESP THERAPY INH Last administered on 03/17/19 04:58; Admin Dose 4 PUFF; Start 03/11/19 at 01:00 Ipratropium [place] (Atrovent Hfa) 4 puff Q4H RESP THERAPY INH Last administered on 03/17/19 04:58; Admin Dose 4 PUFF; Start 03/11/19 at 01:00 Ciprofloxacin HCl (Ciloxan 0.3% Oph) 1 drop BID BOTH EYES Last administered on 03/17/19 08:22; Admin Dose 1 DROP; Start 03/15/19 at 09:00; Stop 03/19/19 at 23:00 Acetaminophen (Tylenol Liquid) 650 mg Q4H PRN GTB MILD PAIN(1-3)OR ELEVATED TEMP Last administered on 03/15/19 11:15; Admin Dose 650 MG; Start 03/15/19 at 04:30 Valproate Sodium 500 mg/Sodium Chloride 55 ml @ 51.25 mls/ hr Q12 IVPB Last administered on 03/17/19 08:24; Admin Dose 51.25 MLS/HR; Start 03/15/19 at 09:00 Doxycycline Hyclate 100 mg/ Sodium Chloride 250 ml @ 250 mls/hr Q12 IVPB Last administered on 03/17/19 08:21; Admin Dose 250 MLS/HR; Start 03/16/19 at 21:00 Amikacin Sulfate (Amikacin Iv Per Pharmacy) AMIKACIN PER PHARMACY NOTE XX ; Start 03/16/19 at 12:30 Amikacin Sulfate 1000 mg/Sodium Chloride 254 ml @ 200 mls/hr Q24H IVPB Last administered on 03/16/19 15:46; Admin Dose 200 MLS/HR; Start 03/16/19 at 15:30 CRISTIANE MILLARD Mar 17, 2019 09:06
[2019-03-17] MEDS ORDERED: SOD CHLORIDE 0.9% 1,000 ML IV ONE (11:00)
--- NOTE | 2019-03-17 11:07 | PN ---
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 1. 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 Acute on chronic Vent dependent respiratory failure -[id number] bronchodilators, pulmonary toileting -Vent management per pulmonary Hypernatremia and CHACHA: - Bolus 1 L NS - Increase FW flushes and add D5W for FW deficit of 5.8 liters 6. 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 Hypertension -currently hypotensive 2/2 sepsis. Hold off on antihypertensives. 8. Dysphagia/PEG placed -Tube feeds were held secondary to ileus, repeat KUB does not show ileus and will resume 9. Ileus -KUB shows nonspecific bowel gas pattern but no evidence of ileus -Replete potassium as needed -Resume tube feeds 10. Epilepsy/Seizure disorders -Seizures now stable -Neurology consultation appreciated, continue seizure medications 11. Chronic decub ulcer/L foot metatarsal wounds -Continue wound care, continue antibiotics DVT prophylaxis: Lovenox PUD prophylaxis: Pepcid DC planning: Discharge to SNF when sodium is corrected Result Diagram: 03/17/1952903/17/19529 Results 24hrs Laboratory Tests Test 03/17/19 00:14 03/17/19 05:30 03/17/19 08:54 Random Amikacin Level White Blood Count 10.2 Red Blood Count 3.97 L Hemoglobin 10.9 L Hematocrit 35.1 L Mean Corpuscular Volume 88.4 Mean Corpuscular Hemoglobin 27.5 L Mean Corpuscular 31.1 L Hemoglobin Concent Red Cell Distribution Width 22.6 H Platelet Count 283 Mean Platelet Volume 10.7 H Immature Granulocytes % 0.400 Neutrophils % 69.3 Lymphocytes % 15.2 Monocytes % 10.0 Eosinophils % 4.7 Basophils % 0.4 Nucleated Red Blood Cells % 0.0 Immature Granulocytes # 0.040 H Neutrophils # 7.1 Lymphocytes # 1.6 Monocytes # 1.0 H Eosinophils # 0.5 Basophils # 0.0 Nucleated Red Blood Cells # 0.0 Sodium Level 160 H Potassium Level 3.9 Chloride Level 125 H Carbon Dioxide Level 30 Anion Gap 5 Blood Urea Nitrogen 13 Creatinine 1.03 Est Glomerular Filtrat > 60 Rate mL/min Glucose Level 86 Calcium Level 8.4 Lab Scanned Report REFERENCE LAB Subjective 24 Hr Interval Summary Free Text/Dictation Worsening hypernatremia Good UOP, creatinine decreasing No change to clinical status otherwise Exam/Review of Systems Exam Vitals Vital Signs Date Temp Pulse Resp B/P (MAP) Pulse Ox O2 O2 Flow FiO2 Time Delivery Rate 03/17/19 90 18 116/82 94 09:30 (93) 03/17/19 Mechanical 09:00 Ventilator Trach Collar 03/17/19 99.5 08:00 03/17/19 30 04:58 Intake and Output 03/16/19 03/16/19 03/17/19 1515:00 23:00 07:00 IntakeIntake Total 840 ml 2259 ml 550 ml OutputOutput Total 660 ml 1150 ml 750 ml BalanceBalance 180 ml 1109 ml -200 ml Results Results 24hrs Laboratory Tests Test 03/17/19 00:14 03/17/19 05:30 03/17/19 08:54 Random Amikacin Level White Blood Count 10.2 Red Blood Count 3.97 L Hemoglobin 10.9 L Hematocrit 35.1 L Mean Corpuscular Volume 88.4 Mean Corpuscular Hemoglobin 27.5 L Mean Corpuscular 31.1 L Hemoglobin Concent Red Cell Distribution Width 22.6 H Platelet Count 283 Mean Platelet Volume 10.7 H Immature Granulocytes % 0.400 Neutrophils % 69.3 Lymphocytes % 15.2 Monocytes % 10.0 Eosinophils % 4.7 Basophils % 0.4 Nucleated Red Blood Cells % 0.0 Immature Granulocytes # 0.040 H Neutrophils # 7.1 Lymphocytes # 1.6 Monocytes # 1.0 H Eosinophils # 0.5 Basophils # 0.0 Nucleated Red Blood Cells # 0.0 Sodium Level 160 H Potassium Level 3.9 Chloride Level 125 H Carbon Dioxide Level 30 Anion Gap 5 Blood Urea Nitrogen 13 Creatinine 1.03 Est Glomerular Filtrat > 60 Rate mL/min Glucose Level 86 Calcium Level 8.4 Lab Scanned Report REFERENCE LAB Medications Medication Current Medications IV Flush (NS 3 ml) 3 ml PER PROTOCOL IV ; Start 03/08/19 at 04:30 Ondansetron HCl (Zofran Inj) 4 mg Q6H PRN IV NAUSEA/VOMITING; Start 03/08/19 at 04:30 Famotidine (Pepcid Iv) 20 mg Q12 IV Last administered on 03/17/19at 08:22; Admin Dose 20 MG; Start 03/08/19 at 09:00 Enoxaparin Sodium (Lovenox) 40 mg DAILY SC Last administered on 03/10/19at 09:54; Admin Dose 40 MG; Start 03/08/19 at 09:00; Status Hold Albuterol (Proventil 0.083% (Neb)) 1.25 mg Q2H RESP THERAPY PRN HHN sob/wheezing; Start 03/08/19 at 13:00 Metronidazole (Flagyl) 500 mg Q8 GTB Last administered on 03/09/19at 05:13; Admin Dose 500 MG; Start 03/08/19 at 14:00; Status Hold Ipratropium [place] (Atrovent 0.02% (Neb)) 0.5 mg Q2H RESP THERAPY PRN NEB SHORTNESS OF BREATH; Start 03/08/19 at 13:00 Cholecalciferol (Vitamin D) 2,000 unit DAILY GTB ; Start 03/09/19 at 09:00; S tatus Hold Ascorbic Acid (Vitamin C) 500 mg BID GTB Last administered on 03/08/19at 21:27; Admin Dose 500 MG; Start 03/08/19 at 21:00; Status Hold Multivitamins/ Minerals (Theragran-M) 1 tab DAILY GTB ; Start 03/09/19 at 09:00; Status Hold Eye Lubricant (Artificial Tears Oph) 2 drop QID BOTH EYES Last administered on 03/17/19at 08:22; Admin Dose 2 DROP; Start 03/08/19 at 17:00 Midazolam HCl 50 ml @ 1 mls/hr PER PROTOCOL IV Last administered on 03/09/19 06:26; Admin Dose 4 MLS/HR; Start 03/08/19 at 17:00 Lorazepam (Ativan) 1 mg Q2H PRN IV seizures Last administered on 03/15/19 14:43; Admin Dose 1 MG; Start 03/09/19 at 09:30 IV Flush (NS 10 ml) 10 ml PRN PRN IV IV PROTOCOL; Start 03/09/19 at 16:30 Levetiracetam 100 ml @ 400 mls/hr Q12 IVPB Last administered on 03/17/19 08:16; Admin Dose 400 MLS/HR; Start 03/10/19 at 09:00 Albuterol (Ventolin Hfa) 4 puff Q4H RESP THERAPY INH Last administered on 03/17/19 10:01; Admin Dose 4 PUFF; Start 03/11/19 at 01:00 Ipratropium [place] (Atrovent Hfa) 4 puff Q4H RESP THERAPY INH Last administered on 03/17/19 10:01; Admin Dose 4 PUFF; Start 03/11/19 at 01:00 Ciprofloxacin HCl (Ciloxan 0.3% Oph) 1 drop BID BOTH EYES Last administered on 03/17/19 08:22; Admin Dose 1 DROP; Start 03/15/19 at 09:00; Stop 03/19/19 at 23:00 Acetaminophen (Tylenol Liquid) 650 mg Q4H PRN GTB MILD PAIN(1-3)OR ELEVATED TEMP Last administered on 03/15/19 11:15; Admin Dose 650 MG; Start 03/15/19 at 04:30 Valproate Sodium 500 mg/Sodium Chloride 55 ml @ 51.25 mls/ hr Q12 IVPB Last administered on 03/17/19 08:24; Admin Dose 51.25 MLS/HR; Start 03/15/19 at 09:00 Doxycycline Hyclate 100 mg/ Sodium Chloride 250 ml @ 250 mls/hr Q12 IVPB Last administered on 03/17/19 08:21; Admin Dose 250 MLS/HR; Start 03/16/19 at 21:00 Amikacin Sulfate (Amikacin Iv Per Pharmacy) AMIKACIN PER PHARMACY NOTE XX ; Start 03/16/19 at 12:30 Amikacin Sulfate 1000 mg/Sodium Chloride 254 ml @ 200 mls/hr Q24H IVPB Last administered on 03/16/19at 15:46; Admin Dose 200 MLS/HR; Start 03/16/19 at 15:30 Dextrose 1,000 ml @ 125 mls/hr Q8H IV ; Start 03/17/19 at 11:00; Status UNV Sodium Chloride 1,000 ml @ 1,000 mls/hr Q1H ONCE IV ; Start 03/17/19 at 11:00; Stop 03/17/19 at 11:59; Status UNV ORI JEROME MD Mar 17, 2019 11:07
[2019-03-17] MEDS: DEXTROSE 5% 1,000 ML IV SCH ×2 (12:17→21:47)
--- NOTE | 2019-03-17 12:19 | CONS ---
Assessment/Plan Assessment/Plan Hospital Course (Demo Recall) No acute events patient is laying comfortably in bed T-max 99.5 WBC 10.2 platelets 283 neutrophils 69.3 BUN 13 creatinine 1.03 Antimicrobials: Amikacin, doxycycline Indwelling: Trach, PEG, Sheppard Microbiology: Sputum culture on admission grew Pseudomonas, Morganella, probably dentia, Klebsiella Physical examination: Chronically ill-appearing -[place] young man who is in no distress. Patient is noncommunicative. Head atraumatic normocephalic neck is supple tracheostomy present chest rise symmetrical breath sounds diminished bases. Heart: S1-S2. Abdomen soft bowel sounds present. Assessment: 1. Sepsis on admission 2. Bacteremia consistent with contaminant 2. Urinary tract infection per urinalysis 3. Questionable loculated pleural effusion versus necrotic lung per CT 4. Status epilepticus 5. Chronic encephalopathy status post intracerebral hemorrhage 6. Left hip dislocation with possible septic joint and osteomyelitis 7. Questionable ileus Plan: Clinically unchanged, continue antibiotics, monitor renal function closely, consider to keep on antibiotics long-term for possible osteomyelitis of left hip Consultation Date/Type/Reason Admit Date/Time Mar 08, 2019 at 04:09 Initial Consult Date Type of Consult id Requesting Provider: TE TURNER NP Date/Time of Note DATE: 03/17/19 TIME: 12:19 Exam/Review of Systems Exam Vitals Vital Signs Date Temp Pulse Resp B/P (MAP) Pulse Ox O2 O2 Flow FiO2 Time Delivery Rate 03/17/19 90 18 116/82 94 09:30 (93) 03/17/19 Mechanical 09:00 Ventilator Trach Collar 03/17/19 99.5 08:00 03/17/19 30 04:58 Intake and Output 03/16/19 03/16/19 03/17/19 1515:00 23:00 07:00 IntakeIntake Total 840 ml 2259 ml 550 ml OutputOutput Total 660 ml 1150 ml 750 ml BalanceBalance 180 ml 1109 ml -200 ml Results Result Diagram: 03/17/19 0530 03/17/19 0530 Results 24hrs Laboratory Tests Test 03/17/19 00:14 03/17/19 05:30 03/17/19 08:54 Random Amikacin Level White Blood Count 10.2 Red Blood Count 3.97 L Hemoglobin 10.9 L Hematocrit 35.1 L Mean Corpuscular Volume 88.4 Mean Corpuscular Hemoglobin 27.5 L Mean Corpuscular 31.1 L Hemoglobin Concent Red Cell Distribution Width 22.6 H Platelet Count 283 Mean Platelet Volume 10.7 H Immature Granulocytes % 0.400 Neutrophils % 69.3 Lymphocytes % 15.2 Monocytes % 10.0 Eosinophils % 4.7 Basophils % 0.4 Nucleated Red Blood Cells % 0.0 Immature Granulocytes # 0.040 H Neutrophils # 7.1 Lymphocytes # 1.6 Monocytes # 1.0 H Eosinophils # 0.5 Basophils # 0.0 Nucleated Red Blood Cells # 0.0 Sodium Level 160 H Potassium Level 3.9 Chloride Level 125 H Carbon Dioxide Level 30 Anion Gap 5 Blood Urea Nitrogen 13 Creatinine 1.03 Est Glomerular Filtrat > 60 Rate mL/min Glucose Level 86 Calcium Level 8.4 Lab Scanned Report REFERENCE LAB Medications Medication Current Medications IV Flush (NS 3 ml) 3 ml PER PROTOCOL IV ; Start 03/08/19 at 04:30 Ondansetron HCl (Zofran Inj) 4 mg Q6H PRN IV NAUSEA/VOMITING; Start 03/08/19 at 04:30 Famotidine (Pepcid Iv) 20 mg Q12 IV Last administered on 03/17/19at 08:22; Admin Dose 20 MG; Start 03/08/19 at 09:00 Enoxaparin Sodium (Lovenox) 40 mg DAILY SC Last administered on 03/10/19at 09:54; Admin Dose 40 MG; Start 03/08/19 at 09:00; Status Hold Albuterol (Proventil 0.083% (Neb)) 1.25 mg Q2H RESP THERAPY PRN HHN sob/wheezing; Start 03/08/19 at 13:00 Metronidazole (Flagyl) 500 mg Q8 GTB Last administered on 03/09/19at 05:13; Admin Dose 500 MG; Start 03/08/19 at 14:00; Status Hold Ipratropium [place] (Atrovent 0.02% (Neb)) 0.5 mg Q2H RESP THERAPY PRN NEB SHORTNESS OF BREATH; Start 03/08/19 at 13:00 Cholecalciferol (Vitamin D) 2,000 unit DAILY GTB ; Start 03/09/19 at 09:00; Status Hold Ascorbic Acid (Vitamin C) 500 mg BID GTB Last administered on 03/08/19at 21:27; Admin Dose 500 MG; Start 03/08/19 at 21:00; Status Hold Multivitamins/ Minerals (Theragran-M) 1 tab DAILY GTB ; Start 03/09/19 at 09:00; Status Hold Eye Lubricant (Artificial Tears Oph) 2 drop QID BOTH EYES Last administered on 03/17/19 08:22; Admin Dose 2 DROP; Start 03/08/19 at 17:00 Midazolam HCl 50 ml @ 1 mls/hr PER PROTOCOL IV Last administered on 03/09/19 06:26; Admin Dose 4 MLS/HR; Start 03/08/19 at 17:00 Lorazepam (Ativan) 1 mg Q2H PRN IV seizures Last administered on 03/15/19 14:43; Admin Dose 1 MG; Start 03/09/19 at 09:30 IV Flush (NS 10 ml) 10 ml PRN PRN IV IV PROTOCOL; Start 03/09/19 at 16:30 Levetiracetam 100 ml @ 400 mls/hr Q12 IVPB Last administered on 03/17/19 08:16; Admin Dose 400 MLS/HR; Start 03/10/19 at 09:00 Albuterol (Ventolin Hfa) 4 puff Q4H RESP THERAPY INH Last administered on 03/17/19 10:01; Admin Dose 4 PUFF; Start 03/11/19 at 01:00 Ipratropium [place] (Atrovent Hfa) 4 puff Q4H RESP THERAPY INH Last administered on 03/17/19 10:01; Admin Dose 4 PUFF; Start 03/11/19 at 01:00 Ciprofloxacin HCl (Ciloxan 0.3% Oph) 1 drop BID BOTH EYES Last administered on 03/17/19 08:22; Admin Dose 1 DROP; Start 03/15/19 at 09:00; Stop 03/19/19 at 23:00 Acetaminophen (Tylenol Liquid) 650 mg Q4H PRN GTB MILD PAIN(1-3)OR ELEVATED TEMP Last administered on 03/15/19 11:15; Admin Dose 650 MG; Start 03/15/19 at 04:30 Valproate Sodium 500 mg/Sodium Chloride 55 ml @ 51.25 mls/ hr Q12 IVPB Last administered on 03/17/19 08:24; Admin Dose 51.25 MLS/HR; Start 03/15/19 at 09:00 Doxycycline Hyclate 100 mg/ Sodium Chloride 250 ml @ 250 mls/hr Q12 IVPB Last administered on 03/17/19at 08:21; Admin Dose 250 MLS/HR; Start 03/16/19 at 21:00 Amikacin Sulfate (Amikacin Iv Per Pharmacy) AMIKACIN PER PHARMACY NOTE XX ; Start 03/16/19 at 12:30 Amikacin Sulfate 1000 mg/Sodium Chloride 254 ml @ 200 mls/hr Q24H IVPB Last administered on 03/16/19at 15:46; Admin Dose 200 MLS/HR; Start 03/16/19 at 15:30 Dextrose 1,000 ml @ 125 mls/hr Q8H IV ; Start 03/17/19 at 11:00 DOMO PERRY NP Mar 17, 2019 12:19
--- NOTE | 2019-03-17 12:39 | CONS ---
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 Noted to have breakthrough seizures, for which neurology is consulted.. The patient is noted to have a GI ileus..which is a likely contributor to recent enteral medication malabsorption. UA + .... an additional contributor... to a lowered seizure threshold.. Depakote level was near undetectable on presentation.. Head CT is without obvious acute intracranial pathology..though concerning for residual possible avm P: Continue maintenance Depakote 500 q12 iv for now. Titrate to goal level ~100 Continue maintenance Keppra 1g q12 iv for now Ativan 2mg iv prn prolonged seizure (> 5 min) (as hemodynamics allow) Other management and supportive care per primary Will follow Consultation Date/Type/Reason Admit Date/Time Mar 08, 2019 at 04:09 Type of Consult Neurology Reason for Consultation seizure Requesting Provider: TE TURNER NP Date/Time of Note DATE: 03/17/19 TIME: 12:38 24 HR Interval Summary Free Text/Dictation Continues icu care Exam/Review of Systems Exam Vitals Vital Signs Date Temp Pulse Resp B/P (MAP) Pulse Ox O2 O2 Flow FiO2 Time Delivery Rate 03/17/19 98 12:00 03/17/19 18 116/82 94 09:30 (93) 03/17/19 Mechanical 09:00 Ventilator Trach Collar 03/17/19 99.5 08:00 03/17/19 30 04:58 Intake and Output 03/16/19 03/16/19 03/17/19 1515:00 23:00 07:00 IntakeIntake Total 840 ml 2259 ml 550 ml OutputOutput Total 660 ml 1150 ml 750 ml BalanceBalance 180 ml 1109 ml -200 ml Results Result Diagram: 03/17/1952903/17/1930 Results 24hrs Laboratory Tests Test 03/17/19 00:14 03/17/19 05:30 03/17/19 08:54 Random Amikacin Level White Blood Count 10.2 Red Blood Count 3.97 L Hemoglobin 10.9 L Hematocrit 35.1 L Mean Corpuscular Volume 88.4 Mean Corpuscular Hemoglobin 27.5 L Mean Corpuscular 31.1 L Hemoglobin Concent Red Cell Distribution Width 22.6 H Platelet Count 283 Mean Platelet Volume 10.7 H Immature Granulocytes % 0.400 Neutrophils % 69.3 Lymphocytes % 15.2 Monocytes % 10.0 Eosinophils % 4.7 Basophils % 0.4 Nucleated Red Blood Cells % 0.0 Immature Granulocytes # 0.040 H Neutrophils # 7.1 Lymphocytes # 1.6 Monocytes # 1.0 H Eosinophils # 0.5 Basophils # 0.0 Nucleated Red Blood Cells # 0.0 Sodium Level 160 H Potassium Level 3.9 Chloride Level 125 H Carbon Dioxide Level 30 Anion Gap 5 Blood Urea Nitrogen 13 Creatinine 1.03 Est Glomerular Filtrat > 60 Rate mL/min Glucose Level 86 Calcium Level 8.4 Lab Scanned Report REFERENCE LAB Medications Medication Current Medications IV Flush (NS 3 ml) 3 ml PER PROTOCOL IV ; Start 03/08/19 at 04:30 Ondansetron HCl (Zofran Inj) 4 mg Q6H PRN IV NAUSEA/VOMITING; Start 03/08/19 at 04:30 Famotidine (Pepcid Iv) 20 mg Q12 IV Last administered on 03/17/19at 08:22; Admin Dose 20 MG; Start 03/08/19 at 09:00 Enoxaparin Sodium (Lovenox) 40 mg DAILY SC Last administered on 03/10/19at 09:54; Admin Dose 40 MG; Start 03/08/19 at 09:00; Status Hold Albuterol (Proventil 0.083% (Neb)) 1.25 mg Q2H RESP THERAPY PRN HHN sob/wheezing; Start 03/08/19 at 13:00 Metronidazole (Flagyl) 500 mg Q8 GTB Last administered on 03/09/19at 05:13; Admin Dose 500 MG; Start 03/08/19 at 14:00; Status Hold Ipratropium [place] (Atrovent 0.02% (Neb)) 0.5 mg Q2H RESP THERAPY PRN NEB SHORTNESS OF BREATH; Start 03/08/19 at 13:00 Cholecalciferol (Vitamin D) 2,000 unit DAILY GTB ; Start 03/09/19 at 09:00; Status Hold Ascorbic Acid (Vitamin C) 500 mg BID GTB Last administered on 03/08/19at 21:27; Admin Dose 500 MG; Start 03/08/19 at 21:00; Status Hold Multivitamins/ Minerals (Theragran-M) 1 tab DAILY GTB ; Start 03/09/19 at 09:00; Status Hold Eye Lubricant (Artificial Tears Oph) 2 drop QID BOTH EYES Last administered on 03/17/19 12:22; Admin Dose 2 DROP; Start 03/08/19 at 17:00 Midazolam HCl 50 ml @ 1 mls/hr PER PROTOCOL IV Last administered on 03/09/19 06:26; Admin Dose 4 MLS/HR; Start 03/08/19 at 17:00 Lorazepam (Ativan) 1 mg Q2H PRN IV seizures Last administered on 03/15/19 14:43; Admin Dose 1 MG; Start 03/09/19 at 09:30 IV Flush (NS 10 ml) 10 ml PRN PRN IV IV PROTOCOL; Start 03/09/19 at 16:30 Levetiracetam 100 ml @ 400 mls/hr Q12 IVPB Last administered on 03/17/19 08:16; Admin Dose 400 MLS/HR; Start 03/10/19 at 09:00 Albuterol (Ventolin Hfa) 4 puff Q4H RESP THERAPY INH Last administered on 03/17/19 10:01; Admin Dose 4 PUFF; Start 03/11/19 at 01:00 Ipratropium [place] (Atrovent Hfa) 4 puff Q4H RESP THERAPY INH Last administered on 03/17/19 10:01; Admin Dose 4 PUFF; Start 03/11/19 at 01:00 Ciprofloxacin HCl (Ciloxan 0.3% Oph) 1 drop BID BOTH EYES Last administered on 03/17/19 08:22; Admin Dose 1 DROP; Start 03/15/19 at 09:00; Stop 03/19/19 at 23:00 Acetaminophen (Tylenol Liquid) 650 mg Q4H PRN GTB MILD PAIN(1-3)OR ELEVATED TEMP Last administered on 03/15/19 11:15; Admin Dose 650 MG; Start 03/15/19 at 04:30 Valproate Sodium 500 mg/Sodium Chloride 55 ml @ 51.25 mls/ hr Q12 IVPB Last administered on 03/17/19 08:24; Admin Dose 51.25 MLS/HR; Start 03/15/19 at 09:00 Doxycycline Hyclate 100 mg/ Sodium Chloride 250 ml @ 250 mls/hr Q12 IVPB Last administered on 03/17/19at 08:21; Admin Dose 250 MLS/HR; Start 03/16/19 at 21:00 Amikacin Sulfate (Amikacin Iv Per Pharmacy) AMIKACIN PER PHARMACY NOTE XX ; Start 03/16/19 at 12:30 Dextrose 1,000 ml @ 125 mls/hr Q8H IV Last administered on 03/17/19at 12:17; Admin Dose 125 MLS/HR; Start 03/17/19 at 11:00 Amikacin Sulfate 1000 mg/Dextrose 254 ml @ 254 mls/hr Q24H IVPB ; Start 03/17/19 at 16:00 SUSAN ANTHONY Mar 17, 2019 12:39
[2019-03-17] MEDS: ACETAMINOPHEN 650MG/20.3ML CUP GTB PRN (12:46)
[2019-03-17] MEDS: LORAZEPAM 2 MG INJ IV PRN (15:00)
[2019-03-17] MEDS: AMIKACIN 1,000 MG in DEXTROSE 5% 250 ML IVPB SCH (17:50)
[2019-03-18] VITALS (17 sets, daily range): BP systolic 103–124; BP diastolic 65–83; PULSE 94–115; RESP 16–23
[2019-03-18] MEDS: ARTIFICIAL TEARS 15 ML OPH BOTH EYES SCH ×5 (00:12→21:35)
[2019-03-18] MEDS: CIPROFLOXACIN 0.3% 2.5 ML OPH BOTH EYES SCH ×3 (00:12→21:36)
[2019-03-18] MEDS: IPRATROPIUM (HFA) 12.9 GM INHALER INH SCH ×6 (01:09→21:10)
[2019-03-18] MEDS: ALBUTEROL HFA 8 GM INHALER INH SCH ×6 (01:10→21:10)
[2019-03-18] MEDS: DEXTROSE 5% 1,000 ML IV SCH ×5 (05:29→23:30)
[2019-03-18] MEDS: LEVETIRACETAM 1000 MG (PMX) 100 ML IVPB SCH ×2 (09:04→21:28)
[2019-03-18] MEDS: FAMOTIDINE 20 MG INJ IV SCH ×2 (09:04→21:41)
[2019-03-18] MEDS: DOXYCYCLINE 100 MG in SOD CHLORIDE 0.9% 250 ML IVPB SCH (09:14)
[2019-03-18] MEDS ORDERED: POTASSIUM CHLORIDE (SR) 20 MEQ TAB PO STA (10:12)
[2019-03-18] MEDS: VALPROATE INJ 500 MG in SOD CHLORIDE 0.9% 50 ML IVPB SCH ×2 (10:23→21:52)
--- NOTE | 2019-03-18 10:48 | CONS ---
Assessment/Plan Assessment/Plan Assessment/Plan (Daily) Ventilator setting; assist control of 16, tidal volume 450, PEEP of 5, 40% FiO2. Assessment recommendations; 1. Patient with history of chronic encephalopathy and VDR F admitted with severe right-sided pneumonia. Status post placement of chest tube with interval removal as there was no drainage because of extensive dense right lung consolidation with very minimal pleural effusion. 2. Status post bronchoscopy with negative findings for any mucous plugging or endobronchial lesion. 3. Stable seizure disorder. 4. Hypernatremia with interval improvement. Continue current supportive care. Overall prognosis is poor. Consultation Date/Type/Reason Admit Date/Time Mar 08, 2019 at 04:09 Initial Consult Date Pulmonary/critical care Patient condition remains hemodynamically stable. General exam; young male, on ventilator via tracheostomy, unresponsive, currently no distress. Type of Consult H EENT exam; supple neck, no JVD. No lymphadenopathy. Midline trachea. No thyromegaly. Tracheostomy in place. Insertion site is clean. Patient has fair dentition. No neck masses. Chest exam; diminished breath sounds right lung. Left lung is clear. S1-S2 audible, no murmurs. Regular rhythm. Abdomen exam; soft, no organomegaly. G-tube in place. Bowel sounds audible. Extremity exam; no peripheral edema. Patient has a flexion contractures. TIE BUYER exam; patient remains noncommunicative and unresponsive. Requesting Provider: TE TURNER NP Date/Time of Note DATE: 03/18/19 TIME: 10:46 24 HR Interval Summary Free Text/Dictation Patient's condition is stable. Has been transferred to telemetry unit from ICU. Patient has remained hemodynamically stable. No overt seizure activity reported. General exam; young male, on ventilator via tracheostomy. Currently in no distress. Noncommunicative. Exam/Review of Systems Exam Vitals Vital Signs Date Temp Pulse Resp B/P (MAP) Pulse Ox O2 O2 Flow FiO2 Time Delivery Rate 03/18/19 105 20 95 40 08:33 03/18/19 98.8 116/67 Trach 07:38 (83) Collar Intake and Output 03/17/19 03/17/19 03/18/19 1515:00 23:00 07:00 IntakeIntake Total 2705 ml 1159 ml 1570 ml OutputOutput Total 775 ml 200 ml 1900 ml BalanceBalance 1930 ml 959 ml -330 ml Exam H EENT exam; supple neck, no JVD. No lymphadenopathy. Midline trachea. No thyromegaly. Tracheostomy in place. Patient has fair dentition. Chest exam; Diminished breath sounds right lung. Left lung is clear. S1-S2 audible, no murmurs. Regular rhythm. Abdomen exam; soft, protuberant. G-tube in place. Bowel sounds are audible. Extremity exam; no peripheral edema. TIE BUYER exam; patient remains noncommunicative. Results Result Diagram: 03/17/19 0530 03/17/19 1354 Results 24hrs Laboratory Tests Test 03/17/19 13:54 Sodium Level 156 H Potassium Level 3.3 L Chloride Level 125 H Carbon Dioxide Level 27 Anion Gap 4 L Blood Urea Nitrogen 14 Creatinine 1.00 Est Glomerular Filtrat Rate mL/min > 60 Glucose Level 123 Calcium Level 8.2 L Medications Medication Current Medications IV Flush (NS 3 ml) 3 ml PER PROTOCOL IV ; Start 03/08/19 at 04:30 Ondansetron HCl (Zofran Inj) 4 mg Q6H PRN IV NAUSEA/VOMITING; Start 03/08/19 at 04:30 Famotidine (Pepcid Iv) 20 mg Q12 IV Last administered on 03/18/19at 09:04; Admin Dose 20 MG; Start 03/08/19 at 09:00 Enoxaparin Sodium (Lovenox) 40 mg DAILY SC Last administered on 03/10/19at 09:54; Admin Dose 40 MG; Start 03/08/19 at 09:00; Status Hold Albuterol (Proventil 0.083% (Neb)) 1.25 mg Q2H RESP THERAPY PRN HHN sob/wheezing; Start 03/08/19 at 13:00 Metronidazole (Flagyl) 500 mg Q8 GTB Last administered on 03/09/19at 05:13; Admin Dose 500 MG; Start 03/08/19 at 14:00; Status Hold Ipratropium [place] (Atrovent 0.02% (Neb)) 0.5 mg Q2H RESP THERAPY PRN NEB SHORTNESS OF BREATH; Start 03/08/19 at 13:00 Cholecalciferol (Vitamin D) 2,000 unit DAILY GTB ; Start 03/09/19 at 09:00; Status Hold Ascorbic Acid (Vitamin C) 500 mg BID GTB Last administered on 03/08/19 21:27; Admin Dose 500 MG; Start 03/08/19 at 21:00; Status Hold Multivitamins/ Minerals (Theragran-M) 1 tab DAILY GTB ; Start 03/09/19 at 09:00; Status Hold Eye Lubricant (Artificial Tears Oph) 2 drop QID BOTH EYES Last administered on 03/18/19 09:09; Admin Dose 2 DROP; Start 03/08/19 at 17:00 Midazolam HCl 50 ml @ 1 mls/hr PER PROTOCOL IV Last administered on 03/09/19 06:26; Admin Dose 4 MLS/HR; Start 03/08/19 at 17:00 Lorazepam (Ativan) 1 mg Q2H PRN IV seizures Last administered on 03/17/19 15:00; Admin Dose 1 MG; Start 03/09/19 at 09:30 IV Flush (NS 10 ml) 10 ml PRN PRN IV IV PROTOCOL; Start 03/09/19 at 16:30 Levetiracetam 100 ml @ 400 mls/hr Q12 IVPB Last administered on 03/18/19 09:04; Admin Dose 400 MLS/HR; Start 03/10/19 at 09:00 Albuterol (Ventolin Hfa) 4 puff Q4H RESP THERAPY INH Last administered on 03/18/19 08:33; Admin Dose 4 PUFF; Start 03/11/19 at 01:00 Ipratropium [place] (Atrovent Hfa) 4 puff Q4H RESP THERAPY INH Last administered on 03/18/19 08:33; Admin Dose 4 PUFF; Start 03/11/19 at 01:00 Ciprofloxacin HCl (Ciloxan 0.3% Oph) 1 drop BID BOTH EYES Last administered on 03/18/19 09:08; Admin Dose 1 DROP; Start 03/15/19 at 09:00; Stop 03/19/19 at 23:00 Acetaminophen (Tylenol Liquid) 650 mg Q4H PRN GTB MILD PAIN(1-3)OR ELEVATED TEM P Last administered on 03/17/19 12:46; Admin Dose 650 MG; Start 03/15/19 at 04:30 Valproate Sodium 500 mg/Sodium Chloride 55 ml @ 51.25 mls/ hr Q12 IVPB Last administered on 03/18/19at 10:23; Admin Dose 51.25 MLS/HR; Start 03/15/19 at 09:00 Doxycycline Hyclate 100 mg/ Sodium Chloride 250 ml @ 250 mls/hr Q12 IVPB Last administered on 03/18/19at 09:14; Admin Dose 250 MLS/HR; Start 03/16/19 at 21:00 Amikacin Sulfate (Amikacin Iv Per Pharmacy) AMIKACIN PER PHARMACY NOTE XX ; Start 03/16/19 at 12:30 Dextrose 1,000 ml @ 250 mls/hr Q4H IV Last administered on 03/18/19at 05:29; Admin Dose 125 MLS/HR; Start 03/17/19 at 11:00 Amikacin Sulfate 1000 mg/Dextrose 254 ml @ 254 mls/hr Q24H IVPB Last admin istered on 03/17/19at 17:50; Admin Dose 254 MLS/HR; Start 03/17/19 at 16:00 Miscellaneous Information (*Rx Drug Level Order Reminder*) AMIKACIN TROUGH @ 1,500 ON... 1500 ONCE XX ; Start 03/18/19 at 15:00; Stop 03/18/19 at 15:01 CRISTIANE MILLARD Mar 18, 2019 10:48
--- NOTE | 2019-03-18 11:10 | CONS ---
Assessment/Plan Assessment/Plan Hospital Course (Demo Recall) Spiking fevers Antimicrobials: Amikacin, doxycycline Indwelling: Trach, PEG, Sheppard Microbiology: Sputum culture on admission grew Pseudomonas, Morganella, Providencia, Klebsiella Physical examination: Chronically ill-appearing -[place] Citizen young man who is in no distress. Patient is noncommunicative. Head atraumatic normocephalic neck is supple tracheostomy present chest rise symmetrical breath sounds diminished bases. Heart: S1-S2. Abdomen soft bowel sounds present. Assessment: 1. Sepsis on admission 2. Bacteremia consistent with contaminant 2. HCAP 3. Loculated pleural effusion s/p CT placed then removed 4. Status epilepticus 5. Chronic encephalopathy status post intracerebral hemorrhage 6. Left hip dislocation with possible septic joint and osteomyelitis 7. Questionable ileus Plan: Clinically unchanged, febrile, will repeat cx's and cxr, change Doxy to Zyvox Consultation Date/Type/Reason Admit Date/Time Mar 08, 2019 at 04:09 Initial Consult Date Type of Consult id Requesting Provider: TE TURNER NP Date/Time of Note DATE: 03/18/19 TIME: 11:09 Exam/Review of Systems Exam Vitals Vital Signs Date Temp Pulse Resp B/P (MAP) Pulse Ox O2 O2 Flow FiO2 Time Delivery Rate 03/18/19 100.8 114 23 124/83 97 Trach 11:05 (97) Collar 03/18/19 40 08:33 Intake and Output 03/17/19 03/17/19 03/18/19 1515:00 23:00 07:00 IntakeIntake Total 2705 ml 1159 ml 1570 ml OutputOutput Total 775 ml 200 ml 1900 ml BalanceBalance 1930 ml 959 ml -330 ml Results Result Diagram: 03/17/19 0530 03/17/19 1354 Results 24hrs Laboratory Tests Test 03/17/19 13:54 Sodium Level 156 H Potassium Level 3.3 L Chloride Level 125 H Carbon Dioxide Level 27 Anion Gap 4 L Blood Urea Nitrogen 14 Creatinine 1.00 Est Glomerular Filtrat Rate mL/min > 60 Glucose Level 123 Calcium Level 8.2 L Medications Medication Current Medications IV Flush (NS 3 ml) 3 ml PER PROTOCOL IV ; Start 03/08/19 at 04:30 Ondansetron HCl (Zofran Inj) 4 mg Q6H PRN IV NAUSEA/VOMITING; Start 03/08/19 at 04:30 Famotidine (Pepcid Iv) 20 mg Q12 IV Last administered on 03/18/19at 09:04; Admin Dose 20 MG; Start 03/08/19 at 09:00 Enoxaparin Sodium (Lovenox) 40 mg DAILY SC Last administered on 03/10/19at 09:54; Admin Dose 40 MG; Start 03/08/19 at 09:00; Status Hold Albuterol (Proventil 0.083% (Neb)) 1.25 mg Q2H RESP THERAPY PRN HHN sob/wheezing; Start 03/08/19 at 13:00 Metronidazole (Flagyl) 500 mg Q8 GTB Last administered on 03/09/19at 05:13; Admin Dose 500 MG; Start 03/08/19 at 14:00; Status Hold Ipratropium [place] (Atrovent 0.02% (Neb)) 0.5 mg Q2H RESP THERAPY PRN NEB SHORTNESS OF BREATH; Start 03/08/19 at 13:00 Cholecalciferol (Vitamin D) 2,000 unit DAILY GTB ; Start 03/09/19 at 09:00; Status Hold Ascorbic Acid (Vitamin C) 500 mg BID GTB Last administered on 03/08/19at 21:27; Admin Dose 500 MG; Start 03/08/19 at 21:00; Status Hold Multivitamins/ Minerals (Theragran-M) 1 tab DAILY GTB ; Start 03/09/19 at 09:00; Status Hold Eye Lubricant (Artificial Tears Oph) 2 drop QID BOTH EYES Last administered on 03/18/19at 09:09; Admin Dose 2 DROP; Start 03/08/19 at 17:00 Midazolam HCl 50 ml @ 1 mls/hr PER PROTOCOL IV Last administered on 03/09/19at 06:26; Admin Dose 4 MLS/HR; Start 03/08/19 at 17:00 Lorazepam (Ativan) 1 mg Q2H PRN IV seizures Last administered on 03/17/19at 15:00; Admin Dose 1 MG; Start 03/09/19 at 09:30 IV Flush (NS 10 ml) 10 ml PRN PRN IV IV PROTOCOL; Start 03/09/19 at 16:30 Levetiracetam 100 ml @ 400 mls/hr Q12 IVPB Last administered on 03/18/19 09:04; Admin Dose 400 MLS/HR; Start 03/10/19 at 09:00 Albuterol (Ventolin Hfa) 4 puff Q4H RESP THERAPY INH Last administered on 03/18/19 08:33; Admin Dose 4 PUFF; Start 03/11/19 at 01:00 Ipratropium [place] (Atrovent Hfa) 4 puff Q4H RESP THERAPY INH Last administered on 03/18/19 08:33; Admin Dose 4 PUFF; Start 03/11/19 at 01:00 Ciprofloxacin HCl (Ciloxan 0.3% Oph) 1 drop BID BOTH EYES Last administered on 03/18/19 09:08; Admin Dose 1 DROP; Start 03/15/19 at 09:00; Stop 03/19/19 at 23:00 Acetaminophen (Tylenol Liquid) 650 mg Q4H PRN GTB MILD PAIN(1-3)OR ELEVATED TEMP Last administered on 03/17/19 12:46; Admin Dose 650 MG; Start 03/15/19 at 04:30 Valproate Sodium 500 mg/Sodium Chloride 55 ml @ 51.25 mls/ hr Q12 IVPB Last administered on 03/18/19 10:23; Admin Dose 51.25 MLS/HR; Start 03/15/19 at 09:00 Doxycycline Hyclate 100 mg/ Sodium Chloride 250 ml @ 250 mls/hr Q12 IVPB Last administered on 03/18/19 09:14; Admin Dose 250 MLS/HR; Start 03/16/19 at 21:00 Amikacin Sulfate (Amikacin Iv Per Pharmacy) AMIKACIN PER PHARMACY NOTE XX ; Start 03/16/19 at 12:30 Dextrose 1,000 ml @ 250 mls/hr Q4H IV Last administered on 03/18/19 05:29; Admin Dose 125 MLS/HR; Start 03/17/19 at 11:00 Amikacin Sulfate 1000 mg/Dextrose 254 ml @ 254 mls/hr Q24H IVPB Last administered on 03/17/19 17:50; Admin Dose 254 MLS/HR; Start 03/17/19 at 16:00 Miscellaneous Information (*Rx Drug Level Order Reminder*) AMIKACIN TROUGH @ 1,500 ON... 1500 ONCE XX ; Start 03/18/19 at 15:00; Stop 03/18/19 at 15:01 DOMO PERRY NP Mar 18, 2019 11:10
--- NOTE | 2019-03-18 15:39 | CONS ---
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 Noted to have breakthrough seizures, for which neurology is consulted.. The patient is noted to have a GI ileus..which is a likely contributor to recent enteral medication malabsorption. UA + .... an additional contributor... to a lowered seizure threshold.. Depakote level was near undetectable on presentation.. Head CT is without obvious acute intracranial pathology..though concerning for residual possible avm P: Continue maintenance Depakote 500 q12 iv for now. Titrate to goal level ~100 Continue maintenance Keppra 1g q12 iv for now Ativan 2mg iv prn prolonged seizure (> 5 min) (as hemodynamics allow) Other management and supportive care per primary Will follow Consultation Date/Type/Reason Admit Date/Time Mar 08, 2019 at 04:09 Type of Consult Neurology Reason for Consultation seizure Requesting Provider: TE TURNER NP Date/Time of Note DATE: 03/18/19 TIME: 15:38 24 HR Interval Summary Free Text/Dictation Continues acute care Exam/Review of Systems Exam Vitals Vital Signs Date Temp Pulse Resp B/P (MAP) Pulse Ox O2 O2 Flow FiO2 Time Delivery Rate 03/18/19 97.5 15:25 03/18/19 95 18 103/79 97 Trach 15:09 (87) Collar 03/18/19 40 13:18 Intake and Output 03/17/19 03/17/19 03/18/19 1515:00 23:00 07:00 IntakeIntake Total 2705 ml 1159 ml 1570 ml OutputOutput Total 775 ml 200 ml 1900 ml BalanceBalance 1930 ml 959 ml -330 ml Results Result Diagram: 03/17/19 0530 03/18/19 1444 Results 24hrs Laboratory Tests Test 03/18/19 14:44 Sodium Level 149 H Potassium Level 3.4 L Chloride Level 114 H Carbon Dioxide Level 30 Anion Gap 5 Blood Urea Nitrogen 15 Creatinine 1.32 H Est Glomerular Filtrat Rate mL/min > 60 Glucose Level 101 Calcium Level 7.9 L Medications Medication Current Medications IV Flush (NS 3 ml) 3 ml PER PROTOCOL IV ; Start 03/08/19 at 04:30 Ondansetron HCl (Zofran Inj) 4 mg Q6H PRN IV NAUSEA/VOMITING; Start 03/08/19 at 04:30 Famotidine (Pepcid Iv) 20 mg Q12 IV Last administered on 03/18/19at 09:04; Admin Dose 20 MG; Start 03/08/19 at 09:00 Enoxaparin Sodium (Lovenox) 40 mg DAILY SC Last administered on 03/10/19at 09:54; Admin Dose 40 MG; Start 03/08/19 at 09:00; Status Hold Albuterol (Proventil 0.083% (Neb)) 1.25 mg Q2H RESP THERAPY PRN HHN sob/wheezing; Start 03/08/19 at 13:00 Metronidazole (Flagyl) 500 mg Q8 GTB Last administered on 03/09/19at 05:13; Admin Dose 500 MG; Start 03/08/19 at 14:00; Status Hold Ipratropium [place] (Atrovent 0.02% (Neb)) 0.5 mg Q2H RESP THERAPY PRN NEB SHORTNESS OF BREATH; Start 03/08/19 at 13:00 Cholecalciferol (Vitamin D) 2,000 unit DAILY GTB ; Start 03/09/19 at 09:00; Status Hold Ascorbic Acid (Vitamin C) 500 mg BID GTB Last administered on 03/08/19at 21:27; Admin Dose 500 MG; Start 03/08/19 at 21:00; Status Hold Multivitamins/ Minerals (Theragran-M) 1 tab DAILY GTB ; Start 03/09/19 at 09:00; Status Hold Eye Lubricant (Artificial Tears Oph) 2 drop QID BOTH EYES Last administered on 03/18/19at 13:52; Admin Dose 2 DROP; Start 03/08/19 at 17:00 Lorazepam (Ativan) 1 mg Q2H PRN IV seizures Last administered on 03/17/19 15:00; Admin Dose 1 MG; Start 03/09/19 at 09:30 IV Flush (NS 10 ml) 10 ml PRN PRN IV IV PROTOCOL; Start 03/09/19 at 16:30 Levetiracetam 100 ml @ 400 mls/hr Q12 IVPB Last administered on 03/18/19 09:04; Admin Dose 400 MLS/HR; Start 03/10/19 at 09:00 Albuterol (Ventolin Hfa) 4 puff Q4H RESP THERAPY INH Last administered on 03/18/19 13:18; Admin Dose 4 PUFF; Start 03/11/19 at 01:00 Ipratropium [place] (Atrovent Hfa) 4 puff Q4H RESP THERAPY INH Last admi nistered on 03/18/19 13:18; Admin Dose 4 PUFF; Start 03/11/19 at 01:00 Ciprofloxacin HCl (Ciloxan 0.3% Oph) 1 drop BID BOTH EYES Last administered on 03/18/19 09:08; Admin Dose 1 DROP; Start 03/15/19 at 09:00; Stop 03/19/19 at 23:00 Acetaminophen (Tylenol Liquid) 650 mg Q4H PRN GTB MILD PAIN(1-3)OR ELEVATED TEMP Last administered on 03/17/19 12:46; Admin Dose 650 MG; Start 03/15/19 at 04:30 Valproate Sodium 500 mg/Sodium Chloride 55 ml @ 51.25 mls/ hr Q12 IVPB Last administered on 03/18/19 10:23; Admin Dose 51.25 MLS/HR; Start 03/15/19 at 09:00 Amikacin Sulfate (Amikacin Iv Per Pharmacy) AMIKACIN PER PHARMACY NOTE XX ; Start 03/16/19 at 12:30 Dextrose 1,000 ml @ 250 mls/hr Q4H IV Last administered on 03/18/19 13:54; Admin Dose 250 MLS/HR; Start 03/17/19 at 11:00 Amikacin Sulfate 1000 mg/Dextrose 254 ml @ 254 mls/hr Q24H IVPB Last administered on 03/17/19 17:50; Admin Dose 254 MLS/HR; Start 03/17/19 at 16:00 Linezolid (Zyvox) 600 mg BID PO ; Start 03/18/19 at 21:00 SUSAN ANTHONY Mar 18, 2019 15:39
[2019-03-18] MEDS: AMIKACIN 1,000 MG in DEXTROSE 5% 250 ML IVPB SCH (16:05)
--- NOTE | 2019-03-18 16:32 | PN ---
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 -coto culture reveals negative urine and blood cultures, sputum culture with multiple organisms Septic hip: - No indiction for surigcal intervention right now - Appreciate Dr Workman's consultation Acute on chronic Vent dependent respiratory failure - Bronchodilators, pulmonary toileting -Vent management per pulmonary Hypernatremia and CHACHA: - Bolus 1 L NS - Increase FW flushes and add D5W for FW deficit of 5.8 liters Chronic encephalopathy second to history of ICH from AVM -supportive care, mother is not interested in aggressive care Dysphagia/PEG placed -Tube feeds were held secondary to ileus, repeat KUB does not show ileus and will resume Epilepsy/Seizure disorders -Seizures now stable -Neurology consultation appreciated, continue seizure medications Chronic decub ulcer/L foot metatarsal wounds -Continue wound care, continue antibiotics DVT prophylaxis: Lovenox PUD prophylaxis: Pepcid DC planning: Discharge to SNF when sodium is corrected Result Diagram: 03/17/19 0530 03/18/19 1444 Results 24hrs Laboratory Tests Test 03/18/19 14:44 Sodium Level 149 H Potassium Level 3.4 L Chloride Level 114 H Carbon Dioxide Level 30 Anion Gap 5 Blood Urea Nitrogen 15 Creatinine 1.32 H Est Glomerular Filtrat Rate mL/min > 60 Glucose Level 101 Calcium Level 7.9 L Valproic Acid (Depakene) Level 53 Subjective 24 Hr Interval Summary Free Text/Dictation Continued fevers Hypernatremia is resolving Exam/Review of Systems Exam Vitals Vital Signs Date Temp Pulse Resp B/P (MAP) Pulse Ox O2 O2 Flow FiO2 Time Delivery Rate 03/18/19 97.5 15:25 03/18/19 95 18 103/79 97 Trach 15:09 (87) Collar 03/18/19 40 13:18 Intake and Output 03/17/19 03/17/19 03/18/19 1515:00 23:00 07:00 IntakeIntake Total 2705 ml 1159 ml 1570 ml OutputOutput Total 775 ml 200 ml 1900 ml BalanceBalance 1930 ml 959 ml -330 ml Results Results 24hrs Laboratory Tests Test 03/18/19 14:44 Sodium Level 149 H Potassium Level 3.4 L Chloride Level 114 H Carbon Dioxide Level 30 Anion Gap 5 Blood Urea Nitrogen 15 Creatinine 1.32 H Est Glomerular Filtrat Rate mL/min > 60 Glucose Level 101 Calcium Level 7.9 L Valproic Acid (Depakene) Level 53 Medications Medication Current Medications IV Flush (NS 3 ml) 3 ml PER PROTOCOL IV ; Start 03/08/19 at 04:30 Ondansetron HCl (Zofran Inj) 4 mg Q6H PRN IV NAUSEA/VOMITING; Start 03/08/19 at 04:30 Famotidine (Pepcid Iv) 20 mg Q12 IV Last administered on 03/18/19at 09:04; Admin Dose 20 MG; Start 03/08/19 at 09:00 Enoxaparin Sodium (Lovenox) 40 mg DAILY SC Last administered on 03/10/19at 09:54; Admin Dose 40 MG; Start 03/08/19 at 09:00; Status Hold Albuterol (Proventil 0.083% (Neb)) 1.25 mg Q2H RESP THERAPY PRN HHN sob/wheezing; Start 03/08/19 at 13:00 Metronidazole (Flagyl) 500 mg Q8 GTB Last administered on 03/09/19at 05:13; Admin Dose 500 MG; Start 03/08/19 at 14:00; Status Hold Ipratropium [place] (Atrovent 0.02% (Neb)) 0.5 mg Q2H RESP THERAPY PRN NEB SHORTNESS OF BREATH; Start 03/08/19 at 13:00 Cholecalciferol (Vitamin D) 2,000 unit DAILY GTB ; Start 03/09/19 at 09:00; Status Hold Ascorbic Acid (Vitamin C) 500 mg BID GTB Last administered on 03/08/19 21:27; Admin Dose 500 MG; Start 03/08/19 at 21:00; Status Hold Multivitamins/ Minerals (Theragran-M) 1 tab DAILY GTB ; Start 03/09/19 at 09:00; Status Hold Eye Lubricant (Artificial Tears Oph) 2 drop QID BOTH EYES Last administered on 03/18/19 13:52; Admin Dose 2 DROP; Start 03/08/19 at 17:00 Lorazepam (Ativan) 1 mg Q2H PRN IV seizures Last administered on 03/17/19 15:00; Admin Dose 1 MG; Start 03/09/19 at 09:30 IV Flush (NS 10 ml) 10 ml PRN PRN IV IV PROTOCOL; Start 03/09/19 at 16:30 Levetiracetam 100 ml @ 400 mls/hr Q12 IVPB Last administered on 03/18/19 09:04; Admin Dose 400 MLS/HR; Start 03/10/19 at 09:00 Albuterol (Ventolin Hfa) 4 puff Q4H RESP THERAPY INH Last administered on 03/18/19 13:18; Admin Dose 4 PUFF; Start 03/11/19 at 01:00 Ipratropium [place] (Atrovent Hfa) 4 puff Q4H RESP THERAPY INH Last administered on 03/18/19 13:18; Admin Dose 4 PUFF; Start 03/11/19 at 01:00 Ciprofloxacin HCl (Ciloxan 0.3% Oph) 1 drop BID BOTH EYES Last administered on 03/18/19 09:08; Admin Dose 1 DROP; Start 03/15/19 at 09:00; Stop 03/19/19 at 23:00 Acetaminophen (Tylenol Liquid) 650 mg Q4H PRN GTB MILD PAIN(1-3)OR ELEVATED TEMP Last administered on 03/17/19 12:46; Admin Dose 650 MG; Start 03/15/19 at 04:30 Valproate Sodium 500 mg/Sodium Chloride 55 ml @ 51.25 mls/ hr Q12 IVPB Last administered on 03/18/19 10:23; Admin Dose 51.25 MLS/HR; Start 03/15/19 at 09:00 Amikacin Sulfate (Amikacin Iv Per Pharmacy) AMIKACIN PER PHARMACY NOTE XX ; Start 03/16/19 at 12:30 Dextrose 1,000 ml @ 250 mls/hr Q4H IV Last administered on 03/18/19at 13:54; Admin Dose 250 MLS/HR; Start 03/17/19 at 11:00 Amikacin Sulfate 1000 mg/Dextrose 254 ml @ 254 mls/hr Q24H IVPB Last administered on 03/18/19at 16:05; Admin Dose 254 MLS/HR; Start 03/17/19 at 16:00 Linezolid (Zyvox) 600 mg BID PO ; Start 03/18/19 at 21:00 ORI JEROME MD Mar 18, 2019 16:32
--- NOTE | 2019-03-18 17:08 | CONS ---
Assessment/Plan Assessment/Plan Hospital Course (Demo Recall) Is a 23-year-old male who is nonambulatory, noncommunicative/nonverbal who unfortunately suffered intracranial hemorrhage and has been ventilator dependent for the last 2 years. Left hip dislocation appears to be chronic. Patient has bilateral lower extremity contractures. The hip may have been dislocated in the past secondary to seizures. At this time does not appear that the hip is i nfected however I cannot be definitely ruled out without further evaluation treatment. At this time the patient is being successfully treated for his respiratory failure and is on antibiotics. There are no outward signs and symptoms of a left hip infection. If further evaluation of the left hip is desired an aspiration by interventional radiology on MRI with and without contrast would be helpful. Given the patient's current status if not infected he would not be a candidate for reduction of this hip as it is a chronic hip dislocation and he is not ambulatory. If the hip is found to have an infection recommendation would be to have a [place] procedure. However after discussing with the mom who is the power of tax associate attorney she would not like any intervention including surgery. At this time I recommend local wound care and packing of the decubitus ulcer and every 2 hour turns to prevent further decubitus ulcers. Consultation Date/Type/Reason Admit Date/Time Mar 08, 2019 at 04:09 Date of Consultation: Mar 18, 2019 Reason for Consultation Left hip dislocation Date/Time of Note DATE: 03/18/19 TIME: 17:04 Hx of Present Illness 23-year-old male who unfortunately suffered from ICH from multiple AVMs about 2 years ago who has been dependent on a ventilator since then was admitted to [facility] for sepsis and respiratory failure. Medical history is complicated including intracranial hemorrhage secondary to AVMs, subsequent epilepsy, chronic encephalopathy, essential hypertension, dysphagia with G-tube On evaluation the patient was incidentally found to have a left hip dislocation on CT chest abdomen pelvis. Orthopedics was consulted for further evaluation and treatment for the hip dislocation and possible concerned that it may be infected. Since the ICH the patient has been nonverbal, nonambulatory, ventilator dependent, and has had multiple seizures. The patient has been alert and oriented x0 since the ICH. He has been living at an acute care facility. Obtaining further history from the mother there was no known previous hip dislocation, but to her knowledge no imaging of the pelvis or hip area was previously done. Unable to obtain as patient is nonverbal and noncommunicative Past Medical History intracranial hemorrhage secondary Brain AVM Ventilator dependent with trach epilepsy chronic encephalopathy essential hypertension dysphagia with G-tube Home Meds No Active Prescriptions or Reported Meds Medications Current Medications IV Flush (NS 3 ml) 3 ml PER PROTOCOL IV ; Start 03/08/19 at 04:30 Ondansetron HCl (Zofran Inj) 4 mg Q6H PRN IV NAUSEA/VOMITING; Start 03/08/19 at 04:30 Famotidine (Pepcid Iv) 20 mg Q12 IV Last administered on 03/18/19at 09:04; Admin Dose 20 MG; Start 03/08/19 at 09:00 Enoxaparin Sodium (Lovenox) 40 mg DAILY SC Last administered on 03/10/19at 09:54; Admin Dose 40 MG; Start 03/08/19 at 09:00; Status Hold Albuterol (Proventil 0.083% (Neb)) 1.25 mg Q2H RESP THERAPY PRN HHN sob/wheezing; Start 03/08/19 at 13:00 Metronidazole (Flagyl) 500 mg Q8 GTB Last administered on 03/09/19at 05:13; Admin Dose 500 MG; Start 03/08/19 at 14:00; Status Hold Ipratropium [place] (Atrovent 0.02% (Neb)) 0.5 mg Q2H RESP THERAPY PRN NEB SHORTNESS OF BREATH; Start 03/08/19 at 13:00 Cholecalciferol (Vitamin D) 2,000 unit DAILY GTB ; Start 03/09/19 at 09:00; Status Hold Ascorbic Acid (Vitamin C) 500 mg BID GTB Last administered on 03/08/19at 21:27; Admin Dose 500 MG; Start 03/08/19 at 21:00; Status Hold Multivitamins/ Minerals (Theragran-M) 1 tab DAILY GTB ; Start 03/09/19 at 09:00; Status Hold Eye Lubricant (Artificial Tears Oph) 2 drop QID BOTH EYES Last administered on 03/18/19at 13:52; Admin Dose 2 DROP; Start 03/08/19 at 17:00 Lorazepam (Ativan) 1 mg Q2H PRN IV seizures Last administered on 03/17/19at 15:00; Admin Dose 1 MG; Start 03/09/19 at 09:30 IV Flush (NS 10 ml) 10 ml PRN PRN IV IV PROTOCOL; Start 03/09/19 at 16:30 Levetiracetam 100 ml @ 400 mls/hr Q12 IVPB Last administered on 03/18/19 09:04; Admin Dose 400 MLS/HR; Start 03/10/19 at 09:00 Albuterol (Ventolin Hfa) 4 puff Q4H RESP THERAPY INH Last administered on 03/18/19 13:18; Admin Dose 4 PUFF; Start 03/11/19 at 01:00 Ipratropium [place] (Atrovent Hfa) 4 puff Q4H RESP THERAPY INH Last administered on 03/18/19 13:18; Admin Dose 4 PUFF; Start 03/11/19 at 01:00 Ciprofloxacin HCl (Ciloxan 0.3% Oph) 1 drop BID BOTH EYES Last administered on 03/18/19 09:08; Admin Dose 1 DROP; Start 03/15/19 at 09:00; Stop 03/19/19 at 23:00 Acetaminophen (Tylenol Liquid) 650 mg Q4H PRN GTB MILD PAIN(1-3)OR ELEVATED TEMP Last administered on 03/17/19 12:46; Admin Dose 650 MG; Start 03/15/19 at 04:30 Valproate Sodium 500 mg/Sodium Chloride 55 ml @ 51.25 mls/ hr Q12 IVPB Last administered on 03/18/19 10:23; Admin Dose 51.25 MLS/HR; Start 03/15/19 at 09:00 Amikacin Sulfate (Amikacin Iv Per Pharmacy) AMIKACIN PER PHARMACY NOTE XX ; Start 03/16/19 at 12:30 Dextrose 1,000 ml @ 250 mls/hr Q4H IV Last administered on 03/18/19 13:54; Admin Dose 250 MLS/HR; Start 03/17/19 at 11:00 Amikacin Sulfate 1000 mg/Dextrose 254 ml @ 254 mls/hr Q24H IVPB Last administered on 03/17/19 17:50; Admin Dose 254 MLS/HR; Start 03/17/19 at 16:00 Linezolid (Zyvox) 600 mg BID PO ; Start 03/18/19 at 21:00 Allergies: Coded Allergies: No Known Allergy (Unverified , 03/08/19) Past Surgical History Past Surgical Hx: noncontributory Social History Smoking Status: Unknown if ever smoked Exam/Review of Systems Exam Vitals Vital Signs Date Temp Pulse Resp B/P (MAP) Pulse Ox O2 O2 Flow FiO2 Time Delivery Rate 03/18/19 98.7 95 18 103/79 97 Trach 15:09 (87) Collar 03/18/19 40 13:18 Intake and Output 03/17/19 03/17/19 03/18/19 1515:00 23:00 07:00 IntakeIntake Total 2705 ml 1159 ml 1570 ml OutputOutput Total 775 ml 200 ml 1900 ml BalanceBalance 1930 ml 959 ml -330 ml Exam General: ANO x0. Mild distress. Left lower extremity: Patient spontaneously moves lower extremity. There are chronic hip and knee flexion contractures. There is internal rotation of the leg. There is adduction of the leg. Leg length difficult to evaluate secondary to bilateral lower extremity flexion contractures. There is prominence of the femoral head posteriorly in the buttock. There is a decubitus ulcer near the ischial tuberosity as well as as the dislocated femoral head. There is no active drainage. No erythema. The skin wound is about 3-5 mm in diameter. The wound is about 2 cm deep and there is undermining of the wound circumferentially. Results Result Diagram: 03/17/19 0530 03/17/19 1354 Results 24hrs Laboratory Tests Test 03/18/19 14:44 Sodium Level 149 H Potassium Level 3.4 L Chloride Level 114 H Carbon Dioxide Level 30 Anion Gap 5 Blood Urea Nitrogen 15 Creatinine 1.32 H Est Glomerular Filtrat Rate mL/min > 60 Glucose Level 101 Calcium Level 7.9 L Valproic Acid (Depakene) Level 53 Imaging Imaging AP pelvis and left hip and CT pelvis personally reviewed: Demonstrate superior posterior left hip dislocation. It is chronic appearing with chronic changes to the acetabulum. There are chronic changes to the femoral head. The hip dislocation appears to be chronic. Infection and osteomyelitis cannot be ruled out on CT scan. Medications Medication Current Medications IV Flush (NS 3 ml) 3 ml PER PROTOCOL IV ; Start 03/08/19 at 04:30 Ondansetron HCl (Zofran Inj) 4 mg Q6H PRN IV NAUSEA/VOMITING; Start 7/1/19 at 04:30 Famotidine (Pepcid Iv) 20 mg Q12 IV Last administered on 03/18/19at 09:04; Admin Dose 20 MG; Start 03/08/19 at 09:00 Enoxaparin Sodium (Lovenox) 40 mg DAILY SC Last administered on 03/10/19at 09:54; Admin Dose 40 MG; Start 03/08/19 at 09:00; Status Hold Albuterol (Proventil 0.083% (Neb)) 1.25 mg Q2H RESP THERAPY PRN HHN sob/wheezing; Start 03/08/19 at 13:00 Metronidazole (Flagyl) 500 mg Q8 GTB Last administered on 03/09/19at 05:13; Admin Dose 500 MG; Start 03/08/19 at 14:00; Status Hold Ipratropium [place] (Atrovent 0.02% (Neb)) 0.5 mg Q2H RESP THERAPY PRN NEB SHORTNESS OF BREATH; Start 03/08/19 at 13:00 Cholecalciferol (Vitamin D) 2,000 unit DAILY GTB ; Start 03/09/19 at 09:00; Status Hold Ascorbic Acid (Vitamin C) 500 mg BID GTB Last administered on 03/08/19at 21:27; Admin Dose 500 MG; Start 03/08/19 at 21:00; Status Hold Multivitamins/ Minerals (Theragran-M) 1 tab DAILY GTB ; Start 03/09/19 at 09:00; Status Hold Eye Lubricant (Artificial Tears Oph) 2 drop QID BOTH EYES Last administered on 03/18/19at 13:52; Admin Dose 2 DROP; Start 03/08/19 at 17:00 Lorazepam (Ativan) 1 mg Q2H PRN IV seizures Last administered on 03/17/19at 15:00; Admin Dose 1 MG; Start 03/09/19 at 09:30 IV Flush (NS 10 ml) 10 ml PRN PRN IV IV PROTOCOL; Start 03/09/19 at 16:30 Levetiracetam 100 ml @ 400 mls/hr Q12 IVPB Last administered on 03/18/19at 09:04; Admin Dose 400 MLS/HR; Start 03/10/19 at 09:00 Albuterol (Ventolin Hfa) 4 puff Q4H RESP THERAPY INH Last administered on 03/18/19 13:18; Admin Dose 4 PUFF; Start 03/11/19 at 01:00 Ipratropium [place] (Atrovent Hfa) 4 puff Q4H RESP THERAPY INH Last administered on 03/18/19 13:18; Admin Dose 4 PUFF; Start 03/11/19 at 01:00 Ciprofloxacin HCl (Ciloxan 0.3% Oph) 1 drop BID BOTH EYES Last administered on 03/18/19 09:08; Admin Dose 1 DROP; Start 03/15/19 at 09:00; Stop 03/19/19 at 23:00 Acetaminophen (Tylenol Liquid) 650 mg Q4H PRN GTB MILD PAIN(1-3)OR ELEVATED TEMP Last administered on 03/17/19 12:46; Admin Dose 650 MG; Start 03/15/19 at 04:30 Valproate Sodium 500 mg/Sodium Chloride 55 ml @ 51.25 mls/ hr Q12 IVPB Last administered on 03/18/19 10:23; Admin Dose 51.25 MLS/HR; Start 03/15/19 at 09:00 Amikacin Sulfate (Amikacin Iv Per Pharmacy) AMIKACIN PER PHARMACY NOTE XX ; Start 03/16/19 at 12:30 Dextrose 1,000 ml @ 250 mls/hr Q4H IV Last administered on 03/18/19 13:54; Admin Dose 250 MLS/HR; Start 03/17/19 at 11:00 Amikacin Sulfate 1000 mg/Dextrose 254 ml @ 254 mls/hr Q24H IVPB Last administered on 03/17/19 17:50; Admin Dose 254 MLS/HR; Start 03/17/19 at 16:00 Linezolid (Zyvox) 600 mg BID PO ; Start 03/18/19 at 21:00 TEMO TYLER MD Mar 18, 2019 17:08
[2019-03-18] MEDS: ZYVOX 600 MG TAB PO SCH (21:41)
[2019-03-19] VITALS (11 sets, daily range): BP systolic 95–112; BP diastolic 65–75; PULSE 75–102; RESP 17–21
[2019-03-19] MEDS: IPRATROPIUM (HFA) 12.9 GM INHALER INH SCH ×4 (01:26→13:00)
[2019-03-19] MEDS: ALBUTEROL HFA 8 GM INHALER INH SCH ×4 (01:26→13:00)
[2019-03-19] MEDS: DEXTROSE 5% 1,000 ML IV SCH ×3 (03:40→10:11)
[2019-03-19] MEDS: LEVETIRACETAM 1000 MG (PMX) 100 ML IVPB SCH (09:40)
[2019-03-19] MEDS: ARTIFICIAL TEARS 15 ML OPH BOTH EYES SCH ×3 (09:40→16:52)
[2019-03-19] MEDS: FAMOTIDINE 20 MG INJ IV SCH (09:40)
[2019-03-19] MEDS: CIPROFLOXACIN 0.3% 2.5 ML OPH BOTH EYES SCH (09:40)
[2019-03-19] MEDS: ZYVOX 600 MG TAB PO SCH (09:40)
[2019-03-19] MEDS ORDERED: POTASSIUM CHLORIDE (SR) 20 MEQ TAB PO STA (10:01)
--- NOTE | 2019-03-19 11:05 | CONS ---
Consultation Date/Type/Reason Admit Date/Time Mar 08, 2019 at 04:09 Initial Consult Date Pulmonary/critical care Patient condition remains hemodynamically stable. General exam; young male, on ventilator via tracheostomy, unresponsive, currently no distress. Type of Consult H EENT exam; supple neck, no JVD. No lymphadenopathy. Midline trachea. No thyromegaly. Tracheostomy in place. Insertion site is clean. Patient has fair dentition. No neck masses. Chest exam; diminished breath sounds right lung. Left lung is clear. S1-S2 audible, no murmurs. Regular rhythm. Abdomen exam; soft, no organomegaly. G-tube in place. Bowel sounds audible. Extremity exam; no peripheral edema. Patient has a flexion contractures. 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 Requesting Provider: TE TURNER NP Date/Time of Note DATE: 03/19/19 TIME: 11:03 24 HR Interval Summary Free Text/Dictation Patient's condition is stable. Has remained hemodynamically stable. General exam; young male, on ventilator via tracheostomy, noncommunicative. Currently in no distress. H ENT exam; supple neck, no JVD. No lymphadenopathy. Midline trachea. No thyromegaly. Tracheostomy in place. Insertion site is clean. Patient has fair dentition. Chest exam; diminished breath sounds right lung. Left lung is clear. S1-S2 audible, no murmurs. Regular rhythm. Abdomen exam; soft, G-tube in place. Protuberant. No organomegaly. Bowel soun ds are audible. Extremity exam; no peripheral edema. LACQUER DIPPING MACHINE OPERATOR exam; patient remains unresponsive and noncommunicative. Ventilator setting; AC of 16, tidal volume 450, PEEP of 5, 30% FiO2. Assessment and recommendations; 1. Patient with history of chronic encephalopathy and VDR F admitted with severe right-sided pneumonia. Status post chest tube placement with interval removal because of very minimal if any pleural effusion drainage. CT chest showing dense entire right lung consolidation. Status post negative bronchoscopy as well. Continue current supportive care. Continue current antimicrobial regimen. Overall prognosis remains poor. Exam/Review of Systems Exam Vitals Vital Signs Date Temp Pulse Resp B/P (MAP) Pulse Ox O2 O2 Flow FiO2 Time Delivery Rate 03/19/19 94 18 98 40 09:44 03/19/19 99.3 108/71 Trach 07:31 (83) Collar Intake and Output 03/18/19 03/18/19 03/19/19 1515:00 23:00 07:00 IntakeIntake Total 400 ml 2050 ml OutputOutput Total 1000 ml 1500 ml 2550 ml BalanceBalance -600 ml 550 ml -2550 ml Results Result Diagram: 03/19/19 0618 03/19/19 0618 Results 24hrs Laboratory Tests Test 03/18/19 14:44 03/19/19 06:18 Sodium Level 149 H 143 Potassium Level 3.4 L 3.3 L Chloride Level 114 H 107 Carbon Dioxide Level 30 30 Anion Gap 5 6 Blood Urea Nitrogen 15 11 Creatinine 1.32 H 0.81 Est Glomerular Filtrat Rate mL/min > 60 > 60 Glucose Level 101 151 Calcium Level 7.9 L 7.8 L Valproic Acid (Depakene) Level 53 White Blood Count 7.4 # Red Blood Count 3.49 L Hemoglobin 9.3 L Hematocrit 30.9 L Mean Corpuscular Volume 88.5 Mean Corpuscular Hemoglobin 26.6 L Mean Corpuscular Hemoglobin Concent 30.1 L Red Cell Distribution Width 21.4 H Platelet Count 198 # Mean Platelet Volume 11.6 H Immature Granulocytes % 0.400 Neutrophils % 61.8 Lymphocytes % 16.6 Monocytes % 15.0 H Eosinophils % 5.8 Basophils % 0.4 Nucleated Red Blood Cells % 0.0 Immature Granulocytes # 0.030 Neutrophils # 4.6 Lymphocytes # 1.2 Monocytes # 1.1 H Eosinophils # 0.4 Basophils # 0.0 Nucleated Red Blood Cells # 0.0 Medications Medication Current Medications IV Flush (NS 3 ml) 3 ml PER PROTOCOL IV ; Start 03/08/19 at 04:30 Ondansetron HCl (Zofran Inj) 4 mg Q6H PRN IV NAUSEA/VOMITING; Start 03/08/19 at 04:30 Famotidine (Pepcid Iv) 20 mg Q12 IV Last administered on 03/19/19at 09:40; Admin Dose 20 MG; Start 03/08/19 at 09:00 Enoxaparin Sodium (Lovenox) 40 mg DAILY SC Last administered on 03/10/19at 09:54; Admin Dose 40 MG; Start 03/08/19 at 09:00; Status Hold Albuterol (Proventil 0.083% (Neb)) 1.25 mg Q2H RESP THERAPY PRN HHN sob/wheezing; Start 03/08/19 at 13:00 Metronidazole (Flagyl) 500 mg Q8 GTB Last administered on 03/09/19 05:13; Admin Dose 500 MG; Start 03/08/19 at 14:00; Status Hold Ipratropium [place] (Atrovent 0.02% (Neb)) 0.5 mg Q2H RESP THERAPY PRN NEB SHORTNESS OF BREATH; Start 03/08/19 at 13:00 Cholecalciferol (Vitamin D) 2,000 unit DAILY GTB ; Start 03/09/19 at 09:00; Status Hold Ascorbic Acid (Vitamin C) 500 mg BID GTB Last administered on 03/08/19 21:27; Admin Dose 500 MG; Start 03/08/19 at 21:00; Status Hold Multivitamins/ Minerals (Theragran-M) 1 tab DAILY GTB ; Start 03/09/19 at 09:00; Status Hold Eye Lubricant (Artificial Tears Oph) 2 drop QID BOTH EYES Last administered on 03/19/19 09:40; Admin Dose 2 DROP; Start 03/08/19 at 17:00 Lorazepam (Ativan) 1 mg Q2H PRN IV seizures Last administered on 03/17/19 15:00; Admin Dose 1 MG; Start 03/09/19 at 09:30 IV Flush (NS 10 ml) 10 ml PRN PRN IV IV PROTOCOL; Start 03/09/19 at 16:30 Levetiracetam 100 ml @ 400 mls/hr Q12 IVPB Last administered on 03/19/19 09:40; Admin Dose 400 MLS/HR; Start 03/10/19 at 09:00 Albuterol (Ventolin Hfa) 4 puff Q4H RESP THERAPY INH Last administered on 03/19/19 09:42; Admin Dose 4 PUFF; Start 03/11/19 at 01:00 Ipratropium [place] (Atrovent Hfa) 4 puff Q4H RESP THERAPY INH Last adminis tered on 03/19/19 09:42; Admin Dose 4 PUFF; Start 03/11/19 at 01:00 Ciprofloxacin HCl (Ciloxan 0.3% Oph) 1 drop BID BOTH EYES Last administered on 7/12/19at 09:40; Admin Dose 1 DROP; Start 03/15/19 at 09:00; Stop 03/19/19 at 23:00 Acetaminophen (Tylenol Liquid) 650 mg Q4H PRN GTB MILD PAIN(1-3)OR ELEVATED TEMP Last administered on 03/17/19at 12:46; Admin Dose 650 MG; Start 03/15/19 at 04:30 Amikacin Sulfate (Amikacin Iv Per Pharmacy) AMIKACIN PER PHARMACY NOTE XX ; Start 03/16/19 at 12:30 Amikacin Sulfate 1000 mg/Dextrose 254 ml @ 254 mls/hr Q24H IVPB Last administered on 03/18/19at 16:05; Admin Dose 254 MLS/HR; Start 03/17/19 at 16:00 Linezolid (Zyvox) 600 mg BID PO Last administered on 03/19/19at 09:40; Admin Dose 600 MG; Start 03/18/19 at 21:00 Valproate Sodium 500 mg/Sodium Chloride 55 ml @ 51.25 mls/ hr Q8 IVPB ; Start 03/19/19 at 14:00 CRISTIANE MILLARD Mar 19, 2019 11:05
--- NOTE | 2019-03-19 11:41 | CONS ---
Assessment/Plan Assessment/Plan Hospital Course (Demo Recall) No acute changes, all noted, looks comfortable Antimicrobials: Amikacin, Zyvox Indwelling: Trach, PEG, [place] Microbiology: Sputum culture on admission grew Pseudomonas, Morganella, Providencia, Klebsiella, urine cx + yeast Physical examination: Chronically ill-appearing -[place] young man who is in no distress. Patient is noncommunicative. Head atraumatic normocephalic neck is supple tracheostomy present chest rise symmetrical breath sounds diminished bases. Heart: S1-S2. Abdomen soft bowel sounds present. Assessment: 1. Sepsis 2. Bacteremia consistent with contaminant 2. HCAP 3. Loculated pleural effusion s/p CT placed then removed 4. Status epilepticus 5. Chronic encephalopathy status post intracerebral hemorrhage 6. Left hip dislocation ==> no evidence for infection per ortho 7. UTI Plan: Clinically unchanged, appreciated ortho rec-s, add Diflucan, continue abx, pulmonary rec-s Consultation Date/Type/Reason Admit Date/Time Mar 08, 2019 at 04:09 Initial Consult Date Type of Consult id Requesting Provider: TE TURNER NP Date/Time of Note DATE: 03/19/19 TIME: 11:38 Exam/Review of Systems Exam Vitals Vital Signs Date Temp Pulse Resp B/P (MAP) Pulse Ox O2 O2 Flow FiO2 Time Delivery Rate 03/19/19 98.4 102 20 108/75 95 Trach 11:19 (86) Collar 03/19/19 40 09:44 Intake and Output 03/18/19 03/18/19 03/19/19 1515:00 23:00 07:00 IntakeIntake Total 400 ml 2050 ml OutputOutput Total 1000 ml 1500 ml 2550 ml BalanceBalance -600 ml 550 ml -2550 ml Results Result Diagram: 03/19/19 0618 03/19/19 0618 Results 24hrs Laboratory Tests Test 03/18/19 14:44 03/19/19 06:18 Sodium Level 149 H 143 Potassium Level 3.4 L 3.3 L Chloride Level 114 H 107 Carbon Dioxide Level 30 30 Anion Gap 5 6 Blood Urea Nitrogen 15 11 Creatinine 1.32 H 0.81 Est Glomerular Filtrat Rate mL/min > 60 > 60 Glucose Level 101 151 Calcium Level 7.9 L 7.8 L Valproic Acid (Depakene) Level 53 White Blood Count 7.4 # Red Blood Count 3.49 L Hemoglobin 9.3 L Hematocrit 30.9 L Mean Corpuscular Volume 88.5 Mean Corpuscular Hemoglobin 26.6 L Mean Corpuscular Hemoglobin Concent 30.1 L Red Cell Distribution Width 21.4 H Platelet Count 198 # Mean Platelet Volume 11.6 H Immature Granulocytes % 0.400 Neutrophils % 61.8 Lymphocytes % 16.6 Monocytes % 15.0 H Eosinophils % 5.8 Basophils % 0.4 Nucleated Red Blood Cells % 0.0 Immature Granulocytes # 0.030 Neutrophils # 4.6 Lymphocytes # 1.2 Monocytes # 1.1 H Eosinophils # 0.4 Basophils # 0.0 Nucleated Red Blood Cells # 0.0 Medications Medication Current Medications IV Flush (NS 3 ml) 3 ml PER PROTOCOL IV ; Start 03/08/19 at 04:30 Ondansetron HCl (Zofran Inj) 4 mg Q6H PRN IV NAUSEA/VOMITING; Start 03/08/19 at 04:30 Famotidine (Pepcid Iv) 20 mg Q12 IV Last administered on 03/19/19at 09:40; Admin Dose 20 MG; Start 03/08/19 at 09:00 Enoxaparin Sodium (Lovenox) 40 mg DAILY SC Last administered on 03/10/19at 09:54; Admin Dose 40 MG; Start 03/08/19 at 09:00; Status Hold Albuterol (Proventil 0.083% (Neb)) 1.25 mg Q2H RESP THERAPY PRN HHN sob/wheezing; Start 03/08/19 at 13:00 Metronidazole (Flagyl) 500 mg Q8 GTB Last administered on 03/09/19at 05:13; Admin Dose 500 MG; Start 03/08/19 at 14:00; Status Hold Ipratropium [place] (Atrovent 0.02% (Neb)) 0.5 mg Q2H RESP THERAPY PRN NEB SHORTNESS OF BREATH; Start 03/08/19 at 13:00 Cholecalciferol (Vitamin D) 2,000 unit DAILY GTB ; Start 03/09/19 at 09:00; Status Hold Ascorbic Acid (Vitamin C) 500 mg BID GTB Last administered on 03/08/19at 21:27; Admin Dose 500 MG; Start 03/08/19 at 21:00; Status Hold Multivitamins/ Minerals (Theragran-M) 1 tab DAILY GTB ; Start 03/09/19 at 09:00; Status Hold Eye Lubricant (Artificial Tears Oph) 2 drop QID BOTH EYES Last administered on 03/19/19 09:40; Admin Dose 2 DROP; Start 03/08/19 at 17:00 Lorazepam (Ativan) 1 mg Q2H PRN IV seizures Last administered on 03/17/19 15:00; Admin Dose 1 MG; Start 03/09/19 at 09:30 IV Flush (NS 10 ml) 10 ml PRN PRN IV IV PROTOCOL; Start 03/09/19 at 16:30 Levetiracetam 100 ml @ 400 mls/hr Q12 IVPB Last administered on 03/19/19 09:40; Admin Dose 400 MLS/HR; Start 03/10/19 at 09:00 Albuterol (Ventolin Hfa) 4 puff Q4H RESP THERAPY INH Last administered on 03/19/19 09:42; Admin Dose 4 PUFF; Start 03/11/19 at 01:00 Ipratropium [place] (Atrovent Hfa) 4 puff Q4H RESP THERAPY INH Last administered on 03/19/19 09:42; Admin Dose 4 PUFF; Start 03/11/19 at 01:00 Ciprofloxacin HCl (Ciloxan 0.3% Oph) 1 drop BID BOTH EYES Last administered on 03/19/19 09:40; Admin Dose 1 DROP; Start 03/15/19 at 09:00; Stop 03/19/19 at 23:00 Acetaminophen (Tylenol Liquid) 650 mg Q4H PRN GTB MILD PAIN(1-3)OR ELEVATED TEMP Last administered on 03/17/19 12:46; Admin Dose 650 MG; Start 03/15/19 at 04:30 Amikacin Sulfate (Amikacin Iv Per Pharmacy) AMIKACIN PER PHARMACY NOTE XX ; Start 03/16/19 at 12:30 Amikacin Sulfate 1000 mg/Dextrose 254 ml @ 254 mls/hr Q24H IVPB Last administered on 03/18/19 16:05; Admin Dose 254 MLS/HR; Start 03/17/19 at 16:00 Linezolid (Zyvox) 600 mg BID PO Last administered on 7/12/19at 09:40; Admin Dose 600 MG; Start 03/18/19 at 21:00 Valproate Sodium 500 mg/Sodium Chloride 55 ml @ 51.25 mls/ hr Q8 IVPB ; Start 03/19/19 at 14:00 DOMO PERRY NP Mar 19, 2019 11:41
[2019-03-19] MEDS ORDERED: FLUCONAZOLE 100 MG TAB PO SCH (12:00)
[2019-03-19] MEDS ORDERED: VALPROATE INJ 500 MG in SOD CHLORIDE 0.9% 50 ML IVPB SCH (14:00)
[2019-03-19] MEDS: AMIKACIN 1,000 MG in DEXTROSE 5% 250 ML IVPB SCH (14:53)
--- NOTE | 2019-03-19 16:00 | CONS ---
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 Noted to have breakthrough seizures, for which neurology is consulted.. The patient is noted to have a GI ileus..which is a likely contributor to recent enteral medication malabsorption. UA + .... an additional contributor... to a lowered seizure threshold.. Depakote level was near undetectable on presentation.. Head CT is without obvious acute intracranial pathology..though concerning for residual possible avm P: Increase maintenance Depakote to 500 q8 iv for now. Titrate to goal level ~100 Continue maintenance Keppra 1g q12 iv for now Ativan 2mg iv prn prolonged seizure (> 5 min) (as hemodynamics allow) Other management and supportive care per primary Will follow Consultation Date/Type/Reason Admit Date/Time Mar 08, 2019 at 04:09 Type of Consult Neurology Reason for Consultation seizure Requesting Provider: TE TURNER NP Date/Time of Note DATE: 03/19/19 TIME: 16:00 24 HR Interval Summary Free Text/Dictation Continues acute care Exam/Review of Systems Exam Vitals Vital Signs Date Temp Pulse Resp B/P (MAP) Pulse Ox O2 O2 Flow FiO2 Time Delivery Rate 03/19/19 98.9 98 18 112/73 95 Trach 15:05 (86) Collar 03/19/19 40 15:01 Intake and Output 03/18/19 03/18/19 03/19/19 1515:00 23:00 07:00 IntakeIntake Total 400 ml 2050 ml OutputOutput Total 1000 ml 1500 ml 2550 ml BalanceBalance -600 ml 550 ml -2550 ml Results Result Diagram: 03/19/1918 03/19/1918 Results 24hrs Laboratory Tests Test 03/19/19 06:18 White Blood Count 7.4 # Red Blood Count 3.49 L Hemoglobin 9.3 L Hematocrit 30.9 L Mean Corpuscular Volume 88.5 Mean Corpuscular Hemoglobin 26.6 L Mean Corpuscular Hemoglobin Concent 30.1 L Red Cell Distribution Width 21.4 H Platelet Count 198 # Mean Platelet Volume 11.6 H Immature Granulocytes % 0.400 Neutrophils % 61.8 Lymphocytes % 16.6 Monocytes % 15.0 H Eosinophils % 5.8 Basophils % 0.4 Nucleated Red Blood Cells % 0.0 Immature Granulocytes # 0.030 Neutrophils # 4.6 Lymphocytes # 1.2 Monocytes # 1.1 H Eosinophils # 0.4 Basophils # 0.0 Nucleated Red Blood Cells # 0.0 Sodium Level 143 Potassium Level 3.3 L Chloride Level 107 Carbon Dioxide Level 30 Anion Gap 6 Blood Urea Nitrogen 11 Creatinine 0.81 Est Glomerular Filtrat Rate mL/min > 60 Glucose Level 151 Calcium Level 7.8 L Medications Medication Current Medications IV Flush (NS 3 ml) 3 ml PER PROTOCOL IV ; Start 03/08/19 at 04:30 Ondansetron HCl (Zofran Inj) 4 mg Q6H PRN IV NAUSEA/VOMITING; Start 03/08/19 at 04:30 Famotidine (Pepcid Iv) 20 mg Q12 IV Last administered on 03/19/19at 09:40; Admin Dose 20 MG; Start 03/08/19 at 09:00 Enoxaparin Sodium (Lovenox) 40 mg DAILY SC Last administered on 03/10/19at 09:54; Admin Dose 40 MG; Start 03/08/19 at 09:00; Status Hold Albuterol (Proventil 0.083% (Neb)) 1.25 mg Q2H RESP THERAPY PRN HHN sob/wheezing; Start 03/08/19 at 13:00 Metronidazole (Flagyl) 500 mg Q8 GTB Last administered on 03/09/19at 05:13; Admin Dose 500 MG; Start 03/08/19 at 14:00; Status Hold Ipratropium [place] (Atrovent 0.02% (Neb)) 0.5 mg Q2H RESP THERAPY PRN NEB SH ORTNESS OF BREATH; Start 03/08/19 at 13:00 Cholecalciferol (Vitamin D) 2,000 unit DAILY GTB ; Start 03/09/19 at 09:00; Status Hold Ascorbic Acid (Vitamin C) 500 mg BID GTB Last administered on 03/08/19at 21:27; Admin Dose 500 MG; Start 03/08/19 at 21:00; Status Hold Multivitamins/ Minerals (Theragran-M) 1 tab DAILY GTB ; Start 03/09/19 at 09:00; Status Hold Eye Lubricant (Artificial Tears Oph) 2 drop QID BOTH EYES Last administered on 03/19/19 13:08; Admin Dose 2 DROP; Start 03/08/19 at 17:00 Lorazepam (Ativan) 1 mg Q2H PRN IV seizures Last administered on 03/17/19 15:00; Admin Dose 1 MG; Start 03/09/19 at 09:30 IV Flush (NS 10 ml) 10 ml PRN PRN IV IV PROTOCOL; Start 03/09/19 at 16:30 Levetiracetam 100 ml @ 400 mls/hr Q12 IVPB Last administered on 03/19/19 09:40; Admin Dose 400 MLS/HR; Start 03/10/19 at 09:00 Albuterol (Ventolin Hfa) 4 puff Q4H RESP THERAPY INH Last administered on 13:00; Admin Dose 4 PUFF; Start 03/11/19 at 01:00 Ipratropium [place] (Atrovent Hfa) 4 puff Q4H RESP THERAPY INH Last administered on 03/19/19 13:00; Admin Dose 4 PUFF; Start 03/11/19 at 01:00 Ciprofloxacin HCl (Ciloxan 0.3% Oph) 1 drop BID BOTH EYES Last administered on 03/19/19 09:40; Admin Dose 1 DROP; Start 03/15/19 at 09:00; Stop 03/19/19 at 23:00 Acetaminophen (Tylenol Liquid) 650 mg Q4H PRN GTB MILD PAIN(1-3)OR ELEVATED TEMP Last administered on 03/17/19 12:46; Admin Dose 650 MG; Start 03/15/19 at 04:30 Amikacin Sulfate (Amikacin Iv Per Pharmacy) AMIKACIN PER PHARMACY NOTE XX ; Start 03/16/19 at 12:30 Amikacin Sulfate 1000 mg/Dextrose 254 ml @ 254 mls/hr Q24H IVPB Last ad ministered on 03/19/19 14:53; Admin Dose 254 MLS/HR; Start 03/17/19 at 16:00 Linezolid (Zyvox) 600 mg BID PO Last administered on 03/19/19 09:40; Admin Dose 600 MG; Start 03/18/19 at 21:00 Valproate Sodium 500 mg/Sodium Chloride 55 ml @ 51.25 mls/ hr Q8 IVPB Last administered on 03/19/19at 14:08; Admin Dose 51.25 MLS/HR; Start 03/19/19 at 14:00 Fluconazole (Diflucan) 100 mg DAILY PO Last administered on 03/19/19at 13:09; Admin Dose 100 MG; Start 03/19/19 at 12:00 SUSAN ANTHONY Mar 19, 2019 16:00
--- NOTE | 2019-03-19 16:30 | DS ---
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 He was started on broad-spectrum antibiotics. Imaging was notable for complete whiteout of the right lung. There is minimal pleural fluid available and no thoracentesis was performed. Bronchoscopy was performed to evaluate for endobronchial lesion but there was none found. He was continued on mechanical ventilation and IV antibiotics with normal oxygenation but continued opacification of his right lung. He was also found to have a dislocated hip on CT imaging. Orthopedics was consulted who recommended conservative management in accordance with the patient's goals of care. The patient also suffered from hyponatremia which was corrected with free water. He was also found to have an CHACHA which resolved with isotonic fluids. He was given antiepileptic drugs per neurology consultation. The patient will now be discharged back to his alf to complete his course of antibiotics Home Meds No Active Prescriptions or Reported Meds Primary Care Provider Not On Staff Doctor Pending Labs Laboratory Tests Test 03/19/19 06:18 White Blood Count 7.4 10^3/ul (4.8-10.8) Red Blood Count 3.49 10^6/ul (4.70-6.10) Hemoglobin 9.3 g/dl (14.0-18.0) Hematocrit 30.9 % (42.0-52.0) Mean Corpuscular Volume 88.5 fl (82.0-101.0) Mean Corpuscular Hemoglobin 26.6 pg (29.0-33.0) Mean Corpuscular Hemoglobin Concent 30.1 g/dl (32.0-37.0) Red Cell Distribution Width 21.4 % (11.5-14.5) Platelet Count 198 10^3/UL (140-415) Mean Platelet Volume 11.6 fl (7.4-10.4) Immature Granulocytes % 0.400 % (0.001-0.429) Neutrophils % 61.8 % (39.0-77.0) Lymphocytes % 16.6 % (15.0-51.0) Monocytes % 15.0 % (0.0-11.0) Eosinophils % 5.8 % (0.0-7.0) Basophils % 0.4 % (0.0-2.0) Nucleated Red Blood Cells % 0.0 /100WBC (0.0-0.0) Immature Granulocytes # 0.030 10^3/ul (0.0-0.031) Neutrophils # 4.6 10^3/ul (1.6-7.5) Lymphocytes # 1.2 10^3/ul (0.8-2.9) Monocytes # 1.1 10^3/ul (0.3-0.9) Eosinophils # 0.4 10^3/ul (0.0-0.5) Basophils # 0.0 10^3/ul (0.0-0.1) Nucleated Red Blood Cells # 0.0 10^3/ul (0.0-0.0) Sodium Level 143 mmol/L (135-144) Potassium Level 3.3 mmol/L (3.5-5.1) Chloride Level 107 mmol/L (97-110) Carbon Dioxide Level 30 mmol/L (21-31) Anion Gap 6 (5-13) Blood Urea Nitrogen 11 mg/dl (7-20) Creatinine 0.81 mg/dl (0.61-1.24) Est Glomerular Filtrat Rate mL/min > 60 mL/min (>60) Glucose Level 151 mg/dl (70-220) Calcium Level 7.8 mg/dl (8.4-10.2) ORI JEROME MD Mar 19, 2019 16:30
== END 2019-03-19 17:25 | DRG 870 ==
LOC: E/R 02:38 → TEL 04:09 → ICU 15:21 → TEL 03-17 19:55
PROVIDERS: ADMIT Family Medicine; ATTEND Internal Medicine
PROC: 5A1955Z Respiratory Ventilation, Greater than 96 Consecutive Hours (ICD-10-PCS; 2019-03-08)
PROC: 02HV33Z Insertion of Infusion Device into Superior Vena Cava, Percutaneous Approach (ICD-10-PCS; principal; 2019-03-09)
PROC: 30233N1 Transfusion of Nonautologous Red Blood Cells into Peripheral Vein, Percutaneous Approach (ICD-10-PCS; 2019-03-11)
PROC: 0W9930Z Drainage of Right Pleural Cavity with Drainage Device, Percutaneous Approach (ICD-10-PCS; 2019-03-12)
PROC: 0BJ08ZZ Inspection of Tracheobronchial Tree, Via Natural or Artificial Opening Endoscopic (ICD-10-PCS; 2019-03-16)
DX: A41.9 Sepsis, unspecified organism (principal); J96.21 Acute and chronic respiratory failure with hypoxia; J18.9 Pneumonia, unspecified organism; L89.893 Pressure ulcer of other site, stage 3; Z99.11 Dependence on respirator [ventilator] status; N39.0 Urinary tract infection, site not specified; G93.49 Other encephalopathy; J90 Pleural effusion, not elsewhere classified; K56.7 Ileus, unspecified; E87.0 Hyperosmolality and hypernatremia; N17.9 Acute kidney failure, unspecified; R13.10 Dysphagia, unspecified; I10 Essential (primary) hypertension; E86.0 Dehydration; R19.7 Diarrhea, unspecified; I69.198 Other sequelae of nontraumatic intracerebral hemorrhage; M24.452 Recurrent dislocation, left hip; L89.329 Pressure ulcer of left buttock, unspecified stage; D64.9 Anemia, unspecified; Z93.0 Tracheostomy status
CPT/HCPCS: 36415; 36430; 36569; 36600; 70450; 71045; 71250; 72170; 73500; 74018; 74176; 76604; 76937; 80048; 80053; 80061; 80150; 80164; 80202; 81001; 82803; 83036; 83605; 83690; 83735; 84100; 84443; 84484; 85018; 85025; 85049; 85610; 85670; 85730; 86140; 86850; 86900; 86901; 86920; 87045; 87070; 87075; 87081; 87086; 93005; 93306; 94002; 94003; 94640; 94664; 94668; 95819; 96374; J0278; J0456; J0692; J1650; J1953; J2060; J2250; J2543; J3370; J3480; J7030; J7050; J7070; J7120; P9016